=== PATIENT | female | born 1935 | race Caucasian/White ===

== ENCOUNTER 2017-03-29 11:42 | Inpatient (IN) ==
[2017-03-29 12:55] LABS: BASO% 0.2 % (0.0-0.8); EOS# 0.03 X1000 (0.0-0.7); EOS% 0.2 % (0.0-10.0); HEMATOCRIT 40.3 % (37.0-47.0); HEMOGLOBIN 13.8 g/dL (12.0-16.0); IMM GRAN# 0.04 X1000 (0.0-0.04); IMM GRAN% 0.3 % (0.0-0.5); LYMPH# 0.71 X1000 (1.2-3.4); LYMPH% 5.5 % (20.5-51.1); MANUAL DIFF NEEDED? NO; MCH 31.4 PG (27-31); MCHC 34.2 g/dL (33-37); MCV 91.8 FL (81-99); MONO# 0.99 X1000 (0.11-0.59); MONO% 7.7 % (1.7-9.3); MPV 12.6 FL (7.4-10.4); NEUT% 86.1 % (42.2-75.2); PLT 152 X1000 (130-400); RBC 4.39 XMIL (4.2-5.4)
[2017-03-29 13:00] LABS: ALBUMIN 3.9 g/dL (3.5-5.0); CALCIUM 8.9 mg/dL (8.8-10.2); POTASSIUM 3.3 mmol/L (3.5-5.1); TOTAL BILIRUBIN 1.97 mg/dL (0.20-1.00); TOTAL PROTEIN 7.1 g/dL (6.3-8.3)
--- NOTE | 2017-03-29 14:17 | PROVIDER DOCUMENTATION ---
This chart was entered by Donny Ortiz Scribe, acting as scribe for Sandip Macedo MD. HPI-General Adult - General Chief Complaint: Weakness Stated Complaint: WEAKNESS Time Seen by Provider: 03/29/17 11:46 Source: patient, family Allergies/Adverse Reactions: Patient Allergies Allergy/AdvReac Type Severity Reaction Status Date / Time No Known Allergies Allergy Verified 03/29/17 12:18 Home Medications: Home Medication List Medication Instructions Recorded Confirmed Last Taken Type Aripiprazole [Abilify] 2 mg PO DAILY 08/18/12 03/29/17 03/29/17 08:00 History Chlorthalidone 12.5 mg PO DAILY 08/18/12 03/29/17 03/29/17 08:00 History Gabapentin [Neurontin] 300 mg PO TID 08/18/12 03/29/17 03/29/17 08:00 History Hydrocodone/Acetaminophen [Lortab 7.5 mg PO TID 08/18/12 03/29/17 03/29/17 08: 00 History 7.5-500 Tablet] Metoprolol Succinate E.r. [Toprol 50 mg PO BID 08/18/12 03/29/17 03/29/17 08:00 History Xl] Ranitidine [Zantac] 150 mg PO DAILY 08/18/12 03/29/17 03/29/17 08:00 History Lorazepam [Ativan] 0.5 mg PO DAILY 10/27/16 03/29/17 03/29/17 08:00 History Mirtazapine [Remeron] 15 mg PO QHS 10/27/16 03/29/17 03/28/17 20:00 History Potassium Chloride E.r. [Micro-K] 10 meq PO DAILY 10/27/16 03/29/17 03/29/17 08: 00 History Quetiapine Fumarate [Quetiapine 0.5 - 1 tab PO HS 03/29/17 03/29/17 03/28/17 20: 00 History Fumarate] - History of Present Illness -Gen Adult Nature of Presenting Problems: PT DAUGHTER STATED "MY MOTHER IS USUALLY ABLE TO WALK WITHOUT ASSISTANCE TO THE BATHROOM AND KITCHEN TABLE BUT SHE DOES STAY IN THE BED FOR MOST OF THE TIME EVERYDAY,BUT TODAY SHE WAS UNABLE TO STAND OR WALK TODAY". Location of Pain/Injury: reports: generalized Pain Radiation: reports: no radiation Quality of Pain: reports: aching (HX OF CHRONIC PAIN) Severity: reports: mild Onset/Duration: reports: just prior to arrival Timing: reports: still present Context/Activities at Onset: reports: none Modifying Factors: improves with: nothing Associated Symptoms: reports: denies symptoms. denies: chest pain, cough, diaphoresis, shortness of breath Similar Symptoms Previously?: Yes Recently seen or treated by another doctor?: Yes (PT WAS SEEN BY DR.LNDSEY MURRY HER PCP 2 DAYS AGO.) Review of Systems - Adult - REVIEW OF SYSTEMS - ADULT Constitutional: denies: chills, fever, night sweats Eyes: denies: discharge, decreased vision, double vision Ears, Nose, Mouth & Throat: denies: ear pain, sinus problem, mouth/dental pain, throat pain, throat swelling Cardiovascular: denies: chest pain, irregular heart rate, palpitations Respiratory: denies: cough, shortness of breath, wheezing Gastrointestinal: denies: abdominal pain, diarrhea, nausea, vomiting Genitourinary: denies: dysuria, flank pain, hematuria, urinary retention, urgency Musculoskeletal: reports: other (PT HAS HX OF CHRONIC PAIN) Integumentary: denies: hives, itching, rash Neurological: denies: dizziness/vertigo, headache/migraines, seizure, syncope All Other Systems: Reviewed and Negative Past History - Adult - PAST MEDICAL HISTORY-ADULT Review of Records: reports: Nursing Assessment Review, Medications Reviewed Major Childhood Illnesses: reports: denies history Cardiovascular: reports: HTN, hyperlipidemia Psychiatric: reports: anxiety Other Conditions: reports: cataract/glaucoma, other (HERNIA) - PRIOR SURGERIES/PROCEDURES Surgical/Procedure History: reports: orthopedic (extremity), other (CATARACT) - IMMUNIZATION STATUS Childhood Immunizations: See Nurse Assessment Flu Vaccine: See Nurse Assessment - SOCIAL HISTORY Smoking: denies Substance Use: none/never Alcohol Use Frequency: never Living Situation: family Physical Exam-General - CONSTITUTIONAL General Appearance: alert, no apparent distress, slow to respond - EYES Eyes: PERRL/EOMI, pink conjunctivae - HEAD, EARS, NOSE, MOUTH & THROAT HENMT: normocephalic/atraumatic, moist mucous membranes, normal ENT inspection - NECK Neck: non-tender, full range of motion, supple, normal inspection - RESPIRATORY Respiratory: chest non-tender, lungs clear, normal breath sounds, no pleuratic chest pain, no respiratory distress, no accessory muscle use - CARDIOVASCULAR Cardiovascular: normal peripheral pulses, regular rate, rhythm, no edema, no gallop, no JVD, no murmur - GASTROINTESTINAL (ABDOMEN) Abdominal Exam: normal bowel sounds, non tender, soft, no organomegaly, no pulsatile mass - LYMPHATIC Lymphatic: no adenopathy - MUSCULOSKELETAL Back Exam: normal inspection, no CVA tenderness, no vertebral tenderness Extremity: normal range of motion, non-tender, normal gait, normal inspection, no pedal edema, no calf tenderness, normal capillary refill - SKIN Integumentary: normal color, normal turgor, warm/dry - PSYCHIATRIC Psych/Mental Status: normal mood/affect, normal thought content, normal thought process, oriented x 3 Progress - PLAN OF CARE/RESULTS Progress/Plan/Lab Results: Vital Signs - 8 hr 03/29/17 11:56 Temperature 98.5 F Pulse Rate 103 H Respiratory Rate 29 H Blood Pressure 137/89 O2 Sat by Pulse Oximetry 91 L Orders Category Date Time Status Shoulder Immobilizer DIRECTED Care 03/29/17 12:40 Active CHEST-PORTABLE [RAD] Stat Exams 03/29/17 12:07 Taken CBC WITH ELECTRONIC DIFF [HEME] Stat Lab 03/29/17 12:30 Results COMPREHENSIVE METABOLIC PANEL [CHEM] Stat Lab 03/29/17 12:30 Received TSH Stat Lab 03/29/17 12:30 Received UA NIMS W/REFLEX CULT [URINALYSIS] Stat Lab 03/29/17 12:06 Uncollected Result Diagrams: 03/29/17 12:30 03/29/17 12:30 - REASSESSMENT Reassessment #1 Status: unchanged Reassessment Comment: very abn LFT's - discussed with Dr Alexandre who recommends admission - EKG 1 Time of EKG reading by physician:: 11:43 EKG Read and Signed by:: Allie Poe Rate: 103 Rhythm: SINUS TACHYCARDIA WIT PAC'S [place]: normal QRS: normal [place] Interval: normal ST Wave: normal - CONSULTS/PCP/HOSPITALIST Notification #1 *Consult/PCP/Hospitalist*: Dr Payne Time Discussed: 14:15 Departure - Departure Time of Disposition Decision: 14:16 DIAGNOSIS: Hepatitis Disposition: ADMITTED INPATIENT 09 Certified Medical Emergency: Emergent Condition: Fair Referrals and Follow-Ups: Berenice Murry [Primary Care Provider] - - Critical Care Note This patient required my direct & personal management of CC.: No This chart was documented by the indicated scribe, (Donny Ortiz Scribe) and accurately reflects the services I performed and decisions made by me, Sandip Macedo MD, as attested by the provider's signature.
[2017-03-29 14:28] LABS: INR 1.08; PROTIME 11.4 Seconds (9.2-11.7)
[2017-03-29 14:37] LABS: HEMOGLOBIN A1C 5.4 % (4.8-6.0)
[2017-03-29 14:56] LABS: URINE MICRO REVIEW NEEDED? NO; URINE SOURCE CATH
[2017-03-29 15:01] LABS: BILIRUBIN URINE MODERATE (NEGATIVE); BLOOD URINE NEGATIVE (NEGATIVE); COLOR YELLOW; GLUCOSE URINE NEGATIVE (NEGATIVE); LEUKOCYTES URINE SMALL (NEGATIVE); NITRITE URINE NEGATIVE (NEGATIVE); PROTEIN URINE 50 mg/dL (NEGATIVE); SP GRAVITY URINE 1.035; TURBIDITY URINE CLEAR (CLEAR); UROBILINOGEN URINE >12 mg/dL (NORMAL)
[2017-03-29 15:03] LABS: UR EPITHELIAL CELLS <10 /HPF (<10); URINE BACTERIA NEGATIVE /HPF; URINE CULTURE NEEDED? YES; URINE RBC <10 /HPF (<10); URINE WBC <10 /HPF (<10)
[2017-03-29 16:10] LABS: AMYLASE 54 U/L (20-200); LIPASE 16 U/L (13-60)
[2017-03-29] MEDS ORDERED: BLISTEX MEDICATED BERRY LIP BALM TOP ONE (16:19)
[2017-03-29 17:24] LABS: ALBUMIN 3.7 g/dL (3.5-5.0); DIRECT BILIRUBIN 0.9 mg/dL (0.00-0.20); LDH 318 U/L (135-214); TOTAL BILIRUBIN 1.66 mg/dL (0.20-1.00); TOTAL PROTEIN 6.2 g/dL (6.3-8.3)
[2017-03-29] MEDS ORDERED: ZOFRAN IV PRN (17:46)
[2017-03-29 18:15] LABS: ALLEN TEST NO; BE 4.4 mmoll (-3.0-3.0); BLOOD TYPE ARTERIAL; DRAW SITE R BRACHIAL; METHB 1.5 % (0.0-1.5); MODALITY CANNULA; O2(CT) 17.8 mL/dL (15.0-23.0); PCO2(98.6) 32 mmHg (35-45); PO2(98.6) 55 mmHg (60-100); SAMPLE BLOOD; SAO2 94.8 % (95.0-100.0); THB 13.9 g/dL (11.5-17.4); pH(98.6) 7.53 (7.35-7.45)
[2017-03-29] MEDS ORDERED: NS NEB INH SCH (18:15)
[2017-03-29] MEDS ORDERED: LOVENOX SUBQ SCH (18:18)
--- NOTE | 2017-03-29 18:28 | Diag Imaging Result Document ---
PROCEDURE NAME: CHEST-PORTABLE - 03/29/2017 PORTABLE CHEST: COMPARISON: 09/24/2016. FINDINGS: Inspiration is shallow. There is atelectasis at the bilateral lung bases, most prominent on the left. The remainder of the lungs appear grossly clear of acute changes. There is no substantial pleural effusion or pneumothorax identified. There is apparent cardiomegaly. IMPRESSION: Shallow inspiration with bibasilar atelectasis. Apparent cardiomegaly.
[2017-03-29] MEDS: NEURONTIN PO SCH (18:31)
[2017-03-29] MEDS: NS 1,000 ML IV SCH ×2 (18:31→23:36)
[2017-03-29] MEDS: XOPENEX NEB INH SCH ×2 (18:32→22:45)
[2017-03-29] MEDS: PROTONIX IV SCH (18:34)
--- NOTE | 2017-03-29 19:02 | HISTORY AND PHYSICAL ---
PRIMARY CARE PROVIDER: Sanam Murry. CHIEF COMPLAINT: Weakness for 2 weeks. HISTORY OF PRESENT ILLNESS: Ms Naima Carson is a 81-year-old female with a history of fibromyalgia, anxiety, depression, syncopal episodes with implantable loop recorder states that for the last 2 weeks she has felt weak, just generalized weakness. She has associated chills, nausea, some vomiting. She states she has bowel movements about once every 2 days and she also states that last night she had bilateral upper quadrant pain that subsided after taking hydrocodone. She decided she needed medical assistance when she tried to get up this morning she felt like her knees were going to buckle underneath her. Lab work revealed that she does have elevated liver enzymes. Bilirubin is elevated at 1.97, AST is 508, ALT is 297. Urine showed that she had moderate amount of bilirubin in it. She also has elevated white blood cell count at 12,000 but she is afebrile. Chest x-ray has been obtained but not read yet. She is currently having a abdominal ultrasound performed. Will admit to the medical floor. Consult Dr. Alexandre for the patient's elevated liver enzymes. Will order physical therapy for weakness. PAST MEDICAL HISTORY: Hypertension, dyslipidemia, fibromyalgia, anxiety, depression and syncope of unknown origin status post loop recorder in place. SURGICAL HISTORY: Loop recorder, cataract surgery. SOCIAL HISTORY: Denies tobacco, alcohol or illicit drug use. Lives at home with her . States she is able to ambulate without difficulty prior to the last 2 weeks. FAMILY HISTORY: Mother and father both had congestive heart failure. REVIEW OF SYSTEMS: Fourteen point review of systems were complete and all were negative except for those mentioned above HPI. LABORATORY DATA: White blood cells 12,000, hemoglobin 13, hematocrit 40, platelet count 152,000. INR 1.08, sodium 137, potassium 3.3, BUN 21, creatinine is 1.2, glucose 124, hemoglobin A1c is 5.4, total bilirubin is 1.97, AST 508, ALT 297, alkaline phosphatase is 161, TSH is 0.52. Urinalysis 50 protein, moderate bilirubin, greater than 12 urobilinogen and small leukocytes, otherwise negative. IMAGING: Chest x-ray is not resulted and abdominal ultrasound is not resulted. PHYSICAL EXAMINATION: VITAL SIGNS: Temperature is 98.5 degrees, heart rate 97, respiratory rate 22, blood pressure 119/64, O2 saturation 91% on room air. GENERAL: Ms. Carson is an 81-year-old ill-appearing female. She is in no acute distress, is able to answer questions appropriately. HEENT: Atraumatic, normocephalic. Pupils equal, round, reactive to light. Extraocular movements intact. Mucous membranes are very dry. NECK: No JVD or carotid bruits noted. CARDIOVASCULAR: S1, S2. Regular rate and rhythm. No rubs, gallops, murmurs. PULMONARY: Clear to auscultate with bilateral breath sounds but decreased in both bases anterior posteriorly currently on room air but will be placed on nasal cannula secondary to saturations of 89-90%. No accessory muscle use or work of breathing noted. GI: Soft, nontender, nondistended. Positive bowel sounds x4. EXTREMITIES: Trace edema lower extremities, +1 dorsalis pedal pulses, +2 radial pulses. SKIN: Warm, dry, intact. NEUROLOGIC: A and O x3. Moved all extremities equally except for the lower extremities were about a 4/5 in strength. Sensation was intact. ASSESSMENT AND PLAN: 1. Generalized weakness. Will order physical therapy and monitor daily labs, is questionable whether this is secondary to her liver enzymes elevate. 2. Transaminitis, hyperbilirubinemia, is unclear as to what is this cause, she has had some abdominal pain right and left upper quadrant that was last night. She had some nausea and some vomiting but she states none today. She has had orange colored urine and she states that all started about within the last [address] Alexandre has been consulted and her abdominal ultrasound being performed at the bedside at this moment. Hepatitis profile been ordered, amylase, lipase will be ordered, IV fluid hydration. 3. Hypertension. Will continue home medications. 4. Dyslipidemia, hold any statins given this can possibly cause weakness and due to the fact that she has elevated liver enzymes. 5. Anxiety, depression. Continue home medications. 6. Fibromyalgia, continue home pain regimen. Dictated by LAYO Chilel for Nanci Muro MD cc: LAYO Chilel MD
--- NOTE | 2017-03-29 19:13 | Diag Imaging Result Document ---
PROCEDURE NAME: US ABDOMEN-COMPLETE - 03/29/2017 ULTRASOUND ABDOMEN: FINDINGS: The gallbladder is mildly distended. There are artifacts over the gallbladder which limit detail. There are no discrete gallstones identified. The gallbladder short do not appear substantially thickened, and there is no pericholecystic fluid identified. The technologist reports negative sonographic Enriquez's sign. The common bile duct is normal caliber at 4 mm. There are artifacts from bowel gas and/or body habitus which limit detail of the liver. There is no liver lesion identified. The spleen is unremarkable. There is no ascites seen. The bilateral kidneys are grossly unremarkable. There is no hydronephrosis. The pancreas, abdominal aorta, and IVC are obscured by bowel gas artifacts. IMPRESSION: 1. Mildly distended gallbladder. No gallstones identified. No substantial gallbladder wall thickening. Normal caliber common bile duct at 4 mm. 2. Artifacts over the liver which limit detail. No visible liver lesion. No other visible abnormality.
--- NOTE | 2017-03-29 21:01 | CONSULTATION ---
DATE OF CONSULTATION: 03/29/2017 REFERRING PHYSICIAN: Nanci Muro M.D. PRIMARY CARE PHYSICIAN: Sanam Murry M.D. INDICATION FOR CONSULTATION: 1. Elevated liver function tests. 2. Nausea with vomiting. 3. Abdominal pain. HISTORY OF PRESENT ILLNESS: The patient is an 81-year-old white female who states that she was in her usual state of health until approximately 2-3 weeks ago. She reports the onset of upper back pain that radiated into her lower back, pelvis and then into her legs bilaterally. She states that she was evaluated by a chiropractor who placed her on an oily droplet to be taken under the tongue once a day. Over the next 2 weeks, she reports that she has felt progressively worse. Approximately 24 hours prior to admission, she had the severe onset of epigastric and right upper quadrant pain associated with nausea and sour brash without complete regurgitation. She felt so ill that she was unable to get out of bed or to stand without assistance. She was brought by her family to the emergency room and found to have markedly elevated liver function tests. She reports shortness of breath, pain in her chest, upper stomach, low back and into her hips. She has a longstanding history of fibromyalgia but states that this pain is new and different. We are asked to participate in her care. From a GI perspective, her chart documents that she also has a history of gastroesophageal reflux disease, delayed gastric emptying on modified barium swallow, hiatal hernia, and is status post surgical repair of a paraesophageal hernia with a Shanique repair that was performed. PAST MEDICAL HISTORY: 1. Bilateral leg edema. 2. Hypertension. 3. Hyperlipidemia. 4. Chronic chest discomfort. 5. Syncope in August 2012 with a negative MRI for acute disease. She did have nonspecific white matter disease. 6. Dyspnea with abnormal PFTs in 2012. 7. 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 8. Chronic fatigue. 9. Fibromyalgia. 10. Chronic pain syndrome. 11. GERD. 12. Possible gastroparesis on a modified barium swallow study. 13. Depression. 14. Recurrent chronic headaches. 15. Hyperlipidemia. 16. Chronic kidney disease. PAST SURGICAL HISTORY: 1. Knee surgery in 1989. 2. Shanique gastroplasty in March 2013. SOCIAL HISTORY: Negative for alcohol, tobacco or recreational drug use. FAMILY HISTORY: Positive for severe coronary artery disease. MEDICATION ALLERGIES: None. HOME MEDICATIONS: 1. Zantac 150 mg daily. 2. Quetiapine. 3. Potassium chloride. 4. Remeron. 5. Toprol. 6. Ativan. 7. Lortab 7. 8. Neurontin. 9. Chlorthalidone. 10. Abilify. 11. Oil droplets administered by her chiropractor. PHYSICAL EXAM: General: She is tachypneic in mild expiratory distress. She is moaning in pain whenever she is moved. Vital signs: Her blood pressure is 134/60, pulse is 99, respiration 18, temperature of 99.6 degrees. Her initial oxygen saturation was 85% on room air. We had the patient take multiple deep breaths and her oxygen saturation improved to 98%. After being placed on 2 L of oxygen, her oxygen saturation dropped down to 94% where it remains stable. HEENT: Negative for jaundice. Her conjunctivae appeared normal. Her oropharyngeal mucosal membranes appear dry. Lungs: Are clear to auscultation with normal respiratory effort. Cardiovascular Examination: Reveals regular rate and rhythm with no murmurs, gallops, or rubs. Abdominal Exam: Reveals normoactive bowel sounds. The abdomen is soft with mild tenderness along the edge of her ribs bilaterally. There is minimal epigastric tenderness but no rebound or guarding. Extremities: Bilaterally are negative for cyanosis, clubbing, or edema. OBJECTIVE DATA: Reveals a hemoglobin of 13.8 with hematocrit of 40.3 and a white count of 12.84 with 152,000 platelets. Her PT is 11.4 with an INR of 1.08. Her blood gas reveals a pH of 7.53 with a pCO2 of 32 and a PO2 of 55 on 2 L oxygen. On admission her sodium was 137, potassium 3.3, chloride 98, CO2 27, BUN 21, creatinine 1.2 with a glucose of 124. Calcium is 8.9 with a total bilirubin 1.97, AST 508, ALT 297, alkaline phosphatase 161, total protein 7.1 and albumin 3.9. Her amylase is 54 with a lipase of 16. Repeat liver function tests at 1530 showed that the total bilirubin is decreased to 1.66. Her direct bilirubin 0.90. Her AST is decreased to 398, her ALT is decreased to 261 and her alkaline phosphatase is decreased to 150. Her total protein is 6.2 with an albumin of 3.7. Her CRP is elevated at 58.25. IMPRESSION: 1. Nausea with possible early vomiting. 2. Elevated liver function tests. 3. Acute upper abdominal pain prior to the onset of symptoms. 4. Chronic reflux disease. 5. Possible gastroparesis on swallow study. 6. History of a paraesophageal hernia. 7. Dyspnea. 8. Back pain. RECOMMENDATION: 1. From a GI perspective, her liver function tests are improving. I suspect that she may be passing stones or sludge that would account for her elevated liver function tests and nausea with regurgitation/early vomiting. It would also explain her epigastric pain and the bilateral rib pain. 2. Other diagnoses to consider include ulcer disease, medication side effect toxicity, autoimmune liver disease and viral hepatitis. I agree with the tests that have been ordered to explain this. 3. The patient denies a change in bowel habits but is also reasonable to consider celiac disease in the differential as well as Mitul disease. 4. Please check an abdominal pelvis CT with oral contrast only in light of her chronic kidney disease. She is a poor historian so this will allow us to identify objective features. 5. She has a history of GERD and currently complains of nausea. I would begin Protonix 40 mg IV q.12 hours and hold the H2 receptor antagonist until she is back to baseline. It is reasonable to consider resuming the H2 receptor antagonist for maintenance once the patient has been effectively treated for her nausea. 6. Patient has dyspnea and hypoxia. I would consider checking a V/Q scan as well as an ABG to rule out pulmonary embolus in this patient as she has been sedentary for the last 2 weeks. 7. The family was asked to contact the chiropractor to identify the solution that she has been using for the last 2 weeks. 8. I would repeat a vitamin B12 level as she is receiving supplementation for vitamin B12 deficiency. She has completed the daily injections for 7 days and is currently receiving weekly injections. 9. If her symptoms persist, I would consider endoscopic evaluation. However, at this time I would continue with conservative therapy. 10. Additional recommendations to follow based on her clinical course. cc: Sanam Murry MD MTDD
[2017-03-29] MEDS: TOPROL XL PO SCH (23:41)
[2017-03-29] MEDS: SEROQUEL PO SCH (23:41)
[2017-03-29] MEDS: POTASSIUM CHLORIDE 20 MEQ/SWI 20 MEQ/100 ML IVPB IV SCH (23:41)
[2017-03-29] MEDS: REMERON PO SCH (23:41)
[2017-03-30] MEDS: POTASSIUM CHLORIDE 20 MEQ/SWI 20 MEQ/100 ML IVPB IV SCH (02:15)
[2017-03-30] MEDS: XOPENEX NEB INH SCH ×4 (03:26→23:16)
[2017-03-30] MEDS: SODIUM CHLORIDE 0.9% INJ SCH ×2 (05:38→18:35)
[2017-03-30] MEDS: PROTONIX IV SCH ×2 (05:38→18:35)
--- NOTE | 2017-03-30 06:20 | EKG Report ---
Test Performed on : 03/30/2017 05:25:13 AM Test Reason : chest pain Blood Pressure : / mmHG Vent. Rate : 085 BPM Atrial Rate : 085 BPM P-R Int : 176 ms QRS Dur : 090 ms QT Int : 380 ms P-R-T Axes : 057 015 055 degrees QTc Int : 452 ms Normal sinus rhythm. Normal ECG When compared with ECG of 19-AUG-2012 18:48, Vent. rate has increased BY 32 BPM T wave amplitude has decreased in Anterior leads Confirmed by Erin JACKSON, Wm Pandey ([id number]) on 03/30/2017 7:32:37 AM
[2017-03-30 07:00] LABS: MANUAL DIFF NEEDED? NO
[2017-03-30 07:12] LABS: BASO% 0.4 % (0.0-0.8); EOS# 0.07 X1000 (0.0-0.7); EOS% 0.9 % (0.0-10.0); HEMATOCRIT 37.1 % (37.0-47.0); HEMOGLOBIN 12.3 g/dL (12.0-16.0); LYMPH# 0.78 X1000 (1.2-3.4); LYMPH% 10.5 % (20.5-51.1); MCH 30.9 PG (27-31); MCHC 33.2 g/dL (33-37); MCV 93.2 FL (81-99); MONO# 0.49 X1000 (0.11-0.59); MONO% 6.6 % (1.7-9.3); MPV 12.3 FL (7.4-10.4); NEUT% 81.6 % (42.2-75.2); PLT 110 X1000 (130-400); RBC 3.98 XMIL (4.2-5.4)
[2017-03-30 07:30] LABS: ALBUMIN 2.9 g/dL (3.5-5.0); CALCIUM 8.3 mg/dL (8.8-10.2); POTASSIUM 3.6 mmol/L (3.5-5.1); TOTAL BILIRUBIN 2.06 mg/dL (0.20-1.00); TOTAL PROTEIN 5.9 g/dL (6.3-8.3)
[2017-03-30] MEDS: ROCEPHIN 1 GM/NS 1 GM/50 ML IVPB IV SCH (07:47)
--- NOTE | 2017-03-30 07:52 | Diag Imaging Result Document ---
PROCEDURE NAME: LUNG SCAN / VQ - 03/29/2017 PULMONARY VENTILATION PERFUSION SCAN, 03/30/2017: COMPARISON: Chest CT 03/29/2017. FINDINGS: 38 millicurie of DTPA was used for inhalation. 5.6 mCi of MAA was used for injection. There is no pulmonary perfusion defect. IMPRESSION: Negative for pulmonary embolism.
[2017-03-30 08:01] LABS: INR 1.26; PROTIME 13.4 Seconds (9.2-11.7)
[2017-03-30] MEDS ORDERED: PRILOSEC PO SCH (09:00)
[2017-03-30] MEDS ORDERED: HYGROTON PO SCH (09:00)
[2017-03-30] MEDS ORDERED: ZANTAC PO SCH (09:00)
[2017-03-30] MEDS: ZITHROMAX 500 MG/NS 500 MG/250 ML IVPB IV SCH (09:07)
[2017-03-30] MEDS: ABILIFY PO SCH (09:08)
[2017-03-30] MEDS: KLOR-CON PO SCH (09:08)
[2017-03-30] MEDS: NEURONTIN PO SCH ×3 (09:09→18:33)
[2017-03-30] MEDS: TOPROL XL PO SCH ×2 (09:09→23:17)
[2017-03-30] MEDS: ATIVAN PO SCH (09:12)
--- NOTE | 2017-03-30 09:55 | Diag Imaging Result Document ---
PROCEDURE NAME: THORAX/ABDOMEN/PELVIS W/O CONT - 03/29/2017 CT OF THE CHEST WITHOUT CONTRAST: FINDINGS: There is a large hiatal hernia through which the splenic flexure of the colon, the stomach and the body of the pancreas Herniates. The splenic vein and artery are within the hernia. There is atelectasis and/or pneumonia in the left lower lobe which may largely be due to the compression due to the large hernia. Less severe compressive atelectasis is present in the right base. There is a small azygous lobe. The aorta is not distended. There is extensive coronary calcification. There is no significant pleural fluid. There is some osteopenia in the thoracic spine. There are no acute bony abnormalities. IMPRESSION: Large hiatal hernia as described. Compressive atelectasis +/- fibrosis. CT OF THE ABDOMEN WITH ORAL CONTRAST: FINDINGS: The hiatal hernia is again noted. There are granulomata in the spleen. No evidence of pericholecystic inflammation is present. There is stool throughout the colon. There is no evidence of stones or hydronephrosis in the kidneys. There is oral contrast throughout much of the small bowel. This has apparently almost reached the cecum. CT OF THE PELVIS WITH ORAL CONTRAST: FINDINGS: There is no evidence of appendicitis. There are subcentimeter ileocolic nodes. There is stool throughout the colon. There is diverticulosis in the sigmoid colon without evidence of diverticulitis. There is no evidence of masses or abnormal fluid collections. There is an apparent hemangioma in the right side of the L2 vertebral body. There are some spondylotic changes. IMPRESSION: No evidence of acute intra-abdominal disease. Constipation.
[2017-03-30] MEDS ORDERED: LOVENOX SUBQ SCH (11:30)
[2017-03-30 11:32] LABS: HEPATITIS PROFILE ACUTE SEE COMMENTS
--- NOTE | 2017-03-30 14:25 | PROGRESS NOTE ---
DATE: 03/30/2017 SUBJECTIVE: The patient states that she feels a lot better today. She is sitting at the edge of the bed. She is more awake and alert as per her family. No acute events noted overnight. OBJECTIVE: Vital Signs: Temperature 98.9 degrees, blood pressure 129/66, heart rate 90, respirations 18, O2 saturation is 98% on 2 L nasal cannula. General: This is an elderly female, sitting at the edge of the bed, in no acute distress. Head: Normocephalic, atraumatic. Heart: S1, S2. Normal. Regular rate and rhythm. Lungs: Equal air entry bilaterally. Decreased breath sounds at the left lung base. Abdomen: Positive bowel sounds. Soft, nontender , nondistended. Extremities: No edema. No cyanosis. Neurologic: The patient is alert and oriented x3. LABS: White blood cell count 7.4, hemoglobin 12, hematocrit 37, platelets 110, 000. Sodium 138, potassium 3.6, chloride 100, CO2 24, BUN 23, creatinine 1, glucose 92, total bilirubin 2, AST 175, ALT 165, alkaline phosphatase 117, albumin 2.9, total protein 5.9, vitamin D 6. ASSESSMENT AND PLAN: 1. Left lower lobe pneumonia. We will continue on Rocephin and azithromycin. We will add incentive spirometry. So far the blood cultures are negative. 2. Elevated liver function tests. Slowly improving. The patient's imaging was reviewed and there is nothing acute to explain the patient's elevated LFTs. Will await the results of the serologies. GI is following. 3. Large hiatal hernia. Aware. 4. Leukocytosis. Resolved. 5. Vitamin D deficiency. Will start the patient on vitamin D2. 6. Right lower extremity deep vein thrombosis. We will start the patient on Eliquis. 7. Hypertension. Controlled. 8. Thrombocytopenia. The patient has been exposed to heparin. Will check a HIT antibody. 9. Back pain. The patient is scheduled to undergo an MRI of the thoracic and lumbar spine today. 10. Gastrointestinal prophylaxis. Continue on IV Protonix. 11. The plan of care was discussed with the patient and her family at the bedside and all questions were answered. cc: Nanci Muro MD MTDD
[2017-03-30] MEDS: NS 1,000 ML IV SCH (15:49)
[2017-03-30] MEDS ORDERED: VITAMIN D PO SCH (18:30)
--- NOTE | 2017-03-30 18:37 | PROGRESS NOTE ---
DATE: 03/30/2017 SUBJECTIVE: The patient states that she is significantly better. She continues to improve with IV antibiotics for her pneumonia. Her daughter brought in the herbal supplement that she was taken for pain control. It is Bryonia, which is a alternative medicine supplement for pain. It is associated with significant GI adverse reactions. OBJECTIVE DATA: Remarkable for a blood pressure of 129/66, pulse 87, respiration 19, temperature of 98.9 degrees. OBJECTIVE LABS: Her hemoglobin is 12.3 with hematocrit of 37.1 and white count 7.42 with 110,000 platelets. Her PT 13.4 with an INR 1.26 and a PTT of 31.0. Sodium is 138, potassium 3.6, chloride 100, CO2 24, BUN 23, creatinine 1.0 with a glucose of 92. Calcium is 8.3, magnesium 1.5, total bilirubin 2.06, AST 175, ALT 165, alkaline phosphatase 117, total protein 5.9, albumin 2.9, vitamin B12 596. Her TRAVON was negative. Her vitamin D 25-hydroxy is 6.0. Her hepatitis A, B and C are negative. Her V/Q scan was negative for pulmonary edema. Her CT scan reveals a large ventral hernia that includes the splenic flexure the colon, the entire stomach and the body of the pancreas. RECOMMENDATION: 1. From a hepatitis perspective, the patient has had interval improvement with minimal intervention. I have asked her to avoid any and all herbal supplements in the future as Bryonia has the potential cause adverse GI side effects. I recommend continued monitoring as an outpatient as long as she is continuing to do well. It will be important for us to see her in 2-3 weeks to recheck her liver function test and to ensure she makes a complete recovery. 2. The patient has a large hiatal hernia. Her daughter reports that she had ventral hernia surgery performed by Dr. Chong over in [place]. I do not have previous films for comparison. I have recommended that they contact Dr. Chong upon discharge. I discussed her CT findings with Dr. Niko Jamison in the event that she has acute GI distress. From our perspective, we will continue monitoring. 3. The patient has vitamin D deficiency with a vitamin D level of 6. I recommend that she receive vitamin D 50,000 units twice a week until she returns to clinic. Will recheck the level and consider long-term supplementation in light of her profound deficiency. In the future, she may require an EGD to determine why she has such profound vitamin D deficiency. In addition, I will check a tissue transglutaminase and serum IgA prior to discharge to assess for celiac disease. 4. Will continue to monitor the patient and I recommend continuing supportive care. cc: Nanci Muro MD
[2017-03-30] MEDS: ELIQUIS PO SCH (23:17)
[2017-03-30] MEDS: SEROQUEL PO SCH (23:17)
[2017-03-30] MEDS: REMERON PO SCH (23:17)
[2017-03-31] MEDS: XOPENEX NEB INH SCH ×3 (03:30→15:38)
[2017-03-31] MEDS: NORCO-7.5 PO PRN ×2 (04:00→15:00)
[2017-03-31] MEDS: SODIUM CHLORIDE 0.9% INJ SCH (05:56)
[2017-03-31] MEDS: ROCEPHIN 1 GM/NS 1 GM/50 ML IVPB IV SCH (05:56)
[2017-03-31] MEDS: PROTONIX IV SCH (05:56)
[2017-03-31 06:33] LABS: MANUAL DIFF NEEDED? NO
[2017-03-31 06:57] LABS: BASO% 0.4 % (0.0-0.8); EOS% 1.8 % (0.0-10.0); HEMATOCRIT 36.6 % (37.0-47.0); HEMOGLOBIN 11.8 g/dL (12.0-16.0); LYMPH# 0.55 X1000 (1.2-3.4); LYMPH% 10.1 % (20.5-51.1); MCH 30.3 PG (27-31); MCHC 32.2 g/dL (33-37); MCV 94.1 FL (81-99); MONO# 0.53 X1000 (0.11-0.59); MONO% 9.7 % (1.7-9.3); MPV 12.7 FL (7.4-10.4); PLT 110 X1000 (130-400); RBC 3.89 XMIL (4.2-5.4)
[2017-03-31 07:05] LABS: ALBUMIN 3.2 g/dL (3.5-5.0); CALCIUM 9.3 mg/dL (8.8-10.2); POTASSIUM 3.6 mmol/L (3.5-5.1); TOTAL BILIRUBIN 2.63 mg/dL (0.20-1.00); TOTAL PROTEIN 6.1 g/dL (6.3-8.3)
[2017-03-31] MEDS: NEURONTIN PO SCH ×2 (08:05→15:01)
[2017-03-31] MEDS: KLOR-CON PO SCH (08:05)
[2017-03-31] MEDS: ZITHROMAX 500 MG/NS 500 MG/250 ML IVPB IV SCH (08:05)
[2017-03-31] MEDS: ELIQUIS PO SCH (08:06)
[2017-03-31] MEDS: TOPROL XL PO SCH (08:06)
[2017-03-31] MEDS: ABILIFY PO SCH (08:07)
[2017-03-31 14:08] VITALS: BP 138/70
[2017-03-31] MEDS: ATIVAN PO SCH (15:41)
--- NOTE | 2017-03-31 22:38 | DISCHARGE SUMMARY ---
ADMISSION DATE: 03/29/2017 DISCHARGE DATE: 03/31/2017 CONSULTATIONS: Radha Alexandre MD with Gastroenterology. PERTINENT PROCEDURES: 1. V/Q scan was negative for PE. 2. Chest, abdomen and pelvis CT showed a large hiatal hernia, compressive atelectasis plus or minus fibrosis, no evidence of acute intraabdominal disease, constipation. DISCHARGE DIAGNOSES: 1. Left lower lobe pneumonia. Continue with antibiotics and aggressive pulmonary toilet. Improved. 2. Elevated liver function slowly improving followed by GI, still awaiting serologies. 3. Large hiatal hernia. Aware. Continue PPI. 4. Leukocytosis resolved. 5. Vitamin D deficiency. The patient was initiated on vitamin D2. 6. Right lower extremity DVT. Patient is on Eliquis. 7. Hypertension controlled. 8. Thrombocytopenia. 9. Chronic pain. 10. The patient was to undergo MRI of the thoracic spine as well as lumbar spine. Still awaiting those results. Continue with pain management. Stable. HOSPITAL COURSE: Briefly, Ms Carson is an 81-year-old, female with a history of fibromyalgia, anxiety, depression, syncopal episode with implantable loop recorder, who stated that for the last 2 weeks she has generalized weakness. She has had associated chills, nausea, some vomiting. She states that she has bowel movements about once every 2 days and that the night prior to her admission she had bilateral upper quadrant pain that subsided after taking hydrocodone. She came to the ED. When she got up, it felt like her knees were going to buckle underneath her. Lab work revealed elevated liver enzymes, bilirubin of 1.97, AST of 508, ALT 297. Urine showed a moderate amount of bilirubin in it, elevated white count of 12, 000. Chest x-ray showed shallow inspiration with bibasilar atelectasis and apparent cardiomegaly. A V/Q scan was performed that did not show any pulmonary emboli. Chest, abdomen and pelvis CT showed a large hiatal hernia. No evidence of acute intra-abdominal disease and constipation. Dr. Alexandre was consulted. Her serologies were pending and will follow up in 2-[address] Alexandre to reassess her liver function to ensure that she has made a complete recovery. In reference to her large hiatal hernia, she had surgery with Dr. Chong in [place]. Dr. Alexandre suggested that the patient contact Dr. Chong upon discharge. She did discuss the CT findings with Dr. Jamison. From their perspective they will continue monitoring. The patient was also noted to be vitamin D deficient and started on supplementation for generalized weakness. The patient worked with physical therapy and her statins were held in reference to her elevated liver enzymes. For her fibromyalgia she was kept on her pain regimen as well as medications for her anxiety and depression. Dr. Ramos has assessed the patient. He feels that she is appropriate for discharge today. The patient has had improvement in her liver function slowly. VITAL SIGNS AT DISCHARGE: Temperature is 98.1 degrees, heart rate 75, respirations 16, blood pressure 138/70, O2 is 97%. DISCHARGE DIET: Clear liquids. Advance as tolerated. DISCHARGE MEDICATIONS: 1. Abilify 10 mg p.o. daily. 2. Zithromax 250 mg p.o. daily. 3. Chlorthalidone 12.5 mg p.o. daily. 4. Vitamin D2 50,000 units p.o. q.7 days. 5. Neurontin 300 mg p.o. t.i.d. 6. Lortab 7.5500, 1 tab p.o. t.i.d. 7. Ativan 0.5 mg p.o. daily. 8. Toprol-XL 50 mg p.o. b.i.d. 9. Remeron 15 mg p.o. at bedtime. 10. Micro-K 10 mEq p.o. daily. 11. Quetiapine 25 mg tablet, 0.5-1 tab p.o. at bedtime. 12. Zantac 150 mg p.o. daily. FOLLOWUP: The patient is being discharged home. She will need to follow up with Dr. Chong in [place] in reference to her large hiatal hernia as well as follow up with Dr. Alexandre in 2-3 weeks to continue to monitor her liver enzymes as well as her primary care physician, Dr. Sanam Murry. The patient can return to the ED for any worsening of symptoms. DISCHARGE TIME: 30 minutes.. Dictated by LAYO Escobar for Ayad Ramos MD cc: Ayad Ramos MD [facility]
--- NOTE | 2017-04-01 07:55 | Extremity Venous Study ---
PROCEDURE NAME: Venous U/S Bilateral Legs - 03/30/2017 REQUESTING PHYSICIAN: Dr. Muro. AIRLINE RESERVATIONIST: Jenna. TEST: Bilateral lower extremity venous study. INDICATIONS: Edema of bilateral legs, previous comparison from 08/28/2012. PROCEDURE: Bilateral lower extremity venous duplex and color flow imaging. EQUIPMENT: Dynisid E9 ultrasound system with a 9 LD transducer. FINDINGS: Images of bilateral lower extremity venous systems were obtained in both sagittal and transverse planes. Doppler was used to evaluate veins for spontaneity, phasicity, respiratory excursion, and digital augmentation. RESULTS: Acute nonocclusive deep vein thrombosis in the distal right common femoral vein. There is also reflux noted in the right common femoral vein and right greater saphenous vein. There is also reflux noted in the left greater saphenous vein and popliteal vein. INTERPRETATION: Acute nonocclusive deep vein thrombosis in the distal right common femoral vein with reflux noted in the right common femoral, greater saphenous, left greater saphenous, and left popliteal vein. Per trace evidence technician's note, Dr. Muro was noted at 11:17 on 03/30/2017 with the results. cc: MD Carmela Garcia CRNP
[2017-04-01] MEDS ORDERED: ZITHROMAX PO SCH (09:00)
== END 2017-03-31 17:27 | disposition home or self-care (01) ==
LOC: SUPCPDRO → ED 11:42 → SUATTDRO 16:33 → 3N 16:33
PROVIDERS: ATTEND Internal Medicine

== ENCOUNTER 2018-12-08 05:04 | Inpatient (IN) ==
--- NOTE | 2018-12-08 05:41 | PROVIDER DOCUMENTATION ---
HPI-Fever - General Chief Complaint: Weakness Stated Complaint: a-fib Time Seen by Provider: 12/08/18 05:26 Source: patient Allergies/Adverse Reactions: Patient Allergies Allergy/AdvReac Type Severity Reaction Status Date / Time No Known Allergies Allergy Verified 07/07/18 15:02 Home Medications: Home Medication List Medication Instructions Recorded Confirmed Last Taken Type Aripiprazole [Abilify] 2 mg PO DAILY 08/18/12 12/08/18 07/06/18 History Gabapentin [Neurontin] 300 mg PO TID 08/18/12 12/08/18 07/06/18 History Hydrocodone/Acetaminophen [Lortab 7.5 mg PO TID 08/18/12 12/08/18 07/06/18 History 7.5-500 Tablet] Metoprolol Succinate E.r. [Toprol 50 mg PO BID 08/18/12 12/08/18 07/07/18 History Xl] Mirtazapine [Remeron] 15 mg PO QHS 10/27/16 12/08/18 07/07/18 History Potassium Chloride E.r. [Micro-K] 10 meq PO DAILY 10/27/16 12/08/18 07/07/18 History Quetiapine Fumarate 0.5 - 1 tab PO HS 03/29/17 12/08/18 07/07/18 History Ergocalciferol (Vitamin D2) 50,000 unit PO Q7D #10 capsule 03/31/17 12/08/18 Rx [Vitamin D] Citalopram [Celexa] 20 mg PO DAILY 07/07/18 12/08/18 Unknown History Apixaban [Eliquis] 5 mg PO BID #60 tab 07/14/18 12/08/18 Unknown Rx Budesonide/Formoterol Inhaler 2 puff INH RTBID #1 inhaler 07/14/18 12/08/18 Unknown Rx [Symbicort 80/4.5 Microgm Inhaler] Pramipexole [Mirapex] 0.125 mg PO DAILY 12/08/18 12/08/18 12/07/18 History ROSUVAstatin [Crestor] 1 tab PO DAILY 12/08/18 12/08/18 12/07/18 History - History of Present Illness-Fever Nature of Presenting Problem: Pt reports generalized weakness and fatigue with fever since 6:30pm last night. She states that she has had these spells in the past and usually needs to be admitted. Fever Severity/Quality: reports: low grade Onset/Duration: reports: last night Timing: reports: still present Severity: reports: mild Context: reports: none Recent Illness?: reports: none Fever Therapy GEOSPATIAL ENGINEER: Initiated Tylenol Cognitive Baseline: alert, oriented x3 Modifying Factors: improves with: rest Associated Symptoms: reports: fatigue Similar Symptoms Previously?: Yes Recently seen or treated by another doctor?: No Review of Systems - Adult - REVIEW OF SYSTEMS - ADULT Constitutional: reports: chills Eyes: reports: no symptoms reported, see HPI Ears, Nose, Mouth & Throat: reports: no symptoms reported, see HPI Cardiovascular: reports: no symptoms reported, see HPI Respiratory: reports: no symptoms reported, see HPI Gastrointestinal: reports: no symptoms reported, see HPI Genitourinary: reports: no symptoms reported, see HPI Musculoskeletal: reports: no symptoms reported, see HPI Integumentary: reports: no symptoms reported, see HPI Neurological: reports: no symptoms reported, see HPI Psychiatric: reports: no symptoms reported, see HPI Endocrine: reports: no symptoms reported, see HPI Hematologic/Lymphatic: reports: no symptoms reported, see HPI Allergic/Immunologic: reports: no symptoms reported, see HPI All Other Systems: Reviewed and Negative Past History - Adult - PAST MEDICAL HISTORY-ADULT Review of Records: reports: Nursing Assessment Review, Medications Reviewed, Social history reviewed & non-contributory. Major Childhood Illnesses: reports: denies history Cardiovascular: reports: HTN, hyperlipidemia Psychiatric: reports: anxiety Other Conditions: reports: cataract/glaucoma, other (HERNIA) - PRIOR SURGERIES/PROCEDURES Surgical/Procedure History: reports: orthopedic (extremity), other (CATARACT) - IMMUNIZATION STATUS Childhood Immunizations: See Nurse Assessment Flu Vaccine: See Nurse Assessment Physical Exam-General - PHYSICAL EXAM-ADULT Initial Vital Signs Reviewed: Yes - CONSTITUTIONAL General Appearance: appears well, alert, no apparent distress - EYES Eyes: PERRL/EOMI - HEAD, EARS, NOSE, MOUTH & THROAT HENMT: normocephalic/atraumatic, moist mucous membranes, normal ENT inspection, TMs normal - NECK Neck: non-tender, full range of motion, supple, normal inspection - RESPIRATORY Respiratory: chest non-tender, lungs clear, normal breath sounds, no pleuratic chest pain, no respiratory distress, no accessory muscle use - CARDIOVASCULAR Cardiovascular: normal peripheral pulses, regular rate, rhythm, no edema, no gallop, no JVD, no murmur - GASTROINTESTINAL (ABDOMEN) Abdominal Exam: normal bowel sounds, non tender, soft, no organomegaly, no pulsatile mass - LYMPHATIC Lymphatic: no adenopathy - MUSCULOSKELETAL Back Exam: normal inspection, no CVA tenderness, no vertebral tenderness Extremity: normal range of motion, non-tender, normal gait, normal inspection, no pedal edema, no calf tenderness - SKIN Integumentary: normal color, normal turgor, warm/dry - NEUROLOGIC Neurologic: 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-XII nml as tested, grossly normal, no motor/sensory deficits - PSYCHIATRIC Psych/Mental Status: normal mood/affect, normal thought content, normal thought process, oriented x 3 Progress - PLAN OF CARE/RESULTS Progress/Plan/Lab Results: Vital Signs - 8 hr 12/08/18 05:11 12/08/18 05:14 12/08/18 05:16 Temperature 100.5 F H Pulse Rate 109 H 109 H Respiratory Rate 30 H 30 H Blood Pressure 140/76 140/78 O2 Sat by Pulse Oximetry 86 L 95 86 L 12/08/18 05:20 12/08/18 05:30 12/08/18 05:33 Temperature Pulse Rate 105 H 114 H 109 H Respiratory Rate 27 H 25 H 24 Blood Pressure 120/62 O2 Sat by Pulse Oximetry 94 L 95 95 12/08/18 05:40 12/08/18 05:50 12/08/18 06:00 Temperature Pulse Rate 112 H 115 H 110 H Respiratory Rate 23 26 H 32 H Blood Pressure O2 Sat by Pulse Oximetry 95 93 L 94 L 12/08/18 06:03 12/08/18 06:10 Temperature Pulse Rate 108 H 116 H Respiratory Rate 33 H 24 Blood Pressure 103/58 O2 Sat by Pulse Oximetry 92 L 95 12/08/18 06:00 Influenza Screen - Final Nasopharyngeal Laboratory Results - last 24 hr 12/08/18 12/08/18 12/08/18 05:26 05:26 05:55 WBC 13.75 H RBC 4.33 Hgb 12.7 Hct 41.1 MCV 94.9 MCH 29.3 MCHC 30.9 L RDW Std Deviation 14.1 Plt Count 128 L MPV 12.6 H Immature Gran % (Auto) 0.3 Neut % (Auto) 83.9 H Lymph % (Auto) 6.5 L [place] % (Auto) 8.9 Eos % (Auto) 0.2 Baso % (Auto) 0.2 Immature Gran # (Auto) 0.04 Neut # (Auto) 11.53 H Lymph # (Auto) 0.89 L [place] # (Auto) 1.23 H Eos # (Auto) 0.03 Baso # (Auto) 0.03 Sodium 143 Potassium 3.1 L Chloride 104 Carbon Dioxide 24 L Anion Gap 15 BUN 17 Creatinine 0.8 Estimated GFR/1.73 m2 > 60 BUN/Creatinine Ratio 21 Glucose 92 Calculated Osmolality 286 Calcium 8.8 Total Bilirubin 1.25 H AST 113 H ALT 81 H Alkaline Phosphatase 564 H Total Protein 7.0 Albumin 3.8 Globulin 3.2 Albumin/Globulin Ratio 1.2 Plasma Lactate 1.4 Urine Source Urine Color Urine Clarity Urine Turbidity Urine pH Ur Specific [place] Urine Protein Ur Glucose (Stick) Urine Ketones Ur Ketones (Stick) Urine Blood Urine Nitrite Urine Bilirubin Urine Urobilinogen Urobilinogen Dipstick Urine Leukocytes Urine WBC (Auto) Urine RBC (Auto) U Epithel Cells (Auto) Urine Bacteria (Auto) Urine WBC Urine Glucose 12/08/18 12/08/18 06:55 06:56 WBC RBC Hgb Hct MCV MCH MCHC RDW Std Deviation Plt Count MPV Immature Gran % (Auto) Neut % (Auto) Lymph % (Auto) [place] % (Auto) Eos % (Auto) Baso % (Auto) Immature Gran # (Auto) Neut # (Auto) Lymph # (Auto) [place] # (Auto) Eos # (Auto) Baso # (Auto) Sodium Potassium Chloride Carbon Dioxide Anion Gap BUN Creatinine Estimated GFR/1.73 m2 BUN/Creatinine Ratio Glucose Calculated Osmolality Calcium Total Bilirubin AST ALT Alkaline Phosphatase Total Protein Albumin Globulin Albumin/Globulin Ratio Plasma Lactate Urine Source Cancelled CATH Urine Color Cancelled YELLOW Urine Clarity CLEAR Urine Turbidity Cancelled Urine pH Cancelled 6.0 Ur Specific [place] Cancelled 1.020 Urine Protein Cancelled TRACE A Ur Glucose (Stick) Cancelled Urine Ketones TRACE A Ur Ketones (Stick) Cancelled Urine Blood Cancelled NEGATIVE Urine Nitrite Cancelled NEGATIVE Urine Bilirubin Cancelled NEGATIVE Urine Urobilinogen 1.0 Urobilinogen Dipstick Cancelled Urine Leukocytes Cancelled Urine WBC (Auto) Cancelled Urine RBC (Auto) Cancelled U Epithel Cells (Auto) Cancelled Urine Bacteria (Auto) Cancelled Urine WBC NEGATIVE Urine Glucose NEGATIVE Orders Category Date Time Status Regular Diet Diet 12/08/18 08:01 Active CHEST-1 VIEW [RAD] Stat Exams 12/08/18 05:33 Completed BLOOD CULTURE [BLDCUL] Stat Lab 12/08/18 05:53 Received CBC WITH ELECTRONIC DIFF [HEME] Stat Lab 12/08/18 05:26 Completed COMPREHENSIVE METABOLIC PANEL [CHEM] Stat Lab 12/08/18 05:26 Completed Flu Swab [INFLUENZA SCREEN A/B] Stat Lab 12/08/18 06:00 Completed LACTATE, PLASMA [CHEM] Stat Lab 12/08/18 05:55 Completed 0.9% Sodium Chloride Inj [Ns] 1,000 ml Med 12/08/18 07:45 Discontinued .ROUTE As Directed Azithromycin 500 mg/Ns [Zithromax 500 mg/Ns] Med 12/08/18 08:01 Ordered 500 mg in 250 ml IV NOW Ns 1000 ml IV Bolus X1 Med 12/08/18 08:01 Ordered 0.9% Sodium Chloride Inj [Ns] 1,000 ml IV 999 mls/hr Rocephin 1 gm/Ns IV Now Med 12/08/18 08:01 Ordered CefTRIAXONE [Rocephin] 1 gm 0.9% Sodium Chloride Inj [Ns] 50 ml IV NOW EKG [EKG] Stat Ther 12/08/18 05:00 Ordered Result Diagrams: 12/08/18 05:26 12/08/18 05:26 - EKG 1 Time of EKG reading by physician:: 06:31 EKG Read and Signed by:: Felton Santana EKG Interpretation (*Must complete 3 of following elements*): Abnormal Rate: 115 Rhythm: regular ST Wave: non-specific ST changes Prior EKG Comparison: no prior EKG - CONSULTS/PCP/HOSPITALIST Notification #1 *Consult/PCP/Hospitalist*: HIRA FOR DR AQUINO Consult Disposition: Admit - CHANGE OF SHIFT REPORT (ED Provider) Report Given and Care Transferred to:: Dr Murry Time of Transfer: 07:00 Items Pending: Labs Departure - Departure Date of Disposition Decision: 12/08/18 Time of Disposition Decision: 08:03 DIAGNOSIS: Pneumonia, Leukocytosis, Lactic acidosis Disposition: ADMITTED INPATIENT 09 Certified Medical Emergency: Emergent Condition: Stable Referrals and Follow-Ups: Sanam Murry MD [Primary Care Provider] - - Critical Care Note This patient required my direct & personal management of CC.: No Attestation - Physician/ THANIA Attestation Patient care was provided by Advanced Practice Provider:: No The physician spent face to face time with patient:: Yes Advanced Practice Provider documentation review:: Supervising physician onsite and consulted in the evaluation and care of this patient. The physician did have a face to face encounter with the patient.
[2018-12-08 05:48] LABS: BASO# 0.03 X1000 (0.0-0.2); BASO% 0.2 % (0.0-0.8); EOS# 0.03 X1000 (0.0-0.7); EOS% 0.2 % (0.0-10.0); HEMATOCRIT 41.1 % (37.0-47.0); HEMOGLOBIN 12.7 g/dL (12.0-16.0); IMM GRAN# 0.04 X1000 (0.0-0.04); IMM GRAN% 0.3 % (0.0-0.5); LYMPH# 0.89 X1000 (1.2-3.4); LYMPH% 6.5 % (20.5-51.1); MCH 29.3 PG (27-31); MCHC 30.9 g/dL (33-37); MCV 94.9 FL (81-99); MONO# 1.23 X1000 (0.11-0.59); MONO% 8.9 % (1.7-9.3); MPV 12.6 FL (7.4-10.4); NEUT# 11.53 X1000 (1.4-6.5); NEUT% 83.9 % (42.2-75.2); PLT 128 X1000 (130-400); RBC 4.33 XMIL (4.2-5.4); RDW 14.1 % (11.5-14.5); WBC 13.75 X1000 (4.8-10.8)
--- NOTE | 2018-12-08 06:02 | Diag Imaging Result Doc PS360 ---
EXAM: CHEST-1 VIEW HISTORY: weakness TECHNIQUE: Chest single view COMPARISON: 07/13/2018 FINDINGS: Poor inspiratory effort. The heart is mildly prominent and there is vascular distention. There is a large hiatal hernia. There is a small left pleural effusion with left basilar atelectasis versus infiltrates. IMPRESSION: 1.Pulmonary edema with a small left pleural effusion 2.Hiatal hernia Electronically signed by Darwin Hughes 12/08/2018 6:00 AM
[2018-12-08 06:39] LABS: AGAP 15; ALB/GLOB RATIO 1.2; ALBUMIN 3.8 g/dL (3.5-5.0); ALKALINE PHOSPHATASE 564 U/L (32-104); BUN 17 mg/dL (8-22); CALCIUM 8.8 mg/dL (8.8-10.2); CHLORIDE 104 mmol/L (98-107); COSMO 286; CREATININE 0.8 mg/dL (0.5-0.9); ESTIMATED GFR > 60; GLUCOSE 92 mg/dL (70-104); GOT 113 U/L (10-30); GPT 81 U/L (10-36); POTASSIUM 3.1 mmol/L (3.5-5.1); SODIUM 143 mmol/L (136-145); TCO2 24 mmol/L (25-35); TOTAL BILIRUBIN 1.25 mg/dL (0.20-1.00)
[2018-12-08 07:30] LABS: URINE SOURCE CATH
[2018-12-08 07:39] LABS: BILIRUBIN URINE NEGATIVE (NEGATIVE); BLOOD URINE NEGATIVE (NEGATIVE); CLARITY CLEAR (CLEAR); COLOR YELLOW; GLUCOSE URINE NEGATIVE (NEGATIVE); KETONE URINE TRACE mg/dL (NEGATIVE); LEUKOCYTES URINE NEGATIVE (NEGATIVE); NITRITE URINE NEGATIVE (NEGATIVE); PROTEIN URINE TRACE mg/dL (NEGATIVE)
[2018-12-08] MEDS ORDERED: NS 1,000 ML ONE (07:45)
[2018-12-08] MEDS ORDERED: ROCEPHIN 1 GM in NS 50 ML IV ONE (08:01)
[2018-12-08] MEDS ORDERED: ZITHROMAX 500 MG/NS 500 MG/250 ML IVPB IV ONE (08:01)
[2018-12-08] MEDS ORDERED: NS 1,000 ML IV ONE (08:01)
[2018-12-08 08:07] LABS: URINE BACTERIA NEGATIVE /HFP; URINE EPITHELIAL CELLS <10 /HPF (<10); URINE RBC <10 /HPF (<10); URINE WBC <10 /HPF (<10)
[2018-12-08] MEDS ORDERED: MAGNESIUM SULFATE 4 GM/S.W.I. 4 GM/100 ML IVPB IV ONE (09:09)
[2018-12-08] MEDS ORDERED: KLOR-CON PO ONE (09:09)
[2018-12-08] MEDS ORDERED: PROTONIX PO ONE (09:10)
--- NOTE | 2018-12-08 09:17 | EKG Report ---
Test Performed on : 12/08/2018 05:07:33 AM Test Reason : ED. NO EKG ORDER FOR MUSE Blood Pressure : / mmHG Vent. Rate : 115 BPM Atrial Rate : 115 BPM P-R Int : 156 ms QRS Dur : 090 ms QT Int : 338 ms P-R-T Axes : 075 003 032 degrees QTc Int : 467 ms Sinus tachycardia. with premature supraventricular complexes. Inferior infarct , age undetermined ST & T wave abnormality, consider lateral ischemia Abnormal ECG When compared with ECG of 11-JUL-2018 06:05, premature ventricular complexes. are no longer present Inferior infarct is now present T wave inversion now evident in Lateral leads Unconfirmed Result
[2018-12-08] MEDS ORDERED: XOPENEX NEB INH PRN (10:03)
[2018-12-08] MEDS ORDERED: NS NEB INH SCH (10:15)
--- NOTE | 2018-12-08 11:06 | HISTORY AND PHYSICAL ---
PRIMARY CARE PHYSICIAN: Dr. Sanam Murry. CHIEF COMPLAINT: Weakness. HISTORY OF PRESENT ILLNESS: Mrs. Carson is an 83-year-old, female, with a history of a massive hiatal hernia, COPD, hypertension and hyperlipidemia who presents to the ER with acute onset of weakness and fatigue that began around 8:00 p.m. last night. She had some nausea and vomiting after she ate at around 6:30 last night and then she subsequently started having what she calls weakness and fatigue, she could not get up out of bed and was somewhat more short of breath. This morning symptoms progressed and she felt she needed to come to the ER as these are the symptoms that she typically has when she presents with pneumonia. She denies any cough or mucopurulent sputum production. She does have a fever of 100.5 degrees Fahrenheit. She denies any overt abdominal pain, lower extremity edema, or chest pain. In the ER, she had a chest x-ray done which showed pulmonary edema with small left pleural effusion and hiatal hernia. Her laboratory data shows an increase in white count. Elevated liver function tests which are chronic. She has been a bit tachypneic, tachycardic, and slightly hypotensive as well. Given the constellation of symptoms and diagnostic findings, we are going to admit her for further treatment and evaluation. PAST MEDICAL HISTORY: 1. Massive hiatal hernia status post Latia fundoplication, which has apparently failed. 2. COPD. 3. Recent diagnosis of pulmonary embolism in June of 2018. 4. Anxiety and depression. 5. Fibromyalgia. PAST SURGICAL HISTORY: She has had a Latia fundoplication. Cataract surgery. SOCIAL HISTORY: No tobacco, alcohol or drug use. She is . and daughter are at the bedside. FAMILY HISTORY: Significant for congestive heart failure. REVIEW OF SYSTEMS: A 14 point review of systems was obtained and found to be negative with the exception of the HPI. She does report that she has frequent nausea and vomiting after she eats, which she directly relates to her hiatal hernia. ALLERGIES: No known drug allergies. HOME MEDICATIONS: 1. Abilify 2 mg daily. 2. Celexa 20 mg daily. 3. Neurontin 300 mg p.o. t.i.d. 4. [place] 7.5 mg p.o. t.i.d. 5. Toprol-XL 50 mg b.i.d. 6. Remeron 15 mg p.o. at bedtime. 7. Micro K 10 mEq p.o. daily. 8. Mirapex 0.125 mg p.o. daily. 9. Seroquel 12.5 to 25 mg p.o. at bedtime. 10.Crestor 20 mg daily. 11.Eliquis 5 mg p.o. b.i.d. 12.Spiriva hand-held inhaler 2 puffs b.i.d. 13.Vitamin D 50,000 units p.o. daily. PHYSICAL EXAM: VITAL SIGNS: Blood pressure 103/58, heart rate is 108, respiratory rate is 24, O2 saturation 95% on nasal cannula. Temperature 100.5 degrees Fahrenheit. GENERAL: This is an elderly, female, lying on hospital bed in no acute distress. NEUROLOGIC: Awake, alert, oriented. Follows commands without focal deficits. HEENT: Head is normocephalic and atraumatic. Pupils are equal, round and reactive to light. Oral mucosa is moist. NECK: Trachea is midline. There is no JVD. CHEST: Diminished at the bases with crackles over the left lung base. CARDIOVASCULAR: Regular rate and rhythm. S1, S2 noted. No appreciable murmurs. GASTROINTESTINAL: Soft, nontender, nondistended. Bowel sounds are active. EXTREMITIES: Trace edema. Diminished pulses bilaterally. DIAGNOSTIC DATA: 1. Chest x-ray shows pulmonary edema with small left pleural effusion and hiatal hernia. 2. EKG sinus tachycardia, nonspecific ST-T abnormalities, PVCs. 3. WBC 13.75, hemoglobin 12.7, hematocrit 41.1, platelet count 128,000. 4. Sodium 143, potassium 3.1, chloride 104, CO2 24. Anion gap 15. BUN 17, creatinine 0.8, glucose is 92, calcium 8.8. Magnesium 1.1. Total bilirubin 1.25, AST 113, ALT 81, alkaline phosphatase 564. Albumin 3.8. 5. UA is negative. IMPRESSION AND PLAN: 1. Aspiration pneumonia: It would appear that the patient has a chronic aspiration issue with a hiatal hernia. Blood cultures have been obtained. She has been given azithromycin and ceftriaxone in the ER. We will switch over to Zosyn for more appropriate anaerobic coverage. Continue breathing treatments, aggressive pulmonary toilet. 2. Early sepsis: The patient is slightly hypotensive with tachycardia and tachypnea. She also has a fever and a source. Continue treatment as outlined above. She did receive IV fluids, but would be cautious with report of pulmonary edema on chest x-ray. 3. Elevated liver function tests: This is chronic in nature. It appears that she has had a fairly thorough workup in the past with autoimmune diagnostics all being negative. Hepatitis panel is negative. She has some thrombocytopenia and we are checking INR now to evaluate for synthetic function. She denies any overt abdominal pain. We will recheck a CMP in the morning. Apparently, she has been seen by Dr. Alexandre in the past. We will likely have her follow up on an outpatient basis. 4. Recent diagnosis of pulmonary embolism: Will continue home AC, stable overall. 5. Hypertension. Continue her home medications. 6. Hypokalemia and hypomagnesemia. We will replace and recheck in the morning. 7. Report of pulmonary edema on chest x-ray. She has had an echocardiogram with the diagnosis of her PE. It did not show any ventricular dysfunction, however, it would probably be prudent to check at least a limited echocardiogram to make sure there hasn't been any changes. We will check a proBNP now. 8. Deep venous thrombosis prophylaxis with her home Eliquis. Further recommendations to follow. Dictated by LAYO Suarez for Ayad Ramos MD cc: LAYO Suarez MD Lindsay Smith Jeanette Keith, MD I have seen and examined Ms Carson today. I have al;so reviewed her labs and imaging studies. Ms Carson appears to have recurrent aspiration pneumonia and a large hiatal hernia. I agree with the above HPI and the plan reflects my opinion discussed with the VISUAL STYLIST. GLORIA
[2018-12-08 11:15] LABS: INR 1.31; PROTIME 17.3 Seconds (11.0-16.0)
[2018-12-08] MEDS: XOPENEX NEB INH SCH ×4 (11:20→23:50)
[2018-12-08] MEDS ORDERED: VITAMIN D PO SCH (13:00)
[2018-12-08] MEDS: NEURONTIN PO SCH ×2 (14:23→21:21)
[2018-12-08] MEDS: NORCO-7.5 PO SCH ×2 (14:24→21:21)
[2018-12-08] MEDS: ZOSYN 3.375 GM in NS 50 ML IV SCH ×2 (15:32→21:22)
[2018-12-08] MEDS: SYMBICORT 80/4.5 MICROGM INHALER INH SCH (20:10)
[2018-12-08] MEDS: SEROQUEL PO SCH (21:21)
[2018-12-08] MEDS: TOPROL XL PO SCH (21:21)
[2018-12-08] MEDS: REMERON PO SCH (21:21)
[2018-12-08] MEDS: ELIQUIS PO SCH (21:22)
[2018-12-09] MEDS: ZOSYN 3.375 GM in NS 50 ML IV SCH ×4 (04:00→20:18)
[2018-12-09] MEDS: XOPENEX NEB INH SCH ×6 (04:09→23:12)
[2018-12-09] MEDS: PROTONIX PO SCH (06:22)
[2018-12-09 07:27] LABS: HEMATOCRIT 38.1 % (37.0-47.0); MONO% 6.3 % (1.7-9.3); RDW 14.9 % (11.5-14.5)
[2018-12-09] MEDS: SYMBICORT 80/4.5 MICROGM INHALER INH SCH ×2 (07:30→19:23)
[2018-12-09 07:36] LABS: BASO# 0.02 X1000 (0.0-0.2); BASO% 0.2 % (0.0-0.8); EOS# 0.02 X1000 (0.0-0.7); EOS% 0.2 % (0.0-10.0); HEMOGLOBIN 11.7 g/dL (12.0-16.0); IMM GRAN# 0.05 X1000 (0.0-0.04); IMM GRAN% 0.4 % (0.0-0.5); LYMPH# 0.56 X1000 (1.2-3.4); LYMPH% 4.8 % (20.5-51.1); MCH 29.8 PG (27-31); MCHC 30.7 g/dL (33-37); MCV 96.9 FL (81-99); MONO# 0.74 X1000 (0.11-0.59); MPV 12.8 FL (7.4-10.4); NEUT# 10.31 X1000 (1.4-6.5); NEUT% 88.1 % (42.2-75.2); PLT 116 X1000 (130-400); RBC 3.93 XMIL (4.2-5.4)
[2018-12-09 07:45] LABS: ALB/GLOB RATIO 1.1; ALBUMIN 3.1 g/dL (3.5-5.0); CALCIUM 8.3 mg/dL (8.8-10.2); CREATININE 1.1 mg/dL (0.5-0.9); POTASSIUM 4.3 mmol/L (3.5-5.1); TOTAL BILIRUBIN 5.62 mg/dL (0.20-1.00); TOTAL PROTEIN 5.8 g/dL (6.3-8.3)
--- NOTE | 2018-12-09 08:33 | ECHO REPORT ---
ORDER DATE: 12/08/2018 INTERPRETING PHYSICIAN: Dr. Klein CLINICAL INDICATIONS: 83-year-old female with pulmonary edema, aspiration pneumonia, hiatal hernia, early sepsis. M-MODE MEASUREMENTS: Left ventricle end diastole: 5.3 cm. Left ventricle end systole: 3.3 cm. Posterior wall: 1.3 cm. Interventricular septum: 1.3 cm. Left atrium: 3.3 cm. Aortic root: 3.7 cm. SUMMARY OF 2-DIMENSIONAL IMAGING: The left ventricle is hyperdynamic. The ejection fraction is estimated at 70-75%. No wall motion abnormality is noted. The chamber is not dilated. The right ventricle does not appear to be dilated. The aortic valve is normal. Color flow mapping unremarkable. There is no pericardial effusion. The left atrium appears to be moderately to significantly dilated. The aortic valve has 3 cusps. The mitral valve shows no significant regurgitation. Pulse wave Doppler of mitral inflow shows "normal" E/A ratio. Tissue Doppler of septal and lateral mitral annulus averages 6.5 cm per second. There is no definite evidence of significant diastolic dysfunction. There is no evidence of mass and no thrombus. This study was requested as a limited study. Clinical correction recommended. cc: MD Darrel Rodriguez CRNP
[2018-12-09] MEDS: CELEXA PO SCH (10:35)
[2018-12-09] MEDS: TOPROL XL PO SCH ×2 (10:35→20:17)
[2018-12-09] MEDS: ELIQUIS PO SCH ×2 (10:35→20:17)
[2018-12-09] MEDS: MIRAPEX PO SCH (10:36)
[2018-12-09] MEDS: NORCO-7.5 PO SCH ×3 (10:36→17:40)
[2018-12-09] MEDS: NEURONTIN PO SCH ×3 (10:36→17:40)
[2018-12-09] MEDS: ABILIFY PO SCH (10:36)
[2018-12-09] MEDS: NS 1,000 ML IV SCH (11:25)
--- NOTE | 2018-12-09 15:18 | PROGRESS NOTE ---
DATE: 12/09/2018 SUBJECTIVE: This morning, Ms. Carson refers to be doing fairly okay. She said her generalized weakness seems to be getting better. OBJECTIVE: Vital signs: Blood pressure is 104/53, pulse 87, respirations 17, temperature 98.3 degrees. The patient did run a few low temperatures yesterday. General: Ms. Carson is an 83-year- old female. She is in bed. She was not in any cardiopulmonary distress. HEENT: Mucosa is pink and moist. Anicteric. Acyanotic. Neck: Supple. Chest: Air entry was bilaterally reduced. A few crackles posteriorly, but no rhonchi. Cardiovascular: Regular rate and rhythm. Abdomen: Soft, nontender. Bowel sounds present. Extremities: No pedal edema. Central nervous system: Patient was awake, alert, and oriented. DIAGNOSTIC DATA: WBC is 11.70, hemoglobin is 11.7, platelet count of 116,000. Chemistry is also reviewed. Creatinine was 1.1. Rest of chemistry is unremarkable. AST and ALT were slightly elevated. A chest x-ray which was done yesterday showed pulmonary edema with small left pleural effusion and hiatal hernia. The patient's blood culture currently is positive for gram-negative rods. Influenza was negative. CURRENT MEDICATIONS: Zosyn and other home medications. ASSESSMENT: 1. Septic shock on presentation. Patient was adequately fluid resuscitated and did not need any pressors. 2. Gram-negative madie bacteremia, presumably from the lungs. 3. Aspiration pneumonia. We will continue with the current antibiotic coverage. 4. Transaminitis, likely due to shock liver. In general, I think Ms. Carson is doing fairly okay. PLAN: We are going to continue with the current antibiotic coverage. It will be pending the ID and sensitivity of the gram-negative madie in the blood. cc: Ayad Ramos MD
[2018-12-09] MEDS: REMERON PO SCH (20:18)
[2018-12-09] MEDS: SEROQUEL PO SCH (20:18)
[2018-12-10] MEDS: ZOSYN 3.375 GM in NS 50 ML IV SCH (02:30)
[2018-12-10] MEDS: NS 1,000 ML IV SCH ×2 (03:00→16:25)
[2018-12-10] MEDS: XOPENEX NEB INH SCH ×6 (03:07→23:30)
[2018-12-10] MEDS: PROTONIX PO SCH (06:45)
[2018-12-10] MEDS: SYMBICORT 80/4.5 MICROGM INHALER INH SCH ×2 (08:07→19:18)
[2018-12-10 08:39] LABS: ALB/GLOB RATIO 0.9; ALBUMIN 2.6 g/dL (3.5-5.0); CALCIUM 8.3 mg/dL (8.8-10.2); CREATININE 1.2 mg/dL (0.5-0.9); MAGNESIUM 2.1 mg/dL (1.5-2.7); POTASSIUM 3.7 mmol/L (3.5-5.1); TOTAL BILIRUBIN 4.91 mg/dL (0.20-1.00); TOTAL PROTEIN 5.4 g/dL (6.3-8.3)
[2018-12-10 08:58] LABS: BASO# 0.01 X1000 (0.0-0.2); BASO% 0.1 % (0.0-0.8); EOS# 0.01 X1000 (0.0-0.7); EOS% 0.1 % (0.0-10.0); HEMATOCRIT 32.9 % (37.0-47.0); HEMOGLOBIN 10.1 g/dL (12.0-16.0); IMM GRAN# 0.02 X1000 (0.0-0.04); IMM GRAN% 0.2 % (0.0-0.5); LYMPH# 1.02 X1000 (1.2-3.4); LYMPH% 9.5 % (20.5-51.1); MCH 29.5 PG (27-31); MCHC 30.7 g/dL (33-37); MCV 96.2 FL (81-99); MONO# 0.98 X1000 (0.11-0.59); MONO% 9.2 % (1.7-9.3); MPV 13.4 FL (7.4-10.4); NEUT# 8.67 X1000 (1.4-6.5); NEUT% 80.9 % (42.2-75.2); PLT 88 X1000 (130-400); RBC 3.42 XMIL (4.2-5.4); WBC 10.71 X1000 (4.8-10.8)
[2018-12-10] MEDS: ELIQUIS PO SCH ×2 (09:43→20:44)
[2018-12-10] MEDS: TOPROL XL PO SCH ×2 (09:43→20:44)
[2018-12-10] MEDS: MIRAPEX PO SCH (09:43)
[2018-12-10] MEDS: NORCO-7.5 PO SCH ×3 (09:43→20:46)
[2018-12-10] MEDS: ABILIFY PO SCH (09:44)
[2018-12-10] MEDS: CELEXA PO SCH (09:44)
[2018-12-10] MEDS: NEURONTIN PO SCH ×3 (09:44→20:44)
[2018-12-10] MEDS: LEVAQUIN PO SCH (09:51)
[2018-12-10] MEDS ORDERED: ROBITUSSIN-AC PO PRN (11:37)
--- NOTE | 2018-12-10 17:03 | PROGRESS NOTE ---
DATE: 12/10/2018 SUBJECTIVE: This morning Ms. Carson refers to be doing a whole lot better. A son , daughter and the were at the bedside at the time of the encounter, according to her she is feeling stronger and she thinks she will be able even to go home. OBJECTIVE: Vitals: Blood pressure is 128/62, pulse 93, respiration is 18, temperature is 97.8 degrees, patient was saturating 96% on room air. General: Ms. Carson is a 83- year-old very sweet lady she was in bed not seemingly distress. Mucosa is pink and moist. Anicteric. Acyanotic. Neck: Supple. Chest: Air entry was bilaterally reduced. A few crackles posteriorly but no rhonchi. Cardiovascular: Regular rate and rhythm. No murmurs, no rubs , no gallops. Abdomen: Soft, nontender. Bowel sounds present. Extremities: No pedal edema. HAY BALER: Patient is awake, alert and oriented. There is no focal neurological deficit. Musculoskeletal: Positive for kyphosis. LABORATORY DATA: WBC is down to 10.71, hemoglobin is 10.1, platelet count of 88 ,000. Chemistry is also reviewed, creatinine is 1.2, rest of chemistry is actually unremarkable. AST is down to 59, ALT is also down to 59, total bilirubin is down to 4.91, alkaline phosphatase is also reduced. No imaging studies today. So far the blood culture 1 was positive for Klebsiella pneumoniae which is pansensitive. ASSESSMENT: 1. Septic shock on presentation improved, patient improved with resuscitation, did not need any pressors. So far blood cultures positive for Klebsiella. 2. Klebsiella pneumoniae bacteremia presumably from pneumonia. 3. Bilateral lower lobe pneumonia presumably from Klebsiella pneumoniae, patient was on intravenous Zosyn. This has been switched to p.o. Levaquin. 4. Transaminitis presumably to shock liver, this is improving. 5. Generalized weakness and deconditioning. Physical therapy has been consulted. So in general I think Ms. Carson is doing a lot better, her antibiotics have been switched from intravenous to p.o. We are going to get physical therapy to work with her today, hopefully we can get her discharged tomorrow. cc: Ayad Ramos MD MTDUzair
[2018-12-10] MEDS: SEROQUEL PO SCH (20:44)
[2018-12-10] MEDS: REMERON PO SCH (20:46)
[2018-12-11] MEDS: XOPENEX NEB INH SCH ×2 (03:30→08:00)
[2018-12-11] MEDS: NS 1,000 ML IV SCH (05:26)
[2018-12-11] MEDS: PROTONIX PO SCH (07:02)
[2018-12-11 07:36] LABS: BASO# 0.02 X1000 (0.0-0.2); BASO% 0.3 % (0.0-0.8); EOS# 0.23 X1000 (0.0-0.7); EOS% 2.9 % (0.0-10.0); HEMATOCRIT 32.2 % (37.0-47.0); HEMOGLOBIN 10.2 g/dL (12.0-16.0); LYMPH# 0.99 X1000 (1.2-3.4); LYMPH% 12.5 % (20.5-51.1); MCHC 31.7 g/dL (33-37); MCV 94.7 FL (81-99); MONO# 0.58 X1000 (0.11-0.59); MONO% 7.3 % (1.7-9.3); MPV 13.2 FL (7.4-10.4); NEUT# 6.13 X1000 (1.4-6.5); PLT 85 X1000 (130-400); RDW 14.9 % (11.5-14.5); WBC 7.95 X1000 (4.8-10.8)
[2018-12-11 07:56] LABS: AGAP 9; ALB/GLOB RATIO 0.8; ALBUMIN 2.4 g/dL (3.5-5.0); ALKALINE PHOSPHATASE 425 U/L (32-104); BUN 21 mg/dL (8-22); CALCIUM 8.8 mg/dL (8.8-10.2); CHLORIDE 107 mmol/L (98-107); COSMO 280; CREATININE 0.8 mg/dL (0.5-0.9); ESTIMATED GFR > 60; GLUCOSE 95 mg/dL (70-104); GOT 39 U/L (10-30); GPT 46 U/L (10-36); MAGNESIUM 1.9 mg/dL (1.5-2.7); POTASSIUM 3.7 mmol/L (3.5-5.1); SODIUM 139 mmol/L (136-145); TCO2 23 mmol/L (25-35); TOTAL PROTEIN 5.4 g/dL (6.3-8.3)
[2018-12-11] MEDS: SYMBICORT 80/4.5 MICROGM INHALER INH SCH (08:00)
[2018-12-11 08:09] VITALS: BP 138/74
--- NOTE | 2018-12-11 08:15 | Diag Imaging Result Doc PS360 ---
EXAM: CHEST-PORTABLE HISTORY: dyspnea TECHNIQUE: Portable chest single view COMPARISON: 12/08/2018 FINDINGS: Poor inspiratory effort. Heart is enlarged. There appears to be a hiatal hernia. Vascular distention remains. There are small pleural effusions. IMPRESSION: No interval improvement. Electronically signed by Darwin Hughes 12/11/2018 8:13 AM
[2018-12-11] MEDS: TOPROL XL PO SCH (09:45)
[2018-12-11] MEDS: NORCO-7.5 PO SCH (09:45)
[2018-12-11] MEDS: ABILIFY PO SCH (09:46)
[2018-12-11] MEDS: MIRAPEX PO SCH (09:46)
[2018-12-11] MEDS: NEURONTIN PO SCH (09:46)
[2018-12-11] MEDS: ELIQUIS PO SCH (09:46)
[2018-12-11] MEDS: CELEXA PO SCH (09:46)
[2018-12-11] MEDS: LEVAQUIN PO SCH (09:46)
--- NOTE | 2018-12-11 23:55 | DISCHARGE SUMMARY ---
ADMISSION DATE: 12/08/2018 DISCHARGE DATE: 12/11/2018 DISPOSITION: Home. FOLLOWUP: Dr. Sanam Murry. CONSULTATIONS DURING THIS ADMISSION: None. IMAGING STUDIES OF SIGNIFICANCE: A chest x-ray was done initially, which showed pulmonary edema, with small right and left pleural effusion, hiatal hernia. A repeat chest x- ray this morning showed what appears to be hiatal hernia. Vascular distention remains. ADMISSION DIAGNOSES: 1. Aspiration pneumonia. 2. Early sepsis. 3. Recent diagnosis of pulmonary embolism. 4. Hyperkalemia. DIAGNOSIS AT THE TIME OF DISCHARGE: 1. Septic shock on presentation. The patient improved with fluid resuscitation. Did not need any pressors. 2. Klebsiella pneumoniae bacteremia. 3. Bilateral lower lobe pneumonia, presumably secondary to Klebsiella pneumoniae. 4. Transaminitis, secondary to shock liver, improving. Almost normalized. 5. Generalized weakness and deconditioning. Physical Therapy was consulted. DISCHARGE MEDICATIONS: 1. [place]. 2. Gabapentin 300 three times per day. 3. Metoprolol 500 b.i.d. 4. Abilify 2 mg daily. 5. Remeron 50 mg p.o. at bedtime. 6. Seroquel 25 mg half to 1 tablet p.o. at bedtime. 7. Vitamin D 50,000 units p.o. q.7 days. 8. Eliquis 5 mg b.i.d. 9. Mirapex 0.125 p.o. daily. 10. Crestor 20 mg daily. 11. Pantoprazole 40 mg daily. 12. Levaquin 500 p.o. daily for 7 days. PRESENTING COMPLAINT: Weakness. HISTORY OF PRESENTING COMPLAINT: Ms. Carson is an 83-year-old elderly female with a history of a massive hiatal hernia, COPD, who came to the emergency department because of generalized weakness. Could not get out of bed. She did also complain of some chest and sputum production. Upon presenting, her temperature was 100.5. She was evaluated and admitted for further medical care. HOSPITAL COURSE: Ms. Carson was admitted to the medical floor under telemonitoring. Initially, her blood pressure went as low as 88/55. She was adequately fluid resuscitated. She did not need any pressor or ICU care. Ms. Carson was also started on broad-spectrum IV antibiotics. Blood culture came back positive for Klebsiella pneumoniae 1/2. Antibiotics were subsequently changed to oral Levaquin. Ms. Carson tolerated the oral antibiotics. She was also evaluated by Physical Therapy, which she did great. This morning, Ms. Carson refers to be feeling a lot better. No chest complaints and no fever. Her vitals: Blood pressure is 138/74, pulse is 84, respirations 16, temperature is 97.4 degrees. The patient was saturating about 94% on room air. Physical exam is unremarkable, except she does have kyphosis, as well as some mild crackles to the posterior lung beth. She is fairly stable for discharge today. She is going to continue with the current antibiotic coverage, as well as her previous medications, and she will follow up with her primary care doctor, Dr. Sanam Murry. All these discharge instructions have been discussed with her this morning. I did go over with her family yesterday and they are anticipating the discharge for today. TIME SPENT FOR DISCHARGE: 37 minutes. cc: MD Sanam Machado MD MTDD
== END 2018-12-11 10:17 | disposition home or self-care (01) | DRG 871 ==
LOC: ED 05:04 → EDIPHOLD 08:47 → 3N 13:47
PROVIDERS: ATTEND Internal Medicine
CPT/HCPCS: 51701; 71010; 71045; 80053; 81001; 82948; 83605; 83735; 83880; 85025; 85610; 87040; 87077; 87186; 87275; 87276; 87804; 93005; 93308; 94640; 94761; 97162; 97530; 99285; A9270; J0456; J0696; J2543; J3475; J7030; P9612; XXXXX

== ENCOUNTER 2018-12-14 17:15 | Inpatient (IN) ==
[2018-12-14 17:54] LABS: BASO# 0.06 X1000 (0.0-0.2); BASO% 0.6 % (0.0-0.8); EOS# 0.02 X1000 (0.0-0.7); EOS% 0.2 % (0.0-10.0); HEMATOCRIT 34.4 % (37.0-47.0); HEMOGLOBIN 10.9 g/dL (12.0-16.0); IMM GRAN# 0.04 X1000 (0.0-0.04); IMM GRAN% 0.4 % (0.0-0.5); LYMPH# 0.95 X1000 (1.2-3.4); LYMPH% 9.7 % (20.5-51.1); MCH 29.7 PG (27-31); MCHC 31.7 g/dL (33-37); MCV 93.7 FL (81-99); MONO# 0.63 X1000 (0.11-0.59); MONO% 6.4 % (1.7-9.3); MPV 12.3 FL (7.4-10.4); NEUT# 8.09 X1000 (1.4-6.5); NEUT% 82.7 % (42.2-75.2); PLT 193 X1000 (130-400); RBC 3.67 XMIL (4.2-5.4); RDW 14.8 % (11.5-14.5); WBC 9.79 X1000 (4.8-10.8)
[2018-12-14 18:13] LABS: AGAP 12; ALB/GLOB RATIO 1.4; ALBUMIN 3.4 g/dL (3.5-5.0); ALKALINE PHOSPHATASE 485 U/L (32-104); BUN 9 mg/dL (8-22); CALCIUM 8.6 mg/dL (8.8-10.2); CHLORIDE 102 mmol/L (98-107); COSMO 283; CREATININE 0.7 mg/dL (0.5-0.9); ESTIMATED GFR > 60; GLUCOSE 94 mg/dL (70-104); GOT 43 U/L (10-30); GPT 38 U/L (10-36); POTASSIUM 3.9 mmol/L (3.5-5.1); SODIUM 143 mmol/L (136-145); TCO2 29 mmol/L (25-35); TOTAL BILIRUBIN 1.22 mg/dL (0.20-1.00); TOTAL PROTEIN 5.9 g/dL (6.3-8.3)
--- NOTE | 2018-12-14 18:18 | Diag Imaging Result Doc PS360 ---
EXAM: CT HEAD W/O CONTRAST HISTORY: s/p fall TECHNIQUE: CT head without contrast COMPARISON: None. FINDINGS: No parenchymal hemorrhage. No epidural or subdural hematoma. No subarachnoid hemorrhage. There are mild chronic microvascular ischemic changes. No mass identified on this noncontrasted exam. No hydrocephalus. No skull fracture. IMPRESSION: No hemorrhage. No injury. This exam was performed using automated exposure control, adjustment of mA or kV according to patient size, and/or use of iterative reconstruction technique. Electronically signed by Darwin Hughes 12/14/2018 6:15 PM
--- NOTE | 2018-12-14 18:19 | Diag Imaging Result Doc PS360 ---
EXAM: CHEST-2 VIEWS HISTORY: s/p fall TECHNIQUE: Chest two views COMPARISON: 12/11/2017 FINDINGS: The lungs are hyperexpanded with an increased AP diameter to the chest. The heart is not enlarged and there is a large hiatal hernia. There are small pleural effusions. There is vascular distention with questionable underlying infiltrate in the left base. No pneumothorax. IMPRESSION: 1.No injury identified 2.Cardiomegaly with pulmonary edema 3.Large hiatal hernia Electronically signed by Darwin Hughes 12/14/2018 6:17 PM
[2018-12-14] MEDS ORDERED: LASIX IV ONE (18:24)
--- NOTE | 2018-12-14 18:50 | PROVIDER DOCUMENTATION ---
This chart was entered by Laura Blackwell Scribe, acting as scribe for Patti Guo MD. HPI-General Adult - General Chief Complaint: Fall Stated Complaint: fall Time Seen by Provider: 12/14/18 17:29 Source: patient, EMS ([facility]) Allergies/Adverse Reactions: Patient Allergies Allergy/AdvReac Type Severity Reaction Status Date / Time No Known Allergies Allergy Verified 12/14/18 17:41 Home Medications: Home Medication List Medication Instructions Recorded Confirmed Last Taken Type Aripiprazole [Abilify] 2 mg PO DAILY 08/18/12 12/14/18 07/06/18 History Gabapentin [Neurontin] 300 mg PO TID 08/18/12 12/14/18 07/06/18 History Hydrocodone/Acetaminophen [Lortab 7.5 mg PO TID 08/18/12 12/14/18 07/06/18 History 7.5-500 Tablet] Metoprolol Succinate E.r. [Toprol 50 mg PO BID 08/18/12 12/14/18 07/07/18 History Xl] Mirtazapine [Remeron] 15 mg PO QHS 10/27/16 12/14/18 07/07/18 History Potassium Chloride E.r. [Micro-K] 10 meq PO DAILY 10/27/16 12/14/18 07/07/18 History Quetiapine Fumarate 0.5 - 1 tab PO HS 03/29/17 12/14/18 07/07/18 History Ergocalciferol (Vitamin D2) 50,000 unit PO Q7D #10 capsule 03/31/17 12/14/18 Rx [Vitamin D] Citalopram [Celexa] 20 mg PO DAILY 07/07/18 12/14/18 Unknown History Apixaban [Eliquis] 5 mg PO BID #60 tab 07/14/18 12/14/18 Unknown Rx Budesonide/Formoterol Inhaler 2 puff INH RTBID #1 inhaler 07/14/18 12/14/18 Unknown Rx [Symbicort 80/4.5 Microgm Inhaler] Pramipexole [Mirapex] 0.125 mg PO DAILY 12/08/18 12/14/18 12/07/18 History ROSUVAstatin [Crestor] 1 tab PO DAILY 12/08/18 12/14/18 12/07/18 History Levofloxacin [Levaquin] 500 mg PO DAILY #7 tab 12/11/18 12/14/18 Unknown Rx Pantoprazole [Protonix] 40 mg PO DAILY@0700 #30 tab 12/11/18 12/14/18 Unknown Rx - History of Present Illness -Gen Adult Nature of Presenting Problems: 83 yowf presents t the ed with c/o fall while at home. pt sts was in bed and went to stand up and fell falling onto her back hitting her head. pt denies LOC or n/v. pt has left occipital headache (mild). pt is on Eliquis. pt on exam does have wide range heart rate from 56-133 and wheezing Location of Pain/Injury: reports: head (left occipital ALVARES), lower extremity ( bilateral leg pain) Quality of Pain: reports: aching Severity: reports: mild Onset/Duration: reports: just prior to arrival Timing: reports: still present Context/Activities at Onset: reports: light activity Modifying Factors: improves with: nothing Associated Symptoms: reports: dizziness, headaches (left occipital), other ( bilateral leg pain). denies: back/neck pain, chest pain, cough, fatigue, fever/ chills, nausea, vomiting Similar Symptoms Previously?: No Recently seen or treated by another doctor?: No Review of Systems - Adult - REVIEW OF SYSTEMS - ADULT Constitutional: reports: no symptoms reported Eyes: denies: blurred vision, double vision Ears, Nose, Mouth & Throat: reports: no symptoms reported Cardiovascular: reports: irregular heart rate. denies: chest pain, syncope Respiratory: reports: wheezing. denies: cough, shortness of breath Gastrointestinal: denies: nausea, vomiting Genitourinary: reports: no symptoms reported Musculoskeletal: denies: back pain, neck pain Integumentary: reports: no symptoms reported Neurological: reports: see HPI, dizziness/vertigo, headache/migraines, loss of balance. denies: ataxia, numbness, paresthesia, seizure, slurred speech, syncope, tremors Psychiatric: reports: no symptoms reported Endocrine: reports: no symptoms reported Hematologic/Lymphatic: reports: no symptoms reported Allergic/Immunologic: reports: no symptoms reported All Other Systems: Reviewed and Negative Past History - Adult - PAST MEDICAL HISTORY-ADULT Review of Records: reports: Old Records Reviewed, Nursing Assessment Review, Medications Reviewed, Social history reviewed & non-contributory. Major Childhood Illnesses: reports: denies history Cardiovascular: reports: HTN, hyperlipidemia Respiratory: reports: denies history Gastrointestinal: reports: GERD Obstetrical/Gynecological: reports: denies history Genitourinary: reports: denies history Musculoskeletal: reports: denies history Neurological: reports: denies history Psychiatric: reports: anxiety Endocrine/Immune: reports: denies history Other Conditions: reports: cataract/glaucoma, other (HERNIA) - PRIOR SURGERIES/PROCEDURES Surgical/Procedure History: reports: orthopedic (extremity), other (CATARACT) - IMMUNIZATION STATUS Childhood Immunizations: See Nurse Assessment Flu Vaccine: See Nurse Assessment - FAMILY HISTORY Family History: reviewed, not pertinent - SOCIAL HISTORY Smoking: denies Substance Use: denies Living Situation: family Physical Exam-General - PHYSICAL EXAM-ADULT Initial Vital Signs Reviewed: Yes - CONSTITUTIONAL General Appearance: appears well, alert, no apparent distress, obese - EYES Eyes: PERRL/EOMI, pink conjunctivae - HEAD, EARS, NOSE, MOUTH & THROAT HENMT: moist mucous membranes - NECK Neck: non-tender, full range of motion, supple, normal inspection - RESPIRATORY Respiratory: chest non-tender, lungs clear, normal breath sounds - CARDIOVASCULAR Cardiovascular: irregularly irregular, other (pt has pulse from 56-133) - GASTROINTESTINAL (ABDOMEN) Abdominal Exam: normal bowel sounds, non tender, soft - LYMPHATIC Lymphatic: no adenopathy - MUSCULOSKELETAL Back Exam: normal inspection Extremity: normal range of motion, normal capillary refill, pelvis stable, pedal edema, swelling (BLE edema), tenderness (c/o bilateral leg pain) - SKIN Integumentary: normal turgor, warm/dry, pallor - NEUROLOGIC Neurologic: grossly normal, no motor/sensory deficits - PSYCHIATRIC Psych/Mental Status: normal mood/affect, normal thought content, normal thought process, oriented x 3 Progress - PLAN OF CARE/RESULTS Result Diagrams: 12/14/18 17:30 12/14/18 17:30 - REASSESSMENT Reassessment #1 Time Reassessed: 17:46 Status: improving Reassessment Comment: HR has returned to normal - EKG 1 Time of EKG reading by physician:: 17:35 EKG Read and Signed by:: Patti Guo EKG Interpretation (*Must complete 3 of following elements*): Normal Rate: 80 Rhythm: nsr [place]: normal QRS: normal AR Interval: normal ST Wave: normal - CONSULTS/PCP/HOSPITALIST Notification #1 *Consult/PCP/Hospitalist*: dr. Ramos Time Discussed: 18:47 (chf acute, s/p fall) Consult Disposition: Admit Departure - Departure Date of Disposition Decision: 12/14/18 Time of Disposition Decision: 18:40 DIAGNOSIS: Nausea and vomiting, CHF exacerbation, Status post fall Disposition: ADMITTED INPATIENT 09 Certified Medical Emergency: Emergent Condition: Stable - Critical Care Note This patient required my direct & personal management of CC.: No Attestation - Physician/ THANIA Attestation Patient care was provided by Advanced Practice Provider:: No The physician spent face to face time with patient:: Yes Advanced Practice Provider documentation review:: Supervising physician onsite and consulted in the evaluation and care of this patient. The physician did have a face to face encounter with the patient. This chart was documented by the indicated scribe, (Laura Blackwell Scribe) and accurately reflects the services I performed and decisions made by me, Patti Guo MD, as attested by the provider's signature.
[2018-12-14] MEDS: PRILOSEC PO SCH (21:00)
[2018-12-14] MEDS: LASIX PO SCH (21:37)
--- NOTE | 2018-12-14 21:39 | HISTORY AND PHYSICAL ---
PRESENTING COMPLAINT: Dizziness and fall. HISTORY OF PRESENTING COMPLAINT: Ms. Carson is an 83-year-old female, who was just discharged from the hospital on 12/11/2018 (3 days ago). She was admitted on that occasion for about 4 days and she was treated for septic shock, Klebsiella pneumoniae bacteremia, and Klebsiella pneumonia, elevated liver enzymes, and generalized weakness. The patient felt very well and was sent home on 7-day course of Levaquin. According to her, she was doing a lot better. She was very stable; however, late today, she was coming out of bed to go and use the restroom and felt dizzy and fell down and hit her head, but she did not black out. She did not have any seizures. She did not have any altered mental status. She said she might have felt dizzy and lost her balance and just hit the ground. The patient came to the emergency department and was evaluated. Neuroimaging was negative; however, because she is on Eliquis, we have been consulted to admit just for observation overnight. MEDICATION: Patient home medications have been reviewed, includin. [place] 7.5 at 3 times per day. 2. Gabapentin 300 mg 3 times per day. 3. Metoprolol 50 b.i.d. 4. Abilify 2 mg daily. 5. Mirtazapine 50 mg p.o. at bedtime. 6. Quetiapine 0.5. 7. Citalopram. 8. Apixaban 5 mg b.i.d. 9. Mirapex. 10. Crestor. 11. Pantoprazole 40 mg daily. 12. Levaquin 500 p.o. daily. PAST MEDICAL HISTORY: 1. Massive hiatal hernia status post Latia fundoplication, which has reoccurred. 2. Multiple episodes of VTEs, including PE and DVTs. 3. Anxiety and depression. 4. Fibromyalgia. PAST SURGICAL HISTORY: 1. Cataract surgery. 2. Latia fundoplication. SOCIAL HISTORY: Patient denies any tobacco. No alcohol use. No illicit drugs. Patient is lives with her . She is very self-dependent. She is able to drive at her age and does everything for herself. FAMILY HISTORY: Noncontributory. ALLERGIES: None. REVIEW OF SYSTEMS: A 14 point review of system conducted with Ms. Carson and is under unremarkable except what we have in the HPI. Specifically, she denies any fever. She denies any cough. No wheezing. No apparent syncopal episode. OBJECTIVE: Vital signs: Blood pressure is 160/89, pulse is 77, respirations 18, temperature 98.5 degrees. The patient was saturating about 97% on room air. General: Ms. Carson is an 83-year-old female. She was in bed, did not seem to be in any cardiopulmonary distress. HEENT: Mucosa is pink and moist. Anicteric. Acyanotic. Neck: Supple. No JVD. Chest: Good air entry bilateral. There are a few distal rhonchi and expiratory wheezing as well. Cardiovascular: Regular rate and rhythm. There are no murmurs, no rubs, no gallops. Abdomen: Soft, nontender. Bowel sounds were present. There is no hepatosplenomegaly. There is an old surgical scar on the upper mid abdomen consistent with a previous history of Latia fundoplication. Extremities: No pedal edema. Distal pulses are present. Genitourinary: Unremarkable. Central nervous system: Patient is awake, alert, oriented. There is no focal neurological deficit. Motor is 5/5 in all extremities. Sensation is intact. Cranial nerves 2-12 have been grossly examined, and they are unremarkable. Musculoskeletal: Positive for severe kyphosis. LABORATORY DATA: WBC is 9.79, hemoglobin is 10.9, platelet count of 193,000. Chemistry: Sodium is 143, potassium is 3.9, chloride is 100, bicarbonate is 29, total bilirubin is 1.2 which is coming down from previous numbers, AST is 43, ALT is 38, alkaline phosphatase is 485. Chest x-ray done today shows no injury. There is cardiomegaly with pulmonary edema. There is a large hiatal hernia. EKG: No acute changes. Troponin is negative. ProBNP is about 4494. ASSESSMENT: Ms. Carson is an 83-year-old who was discharged from the hospital 3 days ago for presumed septic shock from Klebsiella pneumoniae and bacteremia, who came back because of dizziness, fell, and then sustained injury to the back of her head. A CT scan of the head was unremarkable. IMPRESSION: 1. Status post mechanical fall. No obvious musculoskeletal injury, and neuroimaging is also negative. We will observe the patient overnight. If she continues to be neurologically intact, I think she will be able to be discharged tomorrow morning. 2. History of multiple venous thromboemboli (VTEs). The patient is on lifelong anticoagulation with Eliquis. We will continue to use her current medications. 3. Congestive heart failure. The patient is positive physical exam with wheezing, and her chest x-ray shows cardiomegaly with pulmonary edema. ProBNP is slightly more elevated today than a couple days ago. She has been given a dose of Lasix. We will continue with a very low-dose oral Lasix. 4. Recently Klebsiella pneumoniae and bacteremia with bilateral lower lobe pneumonias. We will continue with her home Levaquin to complete the therapy. 5. Polypharmacy. Patient is on a lot of psychotropic medications, including [place], gabapentin, Abilify, Remeron, Seroquel, Mirapex, all of which could potentially cause dizziness. We will hold off on this medication overnight and advise the patient to address this with her primary care doctor since at her age, all of these medications could potentially cause a lot of instability and dizziness. 6. Severe kyphosis. Noted. 7. Large hiatal hernia. We will continue with aspiration and reflux precautions. cc: Ayad Ramos MD
[2018-12-15] MEDS: LEVAQUIN PO SCH ×2 (00:28→08:50)
[2018-12-15] MEDS: TOPROL XL PO SCH ×3 (00:28→20:08)
[2018-12-15] MEDS: ELIQUIS PO SCH ×3 (00:28→20:08)
[2018-12-15 06:48] LABS: BASO# 0.06 X1000 (0.0-0.2); BASO% 0.9 % (0.0-0.8); EOS# 0.05 X1000 (0.0-0.7); EOS% 0.7 % (0.0-10.0); HEMOGLOBIN 10.3 g/dL (12.0-16.0); IMM GRAN# 0.04 X1000 (0.0-0.04); IMM GRAN% 0.6 % (0.0-0.5); LYMPH% 20.1 % (20.5-51.1); MCH 29.5 PG (27-31); MCHC 31.2 g/dL (33-37); MCV 94.6 FL (81-99); MONO# 0.78 X1000 (0.11-0.59); MONO% 11.2 % (1.7-9.3); MPV 11.9 FL (7.4-10.4); NEUT# 4.65 X1000 (1.4-6.5); NEUT% 66.5 % (42.2-75.2); PLT 196 X1000 (130-400); RBC 3.49 XMIL (4.2-5.4); RDW 14.9 % (11.5-14.5); WBC 6.98 X1000 (4.8-10.8)
[2018-12-15 07:10] LABS: CALCIUM 8.8 mg/dL (8.8-10.2); CREATININE 0.9 mg/dL (0.5-0.9); POTASSIUM 2.7 mmol/L (3.5-5.1); TOTAL BILIRUBIN 1.22 mg/dL (0.20-1.00)
--- NOTE | 2018-12-15 07:20 | EKG Report ---
Test Performed on : 12/14/2018 5:35:39 PM Test Reason : arrhymia Blood Pressure : / mmHG Vent. Rate : 080 BPM Atrial Rate : 080 BPM P-R Int : 156 ms QRS Dur : 086 ms QT Int : 386 ms P-R-T Axes : 058 010 025 degrees QTc Int : 445 ms Normal sinus rhythm. Normal ECG When compared with ECG of 08-DEC-2018 05:07, (Unconfirmed) premature supraventricular complexes. are no longer present Criteria for Inferior infarct are no longer present ST no longer depressed in Lateral leads T wave inversion no longer evident in Lateral leads Unconfirmed Result
[2018-12-15 07:27] LABS: MAGNESIUM 1.1 mg/dL (1.5-2.7)
[2018-12-15] MEDS: SYMBICORT 80/4.5 MICROGM INHALER INH SCH ×2 (08:14→19:20)
[2018-12-15] MEDS: CRESTOR PO SCH (08:50)
[2018-12-15] MEDS: PRILOSEC PO SCH ×2 (08:50→20:07)
[2018-12-15] MEDS: NORCO-7.5 PO SCH ×3 (08:50→16:19)
[2018-12-15] MEDS: CELEXA PO SCH (08:50)
[2018-12-15] MEDS: LASIX PO SCH (08:51)
[2018-12-15] MEDS: KLOR-CON PO SCH (18:40)
[2018-12-15] MEDS: DUONEB (A & A) INH SCH ×3 (18:45→23:15)
[2018-12-15] MEDS: LASIX IV SCH (18:47)
--- NOTE | 2018-12-15 21:08 | PROGRESS NOTE ---
DATE: 12/15/2018 INTERVAL HISTORY: Ms. Carson was admitted overnight for a mechanical fall with musculoskeletal injury, soreness and possible need for physical therapy evaluation. Since admission she was continued on her home levofloxacin which she was started on for recent diagnosis of Klebsiella pneumonia for which she was admitted and was discharged after treatment for septic shock. SUBJECTIVE: Patient is feeling better. She denies chest pain. She is feeling short of breath and she is complaining of generalized soreness. Discussed about her imaging findings and plan, answered all of her questions. OBJECTIVE: Vital Signs: Temperature 98.6, pulse is 80, blood pressure 130/60, saturating 95% on 3 L nasal cannula. She does not use home oxygen. PHYSICAL EXAMINATION: General: The patient appears to be audibly wheezing. Does not appear in acute distress, though. HEENT: Oral cavity is moist. Lungs: Air entry decreased bilaterally with prolonged expiratory phase and wheezing. No rhonchi. Mlld inspiratory crackle bilateral infrascapular region. Significantly decreased air entry in left infrascapular region. Cardiovascular: S1, S2 normal. No murmur, rub or gallop. Abdomen: Soft, nontender. Extremities: Lower extremity edema extending up to midshin level. LAB EVALUATION: Suggestive of no leukocytosis. Normocytic anemia, hypokalemia and normal kidney function. IMAGING: CT scan head did not detect any acute pathology. Chest x-ray suggested left-sided pleural effusion and pulmonary edema with suspected underlying infiltrate, which was unchanged from previous chest x-ray. Echocardiogram on December 08 had suggested ejection fraction of 70-75%. ASSESSMENT AND PLAN: 1. Acute hypoxic respiratory failure on admission because of persistent left lower lobe pneumonia and associated pulmonary edema or pleural effusion. Continue oxygenation to maintain saturation more than 92%. The patient is a never smoker and does not have history of COPD and does not use home oxygen. 2. Acute pulmonary edema especially affecting left lung. Increase the patient' s Lasix dose to intravenous 40 mg b.i.d. Follow up with repeat kidney function tomorrow and chest x-ray tomorrow. 3. Wheezing possibly because of pulmonary edema, residual pneumonia or undiagnosed reactive airway disease. Continue albuterol and ipratropium nebulization. No need of intravenous steroids at the moment. We will re-evaluate her breathing status tomorrow to decide the need for it. 4. Status post mechanical fall. No obvious musculoskeletal injury. Neuroimaging was negative. Continue physical therapy. Depending on her course, she may only need home with home physical therapy at the time of discharge. 5. History of multiple venous thromboembolism and on lifelong anticoagulation with Eliquis, which we will continue. Suspected congestive heart failure with preserved ejection fraction based on cardiomegaly on chest x-ray and pulmonary edema and slight elevation of proBNP. Continue intravenous Lasix. 6. Recent Klebsiella pneumoniae, pneumonia and septic shock. Continue patient' s home Levaquin to complete therapy. 7. Polypharmacy. Patient was listed to be taking a lot of psychotropic medication, including [place], gabapentin, Abilify, Remeron, Seroquel, Mirapex, which all have been potentially held for potential contribution to her dizziness. She should add back only essential as necessary later on. 8. Severe kyphosis noted. Large hiatal hernia. She will continue aspiration and reflux precautions. 9. Disposition: The patient remains inside the hospital for her wheezing and pulmonary edema. Plan is to give her bronchodilators and intravenous Lasix, and follow up with chest x-ray tomorrow. If her chest x-ray shows improvement, her wheezing and breathing have improved, then she may become a candidate for discharge home with home physical therapy. Plan of care were discussed with her. All of her questions have been answered. cc: Chad Robb MD MTDD
[2018-12-15] MEDS: TYLENOL PO PRN (21:33)
[2018-12-16] MEDS: KLOR-CON PO SCH ×2 (00:10→03:52)
[2018-12-16] MEDS: DUONEB (A & A) INH SCH ×3 (03:10→11:00)
[2018-12-16] MEDS: LASIX IV SCH (06:22)
[2018-12-16] MEDS: SYMBICORT 80/4.5 MICROGM INHALER INH SCH ×2 (07:30→19:30)
[2018-12-16 07:45] LABS: CALCIUM 8.2 mg/dL (8.8-10.2); CREATININE 1.5 mg/dL (0.5-0.9); POTASSIUM 3.8 mmol/L (3.5-5.1)
--- NOTE | 2018-12-16 08:11 | Diag Imaging Result Doc PS360 ---
EXAM: CHEST-PORTABLE - 12/16/2018 HISTORY: Follow up pulmonary edema TECHNIQUE: Portable chest COMPARISON: 12/11/2018 FINDINGS: There is cardiomegaly similar to prior. Inspiration is mildly shallow. There are vascular congestion, right basilar atelectasis, left basilar edema, and small left pleural effusion similar to prior, except for some increase in left basilar edema. There is no pneumothorax identified. IMPRESSION: Mildly shallow inspiration. Evidence of pulmonary edema/congestive heart failure similar to prior, except for some increase in basilar edema. Left basilar pneumonia cannot be entirely excluded. Electronically signed by Jacobo Nelson 12/16/2018 8:09 AM
[2018-12-16] MEDS: ELIQUIS PO SCH ×2 (09:19→21:18)
[2018-12-16] MEDS: PRILOSEC PO SCH ×2 (09:19→21:16)
[2018-12-16] MEDS: NORCO-7.5 PO SCH ×3 (09:19→17:29)
[2018-12-16] MEDS: CELEXA PO SCH (09:19)
[2018-12-16] MEDS: VITAMIN D PO SCH (09:19)
[2018-12-16] MEDS: CRESTOR PO SCH (09:19)
[2018-12-16] MEDS: LEVAQUIN PO SCH (09:19)
[2018-12-16] MEDS: TOPROL XL PO SCH ×2 (09:19→21:38)
[2018-12-16] MEDS ORDERED: REGLAN IV ONE (11:11)
[2018-12-16] MEDS ORDERED: NS NEB INH SCH (12:15)
[2018-12-16] MEDS ORDERED: CARDIZEM IV ONE (12:19)
[2018-12-16] MEDS: MORPHINE IV PRN (12:22)
[2018-12-16] MEDS: TYLENOL PO PRN ×2 (12:22→21:17)
[2018-12-16] MEDS ORDERED: CARDIZEM 100 MG/NS 100 MG/100 ML IVPB IV SCH (12:30)
--- NOTE | 2018-12-16 12:49 | EKG Report ---
Test Performed on : 12/16/2018 12:01:13 PM Test Reason : Chest pain Blood Pressure : / mmHG Vent. Rate : 131 BPM Atrial Rate : 131 BPM P-R Int : 000 ms QRS Dur : 084 ms QT Int : 324 ms P-R-T Axes : 000 023 -27 degrees QTc Int : 478 ms Atrial fibrillation. with rapid ventricular response. Possible Inferior infarct old, doubtful Cannot rule out Anterior infarct , age undetermined Abnormal ECG When compared with ECG of 14-DEC-2018 17:35, (Unconfirmed) Atrial fibrillation. has replaced Sinus rhythm. Vent. rate has increased BY 51 BPM Borderline criteria for Inferior infarct are now present Nonspecific T wave abnormality now evident in Anterolateral leads Confirmed by Hiram JACKSON, Johnny Pandey ([id number]) on 12/16/2018 6:57:21 PM
[2018-12-16] MEDS ORDERED: MAGNESIUM SULFATE 2 GM/S.W.I. 2 GM/50 ML IVPB IV STA (12:56)
[2018-12-16] MEDS ORDERED: NEURONTIN PO SCH (13:00)
--- NOTE | 2018-12-16 13:38 | PROGRESS NOTE ---
DATE: 12/16/2018 SUBJECTIVE: I received a call from the nurse because this patient was having nausea and vomiting. She received some treatment and now she seems to be a little bit better, but she is still complaining of severe lower back pain. I gave her a dose of morphine and it looks like the pain decreased. I will get today a CT of her thoracic and lumbar spine because she is really tender to palpation at the level of the mid back and lower back around the spinal area. She does have a history of multiple venous thromboemboli she has been on lifelong anticoagulation with Eliquis. She is also complaining of some chest tightness. Her initial troponin on the was negative. I will ask for a new 1 today and every 8 hours. EKG showed atrial fibrillation RVR. I do not have any records demonstrating on 12/14/2018 she has a normal sinus rhythm. On 12/08/2018, it shows sinus tachycardia with PVCs. In fact I do not have any records of atrial fibrillation and, as per the patient, she does not have a history of atrial fibrillation. So, it looks like this is a new onset atrial fibrillation or it is a paroxysmal atrial fibrillation that we did not catch before. I will transfer this patient to the CIC unit. I will get troponins and Cardiology Department on board. Her chest x-ray showed still pulmonary edema similar to prior, except there is a left bibasilar pneumonia. Since she has been here before and she has been having some chest pressure/shortness of breath, I will get Pulmonary Department to cover this patient as well. As per the nurse, her temperature is a little bit elevated at 100.6 or 100.9 or so, so I will get new blood cultures and also a urine culture on this patient. OBJECTIVE: Vital Signs: Temperature 98.6 degrees, pulse on the monitor 121, respiratory rate 16, blood pressure 162/96, oxygen saturation 91% on nasal cannula. HEENT: Head normocephalic. No trauma. PERRLA. Neck: Supple. No JVD. No masses. Central trachea. Chest: Decreased breath sounds at the bases with bilateral wheezing, expiatory, some rhonchi an scattered crackles at the bases as well. Abdomen: Soft, mildly tender to palpation, which is generalized, nondistended. Extremities: No edema, no clubbing, no cyanosis. Back: She does have pain in the middle back and lower back, midline. She fell a few days ago backwards. So, I will try to get a CT with no contrast of that area. Neurological examination: Alert and oriented x3. No focal deficits. LABORATORY: Sodium 142, potassium 3.8, chloride 99, bicarbonate 31. BUN 16, creatinine 1.5, glucose 127, calcium 8.2. ASSESSMENT AND PLAN: 1. Acute hypoxic respiratory failure on admission due to persistent left lower lobe pneumonia associated with pulmonary edema. There is large pleural effusion. Continue with oxygen supplementation. I will get both Pulmonary Department and Cardiology Department to evaluate this patient. Apparently she does not have a history of chronic obstructive pulmonary disease and she is not on home oxygen. Recently she has been discharged from this hospital, but she came back because of a mechanical fall. 2. Acute pulmonary edema especially effecting the left lung. She has been getting Lasix twice a day, but the BUN and creatinine increased compared with yesterday. I have decreased the dose to once a day, and I will monitor. Cardiology will be on board. 3. New onset atrial fibrillation. I do not have any history of atrial fibrillation. I checked some of the electrocardiograms from the past, and they do not have any evidence of atrial fibrillation. She is already on anticoagulation. She is on metoprolol. I will put this patient in the CIC unit. I will start a diltiazem drip as well. 4. Status post mechanical fall. She is complaining of severe back pain, mid and lower back pain. I will try to get a noncontrast CT today to rule out any compression fracture. 5. History of multiple venous thromboembolism and lifelong anticoagulation with Eliquis. We will continue with that. Now, she is having atrial fibrillation which probably is causing this thromboembolism, elevated proBNP, pulmonary edema, pneumonia, continue with the treatment. 6. Recent Klebsiella pneumonia, pneumonia and septic shock. We will continue with Levaquin for now. 7. Polypharmacy. It looks like this patient has a lot of psychotropic medications, including [place], gabapentin, Remeron, Abilify, Seroquel, Mirapex. We have held some of them, but I will put this patient back on some of them to avoid any further problem. 8. Severe kyphosis, noted, the patient fell backwards and she is complaining of severe back pain. I need to rule out a compression fracture. 9. Large hiatal hernia, and I do believe the preferred treatment failed, probably she is having some reflux and aspiration because of that. 10. Low-grade fever. I will get blood cultures, urine culture, and I will give her some Tylenol. I will monitor. 11. This patient will be transferred to the CIC unit, telemetry, continue antibiotics. She will be on diltiazem drip. Cardiology has been consulted, as well as Pulmonary Department. It looks like she has a new onset atrial fibrillation and/or paroxysmal atrial fibrillation. cc: Nick Abreu MD
[2018-12-16] MEDS: XOPENEX NEB INH SCH ×3 (15:39→23:40)
[2018-12-16] MEDS: ATROVENT NEB INH SCH ×3 (15:39→23:40)
--- NOTE | 2018-12-16 16:10 | Diag Imaging Result Doc PS360 ---
EXAM: CT T-SPINE/L-SPINE W/O CON INDICATION: S/P fall, pain TECHNIQUE: This exam was performed using automated exposure control, adjustment of mA or kV according to patient size, and/or use of iterative reconstruction technique. COMPARISON: CT chest dated 07/09/2018. No prior dedicated CT of the T-spine or L-spine is available for comparison. FINDINGS: T-spine: There are tiny endplate marginal osteophytes ventrally at multiple levels throughout the mid and lower thoracic spine. There is mild disc space height loss and vacuum disc phenomenon at these levels as well. The vertebral body heights are maintained. There is no evidence of fracture, subluxation, or significant intrinsic osseous lesion, otherwise. There is mild dextrocurvature of the lumbar spine and the patient is kyphotic. The bones are osteopenic. L-spine: The bones are osteopenic. There is scoliosis. There is a broad-based disc bulge at L4-5 causing at least moderate central stenosis. There is a left lateralizing disc protrusion at L5-S1 causing mild to moderate left neuroforaminal stenosis. The vertebral body heights are maintained. There is minimal anterolisthesis of L4 on L5 related to mild facet hypertrophy. There is no evidence of fracture, acute subluxation, or intrinsic osseous lesion, otherwise. IMPRESSION: Degenerative changes and osteopenia as described. No evidence of fracture or other definite acute T-spine or L-spine injury. Electronically signed by Curt Levine 12/16/2018 4:08 PM
--- NOTE | 2018-12-16 19:10 | CARDIOLOGY CONSULTATION ---
DATE: 12/16/2018 REASON FOR CONSULTATION: For tachycardia, possible atrial fibrillation. HISTORY: Mrs. Carson is a pleasant 83-year-old female known to me. Since her last visit with me, she has been admitted to the hospital with recurrent pneumonia in November of this year. She was admitted on 12/08/2018 and discharged on 12/11/2018. At that time she had positive blood cultures for Klebsiella. She had abnormal chest x-ray noted. The patient was managed medically. She went home. Unfortunately, with being at home, she got out of bed one morning and fell backwards and injured her back and she conferred with her primary doctor, who recommended a visit with the emergency room. Over there, they did the standard assessment and they recommended admission to the hospital because she appeared to be fluid overloaded, possibly in pulmonary edema. They checked a proBNP level and it was 4494. Troponin negative. Her hemoglobin was somewhat low. She has been given Lasix because of the CHF and today the patient appeared to complain of more back pain. Her electrolytes were really out of range, especially magnesium being low. Yesterday, potassium was low. She developed tachycardia with irregular pulse and irregular RR interval due to frequent PACs. It appears atrial fibrillation on the telemetry, however on closer examination the patient seems to be in sinus tachycardia with frequent PACs. The patient is very uncomfortable. She has been given some magnesium IV. They have ordered a CT of the spine and the patient is in the process of being taken for that study. She has not experienced any real change in her cardiovascular status since the last time I saw her, which was 08/10/2018. She has stable pattern of symptoms. She is really very limited because of her somatic complaints. She is on multiple drugs for back pain and leg pain. PAST HISTORY: Her past history is complicated. She suffered an episode of deep venous thrombosis and pulmonary embolism in June of 2018. That has required anticoagulation with Eliquis. She has coronary atherosclerosis. She has suffered syncope in the past. She has had hypertension and hyperlipidemia. She has a massive diaphragmatic hernia. Additional surgery includes knee surgery and loop recorder implant. SOCIAL HISTORY: She is . She has three children. Not a smoker or a drinker. FAMILY HISTORY: Mother has had coronary heart disease. HOME MEDICATIONS: Eliquis 5 twice a day, Abilify 2 mg daily, formoterol budesonide two puffs twice a day, Celexa 20 daily, vitamin D 50,000 every seven days, Neurontin 300 three times a day, Levaquin 500 daily, metoprolol 50 twice a day, Remeron 50 mg at bedtime, Protonix 40 mg daily, potassium chloride 10 mEq daily, Mirapex 0.125 daily, quetiapine one tablet daily, and Crestor one tablet daily. These medications have been changed since admission. REVIEW OF SYSTEMS: She is basically very limited due to her recent admissions and significant functional decline. Chronic back pain. Difficulty sleeping. Anxiety, etc. PHYSICAL EXAMINATION: Vital signs: Blood pressure is 133/58, pulse is 116, temperature 100.8, respirations 20. General: Awake, alert, and follows commands. HEENT: Unremarkable. Frail looking. Chest: Markedly diminished breath sounds in the left lung. Cardiac: Heart sounds are tachycardic and somewhat irregular. I do not hear a gallop or murmur. Abdomen: Soft, nontender. No masses, no hepatomegaly. Extremities: Showed trace of edema. Pulses diminished. Neurologic: Follows commands, moves four extremities. BLOOD WORK: Sodium today is 142, potassium 3.8, BUN 16, creatinine 1.5. C reactive protein was checked and is 111.45 mg per L. Sed rate has been ordered. No other significant abnormalities on the blood work other than the fact that her alkaline phosphatase is elevated chronically. IMAGING: Chest x-ray from today shows mildly shallow inspiration; evidence of pulmonary edema, congestive heart failure, similar to prior except for some increasing basilar edema, left basilar pneumonia cannot be entirely excluded. IMPRESSION: 1. Patient with sinus tachycardia and frequent premature atrial contractions, question of paroxysmal atrial fibrillation. 2. Coronary atherosclerosis. 3. Recurrent pneumonia. 4. History of pulmonary embolism and deep venous thrombosis. 5. Severe back pain. Recent fall. 6. History of recent septicemia with Klebsiella pneumoniae in the blood. 7. Electrolyte disturbance, including hypomagnesemia and hypokalemia. 8. Abnormal liver function tests. RECOMMENDATIONS: From Cardiology viewpoint I would suggest to try to optimize her metabolic panel. We could use some Cardizem in addition to the beta-sekou to try to optimize her heart rate, however I suspect that her sinus tachycardia is reactive to some systemic inflammation. We will observe her. At this time, I do not suggest any major changes to therapy. cc: Yusef Klein MD [facility]
[2018-12-16] MEDS: SEROQUEL PO SCH (21:17)
--- NOTE | 2018-12-16 21:32 | CONSULTATION ---
DATE OF CONSULTATION: 12/16/2018 REQUESTING PROVIDER: Nick Abreu MD REASON FOR CONSULTATION: Pulmonary edema and pneumonia. HISTORY OF PRESENT ILLNESS: This is an 83-year-old female with a medical history of massive hiatal hernia, VTE, coronary atherosclerosis with prior syncope, hypertension, dyslipidemia, chronic exertional dyspnea, anxiety, depression, chronic pain syndrome and fibromyalgia. She was last admitted on 12/08/2018 to 12/11/2018 with septic shock, bilateral lower lobe pneumonia and Klebsiella pneumoniae bacteremia. She presented to the ER on 12/14/2018 after a mechanical fall as she tried to get out of the bed. She has been admitted to the regular floor for further evaluation and management. At the time of my examination, patient is lying in bed with mild respiratory distress. She is complaining of severe back pain. The nurse is noted and preparing to give her medicine. Patient's daughter and are at the bedside. Patient reports ongoing dizziness, SOB, and chest tightness, but no fever, cough, wheezing, headache, bowel habit change, urinary discomfort or palpitation. PAST MEDICAL AND SURGICAL HISTORY: 1. Massive hiatal hernia with reflux, status post Latia fundoplication, which has reocurred. 2. Multiple episodes of VTEs, including a pulmonary embolism and DVTs: last pulmonary edema noted on 07/11/2018; CT at that time also revealed a possibility of tumor invading central right lower lobe pulmonary artery, Dr. Paz followed. 3. Coronary atherosclerosis with prior syncope, s/p implantalbe loop recorder placement 4. Hypertension 5. Dyslipidemia 6. Chronic exertional dyspnea, on home Symbicort and some rescue inhaler 7. Anxiety. 8. Depression. 9. Chronic pain syndrome 10. Fibromyalgia. 11. S/p cataract surgery SOCIAL HISTORY: The patient is very self-dependent. She lives at home and takes care of her who has Alzheimer's Disease. She has no history of alcohol, tobacco, or illicit drug use. FAMILY HISTORY: positive for congestive heart failure. ALLERGIES: No known drug allergies. REVIEW OF SYSTEMS: A 10 point review of systems was conducted and the pertinent is listed within the HPI, otherwise noncontributory. PHYSICAL EXAMINATION: Vital Signs: Temperature 100.8 degrees, blood pressure 133/58, pulse 116, respiratory rate 20, oxygen saturation 95% with nasal cannula at 2 L. General: Patient is lying in bed with family at the bedside. She is in mild acute respiratory distress and get anxious easily. HEENT: Atraumatic. Trachea midline. Mucous pink and moist. Respiratory: Severe wheezing throughout the lung zones bilaterally with diminished breathing sounds bibasilarly. Cardiovascular: Regular rate and rhythm without murmur noted. Gastrointestinal: Soft, nontender, nondistended. Normoactive bowel sounds in all 4 quadrants. Extremities: No pedal edema. No cyanosis. No clubbing. Dorsalis pedis pulses 2+ bilaterally. Neurologic: Alert, oriented x3 with generalized weakness. Speech fluent. Follow commands. DIAGNOSTIC STUDIES: Chest x-ray reveals evidence of pulmonary edema or congestive heart failure similar to prior, except for some increase in basilar edema and questionable left basilar pneumonia. LAB DATA: Sodium 142, potassium 3.8, chloride 88, carbon dioxide 31, BUN 16, creatinine 1.5, glucose 127. ASSESSMENT AND PLAN: This is an 83-year-old female with a medical history of massive hiatal hernia, VTE, coronary atherosclerosis with prior syncope, hypertension, dyslipidemia, chronic exertional dyspnea, anxiety, depression, chronic pain syndrome and fibromyalgia. She has been admitted to the medical floor with recent mechanical fall, suspected congestive heart failure, recent septic shock with pneumonia which is unhealed, and Klebsiella pneumoniae bacteremia. 1. Acute hypoxemic respiratory failure. Patient has chronic exertional SOB and she is on home Symbicort and some rescue inhalers. She has severe wheezing on auscultation. Continue Symbicort and bronchodilators; Continue on supplemental oxygen; BiPAP at bedtime and as needed; follow up with ABG and CXR. 2. Status post mechanical fall. Both head CT and thoracic/lumbar spine CT are negative to fracture. 3. Acute pulmonary edema or congestive heart failure. Agree to continue diuretic ; creatinine elevated today; Agree to follow up with [facility]; Dr. Klein, the [employer], is on board. 4. Suspected persistent pneumonia. Agree to continue antibiotics; consider infectious disease specialist consult. 5. Continue gastrointestinal (GI) and deep vein thrombosis (DVT) prophylaxis. Thank you for the courtesy of this consult. Dictated by LAYO Nava for Fortunato Ruiz MD cc: LAYO Nava MD [facility]
[2018-12-17] MEDS: XOPENEX NEB INH SCH ×6 (03:31→23:43)
[2018-12-17 05:08] LABS: ALLEN TEST YES; BE 2.8 mmoll (-3.0-3.0); BLOOD TYPE ARTERIAL; METHB 1.1 % (0.0-1.5); O2(CT) 14.6 mL/dL (15.0-23.0); O2HB 93.8 % (95.0-99.0); PCO2(98.6) 40 mmHg (35-45); PO2(98.6) 75 mmHg (60-100); SAMPLE BLOOD; SAO2 96.4 % (95.0-100.0); pH(98.6) 7.44 (7.35-7.45)
[2018-12-17 05:09] LABS: MODALITY CANNULA
[2018-12-17] MEDS: MORPHINE IV PRN (07:25)
[2018-12-17 07:50] LABS: BASO# 0.03 X1000 (0.0-0.2); BASO% 0.1 % (0.0-0.8); HEMATOCRIT 32.6 % (37.0-47.0); HEMOGLOBIN 10.5 g/dL (12.0-16.0); IMM GRAN# 0.12 X1000 (0.0-0.04); IMM GRAN% 0.4 % (0.0-0.5); LYMPH# 1.65 X1000 (1.2-3.4); LYMPH% 4.8 % (20.5-51.1); MCH 29.7 PG (27-31); MCHC 32.2 g/dL (33-37); MCV 92.4 FL (81-99); MONO# 0.99 X1000 (0.11-0.59); MONO% 2.9 % (1.7-9.3); MPV 12.6 FL (7.4-10.4); NEUT# 31.32 X1000 (1.4-6.5); NEUT% 91.8 % (42.2-75.2); PLT 232 X1000 (130-400); RBC 3.53 XMIL (4.2-5.4); RDW 15.9 % (11.5-14.5); WBC 34.11 X1000 (4.8-10.8)
[2018-12-17] MEDS: SYMBICORT 80/4.5 MICROGM INHALER INH SCH ×2 (08:00→19:20)
[2018-12-17 08:12] LABS: BANDS 24 % (0-1); LYMPHS 4 % (21-51); MONO 4 % (1-9); SEGS 68 % (42-75)
[2018-12-17 08:13] LABS: HYPOCHROM 2+
[2018-12-17] MEDS: ATROVENT NEB INH SCH ×4 (08:30→23:42)
[2018-12-17 08:40] LABS: ALB/GLOB RATIO 0.8; ALBUMIN 2.6 g/dL (3.5-5.0); CALCIUM 7.5 mg/dL (8.8-10.2); CREATININE 3.2 mg/dL (0.5-0.9); MAGNESIUM 1.3 mg/dL (1.5-2.7); POTASSIUM 4.8 mmol/L (3.5-5.1); TOTAL BILIRUBIN 2.07 mg/dL (0.20-1.00); TOTAL PROTEIN 5.7 g/dL (6.3-8.3)
[2018-12-17] MEDS ORDERED: MAXIPIME 1 GM in NS 50 ML IV SCH (09:00)
[2018-12-17] MEDS: CELEXA PO SCH (09:04)
[2018-12-17] MEDS: PRILOSEC PO SCH ×2 (09:04→20:53)
[2018-12-17] MEDS: ABILIFY PO SCH (09:04)
[2018-12-17] MEDS: NORCO-7.5 PO SCH (09:05)
[2018-12-17] MEDS: TOPROL XL PO SCH ×2 (09:06→21:27)
[2018-12-17] MEDS: CRESTOR PO SCH (09:07)
[2018-12-17] MEDS: MIRAPEX PO SCH (09:07)
[2018-12-17] MEDS: ELIQUIS PO SCH ×2 (09:08→20:53)
[2018-12-17] MEDS ORDERED: NS 1,000 ML IV ONE (10:57)
[2018-12-17] MEDS: MAXIPIME 1 GM in NS 50 ML IV SCH ×3 (11:01→21:38)
[2018-12-17] MEDS: LASIX IV SCH ×2 (11:01→11:17)
--- NOTE | 2018-12-17 11:10 | INFECTIOUS DISEASE CONSULT REP ---
DATE: 12/17/2018 CONCLUSION: The patient was admitted to the hospital originally with dizziness and falling. She has a gram-negative madie bacteremia, which I think caused her to become dizzy and fall. The exact origin of the bacteremia is uncertain at this time. On her chest x-ray, there is pulmonary venous congestion and possibility of a left lower lobe pneumonia. Also, I think it is possible that patient had a urinary tract infection as the cause of her gram-negative madie bacteremia and her dizziness and her fall. I also think a urinary tract infection could be the cause of her bacteremia and fall. Also, the patient tells me that she has recurrent episodes of pneumonia and, more recently, she had Klebsiella pneumonia and bacteremia and I am concerned that the infections are occurring because the patient has an immunoglobulin deficiency. RECOMMENDATIONS: I agree with cefepime. I am going to increase the dose to 1 g IV every 12 hours. Also, I have ordered immunoglobulin levels and I have gone ahead and ordered a urinalysis culture to be obtained by catheterization since a urine from the patient voiding has not been obtained. DISCUSSION: The patient, approximately 3 days ago, fell and injured her back. She also hit her head. She has been somewhat dyspneic also and anorectic since the fall. Her study shows that the white count today is increased dramatically to 34,110, hemoglobin is 10.5 and platelet count is 232,000 arterial blood gases show a pH of 7.44. The a pO2 of 75, and a pCO2 of 40. The patient's creatinine is 3.2 GFR is 14. The alkaline phosphatase is 550. Blood cultures are growing a gram- negative madie. Chest x-ray shows pulmonary venous congestion and a question of a left lower lobe pneumonia. CT scan of the spine showed degenerative changes and osteopenia. CT scan of the head showed no abnormality. PAST MEDICAL HISTORY/REVIEW OF SYSTEMS: Eyes and Ears: She does not have any problem with hearing or seeing. Neck: No stiffness. Respiratory: See present illness about dyspnea. GI: No nausea, vomiting, or diarrhea. Genitourinary: No dysuria or flank pain. Bones/Joints/Muscles: She did not complain of swollen joints or muscle aches. Endocrine: The patient does not have diabetes or thyroid disease. Neurologic: No seizures. No change in motor or sensory function recently. IMPROVEMENT NURSE: The patient is a 3, para 3, AB 0. PREVIOUS HOSPITALIZATIONS AND OPERATIONS: The patient has had 3 labor and deliveries, hernia repair, and surgery on the knee but the knee was not replaced. MEDICAL DISEASES: Positive for hypertension, venous thromboemboli, which includes pulmonary emboli, hiatal hernia, congestive heart failure, kyphosis, and fibromyalgia. INFECTIOUS DISEASE HISTORY: Patient has history of recurrent pneumonia. Recently, she had Klebsiella pneumonia and bacteremia for which she was treated with Levaquin. FAMILY HISTORY: Positive for hypertension and myocardial infarction. SOCIAL HISTORY: [place] She is . She does not have any pets at home. She does not smoke cigarettes, drink alcoholic beverages, or abuse drugs. MEDICATIONS: The patient's home medications include: 1. [place]. 2. Gabapentin. 3. Metoprolol. 4. Abilify. 5. Mirtazapine. 6. Quetiapine. 7. Citalopram. 8. Apixaban. 9. Mirapex. 10. Crestor. 11. Pantoprazole. 12. Levaquin. I am going to discontinue the Levaquin because the patient comes in bacteremic while she is on Levaquin. PHYSICAL EXAMINATION: Vital Signs: Temperature is 98.2 degrees. Pulse 97. Respirations 27. Blood pressure 116/57. Height and Weight: Patient is 5 feet 10 inches tall and weighs 170 pounds. General: This is an ill-appearing, elderly female. She is in no acute distress. Head/eyes/ears/nose/throat: She can hear my spoken words and see near objects. She does not have any white patches on her tongue. Sinuses are not tender. Neck: No meningismus. Thorax: The patient has dorsal kyphosis. Lungs: Clear to auscultation. Cardiovascular: Regular heart rate. Abdomen: Soft and nontender. Neurologic: The patient is awake. She can move her extremities. There is no tremor. Her sensation is intact to touch. Her memory, as regarding her medical history, is diminished somewhat. Integument: No rash noted. Thank you for the consult. cc: Kvng Funk MD
--- NOTE | 2018-12-17 11:20 | Diag Imaging Result Doc PS360 ---
EXAM: CHEST-PORTABLE HISTORY: Pneumonia TECHNIQUE: Chest single view COMPARISON: 12/16/2018 FINDINGS: Poor inspiratory effort. There is a hiatal hernia. The heart is prominent and there is vascular distention. There is a small left pleural effusion with basilar atelectasis. IMPRESSION: No interval improvement. Electronically signed by Darwin Hughes 12/17/2018 11:18 AM
[2018-12-17] MEDS ORDERED: MAGNESIUM SULFATE 2 GM/S.W.I. 2 GM/50 ML IVPB IV ONE (11:28)
[2018-12-17 11:41] LABS: URINE SOURCE CATH
[2018-12-17 11:45] LABS: BILIRUBIN URINE SMALL (NEGATIVE); BLOOD URINE MODERATE (NEGATIVE); COLOR YELLOW; GLUCOSE URINE NEGATIVE (NEGATIVE); KETONE URINE NEGATIVE (NEGATIVE); LEUKOCYTES URINE NEGATIVE (NEGATIVE); NITRITE URINE NEGATIVE (NEGATIVE); PH URINE 5.5; PROTEIN URINE 100 mg/dL (NEGATIVE); SP GRAVITY URINE 1.018; TURBIDITY URINE TURBID (CLEAR); UROBILINOGEN URINE 4 mg/dL (NORMAL)
[2018-12-17 11:59] LABS: UR EPITHELIAL CELLS <10 /HPF (<10); URINE BACTERIA NEGATIVE /HPF; URINE RBC <10 /HPF (<10)
[2018-12-17 12:20] LABS: UR CREAT RANDOM 119.7 mg/dL (11-20)
[2018-12-17 12:29] LABS: UR PROT RANDOM 160.7 mg/dL
[2018-12-17 12:41] LABS: URINE CASTS GRANULAR PRESENT; URINE YEAST NONE SEEN
[2018-12-17 13:02] LABS: CK INDEX 1.3 (0.0-2.5)
[2018-12-17] MEDS: NORCO-5 PO SCH ×2 (14:04→16:29)
--- NOTE | 2018-12-17 14:12 | PROGRESS NOTE ---
DATE: 12/17/2018 SUBJECTIVE: This patient is septic, bacteremic with a positive blood culture that showed gram- negative rods x2. She was receiving levofloxacin and has been changed to cefepime, infectious disease department has been consulted as well. Her kidney function is getting worse compared with yesterday. BUN increased from 16 to 38 and creatinine from 1.5 to 3.2, since she is septic I will bolus this patient with 1 liter and I will keep an eye on her because she has some pulmonary edema on her x-ray today. Her blood pressures yesterday were more elevated compared with today, today it has been mostly in the 90s and 100s. I will go ahead and transfer this to the ICU since probably she will end up with septic shock. We did a bladder scan on this patient and it looks like her urine residual is elevated more than 700, probably the infection is coming from there, the urine is also concentrated. Like I said, I will bolus this patient with 1 liter, case has been discussed with nephrology department. I will get new lab work during the night and if she is not overloaded, I will go ahead and give her some normal saline, slow rate during the night. OBJECTIVE: Vital Signs: She is slightly tachycardic. Temperature 98.2. Pulse 106. Respiratory rate 22. Blood pressure 103/66. Oxygen saturation 75 on 2 liters nasal cannula. HEENT: Head normocephalic. No trauma. PERRLA. Neck: Supple. No JVD. No masses. Central trachea. Chest: Decreased breath sounds at the bases with crackles bilaterally, expiatory wheezing as well. Abdomen: Soft, mildly generalized tenderness per patient. No signs of peritoneal irritation. Positive bowel sounds. Extremities: Trace pedal edema, no clubbing, no cyanosis. Neurological examination: The patient is alert and oriented x3. No focal deficits. LABORATORY: WBC 34.1, hemoglobin 10.5, hematocrit 32.6, platelets 232. Sodium 143, potassium 4.8, chloride 98, bicarbonate 26, BUN 38, creatinine 3.2, glucose 128, calcium 7.5, magnesium 1.3. ASSESSMENT AND PLAN: 1. Sepsis. This patient meets criteria with tachycardia, tachypnea, and a source of infection. WBC is elevated at 34.1. She will receive IV fluids, since she has pulmonary edema, I will put just 1 liter and I will monitor and probably if she is doing okay I will put some fluid during the night slowly. My plan is to send this patient to the ICU because she will probably need some pressors on board, since the blood pressure during the night is 100. 2. Acute hypoxic respiratory failure on admission due to persistent pneumonia associated with pulmonary edema, she still has her effusion. We will continue with oxygen supplementation. Pulmonary department, cardiology department, and infectious disease department on board. This patient does not have a history of chronic obstructive pulmonary disease and she is not on home oxygen, recently she was discharged from this hospital but she came back due to a mechanical fall. X-ray showed some infiltrate and pulmonary edema. 3. Acute pulmonary edema especially effecting the left lung. She was getting Lasix twice a day, but since the BUN and creatinine increased we have stopped that. We will continue to monitor at this point. 4. New onset atrial fibrillation. This has been ruled out. She does not have atrial fibrillation. She was tachycardic with some premature beats. Cardiology already evaluated this patient. 5. Status post mechanical fall. She is complaining of severe back pain. I asked for a noncontrast CT of her back to rule out any fracture, but thoracic spine and lumbar spine with no lesions. 6. 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 We will continue with that. 7. Recent Klebsiella pneumonia, pneumonia and septic shock. We will continue with antibiotics, she used to be on Levaquin but has been switched to cefepime, infectious disease on board. 8. Polypharmacy. Aware. 9. Severe kyphosis. Aware. 10. Large hiatal hernia. This is likely the cause of some aspiration pneumonia probably, we will continue with proton pump inhibitor. 11. Low-grade fever. Yesterday I asked for urine culture and also blood culture, which is positive for gram-negative rods x2. 12. Bacteremia with a positive culture that showed gram-negative rods. Aware. This patient is septic, the source of infection could be the urine or the lungs, we will continue with same management and we will send this patient to the ICU. cc: Nick Abreu MD
[2018-12-17 14:41] LABS: INR 2.9; PROTIME 32.4 Seconds (11.0-16.0)
[2018-12-17 14:42] LABS: PTT 52.1 Seconds (22.3-41.8)
--- NOTE | 2018-12-17 18:48 | Diag Imaging Result Doc PS360 ---
EXAM: CHEST-PORTABLE 12/17/2018 HISTORY: SOB TECHNIQUE: AP portable upright at 1839 COMMENT: There is a large hiatal hernia. The cardiomediastinal silhouette is also enlarged and there is ill-defined opacity over the left base. The inspiration is less optimal than on 12/17/2018 at 1110. There is somewhat worsened atelectatic opacity in the mid lung on the right. Otherwise there has been no significant change. IMPRESSION: Slightly worsened right lower lobe atelectasis. Electronically signed by Zeke Negron 12/17/2018 6:45 PM
[2018-12-17 19:03] LABS: BASO# 0.02 X1000 (0.0-0.2); BASO% 0.1 % (0.0-0.8); EOS# 0.02 X1000 (0.0-0.7); EOS% 0.1 % (0.0-10.0); HEMATOCRIT 32.8 % (37.0-47.0); HEMOGLOBIN 10.6 g/dL (12.0-16.0); IMM GRAN# 0.09 X1000 (0.0-0.04); IMM GRAN% 0.3 % (0.0-0.5); LYMPH# 1.42 X1000 (1.2-3.4); LYMPH% 4.8 % (20.5-51.1); MCH 29.6 PG (27-31); MCHC 32.3 g/dL (33-37); MCV 91.6 FL (81-99); MONO# 0.77 X1000 (0.11-0.59); MONO% 2.6 % (1.7-9.3); MPV 12.5 FL (7.4-10.4); NEUT% 92.1 % (42.2-75.2); PLT 236 X1000 (130-400); RBC 3.58 XMIL (4.2-5.4); RDW 16.1 % (11.5-14.5); WBC 29.82 X1000 (4.8-10.8)
[2018-12-17 19:15] LABS: LYMPHS 4 % (21-51); MONO 2 % (1-9); SEGS 94 % (42-75)
[2018-12-17] MEDS ORDERED: LEVOPHED 8 MG in D5 1/2 NS 250 ML IV SCH (19:15)
[2018-12-17 19:31] LABS: ALB/GLOB RATIO 1.4; CREATININE 3.8 mg/dL (0.5-0.9); MAGNESIUM 2.1 mg/dL (1.5-2.7); POTASSIUM 4.6 mmol/L (3.5-5.1); TOTAL BILIRUBIN 1.83 mg/dL (0.20-1.00); TOTAL PROTEIN 5.2 g/dL (6.3-8.3)
[2018-12-17 19:36] LABS: CALCIUM 6.8 mg/dL (8.8-10.2)
[2018-12-17] MEDS ORDERED: CALCIUM GLUCONATE 4.65 MEQ in NS 50 ML IV ONE (20:14)
[2018-12-17] MEDS ORDERED: NS 1,000 ML IV SCH (20:30)
[2018-12-17] MEDS: TYLENOL PO PRN (20:38)
[2018-12-17] MEDS: SEROQUEL PO SCH (20:53)
--- NOTE | 2018-12-18 01:25 | NEPHROLOGY CONSULTATION ---
DATE: 12/17/2018 REASON FOR CONSULTATION: Acute kidney injury. HISTORY OF PRESENT ILLNESS: Ms. Carson is an 83-year-old white female who was recently hospitalized at this facility with sepsis. She had blood cultures positive for Klebsiella pneumoniae and a urine culture positive for Escherichia coli. She was home for just 2 days and did very poorly with weakness, anorexia, vomiting, and ultimately falling. This led to her readmission to the hospital. She was evaluated with imaging of the head which showed no contusion or stroke. CT of her spine demonstrated degenerative changes only. In this context, her creatinine was 0.7 on admission and has risen progressively to 3.2 today. She has been treated with diuretics for possible heart failure. She does have a history of congestive heart failure. Her urine output has been acceptable. She has a [place] catheter in place. No other new symptoms except as listed. PAST MEDICAL HISTORY: As above. She has a history of pulmonary emboli and DVTs. She has a history of congestive heart failure. Fibromyalgia. MEDICATIONS: Home medications include [place], gabapentin, metoprolol, Abilify, mirtazapine, quetiapine, citalopram, apixaban, Mirapex, Crestor, pantoprazole, Levaquin. ALLERGIES: None. SOCIAL HISTORY: She is and lives with her . No alcohol or tobacco. Still drives. FAMILY HISTORY: Otherwise noncontributory. REVIEW OF SYSTEMS: Otherwise noncontributory. PHYSICAL EXAMINATION: Vital Signs: Blood pressure 104/64, heart rate 108, respirations 20, afebrile. General: She is a healthy elderly woman, in no acute distress. Skin: Warm and dry. HEENT: Conjunctivae are pink. Oropharynx is moist. Normal tongue. Normal dentition. Neck: Supple. Trachea is midline. Neck veins are not distended. Heart: PMI is not palpable. Regular rate and rhythm without murmurs, rubs, or gallops. Lungs: Equal breath sounds. No crackles or wheezes. Abdomen: Soft, nontender. Bowel sounds present. Extremities: No edema, clubbing, or cyanosis. IMPRESSION: Acute kidney injury. Acute tubular necrosis versus intravascular volume depletion. Her urine was abnormal, but her FENa is not low. We will have her undergo renal ultrasound, and I will administer IV fluids overnight and recheck her labs in the morning. If she does not respond to fluids, then she will by default have a diagnosis of acute tubular necrosis. She does have significant urinary protein present, and this is new. Observe. cc: Jaspreet Sevilla MD
[2018-12-18] MEDS: ATROVENT NEB INH SCH ×6 (02:43→23:30)
[2018-12-18] MEDS: XOPENEX NEB INH SCH ×6 (03:40→23:30)
[2018-12-18 04:58] LABS: ALLEN TEST YES; BE 0.4 mmoll (-3.0-3.0); BLOOD TYPE ARTERIAL; HCO3-(ACT) 25.2 mmoll (20.0-26.0); METHB 1.4 % (0.0-1.5); O2(CT) 15.3 mL/dL (15.0-23.0); O2HB 95.2 % (95.0-99.0); PCO2(98.6) 48 mmHg (35-45); PO2(98.6) 95 mmHg (60-100); SAMPLE BLOOD; SAO2 97.7 % (95.0-100.0); THB 11.3 g/dL (11.5-17.4); pH(98.6) 7.35 (7.35-7.45)
[2018-12-18 04:59] LABS: MODALITY BI PAP
[2018-12-18 05:17] LABS: BASO# 0.02 X1000 (0.0-0.2); BASO% 0.1 % (0.0-0.8); EOS# 0.02 X1000 (0.0-0.7); EOS% 0.1 % (0.0-10.0); HEMATOCRIT 31.1 % (37.0-47.0); IMM GRAN# 0.08 X1000 (0.0-0.04); IMM GRAN% 0.3 % (0.0-0.5); LYMPH# 1.11 X1000 (1.2-3.4); LYMPH% 4.6 % (20.5-51.1); MCH 29.5 PG (27-31); MCHC 32.2 g/dL (33-37); MCV 91.7 FL (81-99); MONO# 0.68 X1000 (0.11-0.59); MONO% 2.8 % (1.7-9.3); MPV 12.5 FL (7.4-10.4); NEUT# 22.34 X1000 (1.4-6.5); NEUT% 92.1 % (42.2-75.2); PLT 206 X1000 (130-400); RBC 3.39 XMIL (4.2-5.4); WBC 24.25 X1000 (4.8-10.8)
[2018-12-18 05:21] LABS: ALB/GLOB RATIO 0.7; ALBUMIN 2.4 g/dL (3.5-5.0); CALCIUM 7.3 mg/dL (8.8-10.2); CREATININE 3.5 mg/dL (0.5-0.9); MAGNESIUM 2.2 mg/dL (1.5-2.7); POTASSIUM 4.4 mmol/L (3.5-5.1); TOTAL BILIRUBIN 1.35 mg/dL (0.20-1.00); TOTAL PROTEIN 5.8 g/dL (6.3-8.3)
[2018-12-18 06:08] LABS: LYMPHS 4 % (21-51); MONO 2 % (1-9); SEGS 94 % (42-75)
--- NOTE | 2018-12-18 07:12 | Diag Imaging Result Doc PS360 ---
EXAM: CHEST-PORTABLE 12/18/2018 HISTORY: dyspnea TECHNIQUE: AP portable at 0542 COMMENT: There is slightly improved atelectasis in both lung bases particularly the left lower lobe. Otherwise there has been no significant change since 12/17/2018. IMPRESSION: Improved left lower lobe atelectasis. Electronically signed by Zeke Negron 12/18/2018 7:10 AM
[2018-12-18] MEDS: PRILOSEC PO SCH ×2 (09:35→20:11)
[2018-12-18] MEDS: TOPROL XL PO SCH ×2 (09:35→20:13)
[2018-12-18] MEDS: MAXIPIME 1 GM in NS 50 ML IV SCH ×2 (09:35→21:46)
[2018-12-18] MEDS: CRESTOR PO SCH (09:36)
[2018-12-18] MEDS: CELEXA PO SCH (09:36)
[2018-12-18] MEDS: ELIQUIS PO SCH ×2 (09:36→20:12)
[2018-12-18] MEDS: ABILIFY PO SCH (09:36)
[2018-12-18] MEDS: NORCO-5 PO SCH ×3 (09:36→20:12)
[2018-12-18] MEDS: MIRAPEX PO SCH (10:15)
[2018-12-18] MEDS: SYMBICORT 80/4.5 MICROGM INHALER INH SCH ×2 (11:47→19:30)
--- NOTE | 2018-12-18 13:47 | PROGRESS NOTE ---
DATE: 12/18/2018 SUBJECTIVE: This patient is septic, bacteremia, and with acute kidney injury. She has started voiding a little bit better today; since 7:00 a.m. so far 100 mL, so it is around 50 mL per hour. I will continue with the same management for now. Nephrology Department is on board and will monitor. The WBC, the creatinine, and the LFTs are slightly better today. The patient feels better compared with yesterday as well. OBJECTIVE: Vital Signs: Temperature 98.6, pulse 107, respiratory rate 16, blood pressure 101/61, and oxygen saturation 96% on 4 L nasal cannula. HEENT: Head normocephalic. No trauma. PERRLA. Neck: Supple. No JVD. No masses. Central trachea. Chest: Decreased breath sounds globally with crackles bilaterally and expiratory wheezing. Abdomen: Soft, nontender, and nondistended. No hepatosplenomegaly. Extremities: Trace pedal edema. No clubbing. No cyanosis. Neurological: The patient is alert and oriented times 3. No focal deficits. LABORATORY DATA: WBC 24.5, hemoglobin 10, hematocrit 31.1, and platelets 206. Sodium is 138, potassium 4.4, chloride 97, bicarbonate 24, BUN 57, creatinine 3.5, glucose 104, calcium 7.3, magnesium 2.2, AST 131, ALT 59, alkaline phosphatase 458, and albumin 2.4. ASSESSMENT AND PLAN: 1. Sepsis. This patient meet criteria with tachycardia, tachypnea, elevated white blood cells, and source of infection. She is getting IV fluids and antibiotics. She seems to be doing better. White blood cell count is trending down. She is not complaining of pain at this moment and as per the patient she feels stronger. Continue with antibiotics. Infectious Disease is on board. 2. Acute hypoxemic respiratory failure due to pneumonia and pulmonary edema, continue cycling the BiPAP machine and oxygen through the nasal cannula. Continue breathing treatments and pulmonary toilet. 3. Acute pulmonary edema especially affecting the left lung. Continue with the same management. Cycle the BiPAP machine and breathing treatments. I think it looks a little bit better compared with yesterday. 4. Atrial fibrillation has been ruled out. She was having sinus tachycardia 5. Status post mechanical fall. She has been complaining of severe back pain. Noncontrast CT of her back ruled out a fracture. 6. History of multiple venous thromboembolism on life long anticoagulation with Eliquis. 7. Recent Klebsiella pneumoniae, pneumonia and septic shock. She was discharged recently from this hospital with this diagnosis. The Infectious Disease Department is following this patient. Her Levaquin has been stopped because we have a new culture that showed gram- negative rods. She has been placed on cefepime and she seems to be doing better. 8. Polypharmacy, aware. 9. Severe kyphosis, aware. 10. Large hiatal hernia. This is likely the cause of some aspiration pneumonia. We will continue with proton pump inhibitors. 11. Low-grade fever. Two days ago I asked for a urine culture and blood culture that now is positive times 2 with gram-negative rods. 12. Bacteremia, positive blood cultures that showed gram-negative rods. We will continue with cefepime. White blood cell count is trending down. 13. Acute kidney injury, likely secondary to sepsis, likely prerenal. I will continue with fluid management. Nephrology department is on board. CRITICAL CARE TIME: Forty-five minutes. cc: Nick Abreu MD
[2018-12-18] MEDS: NS 1,000 ML IV SCH (14:22)
[2018-12-18] MEDS: SOLU-CORTEF IV SCH ×2 (14:22→19:27)
[2018-12-18] MEDS: SEROQUEL PO SCH (20:11)
[2018-12-19] MEDS: TYLENOL PO PRN ×2 (00:59→20:02)
[2018-12-19] MEDS: NS 1,000 ML IV SCH ×3 (01:03→22:50)
--- NOTE | 2018-12-19 01:08 | NEPHROLOGY PROGRESS NOTE ---
DATE: 12/18/2018 SUBJECTIVE: She states she feels better today. She is on closed face mask in the ICU. No cough, sputum, nausea, vomiting. OBJECTIVE: Vital Signs: Blood pressure 101/64, heart rate 95, respiration 19, afebrile. T-max 100.3 degrees. Intake 700 mL. Output 900 mL. General: No acute distress. Skin is warm and dry. Conjunctivae are pink. Oropharynx is dry. Neck: Neck veins are not visible. Trachea is midline. Heart: Regular. No gallops. Lungs: Equal, coarse, no crackles. Abdomen: Soft, nontender. Bowel sounds are present. Extremities: Have no edema, clubbing, or cyanosis. IMPRESSION: Acute kidney injury. Her creatinine has changed only modestly over the last 24 hours. 3.2 up to 3.5. BUN continues to rise however. Her chest x-ray performed today really has no significant evidence of pulmonary edema by my assessment so I will go ahead with IV fluids today and observe her response. Electrolytes and acid-base are acceptable. No changes. cc: Jaspreet Sevilla MD
[2018-12-19] MEDS: SOLU-CORTEF IV SCH ×4 (02:24→20:07)
[2018-12-19] MEDS: XOPENEX NEB INH SCH ×6 (03:22→23:36)
[2018-12-19 04:51] LABS: ALLEN TEST YES; BE -1.7 mmoll (-3.0-3.0); BLOOD TYPE ARTERIAL; HCO3-(ACT) 23.6 mmoll (20.0-26.0); METHB 0.5 % (0.0-1.5); O2(CT) 7.4 mL/dL (15.0-23.0); O2HB 96.8 % (95.0-99.0); PCO2(98.6) 43 mmHg (35-45); PO2(98.6) 90 mmHg (60-100); SAMPLE BLOOD; SAO2 98.5 % (95.0-100.0); THB 5.3 g/dL (11.5-17.4); pH(98.6) 7.35 (7.35-7.45)
[2018-12-19 04:53] LABS: MODALITY CANNULA
[2018-12-19 05:48] LABS: ALB/GLOB RATIO 0.8; ALBUMIN 2.5 g/dL (3.5-5.0); BASO# 0.02 X1000 (0.0-0.2); BASO% 0.1 % (0.0-0.8); CALCIUM 7.7 mg/dL (8.8-10.2); EOS# 0.01 X1000 (0.0-0.7); EOS% 0.1 % (0.0-10.0); HEMATOCRIT 31.5 % (37.0-47.0); HEMOGLOBIN 10.1 g/dL (12.0-16.0); IMM GRAN# 0.06 X1000 (0.0-0.04); IMM GRAN% 0.3 % (0.0-0.5); LYMPH% 2.8 % (20.5-51.1); MAGNESIUM 2.1 mg/dL (1.5-2.7); MCH 29.4 PG (27-31); MCHC 32.1 g/dL (33-37); MCV 91.8 FL (81-99); MONO# 0.29 X1000 (0.11-0.59); MONO% 1.6 % (1.7-9.3); MPV 12.6 FL (7.4-10.4); NEUT# 17.25 X1000 (1.4-6.5); NEUT% 95.1 % (42.2-75.2); PHOSPHORUS 5.8 mg/dL (2.7-4.5); PLT 204 X1000 (130-400); POTASSIUM 4.5 mmol/L (3.5-5.1); RBC 3.43 XMIL (4.2-5.4); RDW 15.9 % (11.5-14.5); TOTAL BILIRUBIN 0.94 mg/dL (0.20-1.00); TOTAL PROTEIN 5.8 g/dL (6.3-8.3); WBC 18.13 X1000 (4.8-10.8)
[2018-12-19 06:19] LABS: CK INDEX 1.4 (0.0-2.5); CK-MB 8.51 ng/mL (0.0-5.0)
[2018-12-19] MEDS ORDERED: NORCO-5 PO PRN (07:19)
--- NOTE | 2018-12-19 07:43 | Diag Imaging Result Doc PS360 ---
EXAM: CHEST-PORTABLE 12/19/2018 HISTORY: dyspnea TECHNIQUE: AP portable at 0535 COMMENT: There is a large hiatal hernia. There is enlargement of the cardiomediastinal silhouette and increased pulmonary vascularity. There is increased interstitial markings and ill-defined opacity in the left base which may be due to atelectasis and/or pneumonia. These findings were all present on 12/18/2018. There has been no appreciable change. IMPRESSION: Bibasilar atelectasis versus pneumonia particularly in the left lower lobe. Plus minus pulmonary edema. Electronically signed by Zeke Negron 12/19/2018 7:40 AM
[2018-12-19 08:18] LABS: BANDS 8 % (0-1); HYPOCHROM 1+; LYMPHS 10 % (21-51); MONO 2 % (1-9); SEGS 80 % (42-75)
[2018-12-19] MEDS: SYMBICORT 80/4.5 MICROGM INHALER INH SCH ×2 (08:22→19:17)
[2018-12-19] MEDS: ATROVENT NEB INH SCH ×5 (08:22→23:36)
--- NOTE | 2018-12-19 09:18 | PROGRESS NOTE ---
DATE: 12/19/2018 SUBJECTIVE: This patient is feeling much better. She is still coughing. Her kidney function is better. She has been treated for sepsis. She is bacteremic. Blood culture showed gram-negative madie x2. Urine cultures has been negative. This patient was transferred a couple days ago because of severe pain, sepsis, increased WBC from 6 to 34,000, and low blood pressure. She never required pressors. We have been giving her gentle IV fluids because this patient has been having pulmonary edema but this is getting better also. She has acute kidney injury. BUN and creatinine are trending down slowly. OBJECTIVE: Vital Signs: Temperature 97.4 degrees, pulse 104, respiratory rate 14, blood pressure 145/96, oxygen saturation 96 on 4 L of nasal cannula. HEENT: Head normocephalic. No trauma. PERRLA. Neck: Supple. No JVD. No masses. Central trachea. Chest: Decreased breath sounds globally with crackles bilaterally and mild faint expiratory wheezing. Abdomen: Soft, nontender, nondistended. No hepatosplenomegaly. Extremities: Trace pedal edema. No clubbing. No cyanosis. Neurological Examination: The patient is alert and oriented x3. No focal deficits. Laboratory: WBC 18.1, hemoglobin 10.1, hematocrit 31.5, platelets 204,000. Sodium 138, potassium 4.5, chloride 101, bicarbonate 21, BUN 55, creatinine 3, glucose 122, calcium 7.7. Total bilirubin 0.9, AST 108, ALT 52, alkaline phosphatase 435. CK decreased from 1000 to 588. Albumin 2.5. ASSESSMENT AND PLAN: 1. Sepsis. This patient met criteria for sepsis with tachycardia, tachypnea, elevated white blood cells, and a source of infection. She has been getting intravenous fluids and antibiotics. She seems to be doing better. White blood cell count is trending down. She is not complaining of pain at this moment and the patient feels stronger. I will continue with antibiotics. Infectious disease department on board. 2. Acute hypoxemic respiratory failure due to pneumonia and pulmonary edema. Continue cycling the BiPAP machine and oxygen through the nasal cannula. Continue breathing treatments and pulmonary toilet. 3. Acute pulmonary edema, especially affecting the left lung. For me, the x-ray looks better today. Continue with the same management. 4. Atrial fibrillation has been ruled out. No atrial fibrillation on this patient. She was having sinus tachycardia with multiple premature beats. 5. Status post mechanical fall. She was complaining of severe back pain but the noncontrast CT scan of the spine ruled out any kind of fracture or acute process. 6. History of multiple venous thromboembolism, on lifelong anticoagulation with Eliquis. 7. Recent Klebsiella pneumonia, pneumonia and septic shock on previous hospitalization. She was recently discharged from this hospital with those diagnoses. Infectious disease department following this patient. She was discharged home on Levaquin which has been stopped because now we have a new blood culture that is positive for gram-negative rods. She was placed on cefepime and she seems to be doing a whole lot better. 8. Polypharmacy. Aware. 9. Severe kyphosis. Aware. 10. Large hiatal hernia. This is likely the cause of some aspiration pneumonia. We will continue with proton pump inhibitors. 11. Low grade fever. Three days ago, she had a low-grade fever and I asked for blood culture and urine culture. The blood culture is positive for gram-negative rods. 12. Bacteremia. Positive blood culture for gram-negative rods, two out of two. Continue with the same management. 13. Acute kidney injury, likely secondary to sepsis and a prerenal issue. We will continue with intravenous fluids. She is tolerating that. X-ray looks about the same compared with yesterday or maybe a little bit better. Nephrology department on board. cc: Nick Abreu MD
[2018-12-19] MEDS: ABILIFY PO SCH (09:30)
[2018-12-19] MEDS: CELEXA PO SCH (09:30)
[2018-12-19] MEDS: TOPROL XL PO SCH ×2 (09:31→20:11)
[2018-12-19] MEDS: CRESTOR PO SCH (09:31)
[2018-12-19] MEDS: MIRAPEX PO SCH (09:32)
[2018-12-19] MEDS: MAXIPIME 1 GM in NS 50 ML IV SCH ×2 (09:33→20:02)
[2018-12-19] MEDS: PRILOSEC PO SCH ×2 (09:33→20:13)
[2018-12-19] MEDS: ELIQUIS PO SCH ×2 (09:34→20:11)
[2018-12-19] MEDS: NORCO-5 PO SCH ×3 (09:36→17:12)
--- NOTE | 2018-12-19 12:01 | Diag Imaging Result Doc PS360 ---
EXAM: US RENAL 2 (RETROPER) COMPLETE 12/17/2018 HISTORY: UTI TECHNIQUE: Renal ultrasound COMMENT: The right kidney is 10.5 x 4.2 x 4.1 cm the left is 10.1 x 4.3 x 4.4 cm. There is no evidence of hydronephrosis or definite mass. Visualization of the upper poles of both kidneys is somewhat suboptimal due to the patient's body habitus and clinical condition. The urinary bladder is not distended and there is a Livingston catheter. IMPRESSION: No evidence of obstructive uropathy. Electronically signed by Zeke Negron 12/19/2018 11:59 AM
[2018-12-19] MEDS: SEROQUEL PO SCH (20:10)
[2018-12-20] MEDS: SOLU-CORTEF IV SCH ×3 (02:18→18:01)
[2018-12-20] MEDS: TYLENOL PO PRN (03:22)
[2018-12-20] MEDS: XOPENEX NEB INH SCH ×6 (03:28→23:10)
[2018-12-20 04:37] LABS: ALLEN TEST YES; BE -3.6 mmoll (-3.0-3.0); BLOOD TYPE ARTERIAL; HCO3-(ACT) 22.1 mmoll (20.0-26.0); METHB 0.9 % (0.0-1.5); O2(CT) 10.7 mL/dL (15.0-23.0); O2HB 96.3 % (95.0-99.0); PCO2(98.6) 42 mmHg (35-45); PO2(98.6) 88 mmHg (60-100); SAMPLE BLOOD; SAO2 98.1 % (95.0-100.0); THB 7.8 g/dL (11.5-17.4); pH(98.6) 7.33 (7.35-7.45)
[2018-12-20 04:41] LABS: MODALITY CANNULA
[2018-12-20 05:21] LABS: BASO# 0.01 X1000 (0.0-0.2); BASO% 0.1 % (0.0-0.8); HEMATOCRIT 32.4 % (37.0-47.0); IMM GRAN# 0.07 X1000 (0.0-0.04); IMM GRAN% 0.7 % (0.0-0.5); LYMPH# 0.65 X1000 (1.2-3.4); LYMPH% 6.3 % (20.5-51.1); MCH 28.9 PG (27-31); MCHC 30.9 g/dL (33-37); MCV 93.6 FL (81-99); MONO# 0.43 X1000 (0.11-0.59); MONO% 4.2 % (1.7-9.3); MPV 12.3 FL (7.4-10.4); NEUT# 9.16 X1000 (1.4-6.5); NEUT% 88.7 % (42.2-75.2); PLT 211 X1000 (130-400); RBC 3.46 XMIL (4.2-5.4); RDW 15.9 % (11.5-14.5); WBC 10.32 X1000 (4.8-10.8)
[2018-12-20 05:49] LABS: ALB/GLOB RATIO 0.9; ALBUMIN 2.7 g/dL (3.5-5.0); CALCIUM 8.5 mg/dL (8.8-10.2); CREATININE 2.2 mg/dL (0.5-0.9); MAGNESIUM 2.1 mg/dL (1.5-2.7); PHOSPHORUS 4.3 mg/dL (2.7-4.5); POTASSIUM 4.2 mmol/L (3.5-5.1); TOTAL BILIRUBIN 0.83 mg/dL (0.20-1.00); TOTAL PROTEIN 5.8 g/dL (6.3-8.3)
[2018-12-20 06:23] LABS: CK INDEX 2.4 (0.0-2.5); CK-MB 6.22 ng/mL (0.0-5.0)
[2018-12-20] MEDS ORDERED: ZOFRAN IV PRN (06:33)
[2018-12-20 06:42] LABS: BANDS 2 % (0-1); LYMPHS 12 % (21-51); MONO 12 % (1-9); SEGS 72 % (42-75)
[2018-12-20] MEDS: ROBITUSSIN-DM PO SCH ×4 (06:51→23:47)
--- NOTE | 2018-12-20 07:10 | INFECTIOUS DISEASE PROGRESS NO ---
DATE: 12/20/2018 PRESENT ILLNESS: The patient has an extended spectrum beta lactamase producing bacteremia which I think originated from an extended spectrum beta lactamase producing E coli pneumonia. Her urine culture is negative. MEDICATIONS: Currently, the patient is on cefepime. PHYSICAL EXAMINATION: Vital Signs: Temperature is 98.6 degrees, pulse 104, respirations 16, blood pressure 154/87. General: This is an ill-appearing, elderly female. She is continually coughing and gets nauseated also. Head/eyes/ears/nose/throat: She can hear my spoken words and see near objects. She does not have any white patches on her tongue. Neck: No stiffness. Thorax: The patient has a dorsal kyphosis. Lungs: There were expiratory wheezes bilaterally. Cardiovascular: Heart rate is regular. Abdomen: Soft and nontender. Neurologic: The patient is awake. She can move her extremities but she is weak. There is no tremor. LAB AND X-RAY: Chest x-ray shows bibasilar pneumonia. Blood culture is growing extended spectrum beta lactamase producing E coli. Urine cultures negative. Chest x-ray shows a bibasilar pneumonia, alkaline phosphatase 377. [place] [address], hemoglobin 10, platelet count 211,000 arterial blood gases show a pH of 7.33, a PO2 of 88, pCO2 of 42. Creatinine is 2.2, GFR is 21. The patient's IgA level is normal. The patient's IgG level is slightly diminished at 624. I do not think this is clinically important and I do not think it requires infusion of IVIG. ASSESSMENT AND PLAN: The patient has an extended spectrum beta lactamase producing bacteremia which I think originates from pneumonia. I have discontinued Ancef and placed the patient on ertapenem. The dose has been modified because of the patient's renal failure. Because the patient is coughing continuously I have ordered Robitussin DM 10 mL every 6 hours, and because the patient is nauseated, I have ordered Zofran 4 mg IV every 6 hours. COMORBIDITIES: She is elderly. She has congestive heart failure. She has a dorsal kyphosis. cc: Kvng Funk MD
--- NOTE | 2018-12-20 07:36 | Diag Imaging Result Doc PS360 ---
EXAM: CHEST-PORTABLE INDICATION: dyspnea TECHNIQUE: One view COMPARISON: 12/19/2018 FINDINGS: Bibasilar consolidations and increased central vasculature suggesting edema and/or pneumonia with pulmonary venous congestion is approximately stable. No new consolidation is identified. There is stable large hiatal hernia. Cardiac silhouette is unchanged. IMPRESSION: Stable chest. Electronically signed by Curt Levine 12/20/2018 7:34 AM
[2018-12-20] MEDS: SYMBICORT 80/4.5 MICROGM INHALER INH SCH ×2 (07:53→21:09)
[2018-12-20] MEDS: ATROVENT NEB INH SCH ×5 (07:53→23:10)
[2018-12-20] MEDS: MIRAPEX PO SCH (08:09)
[2018-12-20] MEDS: CRESTOR PO SCH (08:09)
[2018-12-20] MEDS: ELIQUIS PO SCH ×2 (08:09→20:00)
[2018-12-20] MEDS: CELEXA PO SCH (08:09)
[2018-12-20] MEDS: PRILOSEC PO SCH ×2 (08:09→20:01)
[2018-12-20] MEDS: INVANZ 0.5 GM in NS 50 ML IV SCH (08:09)
[2018-12-20] MEDS: NORCO-5 PO SCH ×3 (08:10→18:01)
[2018-12-20] MEDS: TOPROL XL PO SCH ×2 (08:10→20:00)
[2018-12-20] MEDS ORDERED: LASIX IV ONE (08:26)
[2018-12-20] MEDS: ABILIFY PO SCH (09:28)
--- NOTE | 2018-12-20 11:19 | EKG Report ---
Test Performed on : 12/18/2018 03:58:29 AM Test Reason : A FIB Blood Pressure : / mmHG Vent. Rate : 118 BPM Atrial Rate : 118 BPM P-R Int : 148 ms QRS Dur : 082 ms QT Int : 336 ms P-R-T Axes : 064 019 025 degrees QTc Int : 470 ms Sinus tachycardia. Otherwise normal ECG When compared with ECG of 16-DEC-2018 12:01, Sinus rhythm. has replaced Atrial fibrillation. Borderline criteria for Inferior infarct are no longer present Nonspecific T wave abnormality no longer evident in Anterolateral leads Confirmed by Wm Khan MD ([id number]) on 12/20/2018 3:54:50 PM
--- NOTE | 2018-12-20 11:30 | PROGRESS NOTE ---
DATE: 12/20/2018 SUBJECTIVE: She is sitting up in bed. I think she is a bit tachypneic from my standpoint. OBJECTIVE: Vital signs: Blood pressure is 154/82, heart rate of 105, respiratory rate 19, temperature 97.9, and 98% on 4 L. Cardiovascular: Regular rate and rhythm. Pulmonary: She has rhonchi to some degree, wheezing. GI: Soft, nontender, and nondistended. Bowel sounds are positive. LABORATORY DATA: White count 10, hemoglobin and hematocrit 10 and 32, platelets 211,000. pH 7.33, pCO2 42, PaO2 88. BUN and creatinine of 49 and 2.2. AST and ALT are down to 83 and 46. Alkaline phosphatase of 377. PROBLEM LIST: 1. Sepsis. We will continue treatment and follow closely. She seems to be doing better. Her white count is actually normal today. Blood pressures also stabilized. Continue antibiotics. 2. Acute hypoxic respiratory failure. She is on BiPAP. She is getting treatment for her primary issues. I do not think we are giving her any diuretic. Dr. Sevilla had ordered some fluids, that was a couple days ago because she was having I am assuming is renal insufficiency, and her BUN and creatinine are better. 3. Acute on chronic renal failure. We will continue to monitor. Nephrology is following. Continue gentle hydration and follow; although, she may need diuresis. 4. Status post fall, history is severe kyphosis. Seems to be doing okay from that standpoint. 5. Escherichia coli bacteremia, which is an extended spectrum beta-lactamase. On admission, she is on Invanz per Dr. Funk today, which is appropriate coverage. We will repeat her blood cultures in another 24 hours to prove resolution of bacteremia. I anticipate she will need home IV therapy. Dr. Funk, hopefully, he will give us guidelines here soon. I am going to knock down her fluids a little bit. She did get 100 of Lasix today per Dr. Sevilla, and I have also weaned her steroids a bit as well. DISPOSITION: Pending clinical status, I am going to continue monitoring the CI just because of her respiratory status. We will repeat her chest x-ray tomorrow and follow. cc: Quinn Crowley MD
[2018-12-20] MEDS: NS 1,000 ML IV SCH ×2 (11:52→21:50)
--- NOTE | 2018-12-20 18:43 | NEPHROLOGY PROGRESS NOTE ---
DATE: 12/20/2018 TIME SEEN: 819 SUBJECTIVE: Ms. Carson is resting quietly in bed, head of the bed is elevated, she appears in no acute distress. Her skin is warm and dry.HEENT: Normocephalic, atraumatic. Conjunctiva is pale. She has [place]. Mucous membranes are dry. Neck: Supple. Trachea midline. No evidence of JVD. Cardiovascular: She is regular rate and rhythm, she is without murmur or gallop. Lungs: Clear with faint rhonchi and occasional wheezing, she remains on O2 equal excursion. Abdomen: Soft, nontender, positive bowel sounds. Genitourinary: Not inspected. Livingston catheter is in place. Adequate urine out noted. Extremities: Have 1+ edema. Neurological: Alert to person and to place. VITAL SIGNS: Temperature 98.6 degrees, blood pressure 159/87, heart rate 104, respirations 16, she is on 4 L nasal cannula, last recorded saturation 97%, she has had 1530 in, 410 out to [place]. LAB: Sodium 142, potassium 4.2, chloride 106, CO2 22, BUN 49, creatinine 2.2, glucose 130, anion gap 14, calcium 8.5, magnesium 2.1, albumin 2.7, white count 10.32, hemoglobin 10.1, hematocrit 32.4, platelet count 211,000. ASSESSMENT AND PLAN: 1. Acute kidney injury on chronic kidney disease stage 3. Creatinine is down to 2.2 in the past 48 hours from 3.5, BUN has improved also now down to 49. She does appear to be in slight fluid volume overload today. She has no intravenous fluids infusing. She has decreased urinary output in the last 24 hours. Due to these findings, we will go ahead and give her Lasix 100 mg IV today. We will reevaluate her labs and her chest x-ray in the a.m. 2. Electrolytes and acid-base balance. These are fairly stable. 3. Anemia. This is acceptable. 4. Recent fall followed by the primary care team. Like to thank you for allowing us to follow with this patient. Dictated by LAYO Dillon for Jaspreet Sevilla MD Face to face encounter, data reviewed, discussed with Ankit Pantoja on 12/20/18. I agree with the above assessment and plan of care. cc: LAYO Dillon MD [facility]
[2018-12-20] MEDS: SEROQUEL PO SCH (20:00)
[2018-12-20] MEDS: REMERON PO SCH (20:00)
[2018-12-21] MEDS: SOLU-CORTEF IV SCH ×3 (01:02→17:58)
[2018-12-21] MEDS: XOPENEX NEB INH SCH ×6 (02:58→23:51)
[2018-12-21 03:46] LABS: ALLEN TEST YES; BE 0.4 mmoll (-3.0-3.0); BLOOD TYPE ARTERIAL; HCO3-(ACT) 25.2 mmoll (20.0-26.0); METHB 1.8 % (0.0-1.5); O2(CT) 7.2 mL/dL (15.0-23.0); O2HB 93.3 % (95.0-99.0); PCO2(98.6) 42 mmHg (35-45); PO2(98.6) 66 mmHg (60-100); SAMPLE BLOOD; SAO2 96.2 % (95.0-100.0); THB 5.4 g/dL (11.5-17.4); pH(98.6) 7.39 (7.35-7.45)
[2018-12-21 03:47] LABS: MODALITY CANNULA
[2018-12-21] MEDS: NS 1,000 ML IV SCH ×2 (03:52→12:38)
[2018-12-21] MEDS: TYLENOL PO PRN (04:03)
[2018-12-21] MEDS ORDERED: NORCO-5 PO SCH (05:00)
[2018-12-21] MEDS ORDERED: NORCO-5 PO ONE (05:21)
[2018-12-21] MEDS: ROBITUSSIN-DM PO SCH ×4 (05:49→23:45)
--- NOTE | 2018-12-21 07:09 | Diag Imaging Result Doc PS360 ---
EXAM: CHEST-PORTABLE 12/21/2018 HISTORY: dyspnea TECHNIQUE: AP portable at 0542 COMMENT: There is a large hiatal hernia. There is increased pulmonary vascularity and atelectasis versus pneumonia in both lung bases particularly the left lower lobe. Compared to the previous study of 12/20/2018 there has been slight improvement in the left lower lobe and diminishment in interstitial opacity. IMPRESSION: Improved atelectasis and pulmonary edema. Electronically signed by Zeke Negron 12/21/2018 7:07 AM
[2018-12-21] MEDS: ATROVENT NEB INH SCH ×5 (07:33→23:51)
[2018-12-21] MEDS: INVANZ 0.5 GM in NS 50 ML IV SCH (07:44)
[2018-12-21] MEDS: SYMBICORT 80/4.5 MICROGM INHALER INH SCH ×2 (07:53→19:47)
--- NOTE | 2018-12-21 08:08 | INFECTIOUS DISEASE PROGRESS NO ---
DATE: 12/21/2018 SUBJECTIVE: The patient has an extended spectrum beta lactamase producing E coli bacteremia, which I think originated from the same organism causing the patient's pneumonia. MEDICATIONS: This is day 1 of treatment with ertapenem. OBJECTIVE: Vital Signs: Temperature is 98 degrees, pulse 105, respirations 16, blood pressure 130/70. General: Patient looks much better than she did yesterday. She is not coughing at least while I was in the room, and she says she is breathing easier. Head, eyes, ears, nose, and throat: She can hear my spoken words and see near objects. She does not have any white patches on her tongue. Neck: No meningismus. Thorax: The patient has a dorsal kyphosis. Lungs: The patient's wheezing continues. It is on both sides. Cardiovascular: Heart rate is irregular. Abdomen: Soft and nontender. Neurologic: The patient is awake. She can move her extremities. There is no tremor. LAB AND X-RAY: Chest x-ray shows improvement in the left lower lobe pneumonia. Blood gases show a pH of 7.39, a pO2 of 66, and a pCO2 of 42. ASSESSMENT AND PLAN: Patient has an extended spectrum beta lactamase producing Escherichia coli pneumonia and bacteremia. I plan on continuing her ertapenem. Also, since the Robitussin seems to have suppressed the patient's cough, I am going to continue with that as well. Also, she was nauseated yesterday, and the Zofran seems to be helping her, so I am also going to continue with that medication. COMORBIDITIES: She is elderly, and she has congestive heart failure and dorsal kyphosis. cc: Kvng Funk MD
[2018-12-21 08:21] LABS: BASO# 0.01 X1000 (0.0-0.2); BASO% 0.1 % (0.0-0.8); HEMATOCRIT 31.9 % (37.0-47.0); HEMOGLOBIN 9.7 g/dL (12.0-16.0); IMM GRAN# 0.07 X1000 (0.0-0.04); IMM GRAN% 0.5 % (0.0-0.5); LYMPH# 0.73 X1000 (1.2-3.4); LYMPH% 5.3 % (20.5-51.1); MCH 28.8 PG (27-31); MCHC 30.4 g/dL (33-37); MCV 94.7 FL (81-99); MONO# 1.05 X1000 (0.11-0.59); MONO% 7.6 % (1.7-9.3); MPV 12.3 FL (7.4-10.4); NEUT# 12.01 X1000 (1.4-6.5); NEUT% 86.5 % (42.2-75.2); PLT 211 X1000 (130-400); RBC 3.37 XMIL (4.2-5.4); RDW 15.8 % (11.5-14.5); WBC 13.87 X1000 (4.8-10.8)
[2018-12-21 08:35] LABS: ALBUMIN 2.5 g/dL (3.5-5.0); CALCIUM 8.8 mg/dL (8.8-10.2); CREATININE 1.8 mg/dL (0.5-0.9); PHOSPHORUS 4.1 mg/dL (2.7-4.5); POTASSIUM 3.7 mmol/L (3.5-5.1)
[2018-12-21 08:48] LABS: BANDS 2 % (0-1); HYPOCHROM 1+; LYMPHS 8 % (21-51); MONO 6 % (1-9); SEGS 84 % (42-75)
--- NOTE | 2018-12-21 08:53 | PROGRESS NOTE ---
DATE: 12/21/2018 SUBJECTIVE: This patient states that she is feeling better. She was complaining of bilateral lower extremity pain, especially on her knees, during the night, but right now she is fine. We have a positive blood culture that showed Escherichia coli ESBL positive. She is on ertapenem now. Infectious Disease Department is on board. Her kidney function has been getting better. Her urine output is good, documented at 2.2 liters in the past 24 hours. I will wait for the new lab work today. OBJECTIVE: Vital Signs: Temperature 97.5 degrees, pulse 101, respiratory rate 18, blood pressure 164/98, oxygen saturation 94% on 3 liters of nasal cannula. HEENT: Head normocephalic. No trauma. PERRLA. Neck: Supple. No JVD. No masses. Central trachea. Chest: Decreased breath sounds globally with crackles bilaterally at the basis. Abdomen: Soft, nontender, nondistended. No hepatosplenomegaly. Extremities: Trace edema. No clubbing. No cyanosis. Neurological: Alert and oriented x3. No focal deficits. LABORATORY DATA: Pending lab work at this moment. ASSESSMENT AND PLAN: 1. Sepsis. This patient met criteria for sepsis with tachycardia, tachypneic, elevated white blood cells, and source of infection. She is also bacteremic, and we believe that it is probably coming from the pneumonia. She seems to be doing better. White blood cell count normalized. She is not complaining of pain, and she feels stronger. We will continue with antibiotics. Infectious Disease Department is on board. We have a positive culture that showed extended-spectrum beta-lactamase Escherichia coli. 2. Acute hypoxemic respiratory failure due to pneumonia and pulmonary edema. Continue cycling the BiPAP machine and oxygen through the nasal cannula. Continue breathing treatment and pulmonary toilet. I do believe at some point we need to start giving her some diuretics. 3. Acute pulmonary edema, especially effecting the left lung. I think this is getting a little bit better. Probably we need to use some diuretics, but she does have acute kidney injury. 4. Atrial fibrillation has been ruled out. She has been in sinus tachycardia. 5. Status post mechanical fall. She was complaining of severe back pain, but the noncontrast CT scan of the spine ruled out any kind of fracture or acute process. 6. History of multiple venous thromboembolism, on lifelong anticoagulation with Eliquis. 7. Recently Klebsiella pneumoniae and septic shock on previous hospitalization. She was discharged prior to this hospitalization with those diagnoses. Infectious Disease Department following this patient. Now, she has bacteremia but due to extended-spectrum beta-lactamase Escherichia coli. 8. Polypharmacy, aware. 9. Severe kyphosis, aware. 10. Large hiatal hernia. Probably this can be a cause of aspiration pneumonia. Continue with proton pump inhibitors. 11. Bacteremia. As I mentioned before, we have a positive culture that showed extended-spectrum beta-lactamase Escherichia coli. Continue with ertapenem. 12. Acute kidney injury, likely secondary to sepsis and a prerenal issue with dehydration. We will continue with intravenous fluids as tolerated. Nephrology Department on board, as well as Pulmonary Department. Probably, we will need to use some diuretics in the future. 13. Bilateral pneumonia, probably the source of the bacteremia. Continue with the same management. cc: Nick Abreu MD
[2018-12-21] MEDS: ABILIFY PO SCH (09:33)
[2018-12-21] MEDS: MIRAPEX PO SCH (09:33)
[2018-12-21] MEDS: TOPROL XL PO SCH ×2 (09:33→20:08)
[2018-12-21] MEDS: ELIQUIS PO SCH ×2 (09:33→20:09)
[2018-12-21] MEDS: CELEXA PO SCH (09:33)
[2018-12-21] MEDS: PRILOSEC PO SCH ×2 (09:33→20:07)
[2018-12-21] MEDS: NORCO-7.5 PO SCH ×2 (12:38→20:08)
--- NOTE | 2018-12-21 14:48 | NEPHROLOGY PROGRESS NOTE ---
DATE: 12/21/2018 DATE AND TIME: Date seen 12/21/2018, time seen 0810. SUBJECTIVE: Ms. Carson is resting quietly in bed. Her head of the bed is elevated. She denies any pain or discomfort. OBJECTIVE: Vital Signs: Temperature 97.7, blood pressure 132/79, heart rate 102, respirations 21. She is on 3 L nasal cannula. Last recorded saturation 95%. She has had 820 in, 2275 out to [place]. LABORATORY DATA: Sodium 144, potassium 3.7, chloride 109, CO2 22, BUN 49, creatinine 1.8, glucose 127. Anion gap of 13, calcium 8.8, phosphorus 4.1, albumin 2.5. White count 13.87, hemoglobin 9.02, hemoglobin 31.9 with a platelet count of 211,000. ABGs: PH 7.39, CO2 42 , PO2 66, bicarb 25.2 on 3 L. PHYSICAL EXAMINATION: General: This is an 83-year-old white female resting quietly in bed. She appears in no acute distress. Skin: Warm and dry. HEENT: Normocephalic, atraumatic. Conjunctiva is pale pink. She has [place]. Mucous membranes are dry. Neck: Supple, trachea midline. No evidence of JVD. Cardiovascular: Regular rate and rhythm without murmur or gallop. Lungs: Clear to auscultation bilateral anterior, though she has faint rhonchi with slight wheezing which has improved from yesterday, though still present. She remains on O2, equal excursion. Abdomen: Soft, nontender. Positive bowel sounds. Genitourinary: Not inspected. Living[place] catheter is in place with adequate urine out. Extremities: Have trace to 1+ lower extremity edema. Neurologic: She is alert to person and to place. ASSESSMENT AND PLAN: 1. Acute kidney injury on chronic kidney disease stage 3. Patient's baseline creatinine is 0.9. Creatinine today is down to 1.8, with a BUN of 49. Adequate urine output. No indications for intervention. We will continue to monitor her labs in the a.m. 2. Electrolytes and acid-base balance. These remain fairly stable. 3. Anemia, this is low but stable. 4. Recent fall, followed by the primary care team. I would like to thank you for allowing us to follow with this patient. Dictated by LAYO Dillon for Jaspreet Sevilla MD Face to face encounter, data reviewed, discussed with Ankit Pantoja on 12/22/18. I agree with the above assessment and plan of care. cc: LAYO Dillon MD [facility]
[2018-12-21] MEDS: REMERON PO SCH (20:07)
[2018-12-21] MEDS: CRESTOR PO SCH (20:07)
[2018-12-21] MEDS: SEROQUEL PO SCH (20:08)
[2018-12-22] MEDS: NS 1,000 ML IV SCH ×2 (00:06→01:21)
[2018-12-22] MEDS: SOLU-CORTEF IV SCH ×3 (01:21→18:00)
[2018-12-22] MEDS: XOPENEX NEB INH SCH ×6 (03:30→23:23)
[2018-12-22 03:59] LABS: ALLEN TEST YES; BE -0.7 mmoll (-3.0-3.0); BLOOD TYPE ARTERIAL; HCO3-(ACT) 24.4 mmoll (20.0-26.0); METHB 1.9 % (0.0-1.5); MODALITY CANNULA; O2(CT) 6.9 mL/dL (15.0-23.0); O2HB 92.5 % (95.0-99.0); PCO2(98.6) 40 mmHg (35-45); PO2(98.6) 68 mmHg (60-100); SAMPLE BLOOD; SAO2 95.8 % (95.0-100.0); THB 5.2 g/dL (11.5-17.4); pH(98.6) 7.39 (7.35-7.45)
[2018-12-22] MEDS: NORCO-7.5 PO SCH ×3 (04:02→20:59)
[2018-12-22] MEDS: ROBITUSSIN-DM PO SCH ×3 (05:51→18:00)
[2018-12-22 06:10] LABS: ALBUMIN 2.8 g/dL (3.5-5.0); CALCIUM 8.8 mg/dL (8.8-10.2); CREATININE 1.3 mg/dL (0.5-0.9); PHOSPHORUS 2.7 mg/dL (2.7-4.5); POTASSIUM 3.4 mmol/L (3.5-5.1)
[2018-12-22 06:19] LABS: BASO# 0.01 X1000 (0.0-0.2); BASO% 0.1 % (0.0-0.8); HEMATOCRIT 31.3 % (37.0-47.0); HEMOGLOBIN 9.7 g/dL (12.0-16.0); IMM GRAN# 0.11 X1000 (0.0-0.04); IMM GRAN% 0.9 % (0.0-0.5); LYMPH# 0.68 X1000 (1.2-3.4); LYMPH% 5.8 % (20.5-51.1); MCV 93.7 FL (81-99); MONO# 0.74 X1000 (0.11-0.59); MONO% 6.3 % (1.7-9.3); MPV 12.5 FL (7.4-10.4); NEUT# 10.19 X1000 (1.4-6.5); NEUT% 86.9 % (42.2-75.2); PLT 200 X1000 (130-400); RBC 3.34 XMIL (4.2-5.4); RDW 15.7 % (11.5-14.5); WBC 11.73 X1000 (4.8-10.8)
--- NOTE | 2018-12-22 07:37 | NEPHROLOGY PROGRESS NOTE ---
DATE: 12/22/2018 TIME SEEN: 06. SUBJECTIVE: Ms. Carson is resting quietly in bed. Head of the bed is elevated. No complaints. OBJECTIVE: Vital Signs: Temperature 98.2 degrees, blood pressure 170/97, heart rate 80, respirations 18. She is on 4 L nasal cannula. Last recorded saturation 95%. She has had 1075 mL in and 700 mL out to Livingston catheter. Laboratory Data: Sodium 145, potassium 3.4, chloride is 110, CO2 22, BUN 48, creatinine 1.3, glucose 127, her anion gap is 13, calcium 8.8, phosphorus 2.7, albumin 2.8. White count 11.73, hemoglobin 9.7, hematocrit 31.3, with a platelet count of 200,000. Physical Examination: General: This is an 83-year-old, white female resting quietly in bed. She appears chronically ill, though no acute distress. Skin: Warm and dry. HEENT : Normocephalic, atraumatic. Conjunctiva are pale pink. She has [place]. Mucous membranes are dry. Neck: Supple. Trachea midline. No evidence of JVD. Cardiovascular: Regular rate and rhythm. No murmur or gallop appreciated. Lungs: Clear to auscultation anteriorly. Equal excursion. She is on O2. Abdomen: Soft, round, nontender. Positive bowel sounds. Genitourinary: Not inspected. Living[place] catheter is in place with adequate urine out. Extremities: Have trace to 1+ lower extremity edema. Neurological: She is alert and oriented to person and place, and most recent events. ASSESSMENT AND PLAN: Acute kidney injury on chronic kidney disease stage 3. Patient has returned her historical baseline creatinine of 1.3. She has adequate urine out documented. BUN remains stable. Secondary to these findings, no indications for further intervention from our perspective. We will sign off at this time and remain available if indicated. I would like to thank you for allowing us to follow with this patient. Dictated by LAYO Dillon for Jaspreet Sevilla MD Face to face encounter, data reviewed, discussed with Ankit Pantoja on 12/22/18. I agree with the above assessment and plan of care. cc: LAYO Dillon MD [facility]
[2018-12-22] MEDS: SYMBICORT 80/4.5 MICROGM INHALER INH SCH ×2 (07:47→19:23)
[2018-12-22] MEDS: ATROVENT NEB INH SCH ×5 (07:47→23:23)
--- NOTE | 2018-12-22 08:19 | INFECTIOUS DISEASE PROGRESS NO ---
DATE: 12/22/2018 SUBJECTIVE: The patient has an extended spectrum beta lactamase producing E coli bacteremia and also, she has a bibasilar pneumonia, presumably caused by the same organism. MEDICATIONS: This is the second day of treatment with ertapenem, the dose of which was reduced because of the patient's renal failure. OBJECTIVE: Vital Signs: Temperature is 98.2 degrees, pulse 80, respirations 18 , blood pressure 170/97. General: This is a somewhat ill-appearing, elderly female, but overall she looks much better than she had been. She is not nearly coughing as much, and she is not complaining of nausea. She also has less dyspnea. Head/eyes/ears/nose/throat: She can hear my spoken words and see near objects. She does not have any white patches on her tongue. Neck: No stiffness. Thorax: Patient has a dorsal kyphosis. Lungs: Today, the patient's lungs are clearer. There is just very minimal wheezing and a couple of rhonchi were heard also. Cardiovascular: Heart rate is irregular. Abdomen: Soft and nontender. Neurologic: The patient is awake. She can move her extremities. She does not have a tremor. LABORATORY AND X-RAY: X-ray shows improvement in the patient's bibasilar infiltrates. Her CBC shows a white count of 11,730, hemoglobin 9.7, and platelet count 200,000. Blood gases show a pH of 7.39, a pO2 of 68, and a pCO2 of 40. Creatinine is 1.3. GFR is 39. The patient's urine culture is negative. ASSESSMENT AND PLAN: The patient has an extended spectrum beta lactamase producing Escherichia coli bacteremia and pneumonia. It should be noted that the patient's blood culture was negative and thus, the origin of the Escherichia coli is not likely to be from the kidney. Patient has an extended spectrum E coli bacteremia and presumed pneumonia. Both Dr. Hammer and I feel that the patient is not nearly ready to go home yet. She had been in septic shock, and she has not been out of bed. My plan is to continue ertapenem. I have also ordered repeat blood cultures. Since the patient's renal infection has improved I will increase the ertapenem dose. PATIENT'S COMORBIDITIES: She is elderly. She has congestive heart failure and dorsal kyphosis. cc: Kvng Funk MD [facility]
[2018-12-22] MEDS: INVANZ 0.5 GM in NS 50 ML IV SCH (08:27)
[2018-12-22] MEDS ORDERED: INVANZ IV SCH (08:30)
[2018-12-22] MEDS ORDERED: NS IV SCH (08:30)
[2018-12-22] MEDS ORDERED: LASIX IV ONE (08:35)
[2018-12-22] MEDS ORDERED: KLOR-CON PO ONE (08:56)
[2018-12-22] MEDS ORDERED: INVANZ 0.5 GM in NS 50 ML IV ONE (09:00)
--- NOTE | 2018-12-22 09:33 | PROGRESS NOTE ---
DATE: 12/22/2018 SUBJECTIVE: This patient is feeling better. She is complaining of some shortness of breath and she has bilateral crackles. Her kidney function is much better. BUN 48, creatinine 1.3. Actually, a few days ago, her creatinine was 3.8. Her urine output was around 2.2 L. Since she is having bilateral crackles, I will give her a low dose of Lasix to see how she does and I will monitor the kidney function. I will stop the IV fluids. OBJECTIVE: Vital Signs: Temperature 98.2 degrees, pulse 80, respiratory rate 20, blood pressure 170/97, oxygen saturation 95% on 4 L of nasal cannula. HEENT: Head normocephalic. No trauma. PERRLA. Neck: Supple. No JVD. No masses. Central trachea. Chest: Decreased breath sounds globally with crackles bilaterally. Abdomen: Soft, nontender, nondistended. No hepatosplenomegaly. Extremities: Trace edema. No clubbing. No cyanosis. Neurological Examination: The patient is alert and oriented x3. No focal deficits. Laboratory: WBC 11.7, hemoglobin 9.7, hematocrit 31.3, platelets 200,000. Sodium 145, potassium 3.4, chloride 110, bicarbonate 22, BUN 48, creatinine 1.3, glucose 127, calcium 8.8, albumin 2.8. ASSESSMENT AND PLAN: 1. Sepsis. This patient met criteria for sepsis with tachycardia, tachypnea, elevated white blood cells, and source of infection. She is also bacteremic and probably this is coming from the pneumonia. She seems to be doing better. White blood cells are trending down. Infectious disease department on board. Positive culture that showed extended-spectrum B- lactamase Escherichia coli. 2. Acute hypoxemic respiratory failure due to pneumonia and pulmonary edema. Continue cycling the BiPAP machine and oxygen through the nasal cannula. Continue breathing treatments and pulmonary toilet. Today, I have stopped the fluids and I will give her a low dose of Lasix to see how she does. 3. Acute pulmonary edema. As above. 4. Atrial fibrillation has been ruled out. She does not have atrial fibrillation. 5. Status post mechanical fall. The patient has been complaining of severe back pain but the noncontrast CT scan of the spine ruled out any kind of fracture or acute process. 6. History of multiple venous thromboembolism, on lifelong anticoagulation with Eliquis. 7. Recently Klebsiella pneumoniae and septic shock on previous hospitalization. She was discharged prior to this hospitalization with those diagnoses. Infectious disease department following this patient. Now, she has bacteremia but due to extended-spectrum B-lactamase Escherichia coli. 8. Polypharmacy. Aware. 9. Severe kyphosis. Aware. 10. Large hiatal hernia. Probably, this can be the cause of the aspiration pneumonia. Continue with proton pump inhibitors. 11. Bacteremia due to extended-spectrum B-lactamase Escherichia coli. Aware. Continue with ertapenem. 12. Acute kidney injury. This is getting much better. Nephrology department was following this patient. They basically signed off because of the kidney function is recovering already. I will give her a low dose of Lasix to see how she does, due to her increased bilateral crackles and some shortness of breath. 13. Bilateral pneumonia, probably the source of the bacteremia. Continue with the same management. 14. Hypokalemia. I will replace the potassium. 15. Physical deconditioning. I have requested an evaluation by physical therapy and occupational therapy. cc: Nick Abreu MD
[2018-12-22] MEDS: NORVASC PO SCH (09:39)
[2018-12-22] MEDS: ELIQUIS PO SCH ×2 (09:39→20:59)
[2018-12-22] MEDS: TOPROL XL PO SCH ×2 (09:39→20:59)
[2018-12-22] MEDS: CRESTOR PO SCH (09:39)
[2018-12-22] MEDS: PRILOSEC PO SCH ×2 (09:39→20:58)
[2018-12-22] MEDS: CELEXA PO SCH (09:40)
[2018-12-22] MEDS: MIRAPEX PO SCH (09:40)
[2018-12-22] MEDS: ABILIFY PO SCH (09:41)
[2018-12-22] MEDS: SEROQUEL PO SCH (20:59)
[2018-12-22] MEDS: REMERON PO SCH (20:59)
[2018-12-23] MEDS: SOLU-CORTEF IV SCH ×3 (01:09→18:13)
[2018-12-23] MEDS: ROBITUSSIN-DM PO SCH ×4 (01:09→18:14)
[2018-12-23] MEDS: XOPENEX NEB INH SCH ×6 (03:19→23:30)
[2018-12-23 05:32] LABS: BASO# 0.01 X1000 (0.0-0.2); BASO% 0.1 % (0.0-0.8); HEMATOCRIT 31.6 % (37.0-47.0); HEMOGLOBIN 9.9 g/dL (12.0-16.0); IMM GRAN# 0.19 X1000 (0.0-0.04); IMM GRAN% 1.6 % (0.0-0.5); LYMPH# 0.69 X1000 (1.2-3.4); LYMPH% 5.7 % (20.5-51.1); MCH 28.9 PG (27-31); MCHC 31.3 g/dL (33-37); MCV 92.4 FL (81-99); MONO# 0.79 X1000 (0.11-0.59); MONO% 6.5 % (1.7-9.3); MPV 12.4 FL (7.4-10.4); NEUT# 10.49 X1000 (1.4-6.5); NEUT% 86.1 % (42.2-75.2); PLT 228 X1000 (130-400); RBC 3.42 XMIL (4.2-5.4); RDW 15.6 % (11.5-14.5); WBC 12.17 X1000 (4.8-10.8)
[2018-12-23 05:42] LABS: ALBUMIN 2.8 g/dL (3.5-5.0); CALCIUM 8.7 mg/dL (8.8-10.2); CREATININE 0.9 mg/dL (0.5-0.9); POTASSIUM 3.6 mmol/L (3.5-5.1); TOTAL BILIRUBIN 0.79 mg/dL (0.20-1.00); TOTAL PROTEIN 5.7 g/dL (6.3-8.3)
[2018-12-23] MEDS: NORCO-7.5 PO SCH ×3 (06:21→23:28)
[2018-12-23 06:30] LABS: BANDS 2 % (0-1); LYMPHS 2 % (21-51); MONO 4 % (1-9); SEGS 90 % (42-75)
[2018-12-23] MEDS: ATROVENT NEB INH SCH ×5 (07:55→23:30)
[2018-12-23] MEDS: SYMBICORT 80/4.5 MICROGM INHALER INH SCH ×2 (07:55→19:45)
--- NOTE | 2018-12-23 08:11 | INFECTIOUS DISEASE PROGRESS NO ---
DATE: 12/23/2018 PRESENT ILLNESS: The patient has an extended spectrum beta lactamase producing E. coli bacteremia and pneumonia. MEDICATIONS: This is the third day of treatment with ertapenem. I have increased the patient's dose because her renal function has improved dramatically. PHYSICAL EXAMINATION: Vital Signs: Temperature is 97.8 degrees, pulse 98, respirations 22, blood pressure 167/101. General: This is a chronically ill-appearing, elderly female. She is in no acute distress. Head, Eyes, Ears, Nose, and Throat: She can hear my spoken words and see near objects. She does not have any white patches on her tongue. Neck: No meningismus. Thorax: The patient has a dorsal kyphosis. Lungs: Clear to auscultation. Cardiovascular: Heart rate is irregular. Abdomen: Soft and nontender. Neurologic: The patient is awake. She can move her extremities. There is no tremor. LAB AND X-RAY: There is no new radiographic study today. The CBC shows a white count of 12,170, hemoglobin 9.9, and platelet count 228,000. Creatinine is 0.9. GFR is 60. Repeat blood cultures are pending. ASSESSMENT AND PLAN: The patient has an extended spectrum beta lactamase producing Escherichia coli bacteremia and pneumonia. I plan to continue with ertapenem. I am going to repeat the patient's chest x-ray tomorrow. The patient has not been out of bed, and both Dr. Hammer and I feel that the patient needs more rehab and that she is not ready to go home yet. COMORBIDITIES: She is elderly. She also has congestive heart failure. The patient also has dorsal kyphosis. cc: Kvng Funk MD
[2018-12-23] MEDS ORDERED: LASIX IV ONE (08:34)
--- NOTE | 2018-12-23 09:18 | PROGRESS NOTE ---
DATE: 12/23/2018 SUBJECTIVE: The patient is feeling better. She is still complaining of some shortness of breath and cough. She does have bilateral crackles. Her kidney function is much better. BUN down to 42 from 48 and creatinine down to 0.9 from 1.3. I will try to remove some fluid today. I will give her some Lasix x1 to see how she does. OBJECTIVE: Vital Signs: Temperature 97.9, pulse 91, respiratory rate 18, blood pressure 169/89. Oxygen saturation 93% on 4 L of nasal cannula. HEENT: Head normocephalic. No trauma. PERRLA. Neck supple. No JVD. No masses. Central trachea. Chest: Decreased breath sounds globally with crackles bilaterally. Abdomen is soft, nontender, nondistended. No hepatosplenomegaly. Extremities: Trace edema. No clubbing. No cyanosis. Neurologic: Alert and oriented x3. No focal deficits. LABORATORY: WBC 12.1, hemoglobin 9.9, hematocrit 31.6, platelets 228,000. Sodium 145, potassium 3.6, chloride 107. Bicarbonate 24. BUN 42, creatinine 0.9, glucose 123. Calcium 8.7. AST 35, ALT 30. Alkaline phosphatase 281. Albumin 2.8. ASSESSMENT AND PLAN: 1. Sepsis, resolved, likely secondary to pneumonia. Also, this patient is bacteremic with extended spectrum beta-lactamase Escherichia coli. Infectious Disease Department on board. We will continue to monitor. 2. Acute hypoxemic respiratory failure due to pneumonia and pulmonary edema. Continue cycling the BiPAP machine and oxygen through the nasal cannula. Continue breathing treatment and pulmonary toilet. We have already stopped the fluids, and we tried some Lasix yesterday. The kidney function improved, and I will try more Lasix today. 3. Acute pulmonary edema, as above. 4. Bilateral pneumonia, probably the source of the bacteremia. Continue with the same management. She is responding to treatment. 5. Status post mechanical fall. At the beginning, the patient was complaining of severe back pain but a noncontrast CT scan of the spine has been done to rule out any fracture or acute process. 6. History of multiple venous thromboembolism on lifelong anticoagulation with Eliquis, aware. 7. Recent Klebsiella pneumonia and septic shock from previous hospitalization. She was discharged prior to this hospitalization with those diagnoses. Infectious Disease Department is following this patient. Now, she is bacteremic due to extended spectrum beta-lactamase Escherichia coli. 8. Polypharmacy, aware. 9. Severe kyphosis, aware. 10. Large hiatal hernia. Probably this can be the source of the aspiration pneumonia. Continue with proton pump inhibitors. 11. Bacteremia due to extended spectrum beta-lactamase Escherichia coli. Continue with the same management. 12. Acute kidney injury. This is much better. Creatinine normalized. BUN slightly elevated. 13. Hypokalemia, resolved. 14. Physical deconditioning. Continue physical therapy and occupational therapy. cc: Nick Abreu MD
[2018-12-23] MEDS: INVANZ IV SCH (09:32)
[2018-12-23] MEDS: NS IV SCH (09:32)
[2018-12-23] MEDS: ELIQUIS PO SCH ×2 (09:32→23:28)
[2018-12-23] MEDS: ABILIFY PO SCH (09:33)
[2018-12-23] MEDS: NORVASC PO SCH (09:33)
[2018-12-23] MEDS: CELEXA PO SCH (09:33)
[2018-12-23] MEDS: MIRAPEX PO SCH (09:33)
[2018-12-23] MEDS: PRILOSEC PO SCH ×2 (09:33→23:29)
[2018-12-23] MEDS: CRESTOR PO SCH (09:33)
[2018-12-23] MEDS: VITAMIN D PO SCH (11:02)
[2018-12-23] MEDS: TOPROL XL PO SCH ×2 (11:02→23:29)
--- NOTE | 2018-12-23 14:35 | Diag Imaging Result Doc PS360 ---
EXAM: CHEST-1 VIEW 12/23/2018 HISTORY: pneumonia TECHNIQUE: Upright AP portable at 1408 COMMENT: There is cardiomegaly. There is ill-defined opacity in the left lower lobe as well as what appears to be a large hiatal hernia. Compared to 12/21/2018 the inspiration is better and the basilar opacities are somewhat improved. IMPRESSION: Improved atelectasis or pneumonia. Cardiomegaly. Electronically signed by Zeke Negron 12/23/2018 2:33 PM
[2018-12-23] MEDS: REMERON PO SCH (23:28)
[2018-12-23] MEDS: SEROQUEL PO SCH (23:29)
[2018-12-24] MEDS: SOLU-CORTEF IV SCH ×3 (02:35→17:46)
[2018-12-24] MEDS: ROBITUSSIN-DM PO SCH ×4 (02:35→17:46)
[2018-12-24] MEDS: XOPENEX NEB INH SCH ×6 (03:05→23:35)
[2018-12-24] MEDS: NORCO-7.5 PO SCH ×3 (06:25→20:30)
--- NOTE | 2018-12-24 07:13 | Diag Imaging Result Doc PS360 ---
EXAM: CHEST-PORTABLE 12/24/2018 HISTORY: dyspnea TECHNIQUE: AP portable at 0541 COMMENT: There is a small right pleural effusion. There is interstitial pulmonary edema. There is atelectasis or pneumonia in the left lower lobe. Compared to 12/23/2018, the opacity in the right lower lobe has worsened slightly. Otherwise there has been no appreciable change. IMPRESSION: Slightly worsened pulmonary edema. Electronically signed by Zeke Negron 12/24/2018 7:10 AM
[2018-12-24 07:26] LABS: BASO# 0.01 X1000 (0.0-0.2); BASO% 0.1 % (0.0-0.8); EOS# 0.01 X1000 (0.0-0.7); EOS% 0.1 % (0.0-10.0); HEMATOCRIT 32.7 % (37.0-47.0); HEMOGLOBIN 10.2 g/dL (12.0-16.0); IMM GRAN# 0.24 X1000 (0.0-0.04); LYMPH# 0.85 X1000 (1.2-3.4); LYMPH% 7.2 % (20.5-51.1); MCHC 31.2 g/dL (33-37); MCV 92.9 FL (81-99); MONO# 0.82 X1000 (0.11-0.59); MONO% 6.9 % (1.7-9.3); MPV 11.9 FL (7.4-10.4); NEUT# 9.92 X1000 (1.4-6.5); NEUT% 83.7 % (42.2-75.2); PLT 238 X1000 (130-400); RBC 3.52 XMIL (4.2-5.4); RDW 15.1 % (11.5-14.5); WBC 11.85 X1000 (4.8-10.8)
[2018-12-24 07:52] LABS: ALB/GLOB RATIO 1.2; CALCIUM 8.6 mg/dL (8.8-10.2); MAGNESIUM 1.3 mg/dL (1.5-2.7); POTASSIUM 3.2 mmol/L (3.5-5.1); TOTAL BILIRUBIN 0.87 mg/dL (0.20-1.00); TOTAL PROTEIN 5.6 g/dL (6.3-8.3)
[2018-12-24] MEDS: ATROVENT NEB INH SCH ×5 (08:12→23:30)
[2018-12-24] MEDS: SYMBICORT 80/4.5 MICROGM INHALER INH SCH ×2 (08:12→19:36)
[2018-12-24] MEDS ORDERED: MAGNESIUM SULFATE 2 GM/S.W.I. 2 GM/50 ML IVPB IV ONE (08:48)
[2018-12-24] MEDS: ABILIFY PO SCH (10:26)
[2018-12-24] MEDS: CELEXA PO SCH (10:27)
[2018-12-24] MEDS: MIRAPEX PO SCH (10:27)
[2018-12-24] MEDS: NS IV SCH (10:27)
[2018-12-24] MEDS: CRESTOR PO SCH (10:27)
[2018-12-24] MEDS: ELIQUIS PO SCH ×2 (10:27→20:30)
[2018-12-24] MEDS: INVANZ IV SCH (10:27)
[2018-12-24] MEDS: NORVASC PO SCH ×2 (10:28→20:30)
[2018-12-24] MEDS: PRILOSEC PO SCH ×2 (10:28→20:30)
[2018-12-24] MEDS: TOPROL XL PO SCH ×2 (10:28→20:31)
[2018-12-24] MEDS ORDERED: LASIX IV ONE (12:16)
[2018-12-24] MEDS: POTASSIUM CHLORIDE 20 MEQ/SWI 20 MEQ/100 ML IVPB IV SCH ×2 (12:27→14:43)
--- NOTE | 2018-12-24 13:08 | PROGRESS NOTE ---
DATE: 12/24/2018 SUBJECTIVE: Patient is seen at the bedside. She is feeling better. She is still complaining of some shortness of breath only with physical activity. She has bilateral crackles. Kidney function is stable. I will give her a low dose of Lasix to try to remove more fluid from her lungs. OBJECTIVE: Vital Signs: Temperature 97 degrees, pulse 87, respiratory rate 15, blood pressure 147/83, oxygen saturation 95% on 4 L of nasal cannula. HEENT: Head normocephalic. No trauma. PERRLA. Neck: Supple. No JVD. No masses. Central trachea. Chest: Decreased breath sounds globally with crackles bilaterally. Abdomen: Soft, nontender, nondistended. No hepatosplenomegaly. Extremities: 2+ edema, no clubbing, no cyanosis. Neurological: The patient is alert and oriented x3. No focal deficits. LABORATORY: WBC 11.8, hemoglobin 10.2, hematocrit 32.7, platelets 238,000. Sodium 143, potassium 3.2, chloride 103, bicarbonate 29, BUN 36, creatinine 1. Glucose 142, calcium 8.6, magnesium 1.3, albumin 3. ASSESSMENT AND PLAN: 1. Sepsis, resolved, likely secondary to pneumonia. Also this patient is bacteremic with ESBL E. coli, Infectious Disease Department on board. We will continue to monitor. 2. Hypoxemic respiratory failure due to pneumonia and pulmonary edema. Continue cycling the BiPAP machine and oxygen through the nasal cannula. Continue breathing treatment, pulmonary toilet. We already stopped the fluids, we will try some Lasix today again, and we will monitor the kidney function, which has been stable. 3. Acute pulmonary edema, as above. 4. Bilateral pneumonia, probably the source of the bacteremia. Continue with the same management. She is responding to the treatment. 5. Status post mechanical fall. She was complaining of back pain, but CT spine is negative. 6. History of multiple venous thromboembolism, on lifelong anticoagulation with Eliquis. Aware. 7. Recent Klebsiella pneumonia and septic shock from previous hospitalization. She was discharged trying to prior to this hospitalization with those diagnoses. Infectious Disease Department following this patient. Now, she is bacteremic due to ESBL E. coli. 8. Polypharmacy, aware. 9. Severe kyphosis, aware. 10. Large hiatal hernia. This is probably the source of the aspiration pneumonia. Continue with proton pump inhibitors. 11. Bacteremia due to ESBL E. coli. Continue with the same management. 12. Acute kidney injury. This is getting better slowly. We will need to use a little bit of Lasix to improve the pulmonary edema. I will just give her 20 IV today and I will monitor. 13. Hypokalemia with hypomagnesemia. I will replace both electrolytes. 14. Physical deconditioning. Continue physical therapy. We have been talking about rehab center placement. She will think about it. 15. Elevated LFTs, improving. cc: Nick Abreu MD
--- NOTE | 2018-12-24 16:23 | INFECTIOUS DISEASE PROGRESS NO ---
DATE: 12/24/2018 PRESENT ILLNESS: Ms. Crason has an extended spectrum beta lactamase producing Escherichia coli bacteremia. There is also an atelectasis versus pneumonia noted on chest x-ray. MEDICATIONS: Based on her sterile blood cultures, today is day 2 of treatment for her bacteremia. She is receiving ertapenem 1 g IV every 24 hours. Of note, there is also administration of Solu Cortef IV. PHYSICAL EXAM: Vital signs: Temperature is 97.9, pulse rate 87, respiratory rate 15, blood pressure 147/83, O2 saturation is 95% on 4 L nasal cannula. General: This is a chronically ill appearing elderly female. She is sitting up on the side of the bed, currently in no acute distress. HEENT: Atraumatic and normocephalic. Oral mucous membranes are pink and moist. Conjunctivae are pale. Neck is supple. Trachea is midline. Cardiovascular: Heart rate and underlying rhythm are regular with frequent PACs and occasional PVCs noted on the monitor. There is 2 to 3+ pitting edema pretibially. Radial and pedal pulses are +2 bilaterally. Respiratory: Lung sounds are coarse rhonchi noted bilaterally. Abdomen is soft, round and nontender. Bowel sounds are active. Neurologic: She is awake, alert and oriented and able to move around with generalized weakness. No tremor is noted. DIAGNOSTIC DATA: Today, her white count is 11.85, hemoglobin 10.2, platelet count 238,000. Creatinine is 1, GFR is 53, total bilirubin is 0.87, AST is 29, ALT is 28, alkaline phosphatase 260. Her original blood culture grew an Escherichia coli which is ESBL producing. Urine culture showed no growth on the final report. Chest x-ray today shows a small right pleural effusion, interstitial pulmonary edema, atelectasis or pneumonia in the left lower lobe and a slightly worsened opacity in the right lower lobe. ASSESSMENT AND PLAN: Ms. Carson has an ESBL E. coli bacteremia as well as a pneumonia. The plan is for her to continue with the ertapenem through 01/05/2019 which will complete her treatment of the bacteremia. However, there is also a pneumonia which may require further treatment. At this point, we will order a PICC line for Thursday. I have also put in an order for her to have an infusion company to follow her in the event that she is discharged from rehab before it is time to take out the PICC line. We will see her in the office preferably on 01/06/2019 and then recheck a chest x-ray to see how the pneumonia is progressing. The patient has a mild leukocytosis; however, she is receiving IV Solu Cortef. Orders have also been filled out for her treatment with Ertapenem while she is at rehab. These plans have been discussed with and recommended by Dr. Funk. COMORBIDITIES: She is elderly, with congestive heart failure, dizziness with falls, history of DVT and pulmonary emboli. Dictated by LAYO Mcclure for Kvng Funk MD This chart was documented by, LAYO Mcclure and accurately reflects the services performed, treatment plan and medical decisions as attested by the providers signature Kvng Funk MD. cc: Kvng Funk MD [facility]
[2018-12-24] MEDS: REMERON PO SCH (20:30)
[2018-12-24] MEDS: SEROQUEL PO SCH (20:31)
[2018-12-25] MEDS: SOLU-CORTEF IV SCH ×3 (01:52→20:14)
[2018-12-25] MEDS: ROBITUSSIN-DM PO SCH ×4 (01:52→20:14)
[2018-12-25] MEDS: XOPENEX NEB INH SCH ×6 (03:25→23:30)
--- NOTE | 2018-12-25 04:28 | PULMONOLOGY PROGRESS NOTE ---
DATE: 12/24/2018 SUBJECTIVE: The patient reports her breathing is "not great," but it has improved over the last 2 days. The patient has had diuresis over the last 2 days. OBJECTIVE: Vital Signs: She has been afebrile. Blood pressure 133/81, heart rate 95, respiratory rate 16, oxygen saturation 94% on 3 L per nasal cannula. HEENT: Pupils are equal and reactive. Oropharynx is clear. Neck: Supple. Chest: Reveals crackles in both lung bases. Cardiac: S1-S2. Abdomen: Soft, and without hepatosplenomegaly. Extremities: Reveal trace edema. LABORATORIES: Chest x-ray is difficult to interpret, with the patient's kyphosis, and portable technique. There may be slightly more fluid at the right base. There is no new culture data. White blood count 11.85, hemoglobin 10.2, platelet count 238,000. Sodium 143, potassium 3.2, chloride 103, bicarbonate 29, BUN 36, creatinine 1.0. IMPRESSION: An 83-year-old with pneumonia, pulmonary edema, kyphosis, E. coli bacteremia, with a urine cultured that did not have significant growth. PLAN: 1. Continue oxygen for hypoxemic respiratory failure. 2. Attempt to balance intake and output. 3. Continue antibiotics per Infectious Disease. 4. Overall prognosis is guarded. cc: Jose Paz MD
[2018-12-25] MEDS: NORCO-7.5 PO SCH ×3 (05:56→20:13)
[2018-12-25] MEDS: SYMBICORT 80/4.5 MICROGM INHALER INH SCH ×2 (07:28→19:30)
[2018-12-25] MEDS: ATROVENT NEB INH SCH ×5 (07:28→23:30)
[2018-12-25 08:08] LABS: BASO# 0.02 X1000 (0.0-0.2); BASO% 0.1 % (0.0-0.8); EOS# 0.01 X1000 (0.0-0.7); EOS% 0.1 % (0.0-10.0); HEMATOCRIT 32.9 % (37.0-47.0); HEMOGLOBIN 10.4 g/dL (12.0-16.0); IMM GRAN# 0.31 X1000 (0.0-0.04); IMM GRAN% 2.1 % (0.0-0.5); LYMPH# 0.95 X1000 (1.2-3.4); LYMPH% 6.4 % (20.5-51.1); MCH 29.3 PG (27-31); MCHC 31.6 g/dL (33-37); MCV 92.7 FL (81-99); MONO# 0.88 X1000 (0.11-0.59); MONO% 5.9 % (1.7-9.3); MPV 12.5 FL (7.4-10.4); NEUT# 12.76 X1000 (1.4-6.5); NEUT% 85.4 % (42.2-75.2); PLT 253 X1000 (130-400); RBC 3.55 XMIL (4.2-5.4); RDW 15.2 % (11.5-14.5); WBC 14.93 X1000 (4.8-10.8)
[2018-12-25 08:15] LABS: AGAP 13; ALB/GLOB RATIO 1.1; ALKALINE PHOSPHATASE 255 U/L (32-104); BUN 39 mg/dL (8-22); CALCIUM 8.8 mg/dL (8.8-10.2); CHLORIDE 103 mmol/L (98-107); COSMO 298; CREATININE 0.8 mg/dL (0.5-0.9); ESTIMATED GFR > 60; GLUCOSE 125 mg/dL (70-104); GOT 29 U/L (10-30); GPT 30 U/L (10-36); MAGNESIUM 1.6 mg/dL (1.5-2.7); POTASSIUM 3.5 mmol/L (3.5-5.1); SODIUM 144 mmol/L (136-145); TCO2 28 mmol/L (25-35); TOTAL PROTEIN 5.8 g/dL (6.3-8.3)
[2018-12-25] MEDS: ELIQUIS PO SCH ×2 (08:53→20:13)
[2018-12-25] MEDS: PRILOSEC PO SCH ×2 (08:53→20:13)
[2018-12-25] MEDS: MIRAPEX PO SCH (08:53)
[2018-12-25] MEDS: CRESTOR PO SCH (08:53)
[2018-12-25] MEDS: CELEXA PO SCH (08:54)
[2018-12-25] MEDS: NORVASC PO SCH ×2 (08:54→20:13)
[2018-12-25] MEDS: ABILIFY PO SCH (08:54)
[2018-12-25] MEDS: TOPROL XL PO SCH ×2 (08:54→20:11)
[2018-12-25] MEDS: NS IV SCH (09:06)
[2018-12-25] MEDS: INVANZ IV SCH (09:06)
--- NOTE | 2018-12-25 11:02 | Diag Imaging Result Doc PS360 ---
CHEST-PORTABLE - 12/25/2018 INDICATION: SOB COMPARISON: 12/24/2018 FINDINGS: Stable cardiomegaly and pulmonary vascular congestion. There is no significant change in the ill-defined bilateral infiltrates/pulmonary edema. Stable small pleural effusions. IMPRESSION: No change from prior. Electronically signed by Kennedy Santiago 12/25/2018 11:00 AM
[2018-12-25] MEDS ORDERED: LASIX IV ONE (12:51)
--- NOTE | 2018-12-25 19:20 | PROGRESS NOTE ---
DATE: 12/25/2018 SUBJECTIVE: This patient states that she is feeling better but she is still short of breath, she still having bilateral crackles. Kidney function has been stable. I will give her an extra dose of Lasix today and I will monitor, I do not want to be aggressive with Lasix because she had acute kidney injury with septic shock recently. OBJECTIVE: Vital Signs: Temperature 98.1 degrees, pulse 83, respiratory rate 18, blood pressure 136/79, oxygen saturation 95 on 5 L of nasal cannula. HEENT: Head normocephalic. No trauma. PERRLA. Neck: Supple. No JVD. No masses. Central trachea. Chest: Decreased breath sounds globally with crackles bilaterally. Abdomen: Soft, nontender, nondistended. No hepatosplenomegaly. Extremity: 2+ lower extremity edema. No clubbing, no cyanosis. Neurologic: The patient is alert and oriented x3. No focal deficits. LABORATORY: WBC 14.9, hemoglobin 10.4, hematocrit 32.9, platelets 253,000, sodium 144, potassium 3.5, chloride 103, bicarbonate 28, BUN 39, creatinine 0.8, glucose 125, calcium 8.8, albumin 3. ASSESSMENT AND PLAN: 1. Sepsis resolved, likely secondary to pneumonia, also this patient has bacteremia with extended spectrum beta-lactamase Escherichia coli, Infectious Disease Department on board, will continue to monitor. 2. Hypoxemic respiratory failure secondary to pneumonia and pulmonary edema, continue cycling the BiPAP machine and oxygen through nasal cannula, continue breathing treatment, pulmonary toilet, we already stopped the fluid and I have been trying some Lasix on a daily basis, will monitor the kidney function, I do not want to be aggressive with diuretics because she recently had an acute kidney injury. 3. Acute pulmonary edema as above. 4. Bilateral pneumonia, probably the source of the bacteremia, continue with the same management. She is responding to treatment. 5. Status post mechanical fall. She was complaining of back pain, CT of the spine is negative. 6. History of multiple venous thromboembolism on lifelong anticoagulation with Ozzie aware. 7. Recent Klebsiella pneumonia and septic shock from previous hospitalization. 8. Polypharmacy aware. 9. Severe kyphosis aware. 10. Large hiatal hernia probably the source of some of her aspiration pneumonia. Continue with PPIs. 11. Bacteremia due to extended spectrum beta-lactamase Escherichia coli, continue with same management. 12. Acute kidney injury resolved, now we are trying some diuretics on this patient, will monitor. 13. Hypokalemia with hypomagnesemia resolved. 14. Physical deconditioning. Continue physical therapy. We have been talking about sending this patient to a rehab center if she gets better but she thinking about it. 15. Elevated liver function tests getting better slowly especially alkaline phosphatase. cc: Nick Abreu MD
[2018-12-25] MEDS: SEROQUEL PO SCH (20:13)
[2018-12-25] MEDS: REMERON PO SCH (20:13)
[2018-12-26] MEDS: XOPENEX NEB INH SCH ×6 (03:30→23:05)
[2018-12-26] MEDS: NORCO-7.5 PO SCH ×3 (06:03→21:47)
[2018-12-26] MEDS: SOLU-CORTEF IV SCH ×3 (06:04→21:48)
[2018-12-26] MEDS: ROBITUSSIN-DM PO SCH ×4 (06:05→21:48)
[2018-12-26 07:35] LABS: BASO# 0.01 X1000 (0.0-0.2); HEMATOCRIT 33.6 % (37.0-47.0); HEMOGLOBIN 10.4 g/dL (12.0-16.0); IMM GRAN# 0.25 X1000 (0.0-0.04); IMM GRAN% 1.2 % (0.0-0.5); LYMPH# 0.81 X1000 (1.2-3.4); LYMPH% 3.8 % (20.5-51.1); MCH 29.4 PG (27-31); MCV 94.9 FL (81-99); MONO% 3.3 % (1.7-9.3); MPV 12.1 FL (7.4-10.4); NEUT# 19.38 X1000 (1.4-6.5); NEUT% 91.7 % (42.2-75.2); PLT 227 X1000 (130-400); RBC 3.54 XMIL (4.2-5.4); RDW 15.4 % (11.5-14.5); WBC 21.15 X1000 (4.8-10.8)
--- NOTE | 2018-12-26 07:43 | PULMONOLOGY PROGRESS NOTE ---
DATE: 12/25/2018 SUBJECTIVE: The patient reports her breathing is about the same. She was dozing when I arrived. She was without new complaints. OBJECTIVE: Vital Signs: The patient has been afebrile for the last 24 hours. Blood pressure 137/85, heart rate 87, respiratory rate 18, oxygen saturation 94%. HEENT: Pupils are equal and reactive. Oropharynx is clear. Neck: Supple. Chest: Reveals crackles in both lung bases, kyphosis, decreased breath sounds. Abdomen: Soft and without hepatosplenomegaly. Extremities: Reveal trace pretibial edema. Laboratories: Chest x-ray reveals cardiomegaly, mild vascular congestion, shallow inspiration, small effusions without change from 12/24/2018. White blood count 14.9, hemoglobin 10.4, platelet count 253,000. Sodium 144, potassium 3.5, chloride 103, BUN 39, creatinine 0.8. IMPRESSION: An 83-year-old with pneumonia, pulmonary edema, kyphosis, Escherichia coli bacteremia with a normal urinalysis suggesting Escherichia coli pneumonia. RECOMMENDATIONS: 1. Continue oxygen for hypoxemic respiratory failure. 2. Continue to balance intake and output if possible. 3. Continue antibiotics per infectious disease. 4. Guarded prognosis. cc: Jose Paz MD
[2018-12-26 07:56] LABS: BANDS 14 % (0-1); LYMPHS 4 % (21-51); MONO 4 % (1-9); SEGS 78 % (42-75)
[2018-12-26] MEDS: SYMBICORT 80/4.5 MICROGM INHALER INH SCH ×2 (07:59→19:27)
[2018-12-26] MEDS: ATROVENT NEB INH SCH ×5 (07:59→23:05)
--- NOTE | 2018-12-26 08:06 | Diag Imaging Result Doc PS360 ---
CHEST-PORTABLE - 12/26/2018 INDICATION: dyspnea COMPARISON: 12/25/2018 FINDINGS: Stable low lung volumes. Stable significant cardiomegaly and pulmonary vascular congestion. There is slight worsening bibasilar infiltrates or atelectasis. There is probably mild interstitial pulmonary edema. IMPRESSION: Slight worsening bibasilar infiltrates or atelectasis. Other findings are stable. Electronically signed by Kennedy Santiago 12/26/2018 8:03 AM
[2018-12-26 08:08] LABS: ALBUMIN 2.8 g/dL (3.5-5.0); CREATININE 0.9 mg/dL (0.5-0.9); POTASSIUM 3.3 mmol/L (3.5-5.1); TOTAL BILIRUBIN 0.66 mg/dL (0.20-1.00); TOTAL PROTEIN 5.6 g/dL (6.3-8.3)
[2018-12-26] MEDS ORDERED: KLOR-CON PO ONE (09:22)
[2018-12-26] MEDS: NS IV SCH (10:00)
[2018-12-26] MEDS: INVANZ IV SCH (10:00)
[2018-12-26] MEDS: ABILIFY PO SCH (10:01)
[2018-12-26] MEDS: PRILOSEC PO SCH ×2 (10:01→21:46)
[2018-12-26] MEDS: TOPROL XL PO SCH ×2 (10:01→21:47)
[2018-12-26] MEDS: CRESTOR PO SCH (10:01)
[2018-12-26] MEDS: MIRAPEX PO SCH (10:01)
[2018-12-26] MEDS: ELIQUIS PO SCH ×2 (10:01→21:46)
[2018-12-26] MEDS: CELEXA PO SCH (10:02)
[2018-12-26] MEDS: NORVASC PO SCH ×2 (10:02→21:46)
--- NOTE | 2018-12-26 12:18 | PROGRESS NOTE ---
DATE: 12/26/2018 SUBJECTIVE: This patient states that she is feeling better. She is still complaining of shortness of breath. She is still having mild bilateral crackles mostly at the bases. Kidney function has been stable. BUN and creatinine increased a little bit compared with yesterday. WBC increased from 14 to 21 with some bands. I communicated with Infectious Disease Department to evaluate this patient again. OBJECTIVE: Vital Signs: Temperature 98 degrees, pulse 83, respiratory rate 20, blood pressure 148/77, oxygen saturation 92 on 4 L of nasal cannula. HEENT: Head normocephalic. No trauma. PERRLA. Neck: Supple. No JVD. No masses. Central trachea. Chest: Decreased breath sounds globally with crackles bilaterally. Abdomen: Soft, nontender, nondistended. No hepatosplenomegaly. Extremities: 2+ lower extremity edema. No clubbing. No cyanosis. Neurological examination: The patient is alert. She is oriented. No focal deficits, but generalized weakness. LABORATORY: WBC 21.1, hemoglobin 10.4, hematocrit 33.6, platelet 227. Sodium 145, potassium 3.3, chloride 104, bicarbonate 29. BUN 43, creatinine 0.9, glucose 129, calcium 8 and albumin 2.8. ASSESSMENT AND PLAN: 1. Sepsis, likely secondary to pneumonia. Also this patient has bacteremia with extended spectrum beta lactamase Escherichia coli. Infectious Disease Department following this patient. White blood count increased from 14 to 21, even though she has been getting antibiotics. 2. Hypoxemic respiratory failure secondary to pneumonia and pulmonary edema. Continue cycling the BiPAP machine and oxygen through the nasal cannula. Continue breathing treatment, pulmonary toilet. We already stopped the fluids and she has been getting Lasix. Today, I will not give her Lasix. She seems to be breathing a little bit better. I do not want to be aggressive with diuretics because of her recently acute kidney injury. 3. Acute pulmonary edema. Will monitor for now. 4. Bilateral pneumonia. Probably the source of the bacteremia. Continue with the same management. She seems to be responding to the treatment, but the white blood count is trending up. 5. Status post mechanical fall. She was complaining of back pain upon admission, CT of the spine has been negative. 6. 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 Aware. 7. Recent Klebsiella pneumonia and septic shock from previous hospitalization. Aware. 8. Polypharmacy. Aware. 9. Severe kyphosis. Aware. 10. Large hiatal hernia. Aware. 11. Bacteremia due to extended spectrum beta lactamase Escherichia coli. Continue with the same management. Infectious Disease Department has been notified about the increased white blood count. 12. Acute kidney injury has been stable. 13. Hypokalemia with hypomagnesemia. Potassium level is low again. I will replace it. 14. Physical deconditioning. Continue physical therapy. 15. Elevated liver function tests. This is getting better slowly. cc: Nick Abreu MD
--- NOTE | 2018-12-26 15:29 | Diag Imaging Result Doc PS360 ---
CT THORAX W/O CONTRAST - 12/26/2018 INDICATION: pneumonia COMPARISON: Recent chest x-rays FINDINGS: There is mild cardiomegaly. There is advanced calcified coronary artery disease. There is a stable hiatal hernia with transverse colon, pancreas, and the splenic artery herniated up into the posterior mediastinum. There are infiltrates in the right upper lobe and lingula. There is dense consolidation of the left lower lobe as well. No significant pleural effusion. IMPRESSION: Infiltrates in both upper lobes. Dense consolidation of both lower lobes consistent with some combination of atelectasis and possibly pneumonia. This exam was performed using automated exposure control, adjustment of mA or kV according to patient size, and/or use of iterative reconstruction technique Electronically signed by Kennedy Santiago 12/26/2018 3:26 PM
--- NOTE | 2018-12-26 17:38 | INFECTIOUS DISEASE PROGRESS NO ---
DATE: 12/26/2018 PRESENT ILLNESS: The patient has an extended spectrum beta lactamase producing E coli bacteremia. She also appeared to have pneumonia and possibly the bacteremia arose from the pneumonia. The patient's white count is progressively going up. I think that it is most likely going up because the patient is receiving IV Solu-Cortef. MEDICATIONS: The patient is on her third day of treatment with ertapenem. PHYSICAL EXAMINATION: Vital Signs: Temperature is 98.1, pulse 89, respirations 18, blood pressure 142/73. General: This is a chronically ill-appearing, obese elderly female. She is in no acute distress and, in fact, she told me today she is feeling better. Head, Eyes, Ears, Nose and Throat: She can hear my spoken words and see near objects. She does not have any white patches on her tongue. Neck: No meningismus. Thorax: Patient has a dorsal kyphosis. Lungs: Clear to auscultation. Cardiovascular: Heart rate is regular. Abdomen: Soft and not tender. Neurologic: The patient is alert. She can move her extremities, but she is very weak. There is no tremor. LAB AND X-RAY: Chest x-ray shows worsening bibasilar infiltrates versus atelectasis. The patient's CBC today shows a white count of 21,150, hemoglobin 10.4 and platelet count 227,000. Creatinine is 0.9. GFR is 60. The alkaline phosphatase has been decreasing and today is 241. Repeat blood cultures are sterile. ASSESSMENT AND PLAN: The patient has an E coli bacteremia. This may have arisen from an E coli pneumonia or from some other focus which I have not identified. In any event, I think the patient may well have pneumonia as well. I think there is a good chance that the increasing white count is due to steroids. I am going to continue ertapenem and I have ordered a noncontrasted CT scan of the chest to decipher whether the patient's pneumonia is getting worse or whether it is some other thing such as atelectasis. Also, I have ordered a procalcitonin level to help differentiate whether the patient's pneumonia is getting better or worse. COMORBIDITIES: She is elderly. She has congestive heart failure. She has a history of deep venous thrombosis with pulmonary emboli. cc: Kvng Funk MD
--- NOTE | 2018-12-26 21:01 | PULMONOLOGY PROGRESS NOTE ---
DATE: 12/26/2018 SUBJECTIVE: Patient is awake and alert. She has a slightly productive cough. She reports she feels stronger today. OBJECTIVE: BP 144/66, heart rate 85, respiratory rate 20, oxygen saturation 97% on 4 L nasal cannula.HEENT: Pupils are equal and reactive. Oropharynx is clear. Neck: Is supple . Chest: Reveals crackles and rhonchi bilaterally with decreased breath sounds in the lung bases . Cardiac: S1-S2. Abdomen: Soft without hepatosplenomegaly. Extremities: Without edema. LABORATORIES: White blood count 21.2 thousand, platelet count 227,000, sodium 144, potassium 3.3, chloride 104, bicarbonate 29, BUN 43, creatinine 0.9. CT scan of the thorax reveals a moderate size hiatal hernia, mild cardiomegaly, bibasilar consolidation left greater than right, mild upper lobe infiltrates . IMPRESSION: 83-year-old with Escherichia coli bacteremia, Escherichia coli pneumonia, hiatal hernia, significant kyphosis, acute hypoxemic respiratory failure . RECOMMENDATION: 1. Continue antibiotics under the direction Dr. Kvng Funk. 2. Continue practice reflux precautions and safe swallowing practices. 3. Continue oxygen for hypoxemic respiratory failure. 4. Overall prognosis is guarded. cc: Jose Paz MD [facility]
[2018-12-26] MEDS: REMERON PO SCH (21:47)
[2018-12-26] MEDS: SEROQUEL PO SCH (21:47)
[2018-12-27] MEDS: XOPENEX NEB INH SCH ×6 (03:16→23:20)
[2018-12-27] MEDS: ROBITUSSIN-DM PO SCH ×4 (04:38→22:10)
[2018-12-27] MEDS: SOLU-CORTEF IV SCH ×3 (04:38→22:13)
[2018-12-27 05:30] LABS: ALLEN TEST YES; BE 8.9 mmoll (-3.0-3.0); BLOOD TYPE ARTERIAL; HCO3-(ACT) 31.7 mmoll (20.0-26.0); O2(CT) 15.1 mL/dL (15.0-23.0); O2HB 90.7 % (95.0-99.0); PCO2(98.6) 41 mmHg (35-45); PO2(98.6) 59 mmHg (60-100); SAMPLE BLOOD; SAO2 93.3 % (95.0-100.0); THB 11.8 g/dL (11.5-17.4); pH(98.6) 7.51 (7.35-7.45)
[2018-12-27 05:35] LABS: MODALITY CANNULA
[2018-12-27] MEDS: NORCO-7.5 PO SCH ×4 (06:26→22:12)
--- NOTE | 2018-12-27 07:00 | Diag Imaging Result Doc PS360 ---
EXAM: CHEST-PORTABLE HISTORY: dyspnea TECHNIQUE: Portable chest single view COMPARISON: 12/26/2018 FINDINGS: Poor inspiratory effort. Cardiomegaly remains. Vascular distention persists although it is slightly less prominent than on the prior study. There is a small to moderate left pleural effusion. IMPRESSION: Slight interval improvement. Electronically signed by Darwin Hughes 12/27/2018 6:58 AM
[2018-12-27 07:33] LABS: BASO# 0.01 X1000 (0.0-0.2); BASO% 0.1 % (0.0-0.8); HEMATOCRIT 32.6 % (37.0-47.0); HEMOGLOBIN 10.2 g/dL (12.0-16.0); IMM GRAN# 0.17 X1000 (0.0-0.04); IMM GRAN% 1.1 % (0.0-0.5); LYMPH# 0.72 X1000 (1.2-3.4); LYMPH% 4.7 % (20.5-51.1); MCH 29.5 PG (27-31); MCHC 31.3 g/dL (33-37); MCV 94.2 FL (81-99); MONO# 0.52 X1000 (0.11-0.59); MONO% 3.4 % (1.7-9.3); MPV 12.2 FL (7.4-10.4); NEUT# 14.05 X1000 (1.4-6.5); NEUT% 90.7 % (42.2-75.2); PLT 216 X1000 (130-400); RBC 3.46 XMIL (4.2-5.4); RDW 15.3 % (11.5-14.5); WBC 15.47 X1000 (4.8-10.8)
[2018-12-27] MEDS: SYMBICORT 80/4.5 MICROGM INHALER INH SCH ×2 (07:43→19:25)
[2018-12-27] MEDS: ATROVENT NEB INH SCH ×5 (07:43→23:20)
[2018-12-27 08:06] LABS: BANDS 2 % (0-1); LYMPHS 4 % (21-51); MONO 4 % (1-9); SEGS 90 % (42-75)
[2018-12-27 08:08] LABS: AGAP 13; ALBUMIN 2.8 g/dL (3.5-5.0); ALKALINE PHOSPHATASE 221 U/L (32-104); BUN 46 mg/dL (8-22); CALCIUM 8.8 mg/dL (8.8-10.2); CHLORIDE 106 mmol/L (98-107); COSMO 308; CREATININE 0.8 mg/dL (0.5-0.9); ESTIMATED GFR > 60; GLUCOSE 128 mg/dL (70-104); GOT 25 U/L (10-30); GPT 26 U/L (10-36); MAGNESIUM 1.5 mg/dL (1.5-2.7); PHOSPHORUS 2.8 mg/dL (2.7-4.5); POTASSIUM 3.8 mmol/L (3.5-5.1); SODIUM 148 mmol/L (136-145); TCO2 29 mmol/L (25-35); TOTAL BILIRUBIN 0.66 mg/dL (0.20-1.00); TOTAL PROTEIN 5.6 g/dL (6.3-8.3)
[2018-12-27 08:28] LABS: INR 1.28
[2018-12-27] MEDS: INVANZ IV SCH (08:57)
[2018-12-27] MEDS: TOPROL XL PO SCH ×2 (08:57→22:11)
[2018-12-27] MEDS: NS IV SCH (08:57)
[2018-12-27] MEDS: CELEXA PO SCH (08:57)
[2018-12-27] MEDS: CRESTOR PO SCH (08:58)
[2018-12-27] MEDS: ABILIFY PO SCH (08:58)
[2018-12-27] MEDS: ELIQUIS PO SCH ×2 (08:58→22:11)
[2018-12-27] MEDS: PRILOSEC PO SCH ×2 (08:58→22:11)
[2018-12-27] MEDS: NORVASC PO SCH ×2 (08:58→22:10)
[2018-12-27] MEDS: MIRAPEX PO SCH (08:59)
[2018-12-27] MEDS ORDERED: D50W 500 ML IV SCH (10:15)
--- NOTE | 2018-12-27 10:37 | PROGRESS NOTE ---
DATE: 12/27/2018 SUBJECTIVE: The patient states that she is feeling better but she is still complaining of shortness of breath. She is still having mild bilateral crackles, mostly at the bases. Kidney function has been more stable, as well as the urine output. WBC increased from 14 to 21 but today decreased again to 15. Infectious Disease Department on board. We did a CT scan yesterday that showed infiltrates in both upper lobes and dense consolidation in both lower lobes consistent with some combination of atelectasis and possible pneumonia. Pulmonary Department following this patient closely. OBJECTIVE: Vital Signs: Temperature 98.2 degrees, pulse 76, respiratory rate 18, blood pressure 164/86, oxygen saturation 96 on 4 L of nasal cannula. HEENT: Head normocephalic. No trauma. PERRLA. Neck: Supple. No JVD. No masses. Central trachea. Chest: Decreased breath sounds globally with crackles bilaterally at the bases. Abdomen: Soft, nontender, nondistended. No hepatosplenomegaly. Extremity: There is 2+ lower extremity edema. No clubbing. No cyanosis. Neurological: The patient is alert. She is oriented. No focal deficits but generalized weakness. LABORATORY: WBC 15.4, hemoglobin 10.2, hematocrit 32.6, platelets 216,000. Sodium 148, potassium 3.8, chloride 106, bicarbonate 29, BUN 46, creatinine 0.8, glucose 128, calcium 8.8. AST 25, ALT 26, alkaline phosphatase 221, albumin 2.8. ASSESSMENT AND PLAN: 1. Sepsis, likely secondary to pneumonia. Also this patient has bacteremia with extended spectrum beta lactamase Escherichia coli. Infectious Disease Department following this patient closely, as well as Pulmonary Department. WBC decreased from 21 to 15. 2. Hypoxemic respiratory failure secondary to pneumonia and pulmonary edema. Continue cycling the BiPAP machine and oxygen through the nasal cannula. Continue breathing treatment, pulmonary toilet, and antibiotics. CT scan done yesterday showed infiltrate in both upper lobes and dense consolidation in both lower lobes consistent with some combination of atelectasis and possible pneumonia, no significant pleural effusion. 3. Acute pulmonary edema, better. No significant pleural effusion on the CT scan. 4. Bilateral pneumonia. It looks like she has infiltrates in the upper lobes and lower lobes. We will continue with antibiotics, breathing treatment, pulmonary toilet. Pulmonary Department on board. 5. Hypernatremia. I encouraged the patient to drink a little bit more of water and also I will give her some D5W bolus. I will monitor the blood sodium. 6. Status post mechanical fall. Aware. She was complaining at the beginning of back pain but CT of the thoracic spine and lumbar spine negative. 7. History of multiple venous thromboembolisms, on lifelong anticoagulation with Eliquis. Aware. 8. Recently discharged due to Klebsiella pneumonia and septic shock, prior to this hospitalization. Aware. 9. Polypharmacy. Aware. 10. Severe kyphosis. Aware. 11. Large hiatal hernia. This is probably 1 of the causes of aspiration pneumonia in this patient. 12. Bacteremia due to extended spectrum beta lactamase Escherichia coli. Continue with the same management. Infectious Disease Department on board. New blood culture from 12/22/2018 has been negative so far. 13. Physical deconditioning. Continue physical therapy. 14. Hypokalemia and hypomagnesemia. Resolved. 15. Elevated liver function test. Getting better slowly. cc: Nick Abreu MD
[2018-12-27] MEDS ORDERED: NS 250 ML ONE (13:56)
[2018-12-27] MEDS: D5W 1,000 ML IV SCH (16:51)
--- NOTE | 2018-12-27 19:00 | INFECTIOUS DISEASE PROGRESS NO ---
DATE: 12/27/2018 PRESENT ILLNESS: Ms. Carson has an extended spectrum beta lactamase producing Escherichia coli bacteremia. There is also a possible pneumonia. We are awaiting a procalcitonin level. She also has a leukocytosis which has improved today. MEDICATIONS: She is receiving ertapenem 1 g IV every 24 hours as well as 100 mg of IV Solu-Cortef every 8 hours. PHYSICAL EXAMINATION: Vital Signs: Temperature is 98.5 degrees, pulse rate 84 , respiratory rate 18, blood pressure 147/74, pulse rate is 84, respiratory rate 18, blood pressure 147/74, O2 saturation is 95% on 4 L nasal cannula. General: This is a chronically ill- appearing, elderly female. She is sitting up in a chair in no acute distress. HEENT: Atraumatic , normocephalic. Oral mucous membranes are pink and moist. Conjunctivae are pink. Neck: Supple. Trachea is midline. Cardiovascular: Heart rate is regular. Pedal and radial pulses are palpable bilaterally. There is pretibial edema bilaterally, 2+. Abdomen: Soft, round and nontender. Bowel sounds are active. Respiratory: Lung sounds have coarse wheezes noted bilaterally. She does have a mildly congested cough. Neurologic: The patient is alert and oriented and able to move all extremities with generalized weakness. There is a mild tremor noted. LABORATORY AND X-RAY: Today, her white count is 15.47, hemoglobin 10.2, platelet count 216,000. ABGs done this morning on 4 L nasal cannula her pH was 7.51, pCO2 41, pO2 59, HCO3 31.7. Creatinine is 0.8. Estimated GFR is greater than 60. Total bilirubin 0.66, AST 25, ALT 26, alkaline phosphatase 221. Her blood cultures have grown an Escherichia coli which is ESBL producing. Most recent blood cultures have shown no growth. Chest x-ray today shows a slight interval improvement in vascular distention. There was a CT of the chest done yesterday, which showed infiltrates in both upper lobes, and dense consolidation of both lower lobes with atelectasis and possibly pneumonia. ASSESSMENT AND PLAN: Ms. Carson has an Escherichia coli bacteremia which is ESBL producing. For now, we will continue her on the ertapenem as ordered. Based on her sterile blood cultures, today is day 5 of treatment. She also has a possible pneumonia, and we are awaiting results of her procalcitonin. Her leukocytosis has improved slightly. She is receiving steroids. These plans have been discussed with and recommended by Dr. Funk. COMORBIDITIES: For Ms. Carson include that she is elderly with congestive heart failure, and history of DVT and PE. Dictated by LAYO Mcclure for Kvng Funk MD This chart was documented by, LAYO Mcclure and accurately reflects the services performed, treatment plan and medical decisions as attested by the providers signature Kvng Funk MD. cc: Kvng Funk MD [facility]ITAL[facility]
[2018-12-27] MEDS: REMERON PO SCH (22:11)
[2018-12-27] MEDS: SEROQUEL PO SCH (22:12)
[2018-12-28] MEDS: XOPENEX NEB INH SCH ×6 (03:35→23:22)
[2018-12-28] MEDS: NORCO-7.5 PO SCH ×3 (04:58→22:30)
[2018-12-28] MEDS: SOLU-CORTEF IV SCH ×3 (04:58→22:27)
[2018-12-28] MEDS: D5W 1,000 ML IV SCH (04:58)
[2018-12-28] MEDS: ROBITUSSIN-DM PO SCH ×4 (04:59→22:42)
--- NOTE | 2018-12-28 08:00 | Diag Imaging Result Doc PS360 ---
CHEST-PORTABLE - 12/28/2018 INDICATION: dyspnea COMPARISON: 12/27/2018 FINDINGS: Stable right chest port in good position. There is slight worsening in the left basilar infiltrate. Stable significant collapse of the left lower lobe as well. Stable cardiomegaly and pulmonary vascular congestion. Stable hazy interstitial pulmonary edema. IMPRESSION: Worsening left basilar infiltrate. Electronically signed by Kennedy Santiago 12/28/2018 7:58 AM
[2018-12-28] MEDS: ATROVENT NEB INH SCH ×5 (08:01→23:22)
[2018-12-28] MEDS: SYMBICORT 80/4.5 MICROGM INHALER INH SCH ×2 (08:01→19:45)
[2018-12-28 08:35] LABS: AGAP 11; ALB/GLOB RATIO 1.1; ALBUMIN 2.9 g/dL (3.5-5.0); ALKALINE PHOSPHATASE 205 U/L (32-104); BUN 44 mg/dL (8-22); CALCIUM 8.3 mg/dL (8.8-10.2); CHLORIDE 103 mmol/L (98-107); COSMO 298; CREATININE 0.8 mg/dL (0.5-0.9); ESTIMATED GFR > 60; GLUCOSE 140 mg/dL (70-104); GOT 24 U/L (10-30); GPT 25 U/L (10-36); MAGNESIUM 1.4 mg/dL (1.5-2.7); PHOSPHORUS 3.1 mg/dL (2.7-4.5); POTASSIUM 4.1 mmol/L (3.5-5.1); SODIUM 143 mmol/L (136-145); TCO2 29 mmol/L (25-35); TOTAL BILIRUBIN 0.65 mg/dL (0.20-1.00); TOTAL PROTEIN 5.5 g/dL (6.3-8.3)
[2018-12-28 08:51] LABS: BASO# 0.01 X1000 (0.0-0.2); BASO% 0.1 % (0.0-0.8); HEMATOCRIT 33.2 % (37.0-47.0); HEMOGLOBIN 10.2 g/dL (12.0-16.0); IMM GRAN# 0.12 X1000 (0.0-0.04); IMM GRAN% 0.7 % (0.0-0.5); LYMPH# 0.65 X1000 (1.2-3.4); LYMPH% 3.8 % (20.5-51.1); MCH 29.1 PG (27-31); MCHC 30.7 g/dL (33-37); MCV 94.9 FL (81-99); MONO# 0.63 X1000 (0.11-0.59); MONO% 3.7 % (1.7-9.3); NEUT# 15.53 X1000 (1.4-6.5); NEUT% 91.7 % (42.2-75.2); PLT 190 X1000 (130-400); RDW 15.4 % (11.5-14.5); WBC 16.94 X1000 (4.8-10.8)
[2018-12-28] MEDS: PRILOSEC PO SCH ×2 (09:28→22:29)
[2018-12-28] MEDS: NS IV SCH (09:28)
[2018-12-28] MEDS: CRESTOR PO SCH (09:28)
[2018-12-28] MEDS: INVANZ IV SCH (09:28)
[2018-12-28] MEDS: NORVASC PO SCH ×2 (09:29→22:31)
[2018-12-28] MEDS: ELIQUIS PO SCH ×2 (09:29→22:30)
[2018-12-28] MEDS: CELEXA PO SCH (09:29)
[2018-12-28] MEDS: TOPROL XL PO SCH ×2 (09:29→22:28)
[2018-12-28] MEDS: ABILIFY PO SCH (09:29)
[2018-12-28] MEDS: MIRAPEX PO SCH (09:30)
[2018-12-28 10:04] LABS: BANDS 4 % (0-1); LYMPHS 4 % (21-51); MONO 6 % (1-9); SEGS 84 % (42-75)
--- NOTE | 2018-12-28 13:46 | PROGRESS NOTE ---
DATE: 12/28/2018 SUBJECTIVE: The patient reports breathing better. Denies any fever or chills. OBJECTIVE: Vital Signs: Temperature 97.9, heart rate 80, respiratory rate 16, blood pressure 171/80. O2 saturation 97% on 4 L. PHYSICAL EXAMINATION: General: This is a chronically ill-appearing, 83-year- old female lying in bed in no acute distress. HEENT: Head is normocephalic and atraumatic. Neck: No JVD noted. No carotid bruits. No lymphadenopathy. No thyromegaly. Cardiovascular : S1, S2 heard. No murmurs, gallops, or rubs. Regular rate and rhythm. Respiratory: There is decreased breath sounds globally with crackles and rhonchi in both pulmonary bases. The patient is not using any accessory muscles or having work of breathing. Abdomen is soft, nontender to palpation. Nondistended. Bowel sounds present. No organomegaly. No signs of peritoneal irritation. Extremities: 2+ lower extremity edema. No clubbing or cyanosis noted. Peripheral pulses present in both legs. Neurologic: The patient is alert and oriented x3. Moves 4 extremities. LABORATORY DATA: White cell count 16.94, hemoglobin 10.2, hematocrit 33.2 platelets 190,000. Normal BMP. ASSESSMENT AND PLAN: 1. Sepsis secondary to pneumonia. White cell count is still elevated; actually , the same in comparing with yesterday; it was 15,000 yesterday; today, it is 16,000. I think, at this point, we are going to continue with the same antibiotic, in this case it is ertapenem day #5 of treatment according to the last blood culture. Infectious Disease is following this patient. We will follow recommendations. 2. Acute hypoxemic respiratory failure secondary to pneumonia. The patient, as we mentioned before, is on antibiotics as above. The patient is now requiring oxygen 4 L by nasal cannula. We will continue with the same management. She has been scanned yesterday and CT of the thorax showed infiltrates in both upper lobes and there is consolidation in both lower lobes. At this point, we will continue with the same management. 3. Acute pulmonary edema is better. 4. Hypernatremia. After the patient has been started on D5W, sodium is back to normal. So, we are going to stop it. 5. Status post mechanical fall, aware. CT of the lumbar spine was negative. 6. Large hiatal hernia, most likely the reason why this patient has an aspiration pneumonia. We will continue with the antibiotics. 7. Extended spectrum beta-lactamase Escherichia coli bacteremia today. We repeated blood culture which are negative so far. 8. Physical deconditioning. Patient working with physical therapy. DISPOSITION: I think at this point, if she continues to improve, she can be discharged to a rehab facility. Patient reports she had already a bed. We will continue to monitor. Most likely between tomorrow and the day after, she can be discharged. cc: Obie Piña MD [facility]TD[facility]
[2018-12-28] MEDS: MYCELEX TROCHE PO SCH ×2 (17:30→22:30)
--- NOTE | 2018-12-28 18:34 | INFECTIOUS DISEASE PROGRESS NO ---
DATE: 12/28/2018 PRESENT ILLNESS: Ms. Carson is being treated for an extended-spectrum beta lactamase producing Escherichia coli bacteremia. There is also a possible pneumonia with a procalcitonin level of 0.25 which may signify likelihood of a respiratory tract infection. There is a leukocytosis; however, the patient is receiving steroids. Today there are white patches noted on her tongue and lips which appear to be oral candidiasis. MEDICATIONS: She is receiving ertapenem 1 g IV every 24 hours. Based on her sterile blood cultures, today is day 6 of treatment. PHYSICAL EXAMINATION: Vital Signs: Temperature is 97.9 degrees, pulse rate 73 , respiratory rate 19, blood pressure 129/61, O2 saturation is 95% on 4 L nasal cannula. General: This is a chronically ill-appearing elderly female. She is sitting up in bed, in no acute distress. HEENT: Atraumatic, normocephalic. Oral mucous membranes are pink and moist. She has white patches noted to her lips and tongue. Conjunctivae are pink. Neck: Supple. Trachea is midline. Respiratory: Lung sounds with rhonchi and wheezes noted in the upper lobes, diminished in the bases. Cardiovascular: Heart rate and rhythm are regular, normal sinus rhythm on the monitor. There is a 2+ pretibial edema noted bilaterally. There is also some edema to the left upper extremity which is currently elevated above her heart. Abdomen: Soft, round, and nontender. Bowel sounds are active. Neurologic: She is awake, alert, and appropriate. Able to move her extremities with generalized weakness. Integumentary: There is a PICC line in place to her right upper arm. The site is without edema, erythema, or drainage. DIAGNOSTIC STUDIES: Today her white count is 16.94, hemoglobin 10.2, platelet count 190,000. Creatinine is 0.8, estimated GFR is greater than 60. Total bilirubin is 0.65, AST 24, ALT 25, alkaline phosphatase 205. Procalcitonin is 0.25. Chest x-ray today shows worsening left basilar infiltrate with a stable significant collapse of the left lower lobe and hazy interstitial pulmonary edema. ASSESSMENT AND PLAN: Ms. Carson has an Escherichia coli bacteremia which is extended-spectrum beta- lactamase producing, as well as a pneumonia. We will go ahead and continue her on ertapenem, which will require a minimum of 14 days of treatment; today is day 6. There is also an oral candidiasis. Mycelex Suhas has been ordered for her 5 times a day. There is a leukocytosis; however, she is receiving steroids. Her procalcitonin is elevated so we will treat her for the pneumonia as well as bacteremia. These plans have been discussed with and recommended by Dr. Funk. COMORBIDITIES: For Ms. Carson include she is elderly, with congestive heart failure, anxiety, depression, and history of multiple deep vein thromboses and pulmonary emboli. Dictated by LAYO Mcclure for Kvng Funk MD This chart was documented by, LAYO Mcclure and accurately reflects the services performed, treatment plan and medical decisions as attested by the providers signature Kvng Funk MD. cc: Kvng Funk MD [facility]
[2018-12-28] MEDS: SEROQUEL PO SCH (22:29)
[2018-12-28] MEDS: REMERON PO SCH (22:30)
[2018-12-29] MEDS: XOPENEX NEB INH SCH ×3 (03:25→11:29)
[2018-12-29] MEDS: SOLU-CORTEF IV SCH ×2 (05:18→12:19)
[2018-12-29] MEDS: NORCO-7.5 PO SCH ×2 (05:19→12:22)
[2018-12-29] MEDS: ROBITUSSIN-DM PO SCH ×2 (05:19→10:09)
[2018-12-29] MEDS: ATROVENT NEB INH SCH ×2 (07:27→11:29)
[2018-12-29] MEDS: SYMBICORT 80/4.5 MICROGM INHALER INH SCH (07:28)
[2018-12-29 07:50] LABS: BASO# 0.01 X1000 (0.0-0.2); EOS# 0.01 X1000 (0.0-0.7); HEMATOCRIT 32.8 % (37.0-47.0); HEMOGLOBIN 10.2 g/dL (12.0-16.0); IMM GRAN# 0.13 X1000 (0.0-0.04); IMM GRAN% 0.5 % (0.0-0.5); LYMPH# 0.81 X1000 (1.2-3.4); LYMPH% 3.4 % (20.5-51.1); MCH 29.2 PG (27-31); MCHC 31.1 g/dL (33-37); MONO% 6.3 % (1.7-9.3); MPV 12.1 FL (7.4-10.4); NEUT% 89.8 % (42.2-75.2); PLT 183 X1000 (130-400); RBC 3.49 XMIL (4.2-5.4); RDW 15.1 % (11.5-14.5); WBC 23.96 X1000 (4.8-10.8)
[2018-12-29 08:52] LABS: AGAP 11; BUN 37 mg/dL (8-22); CALCIUM 8.8 mg/dL (8.8-10.2); CHLORIDE 101 mmol/L (98-107); COSMO 287; CREATININE 0.6 mg/dL (0.5-0.9); ESTIMATED GFR > 60; GLUCOSE 82 mg/dL (70-104); SODIUM 140 mmol/L (136-145); TCO2 28 mmol/L (25-35)
[2018-12-29] MEDS: MIRAPEX PO SCH (09:49)
[2018-12-29] MEDS: ELIQUIS PO SCH (09:49)
[2018-12-29] MEDS: CRESTOR PO SCH (09:49)
[2018-12-29] MEDS: TOPROL XL PO SCH (09:49)
[2018-12-29] MEDS: CELEXA PO SCH (09:49)
[2018-12-29] MEDS: NORVASC PO SCH (09:49)
[2018-12-29] MEDS: PRILOSEC PO SCH (09:49)
[2018-12-29] MEDS: INVANZ IV SCH (09:50)
[2018-12-29] MEDS: ABILIFY PO SCH (09:50)
[2018-12-29] MEDS: NS IV SCH (09:50)
[2018-12-29] MEDS: MYCELEX TROCHE PO SCH ×2 (09:51→12:18)
[2018-12-29 09:56] LABS: BANDS 2 % (0-1); LYMPHS 4 % (21-51); MONO 4 % (1-9); SEGS 90 % (42-75)
--- NOTE | 2018-12-29 10:41 | DISCHARGE SUMMARY ---
ADMISSION DATE: 12/17/2018 DISCHARGE DATE: 12/29/2018 CONSULTATIONS: 1. Dr. Fortunato Ruiz, Pulmonology. 2. Dr. Jaspreet Sevilla, Nephrology. 3. Dr. Kvng Funk with Infectious Disease. PERTINENT PROCEDURES: 1. Head CT: No hemorrhage. No injury. 2. Thoracic lumbar spine CT: Degenerative changes and osteopenia. No evidence of fracture or other definite acute T-spine or L-spine injury. 3. Renal ultrasound: No evidence of obstructive uropathy. 4. Chest CT: Infiltrates in both upper lobes. Dense consolidation of both lower lobes consistent with some combination of atelectasis, possibly pneumonia. 5. Final chest x-ray: Worsening left basilar infiltrate. DISCHARGE DIAGNOSES: 1. Sepsis secondary to pneumonia. She will continue on ertapenem for 14 days. She is on day 7 of her treatment. 2. Escherichia coli bacteremia which is extended spectrum beta-lactamase producing. Continue on ertapenem for a total of 14 days. She is on 7 days of treatment. 3. Oral Candidiasis. Continue on treatment per Infectious Disease. 4. Acute hypoxemic respiratory failure secondary to pneumonia. The patient will continue on supplemental O2. 5. Acute pulmonary edema, improved. 6. Hyponatremia. Sodium is back to normal. 7. Status post mechanical fall where CT of the lumbar and T-spine was negative. 8. Large hiatal hernia, most likely the reason for patient's aspiration pneumonia. Again, continue antibiotics. 9. Physical deconditioning. The patient has been working with physical therapy and will be discharged to rehab. 10. Acute kidney injury on chronic kidney disease, stage 3. The patient has returned to historical baseline. She was evaluated and followed by Nephrology. HOSPITAL COURSE: Ms. Carson is an 83-year-old female who had recently been discharged from the hospital on 12/11/2018. She was admitted on medication for about 4 days. She had been treated for septic shock for Klebsiella pneumoniae bacteremia and Klebsiella pneumonia, elevated liver enzymes, and generalized weakness. The patient felt well and was sent home on a 7-day course of Levaquin. According to her, she was feeling much better. She was fairly stable; however, the day upon her readmission, she got out of bed to go the restroom, felt dizzy, fell down and hit her head. She came to the ED to be evaluated. Head CT was negative. Unfortunately, while she was here, she developed acute hypoxemic respiratory failure secondary to acute pulmonary edema and persistent pneumonia. Infectious Disease, as well as Pulmonology was brought on board. She also suffered an acute kidney injury on chronic kidney disease. Her electrolytes and acid base were followed closely. Antibiotics were changed per Infectious Disease. ESBL producing Escherichia coli bacteremia. She will continue on IV ertapenem for a total of 14 days; today is day 7. She continues to have leukocytosis; however, she has been receiving IV steroids. Over the course of her hospital stay, she has continued to improve. She has been working with physical therapy and will be discharged to [facility] today. VITAL SIGNS: At time of discharge, temperature is 97.9 degrees, heart rate 79, respirations 20, blood pressure 145/78, and O2 is 94% on 4 L nasal cannula. DISCHARGE DIET: Healthy heart. DISCHARGE MEDICATIONS: 1. Remeron 15 mg p.o. at bedtime. 2. Abilify 2 mg p.o. daily. 3. Celexa 20 mg p.o. daily. 4. Neurontin 300 mg p.o. t.i.d. 5. Toprol-XL 50 mg p.o. b.i.d. 6. Mirapex 0.125 mg p.o. daily. 7. Crestor 20 mg p.o. daily. 8. Seroquel 12.5 mg p.o. at bedtime. 9. Norvasc 5 mg p.o. b.i.d. 10. Eliquis 5 mg p.o. b.i.d. 11. Symbicort 80-4.5 mcg inhaler, 2 puffs inhaled RT b.i.d. 12. Vitamin D 5000 units p.o. q. 7 days. 13. [place] 7.5 one tab p.o. t.i.d. 14. Medrol Dosepak 4 mg p.o. as directed. 15. Protonix 40 mg p.o. daily. FOLLOWUP: Ms. Carson is being discharged to [facility] where she will continue on IV antibiotics. She is to take all medications as prescribed. She can return to the ED or call 911 for any worsening of symptoms. DISCHARGE TIME: 33 minutes. Dictated by LAYO Escobar for Obie Piña MD Addendum: Patient seen and examined by myself. Agree with LAYO note. It reflects my assessment and plan. Patient is being discharged in stable condition to rehab facility. Will continue receiving antibiotics as outlined by ID who are planning to see her in 2 weeks. cc: MD Sanam Clarke
[2018-12-29] MEDS ORDERED: STERILE WATER INJ. ONE (12:27)
[2018-12-29 12:56] VITALS: BP 145/83
== END 2018-12-29 14:30 | DRG 871 ==
LOC: SUPCPDRO → EDIPHOLD 17:15 → ED 17:15 → SUATTDRO 21:30 → 3N 23:31 → SUATTDRO 12-17 10:09 → ICU 12-17 21:07 → 3S 12-19 15:38 → 3N 12-23 13:42
PROVIDERS: ATTEND Internal Medicine
CPT/HCPCS: 36569; 70450; 71010; 71020; 71045; 71046; 71250; 72128; 72131; 76770; 80048; 80053; 80069; 81001; 82533; 82550; 82553; 82570; 82784; 82805; 82948; 83605; 83735; 83880; 84100; 84145; 84156; 84300; 84443; 84484; 85025; 85379; 85610; 85651; 85730; 86140; 87040; 87077; 87088; 87186; 87205; 93005; 93010; 94640; 94660; 94761; 96374; 97110; 97116; 97162; 97530; 99285; A9270; J0610; J0692; J1335; J1720; J1940; J2270; J2405; J2765; J3475; J3480; J7030; J7050; J7070; XXXXX

== ENCOUNTER 2018-12-30 08:54 | Inpatient (IN) ==
[2018-12-30] MEDS ORDERED: SOLU-MEDROL IV ONE (10:09)
[2018-12-30] MEDS ORDERED: DUONEB (A & A) INH ONE (10:09)
[2018-12-30] MEDS ORDERED: PULMICORT INH ONE (10:09)
[2018-12-30 10:11] LABS: BASO# 0.01 X1000 (0.0-0.2); EOS# 0.07 X1000 (0.0-0.7); EOS% 0.3 % (0.0-10.0); HEMATOCRIT 34.2 % (37.0-47.0); HEMOGLOBIN 10.7 g/dL (12.0-16.0); IMM GRAN# 0.13 X1000 (0.0-0.04); IMM GRAN% 0.5 % (0.0-0.5); LYMPH# 0.61 X1000 (1.2-3.4); LYMPH% 2.5 % (20.5-51.1); MCH 29.6 PG (27-31); MCHC 31.3 g/dL (33-37); MCV 94.5 FL (81-99); MPV 12.7 FL (7.4-10.4); NEUT# 21.68 X1000 (1.4-6.5); NEUT% 89.7 % (42.2-75.2); PLT 141 X1000 (130-400); RBC 3.62 XMIL (4.2-5.4); RDW 15.2 % (11.5-14.5)
[2018-12-30] MEDS ORDERED: LASIX IV ONE (10:11)
[2018-12-30 10:37] LABS: LYMPHS 2 % (21-51); MONO 2 % (1-9); SEGS 96 % (42-75)
--- NOTE | 2018-12-30 10:44 | Diag Imaging Result Doc PS360 ---
EXAM: CHEST-1 VIEW 12/30/2018 HISTORY: POSS SEPSIS TECHNIQUE: AP portable upright at 1025 COMMENT: There is cardiomegaly. There is an apparent large hiatal hernia. There is increasing alveolar opacity of the right upper lobe. There may be some improvement in the left lower lobe compared to 12/28/2018. There is increasing hazy opacity over the right lower lobe however. IMPRESSION: Worsening right upper and lower lobe pneumonia. Electronically signed by Zeke Negron 12/30/2018 10:41 AM
[2018-12-30] MEDS ORDERED: VANCOMYCIN 1 GM/NS 1 GM/250 ML IVPB IV ONE (10:48)
[2018-12-30] MEDS ORDERED: ZOSYN 3.375 GM in NS 50 ML IV ONE (10:48)
[2018-12-30 10:57] LABS: AGAP 15; ALB/GLOB RATIO 1.1; ALBUMIN 2.7 g/dL (3.5-5.0); ALKALINE PHOSPHATASE 167 U/L (32-104); BUN 27 mg/dL (8-22); CALCIUM 8.1 mg/dL (8.8-10.2); CHLORIDE 103 mmol/L (98-107); COSMO 292; CREATININE 0.6 mg/dL (0.5-0.9); ESTIMATED GFR > 60; GLUCOSE 95 mg/dL (70-104); GOT 39 U/L (10-30); GPT 29 U/L (10-36); INR 1.27; POTASSIUM 3.6 mmol/L (3.5-5.1); PROTIME 16.9 Seconds (11.0-16.0); SODIUM 144 mmol/L (136-145); TCO2 26 mmol/L (25-35); TOTAL BILIRUBIN 0.95 mg/dL (0.20-1.00); TOTAL PROTEIN 5.2 g/dL (6.3-8.3)
[2018-12-30 10:58] LABS: PTT 25.4 Seconds (22.3-41.8)
[2018-12-30 11:09] LABS: CK PROFILE 354 U/L (24-173)
[2018-12-30 11:27] LABS: CK INDEX 0.9 (0.0-2.5); CK-MB 3.31 ng/mL (0.0-5.0)
--- NOTE | 2018-12-30 12:37 | Diag Imaging Result Doc PS360 ---
EXAM: CT THORAX W/WO CONTRAST 12/30/2018 HISTORY: recent admission for PNA, DC yesterday, SOB, hypox TECHNIQUE: This exam was performed using automated exposure control, adjustment of mA or kV according to patient size, and/or use of iterative reconstruction technique. COMMENT: There is a large hiatal hernia containing portions of the splenic flexure of the colon, the pancreas and a large portion of the stomach. There is a small left pleural effusion and a larger right pleural effusion. There is extensive coronary calcification. There is some subcutaneous edema over the posterior lower chest and flanks. There is consolidation with air bronchograms in the right apex which is worse than on the previous study. There is extensive dense alveolar opacity in the posterior right upper lobe which is again more extensive and denser than on the previous study. There is similar opacity in the right middle lobe which has worsened since the previous study. There is volume loss and consolidation in both lower lobes which has not changed appreciably since the previous study. IMPRESSION: Worsened pneumonia in the right upper and middle lobes. Electronically signed by Zeke Negron 12/30/2018 12:34 PM
[2018-12-30 13:05] LABS: URINE SOURCE CLEAN CATCH
[2018-12-30 13:16] LABS: BILIRUBIN URINE NEGATIVE (NEGATIVE); BLOOD URINE MODERATE (NEGATIVE); COLOR YELLOW; GLUCOSE URINE NEGATIVE (NEGATIVE); KETONE URINE NEGATIVE (NEGATIVE); LEUKOCYTES URINE NEGATIVE (NEGATIVE); NITRITE URINE NEGATIVE (NEGATIVE); PH URINE 6.5; PROTEIN URINE TRACE mg/dL (NEGATIVE); SP GRAVITY URINE 1.009; TURBIDITY URINE CLEAR (CLEAR); UROBILINOGEN URINE NORMAL (NORMAL)
[2018-12-30 13:33] LABS: UR EPITHELIAL CELLS <10 /HPF (<10); URINE BACTERIA NEGATIVE /HPF; URINE RBC 20-40 /HPF (<10); URINE WBC <10 /HPF (<10)
--- NOTE | 2018-12-30 13:51 | PROVIDER DOCUMENTATION ---
This chart was entered by Lucy Levine Scribe, acting as scribe for Kristin Arshad MD. HPI-Respiratory General - General Chief Complaint: Shortness of Breath Stated Complaint: sob, swelling Time Seen by Provider: 12/30/18 08:56 Source: patient, family Allergies/Adverse Reactions: Patient Allergies Allergy/AdvReac Type Severity Reaction Status Date / Time No Known Allergies Allergy Verified 12/30/18 17:25 Home Medications: Home Medication List Medication Instructions Recorded Confirmed Last Taken Type Aripiprazole [Abilify] 2 mg PO DAILY 08/18/12 12/15/18 12/14/18 History Gabapentin [Neurontin] 300 mg PO TID 08/18/12 12/15/18 12/14/18 History Metoprolol Succinate E.r. [Toprol 50 mg PO BID 08/18/12 12/15/18 12/14/18 History Xl] Mirtazapine [Remeron] 15 mg PO QHS 10/27/16 12/15/18 12/14/18 History Quetiapine Fumarate 0.5 - 1 tab PO HS 03/29/17 12/15/18 12/14/18 History Ergocalciferol (Vitamin D2) 50,000 unit PO Q7D #10 capsule 03/31/17 12/15/18 Rx [Vitamin D] Citalopram [Celexa] 20 mg PO DAILY 07/07/18 12/15/18 12/14/18 History Apixaban [Eliquis] 5 mg PO BID #60 tab 07/14/18 12/15/18 12/14/18 Rx Budesonide/Formoterol Inhaler 2 puff INH RTBID #1 inhaler 07/14/18 12/15/18 Rx [Symbicort 80/4.5 Microgm Inhaler] Pramipexole [Mirapex] 0.125 mg PO DAILY 12/08/18 12/15/18 12/14/18 History ROSUVAstatin [Crestor] 1 tab PO DAILY 12/08/18 12/15/18 12/14/18 History Pantoprazole [Protonix] 40 mg PO DAILY@0700 #30 tab 12/11/18 12/15/18 12/14/18 Rx Amlodipine [Norvasc] 5 mg PO BID #60 tab 12/29/18 Unknown Rx Hydrocodone/APAP 7.5 mg/325 mg 1 tab PO TID@0500,1300,2100 PRN 12/29/18 Unknown Rx [[place]-7.5] #30 tab Methylprednisolone [Medrol Dosepak] 4 mg PO DIRECTED #1 pkg 12/29/18 Unknown Rx - History of Present Illness-Resp Nature of Presenting Problem: 83 yof presents w/daughter to ed w/cc sob and swelling in arms, hands, legs and feet. Swelling is worse in left arm and hand than right. pt says she slept good last night but woke up this morning sob. pt says she never been swollen like this before. pt has been in and out of hospital with pnuemonia and blood infection and was in [facility] until yesterday. pt fell this morning and was brought back to ed. Review of Systems - Adult - REVIEW OF SYSTEMS - ADULT Constitutional: reports: no symptoms reported Eyes: reports: no symptoms reported Ears, Nose, Mouth & Throat: reports: no symptoms reported Cardiovascular: reports: no symptoms reported Respiratory: reports: see HPI, shortness of breath. denies: cough, excessive sputum production, hemoptysis Gastrointestinal: reports: no symptoms reported Genitourinary: reports: no symptoms reported Musculoskeletal: reports: no symptoms reported Integumentary: reports: see HPI, other (swelling in hands, feet, arms, legs). denies: hives, hair loss, itching Neurological: reports: no symptoms reported Psychiatric: reports: no symptoms reported Endocrine: reports: no symptoms reported Hematologic/Lymphatic: reports: no symptoms reported Allergic/Immunologic: reports: no symptoms reported All Other Systems: Reviewed and Negative Past History - Adult - PAST MEDICAL HISTORY-ADULT Review of Records: reports: Old Records Reviewed, Nursing Assessment Review, Medications Reviewed, Social history reviewed & non-contributory. Major Childhood Illnesses: reports: denies history Cardiovascular: reports: HTN, hyperlipidemia Respiratory: reports: denies history Gastrointestinal: reports: GERD Obstetrical/Gynecological: reports: denies history Genitourinary: reports: denies history Musculoskeletal: reports: denies history Neurological: reports: denies history Psychiatric: reports: anxiety, depression Endocrine/Immune: reports: denies history Other Conditions: reports: cataract/glaucoma, other (HERNIA) - PRIOR SURGERIES/PROCEDURES Surgical/Procedure History: reports: orthopedic (extremity), other (CATARACT, stomach surgery) - IMMUNIZATION STATUS Childhood Immunizations: See Nurse Assessment Flu Vaccine: See Nurse Assessment - FAMILY HISTORY Family History: reviewed, not pertinent - SOCIAL HISTORY Smoking: non-smoker Substance Use: none/never Physical Exam-General - PHYSICAL EXAM-ADULT Initial Vital Signs Reviewed: Yes - CONSTITUTIONAL General Appearance: appears well, alert, no apparent distress - EYES Eyes: PERRL/EOMI - HEAD, EARS, NOSE, MOUTH & THROAT HENMT: normocephalic/atraumatic, moist mucous membranes, normal ENT inspection - NECK Neck: non-tender, full range of motion - RESPIRATORY Respiratory: respiratory distress (mild), decreased breath sounds, crackles ( diffused). negative: wheezing, splinting - CARDIOVASCULAR Cardiovascular: normal peripheral pulses, regular rate, rhythm, no murmur - GASTROINTESTINAL (ABDOMEN) Abdominal Exam: normal bowel sounds, non tender, soft - LYMPHATIC Lymphatic: no adenopathy - MUSCULOSKELETAL Back Exam: normal inspection, no CVA tenderness, no vertebral tenderness Extremity: normal range of motion, non-tender - SKIN Integumentary: normal color, normal turgor, warm/dry - NEUROLOGIC Neurologic: etcher machine II-XII nml as tested, grossly normal, no motor/sensory deficits - PSYCHIATRIC Psych/Mental Status: normal mood/affect, normal thought content, normal thought process, oriented x 3 Progress - PLAN OF CARE/RESULTS Progress/Plan/Lab Results: Vital Signs - 8 hr 12/30/18 09:50 12/30/18 10:00 12/30/18 10:10 Pulse Rate 88 86 88 Respiratory Rate 24 19 20 Blood Pressure O2 Sat by Pulse Oximetry 96 94 L 96 12/30/18 10:12 12/30/18 10:13 12/30/18 10:20 Pulse Rate 93 H 85 87 Respiratory Rate 24 26 H 32 H Blood Pressure 134/75 134/75 O2 Sat by Pulse Oximetry 94 L 96 95 12/30/18 10:30 12/30/18 10:40 12/30/18 10:50 Pulse Rate 86 82 88 Respiratory Rate 23 26 H 23 Blood Pressure O2 Sat by Pulse Oximetry 94 L 95 89 L 12/30/18 11:00 12/30/18 11:10 12/30/18 11:20 Pulse Rate 86 83 100 H Respiratory Rate 20 18 Blood Pressure O2 Sat by Pulse Oximetry 94 L 94 L 95 12/30/18 11:30 12/30/18 11:40 12/30/18 11:50 Pulse Rate 81 78 83 Respiratory Rate 27 H 23 20 Blood Pressure 148/70 O2 Sat by Pulse Oximetry 97 92 L 95 12/30/18 12:00 12/30/18 12:23 12/30/18 12:24 Pulse Rate 98 H 96 H Respiratory Rate 22 20 Blood Pressure 127/71 O2 Sat by Pulse Oximetry 94 L 93 L 93 L 12/30/18 12:30 12/30/18 12:31 12/30/18 12:40 Pulse Rate 89 89 95 H Respiratory Rate 24 22 28 H Blood Pressure 134/66 O2 Sat by Pulse Oximetry 93 L 93 L 93 L 12/30/18 12:50 12/30/18 13:00 12/30/18 13:01 Pulse Rate 92 H 93 H Respiratory Rate 29 H 22 Blood Pressure 133/75 O2 Sat by Pulse Oximetry 88 L 94 L 87 L 12/30/18 13:10 12/30/18 13:20 12/30/18 13:30 Pulse Rate 106 H 88 102 H Respiratory Rate 21 37 H 24 Blood Pressure O2 Sat by Pulse Oximetry 94 L 90 L 88 L 12/30/18 13:31 12/30/18 13:40 12/30/18 13:50 Pulse Rate 113 H 103 H 85 Respiratory Rate 26 H 22 24 Blood Pressure 126/82 O2 Sat by Pulse Oximetry 93 L 94 L 92 L 12/30/18 14:00 12/30/18 14:01 12/30/18 14:10 Pulse Rate 99 H 93 H 88 Respiratory Rate 18 29 H 23 Blood Pressure 128/60 O2 Sat by Pulse Oximetry 96 96 94 L 12/30/18 14:20 12/30/18 14:30 12/30/18 14:31 Pulse Rate 105 H 87 90 Respiratory Rate 21 20 18 Blood Pressure 132/72 O2 Sat by Pulse Oximetry 95 96 97 12/30/18 14:40 12/30/18 14:50 12/30/18 15:00 Pulse Rate 88 88 112 H Respiratory Rate 22 24 26 H Blood Pressure O2 Sat by Pulse Oximetry 95 94 L 92 L 12/30/18 15:01 12/30/18 15:10 12/30/18 15:20 Pulse Rate 95 H 83 86 Respiratory Rate 29 H 25 H 27 H Blood Pressure 130/81 O2 Sat by Pulse Oximetry 95 90 L 95 12/30/18 15:30 12/30/18 15:31 12/30/18 15:40 Pulse Rate 86 88 81 Respiratory Rate 26 H 25 H 20 Blood Pressure 126/79 O2 Sat by Pulse Oximetry 91 L 92 L 96 12/30/18 15:50 12/30/18 16:00 12/30/18 16:02 Pulse Rate 83 86 85 Respiratory Rate 23 24 34 H Blood Pressure 129/72 O2 Sat by Pulse Oximetry 96 95 93 L 12/30/18 16:10 12/30/18 16:20 12/30/18 16:30 Pulse Rate 78 85 84 Respiratory Rate 22 27 H 18 Blood Pressure O2 Sat by Pulse Oximetry 95 95 96 12/30/18 16:31 12/30/18 16:40 Pulse Rate 79 78 Respiratory Rate 20 21 Blood Pressure 131/69 O2 Sat by Pulse Oximetry 95 94 L 12/30/18 13:35 Influenza Screen - Final Nasopharyngeal Laboratory Results - last 24 hr 12/30/18 12/30/18 12/30/18 09:00 09:00 09:00 WBC 24.20 H RBC 3.62 L Hgb 10.7 L Hct 34.2 L MCV 94.5 MCH 29.6 MCHC 31.3 L RDW Std Deviation 15.2 H Plt Count 141 MPV 12.7 H Immature Gran % (Auto) 0.5 Neut % (Auto) 89.7 H Lymph % (Auto) 2.5 L [place] % (Auto) 7.0 Eos % (Auto) 0.3 Baso % (Auto) 0.0 Immature Gran # (Auto) 0.13 H Neut # (Auto) 21.68 H Lymph # (Auto) 0.61 L [place] # (Auto) 1.70 H Eos # (Auto) 0.07 Baso # (Auto) 0.01 Segmented Neutrophils 96 H Lymphocytes 2 L Monocytes 2 PT 16.9 H INR 1.27 PTT (Actin FS) 25.4 Sodium 144 Potassium 3.6 Chloride 103 Carbon Dioxide 26 Anion Gap 15 BUN 27 H Creatinine 0.6 Estimated GFR/1.73 m2 > 60 BUN/Creatinine Ratio 45 Glucose 95 Calculated Osmolality 292 Calcium 8.1 L Total Bilirubin 0.95 AST 39 H ALT 29 Alkaline Phosphatase 167 H Creatine Kinase 354 H Creatine Kinase Index 0.9 CK-MB (CK-2) 3.31 Troponin T Total Protein 5.2 L Albumin 2.7 L Globulin 2.5 Albumin/Globulin Ratio 1.1 Plasma Lactate Urine Source Urine Color Urine Turbidity Urine pH Ur Specific [place] Urine Protein Ur Glucose (Stick) Ur Ketones (Stick) Urine Blood Urine Nitrite Urine Bilirubin Urobilinogen Dipstick Urine Leukocytes Urine WBC (Auto) Urine RBC (Auto) U Epithel Cells (Auto) Urine Bacteria (Auto) Urine Crystals Small Round Cells Urine Casts Urine Yeast-like Cells 12/30/18 12/30/18 12/30/18 09:00 09:00 12:56 WBC RBC Hgb Hct MCV MCH MCHC RDW Std Deviation Plt Count MPV Immature Gran % (Auto) Neut % (Auto) Lymph % (Auto) [place] % (Auto) Eos % (Auto) Baso % (Auto) Immature Gran # (Auto) Neut # (Auto) Lymph # (Auto) [place] # (Auto) Eos # (Auto) Baso # (Auto) Segmented Neutrophils Lymphocytes Monocytes PT INR PTT (Actin FS) Sodium Potassium Chloride Carbon Dioxide Anion Gap BUN Creatinine Estimated GFR/1.73 m2 BUN/Creatinine Ratio Glucose Calculated Osmolality Calcium Total Bilirubin AST ALT Alkaline Phosphatase Creatine Kinase Creatine Kinase Index CK-MB (CK-2) Troponin T 0.038 Total Protein Albumin Globulin Albumin/Globulin Ratio Plasma Lactate 1.7 Urine Source CLEAN CATCH Urine Color YELLOW Urine Turbidity CLEAR Urine pH 6.5 Ur Specific [place] 1.009 Urine Protein TRACE A Ur Glucose (Stick) NEGATIVE Ur Ketones (Stick) NEGATIVE Urine Blood MODERATE A Urine Nitrite NEGATIVE Urine Bilirubin NEGATIVE Urobilinogen Dipstick NORMAL Urine Leukocytes NEGATIVE Urine WBC (Auto) <10 Urine RBC (Auto) 20-40 A U Epithel Cells (Auto) <10 Urine Bacteria (Auto) NEGATIVE Urine Crystals Not Reportable Small Round Cells Not Reportable Urine Casts Not Reportable Urine Yeast-like Cells PRESENT 12/30/18 13:14 WBC RBC Hgb Hct MCV MCH MCHC RDW Std Deviation Plt Count MPV Immature Gran % (Auto) Neut % (Auto) Lymph % (Auto) [place] % (Auto) Eos % (Auto) Baso % (Auto) Immature Gran # (Auto) Neut # (Auto) Lymph # (Auto) [place] # (Auto) Eos # (Auto) Baso # (Auto) Segmented Neutrophils Lymphocytes Monocytes PT INR PTT (Actin FS) Sodium Potassium Chloride Carbon Dioxide Anion Gap BUN Creatinine Estimated GFR/1.73 m2 BUN/Creatinine Ratio Glucose Calculated Osmolality Calcium Total Bilirubin AST ALT Alkaline Phosphatase Creatine Kinase Creatine Kinase Index CK-MB (CK-2) Troponin T Total Protein Albumin Globulin Albumin/Globulin Ratio Plasma Lactate 1.1 Urine Source Urine Color Urine Turbidity Urine pH Ur Specific [place] Urine Protein Ur Glucose (Stick) Ur Ketones (Stick) Urine Blood Urine Nitrite Urine Bilirubin Urobilinogen Dipstick Urine Leukocytes Urine WBC (Auto) Urine RBC (Auto) U Epithel Cells (Auto) Urine Bacteria (Auto) Urine Crystals Small Round Cells Urine Casts Urine Yeast-like Cells Orders Category Date Time Status Cardiac Monitoring DIRECTED Care 12/30/18 09:46 Active IV Insertion ORDERED Care 12/30/18 09:46 Completed Notify MD of + Sepsis Screen NOW Care 12/30/18 09:44 Active Notify MD/PA/LAYO for exam NOW Care 12/30/18 09:44 Active CHEST-1 VIEW [RAD] Stat Exams 12/30/18 09:[address] THORAX W/WO CONTRAST [CT] Stat Exams 12/30/18 10:12 Completed BLOOD CULTURE [BLDCUL] Stat Lab 12/30/18 09:00 Results CBC WITH DIFF [HEME] Stat Lab 12/30/18 09:00 Completed CK PROFILE [SP CHEM] Stat Lab 12/30/18 09:00 Completed COMPREHENSIVE METABOLIC PANEL [CHEM] Stat Lab 12/30/18 09:00 Completed INFLUENZA SCREEN A/B Stat Lab 12/30/18 13:35 Completed LACTATE, PLASMA [CHEM] Lab 12/30/18 09:00 Completed LACTATE, PLASMA [CHEM] Lab 12/30/18 13:14 Completed LACTATE, PLASMA [CHEM] Lab 12/30/18 17:13 Received PROTIME WITH INR [COAG] Stat Lab 12/30/18 09:00 Completed PTT [COAG] Stat Lab 12/30/18 09:00 Completed TROPONIN T Stat Lab 12/30/18 09:00 Completed URINALYSIS W/POSS RFLX CULT [URINALYSIS] Stat Lab 12/30/18 12:56 Completed URINE MANUAL MICROSCOPIC [URINALYSIS] Stat Lab 12/30/18 12:56 Completed Albuterol 2.5MG/Ipratrop 0.5MG [Duoneb (A & A)] Med 12/30/18 10:09 Discontinued 9 ml INH NOW ONE Budesonide [Pulmicort] Med 12/30/18 10:09 Discontinued 0.5 mg INH NOW ONE Furosemide [Lasix] Med 12/30/18 10:11 Discontinued 40 mg IV NOW ONE Methylprednisolone Sod Succ [Solu-Medrol] Med 12/30/18 10:09 Discontinued 125 mg IV NOW ONE Piperacillin/Tazobactam [Zosyn] 3.375 gm Med 12/30/18 10:48 Discontinued 0.9% Sodium Chloride Inj [Ns] 50 ml IV NOW Vancomycin 1 gm/Ns Med 12/30/18 10:48 Discontinued 1 gm in 250 ml IV NOW Aerosol Treatments Routine Oth 12/30/18 10:10 Completed Aerosol Treatments Stat Oth 12/30/18 10:10 Completed Oxygen Device Stat Oth 12/30/18 09:46 Completed Transfer/Admit Order [TRANSFER] Routine Transfer 12/30/18 15:39 Ordered Result Diagrams: 12/30/18 09:00 12/30/18 09:00 - XRAY 1 XRAY Study: Chest Impression: See EMR Report (EXAM: CHEST-1 VIEW 12/30/2018 HISTORY: POSS SEPSIS TECHNIQUE: AP portable upright at 1025 COMMENT: There is cardiomegaly. There is an apparent large hiatal hernia. There is increasing alveolar opacity of the right upper lobe. There may be some improvement in the left lower lobe compared to 12/28/2018. There is increasing hazy opacity over the right lower lobe however. IMPRESSION: Worsening right upper and lower lobe pneumonia. Electronically signed by Zeke Negron 12/30/2018 10:41 AM 12/30/18 1041 Interpreting Physician: Zeke Negron MD Dictated Date/Time: 1040 cc: Kristin Arshad MD; Sanam Murry MD) - CT/MRI 1 CT Study: Thorax Impression: See EMR Report ( EXAM: CT THORAX W/WO CONTRAST 12/30/2018 HISTORY: recent admission for PNA, DC yesterday, SOB, hypox TECHNIQUE: This exam was performed using automated exposure control, adjustment of mA or kV according to patient size, and/or use of iterative reconstruction technique. COMMENT: There is a large hiatal hernia containing portions of the splenic flexure of the colon, the pancreas and a large portion of the stomach. There is a small left pleural effusion and a larger right pleural effusion. There is extensive coronary calcification. There is some subcutaneous edema over the posterior lower chest and flanks. There is consolidation with air bronchograms in the right apex which is worse than on the previous study. There is extensive dense alveolar opacity in the posterior right upper lobe which is again more extensive and denser than on the previous study. There is similar opacity in the right middle lobe which has worsened since the previous study. There is volume loss and consolidation in both lower lobes which has not changed appreciably since the previous study. IMPRESSION: Worsened pneumonia in the right upper and middle lobes. Electronically signed by Zeke Negron 2018 12:34 PM 12/30/18 1234 Interpreting Physician: Zeke Negron MD Dictated Date/Time: 12/30/18 1230 cc: Kristin Arshad MD; Sanam Murry MD) - CONSULTS/PCP/HOSPITALIST Notification #1 *Consult/PCP/Hospitalist*: LAYO Casey for Hospitalist Time Discussed: 11:04 Consult Disposition: Will see in ED, Admit #2 Consult: Dr. Ramirez Time Discussed: 14:06 Consult Disposition: other (consulted about patient) Departure - Departure Date of Disposition Decision: 12/30/18 Time of Disposition Decision: 11:06 DIAGNOSIS: Hospital-acquired pneumonia, CHF (congestive heart failure), Leukocytosis, Elevated troponin Disposition: ADMITTED INPATIENT 09 Certified Medical Emergency: Emergent Condition: Stable - Critical Care Note This patient required my direct & personal management of CC.: Yes Total Time (mins): 74 Critical Care Statement: This patient required my direct personal management to treat or rule out processes, the absence of which, could potentiallly result in sudden, clinically significant life or limb threatening deterioration. Attestation - Physician/ THANIA Attestation Patient care was provided by Advanced Practice Provider:: No The physician spent face to face time with patient:: Yes Advanced Practice Provider documentation review:: Supervising physician onsite and consulted in the evaluation and care of this patient. The physician did have a face to face encounter with the patient. This chart was documented by the indicated scribe, (Lucy Levine Scribe) and accurately reflects the services I performed and decisions made by me, Kristin Arshad MD, as attested by the provider's signature.
[2018-12-30 14:00] LABS: URINE YEAST PRESENT
[2018-12-30] MEDS ORDERED: ZOFRAN IV PRN (17:47)
[2018-12-30] MEDS ORDERED: VANCOMYCIN IV PER PHARMACY MISC SCH (17:47)
[2018-12-30] MEDS ORDERED: DUONEB (A & A) INH PRN (17:47)
[2018-12-30] MEDS: MERREM 1 GM in NS 50 ML IV SCH (18:47)
[2018-12-30] MEDS: DUONEB (A & A) INH SCH ×2 (19:30→23:20)
[2018-12-30] MEDS ORDERED: VANCOMYCIN 1,600 MG in NS 250 ML IV SCH (21:00)
[2018-12-30] MEDS: TYLENOL PO PRN (22:05)
[2018-12-31] MEDS: DUONEB (A & A) INH SCH ×6 (03:20→23:15)
[2018-12-31] MEDS: MERREM 1 GM in NS 50 ML IV SCH ×3 (03:40→18:36)
[2018-12-31] MEDS: TYLENOL PO PRN (07:30)
[2018-12-31 08:26] LABS: BASO# 0.01 X1000 (0.0-0.2); BASO% 0.1 % (0.0-0.8); HEMATOCRIT 31.9 % (37.0-47.0); IMM GRAN# 0.06 X1000 (0.0-0.04); IMM GRAN% 0.4 % (0.0-0.5); LYMPH# 0.63 X1000 (1.2-3.4); LYMPH% 3.8 % (20.5-51.1); MCH 29.7 PG (27-31); MCHC 31.3 g/dL (33-37); MCV 94.7 FL (81-99); MONO# 0.96 X1000 (0.11-0.59); MONO% 5.8 % (1.7-9.3); MPV 13.1 FL (7.4-10.4); NEUT# 14.99 X1000 (1.4-6.5); NEUT% 89.9 % (42.2-75.2); PLT 107 X1000 (130-400); RBC 3.37 XMIL (4.2-5.4); RDW 15.2 % (11.5-14.5); WBC 16.65 X1000 (4.8-10.8)
[2018-12-31 08:36] LABS: AGAP 14; ALB/GLOB RATIO 1.2; ALBUMIN 2.6 g/dL (3.5-5.0); ALKALINE PHOSPHATASE 136 U/L (32-104); BUN 26 mg/dL (8-22); CALCIUM 8.5 mg/dL (8.8-10.2); CHLORIDE 105 mmol/L (98-107); COSMO 298; CREATININE 0.6 mg/dL (0.5-0.9); ESTIMATED GFR > 60; GLUCOSE 115 mg/dL (70-104); GOT 37 U/L (10-30); GPT 34 U/L (10-36); POTASSIUM 3.5 mmol/L (3.5-5.1); SODIUM 147 mmol/L (136-145); TCO2 28 mmol/L (25-35); TOTAL BILIRUBIN 0.81 mg/dL (0.20-1.00); TOTAL PROTEIN 4.8 g/dL (6.3-8.3)
[2018-12-31 08:43] LABS: LYMPHS 2 % (21-51); MONO 8 % (1-9); SEGS 90 % (42-75)
[2018-12-31] MEDS ORDERED: MEDROL DOSEPAK PO SCH (09:45)
[2018-12-31] MEDS: NORCO-7.5 PO PRN (09:53)
[2018-12-31] MEDS: TOPROL XL PO SCH ×2 (09:54→20:41)
[2018-12-31] MEDS: NEURONTIN PO SCH ×3 (09:55→18:00)
[2018-12-31] MEDS: MIRAPEX PO SCH (09:56)
[2018-12-31] MEDS: CELEXA PO SCH (09:57)
[2018-12-31] MEDS: NORVASC PO SCH ×3 (10:17→20:44)
[2018-12-31] MEDS: ELIQUIS PO SCH ×2 (10:17→20:41)
[2018-12-31] MEDS: MUCOMYST 10% INH SCH ×2 (12:01→19:20)
[2018-12-31] MEDS: SYMBICORT 80/4.5 MICROGM INHALER INH SCH ×2 (12:03→19:20)
[2018-12-31] MEDS ORDERED: NORCO-7.5 PO PRN (13:00)
[2018-12-31] MEDS: MEDROL PO SCH ×3 (13:04→20:41)
[2018-12-31] MEDS: ABILIFY PO SCH (13:05)
[2018-12-31] MEDS: CRESTOR PO SCH (13:05)
[2018-12-31] MEDS: CARDIZEM PO SCH ×3 (13:05→20:41)
[2018-12-31] MEDS ORDERED: CARDIZEM PO SCH (14:00)
[2018-12-31] MEDS: TEFLARO 600 MG in NS 250 ML IV SCH (16:11)
--- NOTE | 2018-12-31 16:52 | PROGRESS NOTE ---
DATE: 12/31/2018 SUBJECTIVE: The patient reports breathing better, actually much better in comparing with yesterday. Denies any fever or chills. OBJECTIVE: Vital Signs: Temperature 97.7 degrees, heart rate 90, respiratory rate 20, blood pressure 128/62, and O2 saturation 98% on 3 L nasal cannula. General: This is a chronically ill- appearing 83-year-old female lying in bed, in no acute distress. HEENT: Mucous membranes dry. Head is normocephalic and atraumatic. Neck: No JVD noted. No carotid bruits. Cardiovascular: S1 and S2 heard. No murmurs, gallops, or rubs. Regular rate and rhythm. Respiratory: Decreased breath sounds globally. There is rhonchi and crackles noted in both pulmonary beth, mostly noted in both pulmonary bases. Patient not using any accessory muscles or having work of breathing. Abdomen: Soft, nontender to palpation. Bowel sounds present. No organomegaly. No signs of peritoneal irritation. Extremity: There is 2+ pitting edema still noted in both lower extremities. No clubbing or cyanosis noted. Peripheral pulses present in both legs. Neurological: Patient is alert and oriented x3. Moves 4 extremities. LABORATORY DATA: White cell count is 16.65, hemoglobin 10, hematocrit 31.9, platelets 107,000. Sodium 147, creatinine 0.6, calcium 8.5. ASSESSMENT AND PLAN: 1. Right upper and middle lobe pneumonia. White cell count is getting better. Actually, at admission white cell count was 24.2 and today is 16.6. The patient is on vancomycin and meropenem. We will continue with the same management. The patient actually had in her prior admission extended-spectrum beta-lactamase Escherichia coli bacteremia and she was on ertapenem. At this point, we will continue with same management, but I rather prefer to have Dr. Kvng Funk on board for continuity of care for this patient. 2. Acute hypoxemic respiratory failure secondary to pneumonia. Patient oxygen needs are definitely much better. She is requiring now 3 L of oxygen by nasal cannula. We will continue with the same management. 3. Hyponatremia, resolved. 4. Status post mechanical fall. Aware. 5. Large hiatal hernia. Aware. We will continue with Protonix. 6. Physical deconditioning. Physical therapy has been consulted and will work with this patient. 7. Disposition. We will continue with the same antibiotic management. Continue doing labs for this patient on a daily basis. cc: Obie Piña MD
--- NOTE | 2018-12-31 18:25 | INFECTIOUS DISEASE PROGRESS NO ---
DATE: 12/31/2018 PRESENT ILLNESS: Ms. Carson was recently discharged to rehab and being treated for an extended spectrum beta lactamase producing Escherichia coli bacteremia as well as a pneumonia. She also has a leukocytosis, however she is receiving steroids. The patient also has an oral candidiasis. MEDICATIONS: She has been started on meropenem 1 g IV every 8 hours and was previously receiving ertapenem. We agree with that change. She was also started on vancomycin however, due to her age, we will change that today. PHYSICAL EXAMINATION: Vital Signs: Temperature is 97.7 degrees, pulse rate 90 , respiratory rate 20, blood pressure 128/62. O2 saturation 98% on 3 L nasal cannula. General: This is a chronically ill-appearing, elderly female. She is sitting up in the bed. Currently in no acute distress. HEENT: Atraumatic, normocephalic. Oral mucous membranes are pink and moist. Conjunctivae are pale. Neck: Supple. Trachea is midline. Cardiovascular: Heart rate and rhythm are regular. Normal sinus rhythm with occasional PACs on the monitor. There is a 1+ pretibial edema bilaterally, as well as left upper extremity edema. Respiratory : Lung sounds have bilateral wheezing and rhonchi noted with mild rales noted on the right. Abdomen: Soft, round, and nontender. Bowel sounds are active. Neurologic: She is awake, alert, and appropriate. Generalized weakness is noted, but she is able to move all extremities. Integumentary: She has a PICC line in place to the right upper arm. Site is without edema, erythema, or drainage. LABORATORY AND X-RAY: Today, her white count is 16.65, hemoglobin 10, platelet count 107,000. Creatinine is 0.6. Estimated GFR is greater than 60. Total bilirubin 0.81. AST 37, ALT 34, alkaline phosphatase 136. Clean-catch urine from yesterday showed no bacteria and less than 10 white blood cells. Her most recent blood cultures are pending. Previously, she had sterile blood cultures as of December 22 making today day 9 of treatment for her bacteremia. Chest CT done yesterday shows worsening pneumonia in the right upper and middle lobes. ASSESSMENT AND PLAN: Ms. Carson is being treated for an Escherichia coli bacteremia which is extended spectrum beta lactamase producing, as well as pneumonia which has worsened, after going to rehab for a short period of time. She is currently on vancomycin which we will discontinue at this point. We considered using Zyvox, however it does interfere with several of her medications so we will begin ceftaroline 600 mg IV every 12 hours for pneumonia coverage and continue meropenem as ordered for the pneumonia and bacteremia. Based on her sterile blood cultures, she only has 5 more days of treatment required for the bacteremia. She also has an oral candidiasis and we will continue her Mycelex Suhas for that. These plans have been discussed with and recommended by Dr. Funk. COMORBIDITIES: For Ms. Carson include that she is elderly with congestive heart failure, anxiety, depression and history of DVT and pulmonary emboli. Dictated by LAYO Mcclure for Kvng Funk MD This chart was documented by, LAYO Mcclure and accurately reflects the services performed, treatment plan and medical decisions as attested by the providers signature Kvng Funk MD. cc: Kvng Funk MD [facility]
--- NOTE | 2018-12-31 18:48 | HISTORY AND PHYSICAL ---
CHIEF COMPLAINT: Shortness of breath. HISTORY OF PRESENT ILLNESS: This is an 83-year-old female with history of chronic obstructive pulmonary disease, dyslipidemia, and atrial fibrillation. She was recently here for pneumonia and heart failure exacerbation. She had had a couple week course for Klebsiella bacteremia, but now she had an ESBL bacteremia for which she had been discharged on Invanz intravenously for an ESBL organism. Reportedly, she had worsening shortness of breath, and that is what brought her to the ER. She had repeat x-ray which showed a worsening pneumonia, and some swelling. She was more swollen than previous. Her workup CT also showed worsening infiltrates in her right upper lobe and middle lobe. She had a white count in the ER of around 24,000, the day before she had been about 24,000 as well. Somewhat increased work of breathing, and she was admitted for pneumonia. PAST MEDICAL HISTORY: 1. GERD. 2. Hypertension. 3. Dyslipidemia. 4. Hiatal hernia. 5. Venous thromboembolism. 6. Anxiety and depression. 7. Fibromyalgia. PAST SURGICAL HISTORY: 1. She has had cataract surgery. 2. Latia fundoplication. SOCIAL HISTORY: No tobacco or ethanol. She is currently at rehab. FAMILY HISTORY: Reviewed and noncontributory. ALLERGIES: No known drug allergies. MEDICATIONS: 1. Remeron 15. 2. Abilify 2. 3. Celexa 20 daily. 4. Neurontin 300 t.i.d. 5. Toprol-XL 50 b.i.d. 6. Mirapex 0.125 daily. 7. Seroquel 25 at bedtime. 8. Crestor 20 daily. 9. Norvasc 5 b.i.d. 10. Apixaban 5 b.i.d. 11. Symbicort 2 puffs b.i.d. 12. Vitamin D2 29949 units daily. 13. Leslie p.r.n. 14. Medrol Dosepak. 15. Protonix. REVIEW OF SYSTEMS: Otherwise negative times a 10 point review of systems. PHYSICAL EXAMINATION: VITAL SIGNS: Blood pressure 126/62, heart rate of 93, respiratory rate 20, temperature 97.7 degrees, and 90 to 92% on 3 L. GENERAL: A well-developed female in no acute distress. HEAD: Normocephalic and atraumatic. EYES AND ENT: Pupils are equal, round, and reactive to light. Extraocular movements were intact. Ears, nose, and throat exam: He had moist mucous membranes. NECK: Supple. CARDIOVASCULAR: Regular rate and rhythm. PULMONARY: She did have rales and occasional rhonchi. ABDOMEN: Soft, nontender, and nondistended. Bowel sounds are positive. LABORATORY DATA: White count was 24, hemoglobin and hematocrit 10 and 34, and platelets 141,000. INR 1.27. Basic was normal. ASSESSMENT: 1. This is an 83-year-old female with history of hypertension who presents with shortness of breath, and looks like she has worsening right upper lobe and right middle lobe infiltrates consistent with institutional acquired pneumonia or gram-negative type pneumonia. We will empirically treat with Merrem, and probably cover with vancomycin as well because of institutional acquired risk factors. I have consulted Pulmonary to just to better evaluate to just assist from that standpoint. Likely, we will need ID consultation once stabilizes. 2. Volume overload. She will need some degree of diuresis I think once she is stabilized. 3. Hypertension. We will continue regular medications once we have continued them. 4. Hx Afib - rate controlled, continue anticoagulation 5. Hx VTE - continue anticoagulation and monitor H/H Closely DISPOSITION: Pending her clinical status, we will continue to follow closely. cc: MD Sanam Boswell MD [facility]
[2018-12-31] MEDS: LASIX IV SCH (20:40)
[2018-12-31] MEDS: MYCELEX TROCHE PO SCH (20:41)
[2018-12-31] MEDS: SEROQUEL PO SCH (20:41)
[2018-12-31] MEDS: REMERON PO SCH (20:41)
[2019-01-01] MEDS: MYCELEX TROCHE PO SCH ×4 (01:58→20:22)
[2019-01-01] MEDS: CARDIZEM PO SCH ×4 (02:33→20:22)
[2019-01-01] MEDS: NORCO-7.5 PO PRN (02:33)
[2019-01-01] MEDS: MERREM 1 GM in NS 50 ML IV SCH ×3 (02:36→17:48)
--- NOTE | 2019-01-01 02:45 | CONSULTATION ---
DATE OF CONSULTATION: 12/31/2018 REQUESTING PROVIDER: Dr. Aubrey Crowley. REASON FOR CONSULTATION: Recurrent pneumonia. HISTORY OF PRESENT ILLNESS: This is an 83-year-old female with a medical history of massive hiatal hernia with reflux, multiple episodes of DVT and PE, coronary arthrosis with sclerosis, hypertension, dyslipidemia, chronic exertional dyspnea, anxiety, depression, chronic pain syndrome, fibromyalgia. This is her 3rd admission since 12/08/2018 for recurrent/persistent pneumonia. She was discharged to rehab 2 days ago and came back yesterday with shortness of breath and extremity swelling, chest CT revealed worsened pneumonia in the right upper and middle lobes, a small left pleural effusion and a large right pleural effusion. At the time of my exam patient keeps stating that she is feeling better she still has severe left upper extremity edema and mild pedal edema, she reports pedal edema is getting much better, she has mild cough but no fever, chest pain or palpitation. She has been admitted to the medical floor for further evaluation and management. PAST MEDICAL HISTORY: 1. Massive hiatal hernia with reflux status post Latia fundoplication which has reoccurred . 2. Multiple episodes of pulmonary embolism and DVT last pulmonary embolization noted on 07/11/2018. CT at that time also revealed a possibility of tumor invading central right lower lobe pulmonary artery, per [place], Dr. Paz followed . 3. Coronary atherosclerosis with prior syncope, status post implantable loop recorder placement . 4. Hypertension . 5. Dyslipidemia. 6. Chronic exertional dyspnea on home Symbicort and some rescue inhaler. 7. Anxiety. 8. Depression . 9. Chronic pain syndrome. 10. Fibromyalgia. 11. Osteoarthritis. 12. Status post cataract surgery. SOCIAL HISTORY: The patient is very self dependent she lives in rehab for 2 days and also take care of her who has Alzheimer disease she has no history of alcohol, tobacco, or illicit drug use. FAMILY HISTORY: Positive for congestive heart failure. ALLERGIES: No known drug allergies. REVIEW OF SYSTEMS: A 10 point review of systems was conducted and the pertinent is listed in the HPI otherwise noncontributory. PHYSICAL EXAMINATION: Vital Signs: Temperature 98, blood pressure 152/85, pulse 94, respiratory rate 22, oxygen saturation 98% on nasal cannula at 5. General: The patient is lying in bed with family at the bedside. She is pleasant and cooperative. She is in no acute distress at this time. The urine in the drainage bag at the bedside is maikel and clear. HEENT: Atraumatic, trachea midline, mucous pink, slightly dry. Respiratory: Diminished breathing sounds bibasilarly. Expiratory wheezing on the right side of the lung with crackles at the right base. Cardiovascular: Regular rate and rhythm without murmur noted. Gastrointestinal: Normoactive bowel sounds in all 4 quadrants. Soft, nontender and obese. Extremities: Bilateral lower extremity 1+ edema, left upper extremity 2+ edema. Neurologic: Alert, oriented x3 with a generalized weakness. LAB DATA: White blood cells 16.65, hemoglobin 10.0, hematocrit 31.9, platelet 107,000, sodium 147, potassium 3.5, chloride 105, carbon dioxide 28, BUN 26, creatinine 0.6 and blood glucose 115. ASSESSMENT AND PLAN: This is an 83-year-old female with a medical history of massive hiatal hernia with reflux, multiple episodes of pulmonary embolism and deep and deep vein thrombosis, coronary atherosclerosis with prior syncope, hypertension, dyslipidemia, chronic exertional dyspnea, anxiety, depression, chronic pain syndrome and fibromyalgia. She has been admitted to the medical floor with recurrent pneumonia, acute on chronic hypoxemic respiratory failure, pleural effusion and fluid overload. 1. Right upper and middle lobe pneumonia. Agreed to continue current antibiotic therapy. Dr. Funk is on board. 2. Acute on chronic hypoxemic respiratory failure. Continue Symbicort and bronchodilators, continue on supplemental oxygen, BiPAP at bedtime and as needed. Follow up with ABG and chest x-ray. 3. Pleural effusion with fluid overload, agree to continue diuretic with a followup BMP to monitor kidney function . 4. Continue GI and DVT prophylaxis. Thank you for the courtesy of this consult. Dictated by LAYO Nava for Fortunato Ruiz MD cc: LAYO Nava MD [facility]
[2019-01-01] MEDS: DUONEB (A & A) INH SCH ×6 (03:00→23:20)
[2019-01-01] MEDS: TEFLARO 600 MG in NS 250 ML IV SCH ×2 (03:10→15:24)
[2019-01-01 04:59] LABS: ALLEN TEST YES; BE 9.1 mmoll (-3.0-3.0); BLOOD TYPE ARTERIAL; PCO2(98.6) 47 mmHg (35-45); PO2(98.6) 81 mmHg (60-100); SAMPLE BLOOD; pH(98.6) 7.47 (7.35-7.45)
[2019-01-01 05:01] LABS: MODALITY CANNULA
[2019-01-01] MEDS: PROTONIX PO SCH (06:16)
[2019-01-01] MEDS: MUCOMYST 10% INH SCH ×2 (07:51→19:15)
[2019-01-01] MEDS: SYMBICORT 80/4.5 MICROGM INHALER INH SCH ×2 (07:51→19:15)
[2019-01-01] MEDS: LASIX IV SCH (09:53)
[2019-01-01] MEDS: NEURONTIN PO SCH ×3 (09:53→20:22)
[2019-01-01] MEDS: CELEXA PO SCH (09:53)
[2019-01-01] MEDS: MEDROL PO SCH ×4 (09:53→20:23)
[2019-01-01] MEDS: ELIQUIS PO SCH ×2 (09:53→20:22)
[2019-01-01] MEDS: NORVASC PO SCH ×2 (09:53→20:22)
[2019-01-01] MEDS: ABILIFY PO SCH (09:53)
[2019-01-01] MEDS: CRESTOR PO SCH (09:54)
[2019-01-01] MEDS: TOPROL XL PO SCH ×2 (09:54→20:22)
[2019-01-01] MEDS: MIRAPEX PO SCH (09:54)
--- NOTE | 2019-01-01 15:45 | PROGRESS NOTE ---
DATE: 01/01/2019 SUBJECTIVE: Patient reports feeling fine. Breathing better. Denies any other complaints. OBJECTIVE: Vital Signs: Temperature 97.6 degrees, heart rate 72, respiratory rate 20, blood pressure 115/57, O2 saturation 97% on 4 L nasal cannula. Physical Examination : This is a chronically ill appearing, 83-year-old female lying in bed, in no acute distress. Cardiovascular: S1, S2 heard. No murmurs, gallops, or rubs. Regular rate and rhythm. Respiratory: Decreased breath sounds globally with minimal rhonchi, some crackles noted in both pulmonary bases. Patient not using any accessory muscles or having work of breathing. Abdomen: Soft, nontender to palpation. Bowel sounds present. No organomegaly. Extremities: 1+ pitting edema in both lower extremities. No clubbing or cyanosis noted. Peripheral pulses present in both legs. Neurological: Patient is alert and oriented x3. Moves 4 extremities. LABORATORY DATA: There is no labs from today. ASSESSMENT AND PLAN: 1. Right upper and middle lobe pneumonia. We have not checked labs today but from yesterday and the day before, white cell count has been getting better. We will continue with vancomycin and meropenem. While she was in the hospital last time we were treating an ESBL E. coli bacteremia. We will continue with the same management. At this point, Infectious Disease has been consulted. Vancomycin has been changed to Teflaro and continue with meropenem. We will continue with same management. 2. Acute hypoxemic respiratory failure secondary to pneumonia. The patient is requiring now 4 L of oxygen by nasal cannula but she does not report feeling short of breath. We will continue with the same management. 3. Hyponatremia, resolved. 4. Large hiatal hernia. We will continue with Protonix IV. 5. Physical deconditioning. Physical therapy is working with this patient. 6. Disposition. We will continue with antibiotic therapy recommended by ID. We will continue to monitor labs on a daily basis. cc: Obie Piña MD [facility]
[2019-01-01] MEDS: REMERON PO SCH (20:22)
[2019-01-01] MEDS: SEROQUEL PO SCH (20:23)
[2019-01-02] MEDS: CARDIZEM PO SCH ×4 (01:45→20:42)
[2019-01-02] MEDS: NORCO-7.5 PO PRN (01:45)
[2019-01-02] MEDS: MYCELEX TROCHE PO SCH ×4 (01:47→20:42)
[2019-01-02] MEDS: MERREM 1 GM in NS 50 ML IV SCH ×3 (01:48→17:24)
[2019-01-02] MEDS: TEFLARO 600 MG in NS 250 ML IV SCH ×2 (02:15→15:05)
[2019-01-02] MEDS: DUONEB (A & A) INH SCH ×6 (03:40→22:50)
[2019-01-02] MEDS: PROTONIX PO SCH (06:29)
[2019-01-02] MEDS: MUCOMYST 10% INH SCH ×2 (07:36→19:15)
[2019-01-02] MEDS: SYMBICORT 80/4.5 MICROGM INHALER INH SCH ×2 (07:36→19:45)
[2019-01-02 08:21] LABS: HEMATOCRIT 30.2 % (37.0-47.0); IMM GRAN# 0.04 X1000 (0.0-0.04); IMM GRAN% 0.3 % (0.0-0.5); LYMPH# 0.42 X1000 (1.2-3.4); LYMPH% 3.2 % (20.5-51.1); MCH 28.8 PG (27-31); MCHC 29.8 g/dL (33-37); MCV 96.8 FL (81-99); MONO# 0.57 X1000 (0.11-0.59); MONO% 4.4 % (1.7-9.3); NEUT# 12.06 X1000 (1.4-6.5); NEUT% 92.1 % (42.2-75.2); PLT 121 X1000 (130-400); RBC 3.12 XMIL (4.2-5.4); RDW 15.1 % (11.5-14.5); WBC 13.09 X1000 (4.8-10.8)
[2019-01-02] MEDS: LASIX IV SCH (08:24)
[2019-01-02] MEDS: CRESTOR PO SCH (08:24)
[2019-01-02] MEDS: NEURONTIN PO SCH ×3 (08:24→17:20)
[2019-01-02] MEDS: MEDROL PO SCH ×4 (08:24→20:46)
[2019-01-02] MEDS: MIRAPEX PO SCH (08:25)
[2019-01-02] MEDS: TOPROL XL PO SCH ×2 (08:26→20:42)
[2019-01-02] MEDS: CELEXA PO SCH (08:27)
[2019-01-02] MEDS: NORVASC PO SCH ×2 (08:27→20:42)
[2019-01-02 08:33] LABS: AGAP 9; BUN 30 mg/dL (8-22); CALCIUM 8.2 mg/dL (8.8-10.2); CHLORIDE 103 mmol/L (98-107); COSMO 290; CREATININE 0.6 mg/dL (0.5-0.9); ESTIMATED GFR > 60; GLUCOSE 113 mg/dL (70-104); SODIUM 142 mmol/L (136-145); TCO2 30 mmol/L (25-35)
[2019-01-02 08:34] LABS: POTASSIUM 3.7 mmol/L (3.5-5.1)
[2019-01-02 08:37] LABS: BANDS 2 % (0-1); LYMPHS 6 % (21-51); MONO 4 % (1-9); SEGS 88 % (42-75)
[2019-01-02] MEDS: ABILIFY PO SCH (09:18)
[2019-01-02] MEDS: ELIQUIS PO SCH ×2 (09:18→20:46)
[2019-01-02] MEDS ORDERED: NS 250 ML ONE (15:09)
--- NOTE | 2019-01-02 19:19 | PROGRESS NOTE ---
DATE: 01/02/2019 SUBJECTIVE: The patient reports feeling fine. Breathing okay. Good appetite. OBJECTIVE: Vital Signs: Temperature 98.2 degrees, heart rate 65, respiratory rate 14, blood pressure 125/60. O2 saturation 93% on 4 L nasal cannula. General: This is a chronically ill- appearing, 83-year-old female lying in bed, in no acute distress. Cardiovascular: S1, S2 heard. No murmurs, gallops, or rubs. Regular rate and rhythm. Respiratory : Decreased breath sounds globally with minimal crackles and rhonchi noted in both bases. Patient is not using any accessory muscles or having work of breathing. Abdomen: Soft. Nontender to palpation. Bowel sounds present. No organomegaly. Extremities: With 1+ pitting edema in both lower extremities. No clubbing or cyanosis noted. Peripheral pulses present in both legs. Neurological: Patient is alert and oriented x3. Moves all 4 extremities. LABORATORY DATA: White cell count 13.09, hemoglobin 9, hematocrit 30.2, platelets 121,000 with normal BMP. ASSESSMENT AND PLAN: 1. Right upper and middle lobe pneumonia. White cell count continues to improve. Patient requiring between 2 and 4 L of oxygen by nasal cannula. She reports not breathing faster. I think at this point the patient is more stable. It is important to remark that we have isolated Escherichia coli extended-spectrum beta-lactamase positive on a blood culture. So at this point, she is on Teflaro and meropenem. Infectious Disease is following this patient for recommendation. 2. Acute hypoxemic respiratory failure secondary to pneumonia. Patient requires between 2 and 4 L of O2 by nasal cannula. She is receiving breathing treatment as well, but she reports not feeling short of breath. At this point, we will continue with the same management. 3. Hyponatremia, resolved. 4. Large hiatal hernia. We will continue with intravenous Protonix. 5. Physical deconditioning. Patient working with physical therapy. 6. Disposition. At this point, we will continue with the same management considering that she had been admitted just 1 day after she was discharged. I prefer to see white cell count back to normal and imaging showing definite improvement in order to send this patient back to rehab facility. cc: Obie Piña MD [facility]
[2019-01-02] MEDS: REMERON PO SCH (20:42)
[2019-01-02] MEDS: SEROQUEL PO SCH (20:42)
[2019-01-03] MEDS: CARDIZEM PO SCH ×4 (02:13→23:25)
[2019-01-03] MEDS: MERREM 1 GM in NS 50 ML IV SCH ×3 (02:14→17:00)
[2019-01-03] MEDS: NORCO-7.5 PO PRN (02:14)
[2019-01-03] MEDS: TEFLARO 600 MG in NS 250 ML IV SCH ×2 (03:24→14:29)
[2019-01-03] MEDS: MYCELEX TROCHE PO SCH ×4 (03:26→23:23)
[2019-01-03] MEDS: PROTONIX PO SCH ×2 (05:55→08:49)
[2019-01-03] MEDS: DUONEB (A & A) INH SCH ×6 (07:43→23:00)
--- NOTE | 2019-01-03 07:49 | Diag Imaging Result Doc PS360 ---
EXAM: CHEST-PORTABLE HISTORY: pneumonia TECHNIQUE: Portable chest COMPARISON: 12/30/2018 FINDINGS: Poor inspiratory effort. Heart is mildly prominent. There is a hiatal hernia. No change in the right-sided PICC line. Infiltrates in the right upper lobe are less dense. Atelectasis and/or infiltrates in the lower lungs persist. IMPRESSION: Mild interval improvement. Electronically signed by Darwin Hughes 01/03/2019 7:47 AM
[2019-01-03 07:53] LABS: EOS# 0.01 X1000 (0.0-0.7); EOS% 0.1 % (0.0-10.0); HEMATOCRIT 30.6 % (37.0-47.0); HEMOGLOBIN 9.1 g/dL (12.0-16.0); IMM GRAN# 0.03 X1000 (0.0-0.04); IMM GRAN% 0.3 % (0.0-0.5); LYMPH# 0.61 X1000 (1.2-3.4); LYMPH% 5.8 % (20.5-51.1); MCH 28.8 PG (27-31); MCHC 29.7 g/dL (33-37); MCV 96.8 FL (81-99); MONO# 0.62 X1000 (0.11-0.59); MONO% 5.9 % (1.7-9.3); MPV 12.5 FL (7.4-10.4); NEUT# 9.27 X1000 (1.4-6.5); NEUT% 87.9 % (42.2-75.2); PLT 115 X1000 (130-400); RBC 3.16 XMIL (4.2-5.4); RDW 14.9 % (11.5-14.5); WBC 10.54 X1000 (4.8-10.8)
[2019-01-03] MEDS: SYMBICORT 80/4.5 MICROGM INHALER INH SCH ×2 (08:06→19:15)
[2019-01-03] MEDS: MUCOMYST 10% INH SCH (08:06)
[2019-01-03 08:07] LABS: BANDS 2 % (0-1); LYMPHS 6 % (21-51); SEGS 92 % (42-75)
[2019-01-03 08:15] LABS: POTASSIUM 3.5 mmol/L (3.5-5.1)
[2019-01-03 08:18] LABS: AGAP 9; BUN 27 mg/dL (8-22); CALCIUM 8.6 mg/dL (8.8-10.2); CHLORIDE 102 mmol/L (98-107); COSMO 292; CREATININE 0.6 mg/dL (0.5-0.9); ESTIMATED GFR > 60; GLUCOSE 95 mg/dL (70-104); SODIUM 144 mmol/L (136-145); TCO2 33 mmol/L (25-35)
[2019-01-03] MEDS: ELIQUIS PO SCH ×2 (08:46→23:27)
[2019-01-03] MEDS: NORVASC PO SCH ×2 (08:46→23:26)
[2019-01-03] MEDS: MEDROL PO SCH ×3 (08:46→23:26)
[2019-01-03] MEDS: NEURONTIN PO SCH ×3 (08:47→17:00)
[2019-01-03] MEDS: ABILIFY PO SCH (08:47)
[2019-01-03] MEDS: LASIX IV SCH (08:47)
[2019-01-03] MEDS: MIRAPEX PO SCH (08:47)
[2019-01-03] MEDS: CELEXA PO SCH (08:47)
[2019-01-03] MEDS: TOPROL XL PO SCH ×2 (08:48→23:26)
[2019-01-03] MEDS: VITAMIN D PO SCH (08:54)
[2019-01-03] MEDS: CRESTOR PO SCH (08:55)
--- NOTE | 2019-01-03 14:30 | PROGRESS NOTE ---
DATE: 01/03/2019 SUBJECTIVE: The patient reports feeling fine. According to nursing staff, the patient has been confused at times, and apparently the patient does report not able to sleep last night. OBJECTIVE: Vital Signs: Temperature 97.7 degrees, heart rate 57, respiratory rate 17, blood pressure 120/50, O2 saturation 96% on 4 L nasal cannula. General: This is an 83-year-old, chronically ill-looking, female, lying in bed in no acute distress. Cardiovascular: S1, S2 heard. No murmurs, gallops, or rubs. Regular rate and rhythm. Respiratory: Decreased breath sounds with minimal crackles and rhonchi in both pulmonary bases. The patient is not using any accessory muscles or having work of breathing. Abdomen: Soft, nontender to palpation. Bowel sounds present. No organomegaly. Extremities: There is 1+ pitting edema in both lower extremities. No clubbing or cyanosis noted. Peripheral pulse is present in both legs. Neurological: Patient alert and oriented x3. Moves 4 extremities. LABORATORY DATA: White cell count 10.54, hemoglobin 9.1, hematocrit 30.6, platelets 115,000 with normal BMP. ASSESSMENT AND PLAN: 1. Right upper and middle lobe pneumonia. Clinically, the patient is doing fine. The patient denies any shortness of breath or chest pain. Finally, white cell count is back to normal. So far, blood cultures have been negative. It is important to remark that on her last hospitalization, we had isolated Escherichia coli extended spectrum beta- lactamase positive on a blood culture, so she was sent home with ertapenem, but when she was readmitted, we started her on Teflaro and meropenem. At this point, she is continuing to improve. She continues to request when she is going to be discharged. I think, considering her last readmission, I will keep her on at least 48 more hours of intravenous antibiotics, and then we may let her go back to rehab. Family agreed with the plan. 2. Acute hypoxemic respiratory failure secondary to pneumonia, stable. Will continue to monitor this patient closely. Now requiring 4 liters of oxygen by nasal cannula. 3. Hyponatremia, resolved. 4. Large hiatal hernia. The patient is on Protonix. 5. Physical deconditioning. The patient has not been working with Physical Therapy. Will put an order for her today. 6. Disposition. The patient has a permanent bed in rehab facility. I think 48 hours of intravenous antibiotics will be very helpful to avoid possible readmission of this patient. cc: Obie Piña MD [facility]
--- NOTE | 2019-01-03 18:45 | INFECTIOUS DISEASE PROGRESS NO ---
DATE: 01/03/2019 PRESENT ILLNESS: The patient is receiving treatment for an extended spectrum beta lactamase producing E coli bacteremia and pneumonia. The patient also has leukocytosis. However, she is receiving steroids. The patient also during her last admission had oral candidiasis. MEDICATIONS: The patient is on meropenem and ceftaroline. Meropenem will require 2 more days for complete treatment of the extended spectrum beta lactamase producing E coli bacteremia and pneumonia. The ceftaroline is also present and is treating possible pneumonia that may have been a superinfection imposed on the E coli infection. PHYSICAL EXAMINATION: Vital Signs: Temperature is 98.1 degrees, pulse 56, respirations 17, blood pressure 118/56. General: This is a chronically ill-appearing, elderly female. She is much more alert today and sitting up in bed and is eating well. Head/eyes/ears/nose/throat: She can hear my spoken words and see near objects. She does not have any white patches on her tongue. Neck: No meningismus. Extremities: Patient has a PICC in her right arm. The site is not swollen, red or draining. Lungs: Clear to auscultation. Cardiovascular: Heart rate is regular. Abdomen: Soft and not tender. Neurologic: The patient is awake. She can move her extremities. There is no tremor. LAB AND X-RAY: Chest x-ray shows improvement in the right upper lobe infiltrate and the bibasilar infiltrate/atelectasis is stable. CBC shows a white count of 10,540, hemoglobin 9.1, and platelet count 115,000. Creatinine is 0.6. GFR is greater than 60. ASSESSMENT AND PLAN: The patient has an extended spectrum beta lactamase producing Escherichia coli bacteremia. She has 2 more days left of meropenem. The patient is on ceftaroline for the third day and its use may be due to the fact that the patient's pneumonia could have had a superinfection imposed on it. As mentioned above, meropenem will be needed for 2 more days and after that, depending on how the chest x-ray looks, I think we can send the patient home on either no antibiotics or oral antibiotics. COMORBIDITIES: She is elderly. She has congestive heart failure and she has a history of pulmonary emboli. cc: Kvng Funk MD
[2019-01-03] MEDS: MUCOMYST 20% INH SCH (19:15)
[2019-01-03] MEDS ORDERED: AMBIEN PO SCH (21:00)
[2019-01-03] MEDS: REMERON PO SCH (23:23)
[2019-01-03] MEDS: SEROQUEL PO SCH (23:26)
[2019-01-04] MEDS: DUONEB (A & A) INH SCH ×6 (03:25→23:03)
[2019-01-04] MEDS: MERREM 1 GM in NS 50 ML IV SCH ×4 (04:28→18:49)
[2019-01-04] MEDS: CARDIZEM PO SCH ×4 (04:33→20:04)
[2019-01-04] MEDS: MYCELEX TROCHE PO SCH ×4 (04:33→20:04)
[2019-01-04] MEDS: TEFLARO 600 MG in NS 250 ML IV SCH ×2 (05:03→14:55)
[2019-01-04] MEDS: PROTONIX PO SCH (07:43)
[2019-01-04 08:00] LABS: EOS# 0.04 X1000 (0.0-0.7); EOS% 0.3 % (0.0-10.0); HEMATOCRIT 30.3 % (37.0-47.0); HEMOGLOBIN 9.1 g/dL (12.0-16.0); IMM GRAN# 0.03 X1000 (0.0-0.04); IMM GRAN% 0.3 % (0.0-0.5); LYMPH# 0.71 X1000 (1.2-3.4); MCH 28.9 PG (27-31); MCV 96.2 FL (81-99); MPV 12.7 FL (7.4-10.4); NEUT# 10.27 X1000 (1.4-6.5); NEUT% 87.4 % (42.2-75.2); PLT 113 X1000 (130-400); RBC 3.15 XMIL (4.2-5.4); RDW 14.7 % (11.5-14.5); WBC 11.75 X1000 (4.8-10.8)
[2019-01-04] MEDS: MUCOMYST 20% INH SCH ×2 (08:08→19:30)
[2019-01-04] MEDS: SYMBICORT 80/4.5 MICROGM INHALER INH SCH ×2 (08:10→19:30)
[2019-01-04 08:22] LABS: AGAP 8; BUN 26 mg/dL (8-22); CALCIUM 8.5 mg/dL (8.8-10.2); CHLORIDE 103 mmol/L (98-107); COSMO 293; CREATININE 0.5 mg/dL (0.5-0.9); ESTIMATED GFR > 60; GLUCOSE 90 mg/dL (70-104); POTASSIUM 3.3 mmol/L (3.5-5.1); SODIUM 145 mmol/L (136-145); TCO2 34 mmol/L (25-35)
[2019-01-04 08:32] LABS: BANDS 2 % (0-1); LYMPHS 6 % (21-51); MONO 4 % (1-9); SEGS 86 % (42-75)
[2019-01-04] MEDS: TOPROL XL PO SCH ×2 (08:37→20:06)
[2019-01-04] MEDS: CELEXA PO SCH (08:37)
[2019-01-04] MEDS: MIRAPEX PO SCH (08:37)
[2019-01-04] MEDS: NEURONTIN PO SCH ×3 (08:37→18:49)
[2019-01-04] MEDS: NORVASC PO SCH ×2 (08:37→20:05)
[2019-01-04] MEDS: MEDROL PO SCH ×2 (08:38→20:04)
[2019-01-04] MEDS: CRESTOR PO SCH (08:38)
[2019-01-04] MEDS: ELIQUIS PO SCH ×2 (08:38→20:04)
[2019-01-04] MEDS: LASIX IV SCH (08:39)
[2019-01-04] MEDS: ABILIFY PO SCH (08:39)
[2019-01-04] MEDS ORDERED: KLOR-CON PO ONE (09:44)
--- NOTE | 2019-01-04 10:32 | Diag Imaging Result Doc PS360 ---
EXAM: CHEST-2 VIEWS HISTORY: pna TECHNIQUE: Chest two views 01/03/2019 COMPARISON: None. FINDINGS: Poor inspiratory effort. There is a large hiatal hernia. No change in the right-sided PICC line. There are bilateral infiltrates and pulmonary edema as well as small pleural effusions. The appearance is similar to the prior exam. IMPRESSION: No significant interval improvement. Electronically signed by Darwin Hughes 01/04/2019 10:29 AM
--- NOTE | 2019-01-04 10:34 | Diag Imaging Result Doc PS360 ---
EXAM: ABDOMEN FLAT/UPRIGHT HISTORY: constipation TECHNIQUE: Flat and upright, three views COMPARISON: 09/29/2013 FINDINGS: No free air beneath the diaphragm. There is stool throughout the colon. The bowel loops are not dilated. No organomegaly. Mild scoliosis. Prominent atherosclerosis. IMPRESSION: Moderate to prominent constipation. Electronically signed by Darwin Hughes 01/04/2019 10:32 AM
--- NOTE | 2019-01-04 11:01 | PROGRESS NOTE ---
DATE: 01/04/2019 SUBJECTIVE: The patient was noted to be confused overnight. However, this morning she is more awake and alert. OBJECTIVE: Vital Signs: Temperature 97.8 degrees, blood pressure 136/67, heart rate 58, respirations 20, O2 saturations 96% on 4 L nasal cannula. General: This is a chronically ill- appearing elderly female lying in bed in no acute distress. Heart: S1, S2. Normal. Bradycardic. Lungs: Equal air entry bilaterally. No crackles. No rales. Abdomen: Positive bowel sounds. Soft, nontender, nondistended. Extremities: No edema, no cyanosis. Neurologic: The patient is alert and oriented to person, place, and time. LABS: White blood cell count 11, hemoglobin 9.1, hematocrit 30, platelets 113, 000. Sodium 145, potassium 3.3, chloride 103, CO2 34, BUN 26, creatinine 0.5, glucose 90. ASSESSMENT AND PLAN: 1. Bacteremia secondary to ESBL Escherichia coli. Continue with meropenem. 2. Pneumonia secondary to Escherichia coli. Continue on IV antibiotic therapy as directed by Dr. Funk. 3. Hypertension. Continue on the current antihypertensive regimen. 4. Hypokalemia. Will replace the patient's potassium. 5. Neuropathy. Continue on Neurontin. 6. Situational depression. Continue on Celexa. 7. Constipation. Will start the patient on MiraLAX and Colace. 8. Thrombocytopenia. Will monitor the platelet count closely. Will avoid heparin at this time. 9. Disposition: The patient will return to [facility] once medically stable. cc: Nanci Muro MD MTDD
[2019-01-04] MEDS: MIRALAX PO SCH ×2 (11:45→20:05)
[2019-01-04] MEDS: COLACE PO SCH ×2 (11:46→20:05)
[2019-01-04] MEDS ORDERED: STERILE WATER INJ. INJ PRN (16:09)
[2019-01-04] MEDS ORDERED: GEODON IM PRN (16:09)
--- NOTE | 2019-01-04 18:27 | Diag Imaging Result Doc PS360 ---
HEAD W/O CONTRAST - 01/04/2019 INDICATION: Encephalopathy COMPARISON: 12/14/2018 FINDINGS: The ventricles and sulci are normal in size and contour. There is stable mild periventricular white matter chronic microvascular disease. No intracranial mass or hemorrhage. No skull fracture. IMPRESSION: No acute disease or change from prior. This exam was performed using automated exposure control, adjustment of mA or kV according to patient size, and/or use of iterative reconstruction technique Electronically signed by Kennedy Santiago 01/04/2019 6:25 PM
--- NOTE | 2019-01-04 19:06 | INFECTIOUS DISEASE PROGRESS NO ---
DATE: 01/04/2019 PRESENT ILLNESS: Ms Carson is being treated for an extended-spectrum beta lactamase producing Escherichia coli bacteremia, as well as a pneumonia. There is a mild leukocytosis; however, she is receiving steroids. She has also had an oral candidiasis. In the last 24 hours, there has been some on and off confusion, and patient is currently tremulous and hallucinating. MEDICATIONS: She is on day 13 of treatment for her bacteremia and is currently receiving meropenem 1 g IV every 8 hours. She is also receiving ceftaroline 600 mg IV every 12 hours. PHYSICAL EXAMINATION: Vital Signs: Temperature is 98.1 degrees, pulse rate 74 , respiratory rate 18, blood pressure 141/66, O2 saturation is 91% on 4 L nasal cannula. General: This is a chronically ill-appearing, confused, elderly female. She is lying in the bed, currently mumbling and tremulous. HEENT: Atraumatic, normocephalic. Oral mucous membranes are pink and moist. Conjunctivae are pale. Neck: Supple. Trachea is midline. Cardiovascular: Heart rate and rhythm are regular. Normal sinus rhythm with occasional ectopic beats on the monitor. Respiratory: Lung sounds are clear in the upper lobes, diminished in the bases. Abdomen: Soft, round, and nontender. Bowel sounds are active. Neurologic: She is awake and responsive but not answering all questions. She is tremulous to all 4 extremities and talking continuously while looking at the curtains. DIAGNOSTIC STUDIES: Her white count today is 11.75 hemoglobin 9.1, platelet count 113,000. Creatinine is 0.5, estimated GFR is greater than 60. Blood cultures have shown no growth since December 22. Previously, she had an Escherichia coli, ESBL producing bacteremia. Today her chest x-ray showed no significant interval improvement with bilateral infiltrates, pulmonary edema, and small pleural effusion. She also had abdominal x-ray which showed moderate to prominent constipation. She has also gone for a CT of her head this afternoon, and we are awaiting results. ASSESSMENT AND PLAN: Ms. Carson is receiving treatment for her bacteremia, and tomorrow will be the last day of meropenem, so we will discontinue the meropenem after the morning dose. It is possible that the meropenem is a cause of her altered mental state at this point. Fortunately, if it is the problem, she has already completed her 2 weeks of treatment for the bacteremia. For now, we will continue the ceftaroline as a single agent for the patient's pneumonia, and we will also draw some blood work in the morning to check a procalcitonin as well as hepatic enzymes. There is a mild leukocytosis, but that is most likely possibly related to steroid administration. These plans have been discussed with and recommended by Dr. Funk. Comorbidities for Ms. Carson include she is elderly and confused with congestive heart failure and previous pulmonary emboli. Dictated by LAYO Mcclure for Kvng Funk MD This chart was documented by, LAYO Mcclure and accurately reflects the services performed, treatment plan and medical decisions as attested by the providers signature Kvng Funk MD. cc: Kvng Funk MD MTDUzair
[2019-01-04] MEDS: NORCO-7.5 PO PRN (20:04)
[2019-01-04] MEDS: SEROQUEL PO SCH (20:05)
[2019-01-04] MEDS: REMERON PO SCH (20:05)
[2019-01-05] MEDS: MYCELEX TROCHE PO SCH ×5 (01:47→20:24)
[2019-01-05] MEDS: CARDIZEM PO SCH ×5 (01:47→20:24)
[2019-01-05] MEDS: MERREM 1 GM in NS 50 ML IV SCH (01:47)
[2019-01-05] MEDS: DUONEB (A & A) INH SCH ×6 (03:32→23:09)
[2019-01-05] MEDS: TEFLARO 600 MG in NS 250 ML IV SCH ×2 (03:53→15:33)
[2019-01-05] MEDS: PROTONIX PO SCH (06:02)
[2019-01-05 07:48] LABS: EOS# 0.16 X1000 (0.0-0.7); EOS% 1.5 % (0.0-10.0); HEMATOCRIT 31.1 % (37.0-47.0); HEMOGLOBIN 9.3 g/dL (12.0-16.0); IMM GRAN# 0.04 X1000 (0.0-0.04); IMM GRAN% 0.4 % (0.0-0.5); LYMPH# 0.75 X1000 (1.2-3.4); LYMPH% 6.8 % (20.5-51.1); MCHC 29.9 g/dL (33-37); MCV 96.9 FL (81-99); MONO# 0.59 X1000 (0.11-0.59); MONO% 5.4 % (1.7-9.3); MPV 12.3 FL (7.4-10.4); NEUT# 9.42 X1000 (1.4-6.5); NEUT% 85.9 % (42.2-75.2); PLT 104 X1000 (130-400); RBC 3.21 XMIL (4.2-5.4); RDW 14.7 % (11.5-14.5); WBC 10.96 X1000 (4.8-10.8)
[2019-01-05] MEDS: MUCOMYST 20% INH SCH ×2 (07:53→19:23)
[2019-01-05 07:58] LABS: MAGNESIUM 1.3 mg/dL (1.5-2.7); PHOSPHORUS 2.7 mg/dL (2.7-4.5)
[2019-01-05 08:12] LABS: BANDS 4 % (0-1); EOS 2 % (1-10); LYMPHS 6 % (21-51); MONO 4 % (1-9); SEGS 82 % (42-75)
[2019-01-05 08:16] LABS: AGAP 9; ALB/GLOB RATIO 1.8; ALKALINE PHOSPHATASE 102 U/L (32-104); BUN 20 mg/dL (8-22); CALCIUM 8.2 mg/dL (8.8-10.2); CHLORIDE 104 mmol/L (98-107); COSMO 288; CREATININE 0.5 mg/dL (0.5-0.9); ESTIMATED GFR > 60; GLUCOSE 81 mg/dL (70-104); GOT 52 U/L (10-30); GPT 89 U/L (10-36); POTASSIUM 4.1 mmol/L (3.5-5.1); SODIUM 144 mmol/L (136-145); TCO2 31 mmol/L (25-35); TOTAL PROTEIN 4.7 g/dL (6.3-8.3)
[2019-01-05] MEDS: SYMBICORT 80/4.5 MICROGM INHALER INH SCH ×2 (11:23→19:24)
[2019-01-05] MEDS: CELEXA PO SCH ×2 (11:43→11:53)
[2019-01-05] MEDS: MEDROL PO SCH ×2 (11:43→11:52)
[2019-01-05] MEDS: MIRAPEX PO SCH ×2 (11:43→11:54)
[2019-01-05] MEDS: NORVASC PO SCH ×3 (11:43→20:23)
[2019-01-05] MEDS: NEURONTIN PO SCH ×4 (11:44→20:23)
[2019-01-05] MEDS: ELIQUIS PO SCH ×3 (11:44→20:28)
[2019-01-05] MEDS: COLACE PO SCH ×3 (11:44→20:23)
[2019-01-05] MEDS: TOPROL XL PO SCH ×3 (11:44→20:24)
[2019-01-05] MEDS: CRESTOR PO SCH ×2 (11:44→11:55)
[2019-01-05] MEDS: MIRALAX PO SCH ×3 (12:11→20:23)
[2019-01-05] MEDS: ABILIFY PO SCH ×2 (12:11→12:13)
--- NOTE | 2019-01-05 12:12 | CONSULTATION ---
DATE OF CONSULTATION: 01/05/2019 HISTORY OF PRESENT ILLNESS: Ms. Carson is 83 years old and Neurology is consulted because of confusion. History from review of the hospital chart and discussion with patient, and attentive daughter at the bedside is that she had been limited physically with back pain and other pain, but otherwise independent until the last few months. She has been down in her back more than usual, more unsteady gait, several falls in the last few months. She fell and hit her head only once. There was not clear altered awareness. Falls are not associated with altered consciousness. In general, falls are not associated with confusion or focal neurologic deficit. She usually has to have help getting up after falling. Daughter has not witnessed a fall, but has seen her immediately after falling. Daughter reports patient's has dementia and his observations may not be valid, but he reports believing patient is not able to get up without some assistance. He reports never noticing focal features and never noticing altered consciousness after a fall. She is admitted this time with pneumonia and bacteremia. She has history of COPD, atrial fibrillation, dyslipidemia. Family reports no history of stroke or other neurologic event. Workup includes noncontrast CT showing nothing remarkable but usual chronic changes. Her home medicine list is lengthy, including 7 brain active medicines, including quetiapine, mirtazapine, gabapentin, pramipexole, citalopram, omeprazole and hydrocodone/ acetaminophen. The patient and family are not able to tell me which was her last added medicine. The patient supervises medicines herself, but daughter does frequently check on the medications. There is no history of ethanol use. Laboratory does not show anything that likely would be associated with encephalopathy. PHYSICAL EXAMINATION: Vitals: She has been afebrile. Neurologic: On exam, Ms. Carson is awake, alert, attentive. She seems appropriate now. Speech is not dysarthric. Language function is intact on bedside testing. Remote memory is good. Recent memory is fair. She named the president and discussed some recent news, but had trouble with details. She identified the hospital correctly. She incorrectly stated the month to be November. She was not certain about the day of the week. Head is unremarkable. Neck shows no meningismus. Limbs are warm. She did well on [id number] testing bilaterally. She has good power in the limbs. Sensation is intact in the hands. I did not test her gait. IMPRESSION: Recent confusion while hospitalized with serious medical illness. This is likely multifactorial. There is question of baseline cognitive impairment, but we cannot establish that with certainty based on her family's history. There seems likely some contribution to current encephalopathy from her multiple brain active medications. PLAN: I would try to reduce medications as you have done, continue to follow clinically, continue physical therapy, look for rehab when she is ready for discharge. I believe all these plans have been made. I do not think we need further imaging or other neurologic workup right now. Depending on her clinical course, we might see her later as an outpatient to get more valid cognitive assessment. If she has fluctuating level of consciousness, we might consider EEG. No other suggestions from Neurology right now. Thanks for asking us to see Ms. Carson. cc: MD GLORIA Posadas III
--- NOTE | 2019-01-05 17:41 | INFECTIOUS DISEASE PROGRESS NO ---
DATE: 01/05/2019 PRESENT ILLNESS: Ms. Carson finished treatment today for an extended-spectrum beta lactamase producing Escherichia coli bacteremia. She also is being treated for pneumonia and an oral candidiasis. She was having some encephalopathy which seems to have resolved at this point. It appears the completion of meropenem may be the reason that she is back to normal. Carbapenems can cause confusion, and since her CT of the head with negative and the meropenem is now out of her system, we can fairly confidently attribute her bouts of confusion to the meropenem. MEDICATIONS: Today is day 14 of treatment for her bacteremia, and meropenem was discontinued after her 2 a.m. dose this morning. She is receiving ceftaroline 600 mg IV every 12 hours. The patient is also receiving Mycelex Suhas for her oral candidiasis. PHYSICAL EXAMINATION: Vital Signs: Temperature is 98.1 degrees, pulse rate 97 , respiratory rate 14, blood pressure 122/55, O2 saturation is 96% on 3 L nasal cannula. General: This is a chronically ill-appearing elderly female. She is lying in the bed awake, alert , and oriented, in no acute distress. HEENT: Atraumatic, normocephalic. Oral mucous membranes are pink and moist. Conjunctivae are pale. Neck: Supple. Trachea is midline. Cardiovascular: Heart rate and rhythm are regular. Normal sinus rhythm on the monitor. Respiratory: Lung sounds are clear in the upper lobes, diminished with some rales noted in the bases. Abdomen: Soft , round, and nontender. Bowel sounds are active. Neurologic: She is awake, alert, and oriented. Answers all questions appropriately. There are no tremors, and she is able to move all extremities with generalized weakness in the bed. DIAGNOSTIC STUDIES: Today her white count is 10.96, hemoglobin 9.3, platelet count 104,000. Creatinine is 0.5, estimated GFR is greater than 60. Total bilirubin is 0.80, AST 52, ALT 89, alkaline phosphatase 102. Head CT done yesterday afternoon showed no acute disease or change from prior. ASSESSMENT AND PLAN: Ms. Carson has completed treatment for her extended-spectrum beta lactamase producing Escherichia coli bacteremia and has overcome her altered mental status which we think is related to the discontinuation of her meropenem. At this point, she is on a single agent of ceftaroline 600 mg IV every 12 hours for her pneumonia, which we will continue. Today is day 5 of her treatment with ceftaroline. She is also receiving Mycelex Suhas for her oral candidiasis which is improving, so we will continue Mycelex at this time. These plans have been discussed with and recommended by Dr. Funk. COMORBIDITIES: For Ms. Carson include she is elderly with a history of congestive heart failure and pulmonary emboli. Dictated by LAYO Mcclure for Kvng Funk MD This chart was documented by, LAYO Mcclure and accurately reflects the services performed, treatment plan and medical decisions as attested by the providers signature Kvng Funk MD. cc: MD GLORIA Elkins
--- NOTE | 2019-01-05 17:59 | PROGRESS NOTE ---
DATE: 01/05/2019 SUBJECTIVE: The patient is resting comfortably in bed. No acute events noted overnight. Her family is present at the bedside. OBJECTIVE: Vital signs: Temperature 98.1 degrees, blood pressure 122/55, heart rate 69, respirations 17, O2 saturation 96% on 3 L nasal cannula. General: This is a chronically ill- appearing elderly female, lying in bed in no acute distress. Heart: S1, S2 normal. Regular rate and rhythm. Lungs: Equal air entry bilaterally. No crackles. No rales. Abdomen: Positive bowel sounds. Soft, nontender, nondistended. Extremities: No edema, no cyanosis. Neurologic: The patient is alert. She does have periods of confusion, mainly at night. LABORATORY DATA: Hemoglobin 9.3, hematocrit 31, white blood cell count 10, platelets 104,000. Sodium 144, potassium 4.1, chloride 104, CO2 is 31, BUN 20, creatinine 0.5, glucose 81. AST 52, ALT 89. ASSESSMENT AND PLAN: 1. Bacteremia secondary to extended-spectrum beta-lactamase Escherichia coli. Continue on meropenem. 2. Pneumonia secondary to Escherichia coli. Continue with intravenous antibiotic therapy. 3. Neuropathy. Continue on Neurontin. 4. Situational depression. Continue on Celexa. 5. Thrombocytopenia. Continue to monitor closely. 6. Hypertension. Controlled. 7. Metabolic encephalopathy. Slowly improving. Continue to treat the underlying infection. 8. Disposition. The patient will be discharged to [facility] once medically stable. cc: Nanci uMro MD MTDD
[2019-01-05] MEDS: REMERON PO SCH (20:24)
[2019-01-05] MEDS: SEROQUEL PO SCH (20:24)
[2019-01-05] MEDS: NORCO-7.5 PO PRN (20:28)
[2019-01-06] MEDS: CARDIZEM PO SCH ×4 (01:57→19:55)
[2019-01-06] MEDS: MYCELEX TROCHE PO SCH ×4 (01:57→19:55)
[2019-01-06] MEDS: TEFLARO 600 MG in NS 250 ML IV SCH ×2 (02:36→14:52)
[2019-01-06] MEDS: DUONEB (A & A) INH SCH ×6 (04:17→23:21)
[2019-01-06] MEDS: PROTONIX PO SCH (06:34)
--- NOTE | 2019-01-06 06:56 | Diag Imaging Result Doc PS360 ---
CHEST-1 VIEW - 01/06/2019 INDICATION: SOB COMPARISON: 01/04/2019 FINDINGS: Stable right PICC line. Lung volumes are critically low. There is worsening nonspecific bilateral infiltrate or atelectasis. Stable cardiomegaly. IMPRESSION: Lower lung volumes with worsening bilateral infiltrate or atelectasis. Lung volumes are critically low. Electronically signed by Kennedy Santiago 01/06/2019 6:54 AM
[2019-01-06] MEDS: MUCOMYST 20% INH SCH ×2 (07:21→18:59)
[2019-01-06] MEDS: SYMBICORT 80/4.5 MICROGM INHALER INH SCH ×2 (07:25→19:02)
[2019-01-06] MEDS: CRESTOR PO SCH (08:25)
[2019-01-06] MEDS: TOPROL XL PO SCH ×2 (08:25→21:12)
[2019-01-06] MEDS: MIRAPEX PO SCH (08:26)
[2019-01-06] MEDS: COLACE PO SCH ×3 (08:26→21:12)
[2019-01-06] MEDS: ABILIFY PO SCH (08:27)
[2019-01-06] MEDS: NORVASC PO SCH ×3 (08:27→21:13)
[2019-01-06] MEDS: ELIQUIS PO SCH ×3 (08:27→21:12)
[2019-01-06] MEDS: MIRALAX PO SCH ×2 (08:27→21:12)
[2019-01-06] MEDS: NEURONTIN PO SCH ×4 (08:27→21:12)
[2019-01-06] MEDS: CELEXA PO SCH (08:28)
[2019-01-06 08:30] LABS: HEMATOCRIT 28.8 % (37.0-47.0); HEMOGLOBIN 8.7 g/dL (12.0-16.0); MCH 29.9 PG (27-31); MCHC 30.2 g/dL (33-37); MPV 12.7 FL (7.4-10.4); RBC 2.91 XMIL (4.2-5.4); WBC 9.88 X1000 (4.8-10.8)
[2019-01-06 08:32] LABS: BUN 28 mg/dL (8-22); CALCIUM 8.5 mg/dL (8.8-10.2); CHLORIDE 106 mmol/L (98-107); COSMO 289; CREATININE 0.5 mg/dL (0.5-0.9); ESTIMATED GFR > 60; GLUCOSE 78 mg/dL (70-104); POTASSIUM 4.3 mmol/L (3.5-5.1); SODIUM 143 mmol/L (136-145); TCO2 38 mmol/L (25-35)
[2019-01-06] MEDS ORDERED: LASIX IV ONE (10:20)
[2019-01-06 10:56] LABS: ALLEN TEST NO; BE 8.2 mmoll (-3.0-3.0); BLOOD TYPE ARTERIAL; HCO3-(ACT) 31.3 mmoll (20.0-26.0); METHB 0.7 % (0.0-1.5); O2(CT) 12.2 mL/dL (15.0-23.0); O2HB 92.8 % (95.0-99.0); PCO2(98.6) 45 mmHg (35-45); PO2(98.6) 60 mmHg (60-100); SAMPLE BLOOD; THB 9.3 g/dL (11.5-17.4); pH(98.6) 7.47 (7.35-7.45)
[2019-01-06 10:57] LABS: MODALITY CANNULA
--- NOTE | 2019-01-06 12:12 | PROGRESS NOTE ---
DATE: 01/06/2019 SUBJECTIVE: Ms. Carson is awake, alert, attentive. She seems much brighter today than yesterday. She is oriented. We had appropriate conversation. MEDICATIONS: Her medicine list includes these [employer] active drugs: 1. Aripiprazole 2 mg daily. 2. Citalopram 20 mg daily. 3. Pramipexole 0.125 mg daily. 4. Quetiapine 25 mg at bedtime. 5. Mirtazapine 15 mg at bedtime. 6. Resumed gabapentin 300 mg t.i.d. this morning. 7. She has ziprasidone ordered p.r.n. with no recent dose. ASSESSMENT AND PLAN: After reviewing her medicine list and discussing these individually, I think we can stop some of her [employer] active medication. Her pramipexole dose is very low , not likely contributing any benefit and I will stop that. We discussed mirtazapine versus quetiapine. The patient believes mirtazapine has been on board a long time and has not helped and quetiapine was added more recently. Therefore, I will stop mirtazapine. Further plans will depend on her clinical course. Thanks for asking Neurology to see Ms. Carson. cc: MD GLORIA Posadas III
--- NOTE | 2019-01-06 13:33 | PROGRESS NOTE ---
DATE: 01/06/2019 SUBJECTIVE: The patient is awake and alert. She states that she feels a lot better. OBJECTIVE: Vital Signs: Temperature 98.6 degrees, blood pressure 128/57, heart rate 62, respirations 22, O2 saturation 99% on 1 L nasal cannula. General: This is a chronically ill- appearing elderly female, lying in bed in no acute distress. Heart: S1, S2 normal. Regular rate and rhythm. Lungs: Equal air entry bilaterally. Abdomen: Positive bowel sounds. Soft, nontender, nondistended. Extremities: No edema, no cyanosis. Neurologic: The patient is alert and oriented. DIAGNOSTIC STUDIES: White blood cell count 9.8, hemoglobin 8.7, hematocrit 28, platelets 79,000. Chest x-ray shows worsening bilateral infiltrates. ASSESSMENT AND PLAN: 1. Bacteremia secondary to the extended-spectrum beta-lactamase (ESBL) Escherichia coli. Continue on the current antibiotic regimen. 2. Pneumonia. This appears worse on today's chest x-ray. We will continue with the current antibiotic regimen. 3. Neuropathy. Continue on Neurontin. 4. Thrombocytopenia. This is worse today. We will consult with the staff registered nurse. 5. Situational depression. Continue on Celexa. 6. Hypertension. Controlled. 7. Metabolic encephalopathy. Improved. 8. Anemia. We will continue to monitor the trend closely. 9. Continue with physical therapy. 10. Constipation. Continue with scheduled laxative therapy. We will add lactulose. 11. Chronic atrial fibrillation. The patient is rate controlled. Continue on Toprol-XL and Eliquis. cc: Nanci Muro MD
--- NOTE | 2019-01-06 18:18 | INFECTIOUS DISEASE PROGRESS NO ---
DATE: 01/06/2019 PRESENT ILLNESS: Ms. Carson has finished treatment for a bacteremia for which she was receiving meropenem which did cause some confusion. That has resolved, and she is doing much better at this point. We are now treating her for a pneumonia, however, her procalcitonin level is 0.10, making it very unlikely that she has a respiratory tract infection. She is also being treated for an oral candidiasis. There is also a progressive thrombocytopenia. MEDICATIONS: She is receiving ceftaroline 600 mg IV every 12 hours as a single agent for her pneumonia and Mycelex Suhas for her oral candidiasis. PHYSICAL EXAMINATION: Vital Signs: Temperature is 98.1 degrees, pulse rate 75 , respiratory rate 22, blood pressure 122/62, O2 saturation is 92% on 1 L nasal cannula. General: This is a chronically ill-appearing, elderly female. She is lying in the bed, currently in no acute distress. HEENT: Atraumatic, normocephalic. Oral mucous membranes are pink and moist. Conjunctivae are pale. Neck: Supple. Trachea is midline. Cardiovascular: Heart rate and rhythm are regular. Normal sinus rhythm on the monitor. Radial and pedal pulses are +1 bilaterally. Respiratory: Lung sounds are clear in the upper lobes, diminished in the mid and bases with some mild rales noted on the left. Abdomen: Soft, round, and nontender. Bowel sounds are active. Extremities: There is a PICC line in place to the right upper arm. The site is without edema, erythema, or drainage. Neurologic: She is awake, alert, and oriented. There are no tremors, but she does have generalized weakness noted. DIAGNOSTIC STUDIES: White count today is 9.8, hemoglobin 8.7, platelet count 79 ,000. On 1 L nasal cannula this morning her pH was 7.47, pCO2 of 45, PO2 of 60, HCO3 of 31.3. Creatinine is 0.5, estimated GFR greater than 60. Her procalcitonin level was 0.10. Chest x-ray today shows lower lung volumes with worsening bilateral infiltrates or atelectasis. ASSESSMENT AND PLAN: Ms Carson is being treated for pneumonia and oral candidiasis. It appears she is back to her baseline as far as her mentation is concerned, now that she has finished with her meropenem for bacteremia. At this point, her white blood cell count is back to normal, and her procalcitonin is 0.10 which makes it very unlikely that there is a respiratory tract infection. The chest x-ray today shows worsening bilateral infiltrates or atelectasis. We will go ahead and order a CT scan of her of the thorax without contrast this afternoon so we can compare it to the previous CT which did show some pneumonia. She has developed a thrombocytopenia which could be related to the ceftaroline. We will go ahead and stop the ceftaroline at this time, and get a CT scan this afternoon to re-evaluate the possible pneumonia, and then follow up based on those results. We will continue Mycelex Suhas for her oral candidiasis. These plans have been discussed with and recommended by Dr. Funk. COMORBIDITIES: For Ms. Carson include she is elderly with a history of congestive heart failure and pulmonary emboli. Dictated by LAYO Mcclure for Kvng Funk MD This chart was documented by, LAYO Mcclure and accurately reflects the services performed, treatment plan and medical decisions as attested by the providers signature Kvng Funk MD. cc: Kvng Funk MD MTDUzair
--- NOTE | 2019-01-06 18:50 | Diag Imaging Result Doc PS360 ---
EXAM: CT THORAX W/O CONTRAST 01/06/2019 HISTORY: pneumonia TECHNIQUE: This exam was performed using automated exposure control, adjustment of mA or kV according to patient size, and/or use of iterative reconstruction technique. COMMENT: The current examination is compared with the previous study of 12/30/2018. There is a large hiatal hernia which was also present previously. In addition to portions of the stomach this contains the splenic flexure of the colon and portions of the pancreas. There are bilateral small pleural effusions more so on the right than the left. There are coronary calcifications. There are atherosclerotic calcifications in the aorta. The thoracic aorta is not distended. There are alveolar opacities present in the right upper lobe and both lower lobes with more ill-defined atelectatic or fibrotic opacities in the middle lobe and lingula. Compared to the previous examination there is definite improvement with better pneumatization of the right lower lobe and less consolidation in the right upper lobe. The regional skeleton is stable in appearance. There are no acute abnormalities demonstrated in the abdomen. IMPRESSION: Improved pneumonia. Electronically signed by Zeke Negron 01/06/2019 6:48 PM
[2019-01-06] MEDS: SEROQUEL PO SCH ×2 (19:55→21:13)
[2019-01-06] MEDS: NORCO-7.5 PO PRN (19:55)
[2019-01-07] MEDS: CARDIZEM PO SCH ×4 (03:11→21:34)
[2019-01-07] MEDS: MYCELEX TROCHE PO SCH ×3 (03:12→15:01)
[2019-01-07] MEDS: DUONEB (A & A) INH SCH ×6 (03:46→23:28)
[2019-01-07 05:07] LABS: ALLEN TEST YES; BE 10.5 mmoll (-3.0-3.0); BLOOD TYPE ARTERIAL; HCO3-(ACT) 33.1 mmoll (20.0-26.0); METHB 1.1 % (0.0-1.5); MODALITY ROOM AIR; O2(CT) 12.2 mL/dL (15.0-23.0); O2HB 94.3 % (95.0-99.0); PCO2(98.6) 50 mmHg (35-45); PO2(98.6) 71 mmHg (60-100); SAMPLE BLOOD; THB 9.1 g/dL (11.5-17.4); pH(98.6) 7.46 (7.35-7.45)
[2019-01-07] MEDS: PROTONIX PO SCH (06:12)
[2019-01-07 07:34] LABS: BASO# 0.01 X1000 (0.0-0.2); BASO% 0.1 % (0.0-0.8); EOS# 0.35 X1000 (0.0-0.7); EOS% 4.5 % (0.0-10.0); HEMATOCRIT 29.9 % (37.0-47.0); HEMOGLOBIN 8.8 g/dL (12.0-16.0); IMM GRAN# 0.03 X1000 (0.0-0.04); IMM GRAN% 0.4 % (0.0-0.5); LYMPH# 1.01 X1000 (1.2-3.4); MCH 28.9 PG (27-31); MCHC 29.4 g/dL (33-37); MCV 98.4 FL (81-99); MONO# 0.36 X1000 (0.11-0.59); MONO% 4.6 % (1.7-9.3); MPV 12.7 FL (7.4-10.4); NEUT# 6.02 X1000 (1.4-6.5); NEUT% 77.4 % (42.2-75.2); PLT 82 X1000 (130-400); RBC 3.04 XMIL (4.2-5.4); WBC 7.78 X1000 (4.8-10.8)
[2019-01-07 07:48] LABS: AGAP 6; BUN 29 mg/dL (8-22); CALCIUM 8.5 mg/dL (8.8-10.2); CHLORIDE 105 mmol/L (98-107); COSMO 290; CREATININE 0.6 mg/dL (0.5-0.9); ESTIMATED GFR > 60; GLUCOSE 81 mg/dL (70-104); POTASSIUM 4.2 mmol/L (3.5-5.1); SODIUM 143 mmol/L (136-145); TCO2 32 mmol/L (25-35)
[2019-01-07] MEDS: MUCOMYST 20% INH SCH ×2 (08:08→19:35)
[2019-01-07] MEDS: SYMBICORT 80/4.5 MICROGM INHALER INH SCH ×2 (08:08→19:35)
[2019-01-07] MEDS: ABILIFY PO SCH (10:22)
[2019-01-07] MEDS: NORVASC PO SCH ×2 (10:23→21:34)
[2019-01-07] MEDS: CRESTOR PO SCH (10:24)
[2019-01-07] MEDS: TOPROL XL PO SCH ×2 (10:24→21:34)
[2019-01-07] MEDS: NEURONTIN PO SCH ×3 (10:24→21:34)
[2019-01-07] MEDS: ELIQUIS PO SCH ×2 (10:24→21:34)
[2019-01-07] MEDS: MIRALAX PO SCH ×3 (10:25→21:38)
[2019-01-07] MEDS: CELEXA PO SCH (10:25)
[2019-01-07] MEDS: COLACE PO SCH ×2 (10:25→21:34)
--- NOTE | 2019-01-07 13:21 | PROGRESS NOTE ---
DATE: 01/07/2019 Ms. Carson is sitting up feeding herself lunch, very bright and attentive, cheerful. She is completely oriented. Speech is not dysarthric. She used both hands well. I reviewed the recent medication changes. She told me she hopes to be discharged soon. I will be glad to see her as an outpatient if needed. I encouraged her to make sure she is taking her medicines at home as intended. Thanks for asking Neurology to see Ms. Carson. cc: Rajan Livingston III, MD
--- NOTE | 2019-01-07 17:51 | PROGRESS NOTE ---
DATE: 01/07/2019 SUBJECTIVE: The patient is resting comfortably in bed. No acute events noted overnight. OBJECTIVE: Vital Signs: Temperature 98, blood pressure 118/52, heart rate 74, respirations 20, O2 sats 99% on 4 L nasal cannula. General: This is an elderly female lying in bed in no acute distress. Heart: S1, S2 normal. Lungs: Equal air entry bilaterally. No wheezing. No rales. Abdomen: Positive bowel sounds. Soft, nontender, nondistended. Extremities: No edema, no cyanosis. Neurologic: The patient is alert and oriented x 3. LABS: White blood cell count 7.7, hemoglobin 8.8, hematocrit 29, platelets 82, 000. Sodium 143, potassium 4.2, chloride 105, CO2 32, BUN 29, creatinine 0.6, glucose 81, calcium 8.5. ASSESSMENT AND PLAN: 1. Bacteremia secondary to ESBL E coli. The patient has completed therapy for this infection. 2. Pneumonia. CT of the chest done yesterday shows improvement. The patient is off of antibiotics at this time. 3. Neuropathy. Continue on Neurontin. 4. Thrombocytopenia. Improved. Hematology is following. 5. Situational depression. Continue on Celexa. 6. Metabolic encephalopathy. Improved. 7. Hypertension. Controlled. 8. Anemia. Stable. 9. Constipation. Continue on MiraLAX. Will add lactulose and Dulcolax suppository. 10. Chronic atrial fibrillation. The patient is rate controlled. Continue on Cardizem and Eliquis. 11. Vitamin D deficiency. Continue with vitamin D replacement. cc: Nanci Muro MD MTDD
[2019-01-07] MEDS: LACTULOSE PO SCH (21:34)
[2019-01-07] MEDS: SEROQUEL PO SCH (21:34)
[2019-01-07] MEDS: DULCOLAX PR SCH ×2 (21:34→21:38)
[2019-01-07] MEDS: NORCO-7.5 PO PRN (23:00)
--- NOTE | 2019-01-07 23:53 | INFECTIOUS DISEASE PROGRESS NO ---
DATE: 01/07/2019 PRESENT ILLNESS: The patient has finished treatment for bacteremia. She was being treated for pneumonia. However, it appears that the infiltrates the patient has is not pneumonia, but it is getting better. The patient did have oral candidiasis but it has cleared. MEDICATIONS: The patient is off all antibiotics but she is still getting Mycelex troches for oral candidiasis. PHYSICAL EXAMINATION: Vital Signs: Temperature is 99.3 degrees, pulse 79, respirations 18, blood pressure 122/58. General: This is a chronically ill-appearing elderly female. She is in no acute distress. Head/eyes/ears/nose/throat: She can hear my spoken words and see near objects. She does not have any white patches on her tongue. Neck: No stiffness. Lungs: Clear to auscultation. Cardiovascular: Heart rate is regular. Abdomen: Soft and nontender. Extremities: Patient has a PICC in her right arm. It has a large gauze dressing around the whole arm. The dressing is intact. Neurologic: Patient is alert. She is coherent. She can move her extremities. There is no tremor. ASSESSMENT AND PLAN: I think the patient does not have pneumonia. I am not exactly sure what some of the findings on the CT scan are manifestations of, but I do not think it is infection. She is doing well off antibiotics and she does not have oral candidiasis, so I am going to stop her Mycelex troches also. I am signing off the patient's case but I am available to see her on a p.r.n. basis. COMORBIDITIES: She is elderly and she has a history of congestive heart failure and pulmonary emboli. cc: Kvng Funk MD
--- NOTE | 2019-01-08 00:20 | PULMONOLOGY PROGRESS NOTE ---
DATE: 01/07/2019 SUBJECTIVE: The patient is awake, alert, and conversant. She reports she is anxious to go back to rehab. OBJECTIVE: Vital Signs: The patient has been afebrile for the last several days. Blood pressure 122/58, heart rate 79, respiratory rate 18, oxygen saturation 96% on 2 L per nasal cannula. HEENT: Pupils are equal and reactive. Oropharynx is clear. Neck: Supple. Chest: Reveals kyphosis, with crackles, left greater than right base. Cardiac: S1-S2. Abdomen: Soft, and without hepatosplenomegaly. Extremities: Revealed trace edema. LABORATORIES: CT scan of the thorax yesterday was reviewed. A large hiatal hernia is present. Small effusions are present. Areas of consolidation have improved, when compared to 12/30/2018. IMPRESSION: An 83-year-old with recurrent pneumonia, who has completed a course of antibiotics. Pt has chronic hypoxemic respiratory failure and large hiatal hernia . She had thrombocytopenia, but this has stabilized and may be improving. Her antibiotics have been discontinued by Infectious Disease. The patient does have some areas of consolidation, but these may take additional time to improve. Would not recommend initiating steroids for this process at this juncture, given her age and her likelihood of developing delirium. The patient is at risk for recurrent aspiration, given her age and large hiatal hernia. RECOMMENDATIONS: 1. The patient is a candidate for transfer to rehab at this juncture. She has completed her antibiotics. 2. Continue oxygen for hypoxemic respiratory failure. 3. Followup chest x-ray is recommended in 2 weeks. 4. Gastric reflux precautions is recommended. The patient should always sleep with head of her bed elevated. She should be out of the bed when she eats. She should eat her smallest meal in the evening. She should not lie down for at least 3 hours after eating. cc: Jose Paz MD MTDD
[2019-01-08] MEDS: CARDIZEM PO SCH ×4 (02:23→20:08)
[2019-01-08] MEDS: DUONEB (A & A) INH SCH ×6 (03:56→23:13)
[2019-01-08] MEDS: PROTONIX PO SCH (06:05)
[2019-01-08 07:41] LABS: HEMATOCRIT 28.5 % (37.0-47.0); HEMOGLOBIN 8.5 g/dL (12.0-16.0); MCHC 29.8 g/dL (33-37); MCV 100.7 FL (81-99); MPV 12.9 FL (7.4-10.4); RBC 2.83 XMIL (4.2-5.4); RDW 15.1 % (11.5-14.5); WBC 7.33 X1000 (4.8-10.8)
[2019-01-08 08:02] LABS: AGAP 7; BUN 25 mg/dL (8-22); CALCIUM 8.8 mg/dL (8.8-10.2); CHLORIDE 105 mmol/L (98-107); COSMO 292; CREATININE 0.6 mg/dL (0.5-0.9); ESTIMATED GFR > 60; GLUCOSE 83 mg/dL (70-104); IRON SATURATION 15 %; SODIUM 145 mmol/L (136-145); TCO2 33 mmol/L (25-35); TIBC 143 ug/dL; TOTAL IRON 22 ug/dL (49-151); UNBOUND IRON 121 ug/dL (112-346)
[2019-01-08] MEDS: MUCOMYST 20% INH SCH ×2 (08:02→19:45)
[2019-01-08] MEDS: SYMBICORT 80/4.5 MICROGM INHALER INH SCH ×2 (08:02→19:45)
[2019-01-08 08:37] LABS: FERRITIN 632 ng/mL (13-150)
[2019-01-08] MEDS: COLACE PO SCH ×2 (08:49→20:07)
[2019-01-08] MEDS: CELEXA PO SCH (08:49)
[2019-01-08] MEDS: NORVASC PO SCH ×2 (08:49→20:07)
[2019-01-08] MEDS: NEURONTIN PO SCH ×3 (08:49→20:07)
[2019-01-08] MEDS: LACTULOSE PO SCH ×2 (08:49→20:08)
[2019-01-08] MEDS: ELIQUIS PO SCH ×2 (08:50→20:07)
[2019-01-08] MEDS: TOPROL XL PO SCH ×2 (08:50→20:07)
[2019-01-08] MEDS: CRESTOR PO SCH (08:50)
[2019-01-08] MEDS: ABILIFY PO SCH (08:50)
[2019-01-08] MEDS: MIRALAX PO SCH ×2 (08:51→20:08)
[2019-01-08] MEDS: NORCO-7.5 PO PRN (13:02)
--- NOTE | 2019-01-08 14:55 | PROGRESS NOTE ---
DATE: 01/08/2019 SUBJECTIVE: The patient is awake and alert. She has no complaints at this time. OBJECTIVE: Vital Signs: Temperature 97.9 degrees, blood pressure 132/65, heart rate 76, respirations 20, O2 saturation 98% on 3 L nasal cannula. General: This is a morbidly obese female lying in bed in no acute distress. Heart: S1, S2 normal. Regular rate and rhythm. Lungs: Equal air entry bilaterally. No crackles. No rales. Abdomen: Positive bowel sounds. Soft, nontender, nondistended. Extremities: No edema, no cyanosis. Neurologic: The patient is alert and oriented x3. LABS: Sodium 145, potassium 4, chloride 105, CO2 33, BUN 25, creatinine 0.6, glucose 83, hemoglobin 8.5, hematocrit 28, platelets 68,000. ASSESSMENT AND PLAN: 1. Bacteremia, secondary to ESBL Escherichia coli. Resolved. 2. Pneumonia. Resolved. 3. Thrombocytopenia. Continue to monitor for improvement. 4. Neuropathy. Continue on Neurontin. 5. Metabolic encephalopathy. Resolved. 6. Situational depression. Continue on Celexa. 7. Anemia. Stable. 8. Chronic atrial fibrillation. The patient is rate controlled. Continue on Cardizem and Eliquis. 9. Vitamin D deficiency. Continue vitamin D replacement. 10. Disposition. The patient will be discharged to [facility] on Thursday. cc: Nanci Muro MD
[2019-01-08] MEDS: SEROQUEL PO SCH (20:07)
[2019-01-08] MEDS: DULCOLAX PR SCH (20:07)
[2019-01-09] MEDS: CARDIZEM PO SCH ×4 (00:59→20:40)
[2019-01-09] MEDS: DUONEB (A & A) INH SCH ×6 (03:16→23:21)
[2019-01-09] MEDS: PROTONIX PO SCH (06:11)
[2019-01-09] MEDS: MUCOMYST 20% INH SCH ×2 (08:17→19:39)
[2019-01-09] MEDS: SYMBICORT 80/4.5 MICROGM INHALER INH SCH ×2 (08:18→19:39)
[2019-01-09] MEDS: CELEXA PO SCH (10:10)
[2019-01-09] MEDS: TOPROL XL PO SCH ×2 (10:10→20:40)
[2019-01-09] MEDS: NEURONTIN PO SCH ×3 (10:10→20:39)
[2019-01-09] MEDS: COLACE PO SCH ×2 (10:10→20:39)
[2019-01-09] MEDS: ELIQUIS PO SCH ×2 (10:10→20:39)
[2019-01-09] MEDS: CRESTOR PO SCH (10:10)
[2019-01-09] MEDS: NORVASC PO SCH ×2 (10:10→20:40)
[2019-01-09] MEDS: ABILIFY PO SCH (10:10)
[2019-01-09] MEDS: NORCO-7.5 PO PRN (10:11)
[2019-01-09] MEDS: LACTULOSE PO SCH ×2 (11:09→20:39)
[2019-01-09] MEDS: MIRALAX PO SCH ×3 (11:10→20:41)
[2019-01-09 18:29] LABS: URINE SOURCE CATH
--- NOTE | 2019-01-09 18:38 | PROGRESS NOTE ---
DATE: 01/09/2019 SUBJECTIVE: The patient is sitting up watching TV. Her family is present at the bedside. She states that she feels great. OBJECTIVE: Vital Signs: Temperature 98.6, blood pressure 110/57, heart rate 80, respirations 18, O2 sats 97% on room air. General: This is a chronically ill-appearing elderly female lying in bed in no acute distress. Heart: S1, S2 normal. Regular rate and rhythm. Lungs: Clear to auscultation bilaterally. No wheezing. No rales. No rhonchi. Abdomen: Positive bowel sounds. Soft, nontender, nondistended. Neurologic: The patient is alert and oriented x 3. LABS: White blood cell count 7.3, hemoglobin 8.5, hematocrit 28, platelets 68,000. ASSESSMENT AND PLAN: 1. Bacteremia secondary to ESBL E coli. Resolved. 2. Pneumonia. Resolved. 3. Thrombocytopenia. Stable. Hematology is following. 4. Metabolic encephalopathy. Resolved. 5. Neuropathy. Continue on Neurontin. 6. Anemia. Stable. 7. Chronic atrial fibrillation. The patient is rate controlled. Continue on Cardizem and Eliquis. 8. Situational depression. Continue on Celexa. 9. Vitamin D deficiency. Continue with vitamin D replacement. 10. Disposition. The patient will be discharged to [facility] tomorrow. cc: Nanci Muro MD
[2019-01-09 18:39] LABS: BILIRUBIN URINE NEGATIVE (NEGATIVE); BLOOD URINE LARGE (NEGATIVE); COLOR YELLOW; GLUCOSE URINE NEGATIVE (NEGATIVE); KETONE URINE NEGATIVE (NEGATIVE); LEUKOCYTES URINE LARGE (NEGATIVE); NITRITE URINE NEGATIVE (NEGATIVE); PROTEIN URINE 30 mg/dL (NEGATIVE); SP GRAVITY URINE 1.008; TURBIDITY URINE HAZY (CLEAR); UROBILINOGEN URINE 2 mg/dL (NORMAL)
[2019-01-09 18:41] LABS: UR EPITHELIAL CELLS >10 /HPF (<10); URINE BACTERIA NEGATIVE /HPF; URINE WBC TNTC /HPF (<10)
--- NOTE | 2019-01-09 18:47 | PULMONOLOGY PROGRESS NOTE ---
DATE: 01/09/2019 SUBJECTIVE: The patient is awake, alert, and conversant. She denies cough or sputum production. She has a good appetite. She is anxious to return to rehab. OBJECTIVE: Vital Signs: BP 123/63, heart rate 86, respiratory rate 15. Afebrile for the last 24 hours. HEENT: Pupils are equal and reactive. Oropharynx is clear. Neck: Supple. Chest: Reveals significant kyphosis, with bibasilar crackles. Cardiac: S1, S2. Abdomen: Soft, without hepatosplenomegaly. Trace to 1+ pretibial edema. LABORATORIES: No new chemistries or CBC. IMPRESSION: An 83-year-old with recurrent pneumonia, hiatal hernia, hypoxemic respiratory failure. She has completed a course of treatment. RECOMMENDATIONS: 1. Anticipate transfer to rehab tomorrow. 2. Continue oxygen for hypoxemic respiratory failure. 3. Continue safe swallowing/reflux precautions. cc: Jose Paz MD
[2019-01-09 18:49] LABS: URINE CASTS NONE SEEN; URINE CRYSTALS NONE SEEN; URINE SMALL ROUND CELLS TRANS PRESENT; URINE YEAST PRESENT
[2019-01-09] MEDS: DULCOLAX PR SCH (20:40)
[2019-01-09] MEDS: SEROQUEL PO SCH (20:40)
[2019-01-10] MEDS: CARDIZEM PO SCH ×3 (01:07→13:34)
[2019-01-10] MEDS: DUONEB (A & A) INH SCH ×5 (04:35→20:11)
[2019-01-10] MEDS: PROTONIX PO SCH (06:04)
[2019-01-10 07:24] LABS: BASO# 0.02 X1000 (0.0-0.2); BASO% 0.3 % (0.0-0.8); EOS# 0.32 X1000 (0.0-0.7); EOS% 4.5 % (0.0-10.0); HEMATOCRIT 27.5 % (37.0-47.0); HEMOGLOBIN 8.1 g/dL (12.0-16.0); IMM GRAN# 0.03 X1000 (0.0-0.04); IMM GRAN% 0.4 % (0.0-0.5); LYMPH# 1.11 X1000 (1.2-3.4); LYMPH% 15.7 % (20.5-51.1); MCH 29.1 PG (27-31); MCHC 29.5 g/dL (33-37); MCV 98.9 FL (81-99); MONO# 0.36 X1000 (0.11-0.59); MONO% 5.1 % (1.7-9.3); MPV 12.4 FL (7.4-10.4); NEUT# 5.24 X1000 (1.4-6.5); PLT 73 X1000 (130-400); RBC 2.78 XMIL (4.2-5.4); RDW 14.6 % (11.5-14.5); WBC 7.08 X1000 (4.8-10.8)
[2019-01-10 07:52] LABS: AGAP 5; BUN 19 mg/dL (8-22); CALCIUM 8.2 mg/dL (8.8-10.2); CHLORIDE 102 mmol/L (98-107); COSMO 277; CREATININE 0.6 mg/dL (0.5-0.9); ESTIMATED GFR > 60; GLUCOSE 89 mg/dL (70-104); POTASSIUM 4.7 mmol/L (3.5-5.1); SODIUM 138 mmol/L (136-145); TCO2 31 mmol/L (25-35)
[2019-01-10] MEDS: SYMBICORT 80/4.5 MICROGM INHALER INH SCH ×2 (07:56→20:15)
[2019-01-10] MEDS: MUCOMYST 20% INH SCH ×2 (07:56→20:14)
[2019-01-10] MEDS: NEURONTIN PO SCH ×2 (08:17→14:27)
[2019-01-10] MEDS: MIRALAX PO SCH (08:17)
[2019-01-10] MEDS: LACTULOSE PO SCH (08:17)
[2019-01-10] MEDS: ABILIFY PO SCH (08:18)
[2019-01-10] MEDS: VITAMIN D PO SCH (08:18)
[2019-01-10] MEDS: NORVASC PO SCH (08:18)
[2019-01-10] MEDS: ELIQUIS PO SCH (08:18)
[2019-01-10] MEDS: NORCO-7.5 PO PRN ×2 (08:18→13:36)
[2019-01-10] MEDS: CRESTOR PO SCH (08:18)
[2019-01-10] MEDS: TOPROL XL PO SCH (08:18)
[2019-01-10] MEDS: COLACE PO SCH (08:18)
[2019-01-10] MEDS: CELEXA PO SCH (08:18)
[2019-01-10] MEDS ORDERED: KEFLEX PO SCH (09:00)
--- NOTE | 2019-01-10 09:56 | PROGRESS NOTE ---
DATE: 01/10/2019 OBJECTIVE: Ms. Carson is awake, alert, attentive, oriented. Speech is not dysarthric. Language function is intact on brief bedside testing. She has symmetric power in the right and left limbs. Head and neck are unremarkable. MEDICATIONS: Current [facility] active medicines include aripiprazole 2 mg daily, citalopram 20 mg daily, gabapentin 300 mg t.i.d. and she has recently discontinued quetiapine and p.r.n. ziprasidone. ASSESSMENT AND PLAN: I encouraged her to be careful with her medicines and to make sure she is taking everything as intended. I will be glad to see her as an outpatient. Thanks for asking Neurology to see Ms. Carson. cc: Rajan Livingston III, MD [facility] SYSTEM[facility]
--- NOTE | 2019-01-10 10:06 | HEMO/ONC CONSULTATION ---
DATE: 01/10/2019 ADMITTING PHYSICIAN: Dr. Crowley. REQUESTING PHYSICIAN: Dr. Crowley. We appreciate this consult. CHIEF COMPLAINT: Thrombocytopenia. HISTORY OF PRESENT ILLNESS: Ms. Carson is a very pleasant, 83-year-old female with a history of COPD, dyslipidemia, and atrial fibrillation. The patient was recently admitted for pneumonia and exacerbation of congestive heart failure. Additionally, she was diagnosed with Klebsiella bacteremia and now has ESBL bacteremia. The patient was discharged on Invanz. She has recently experienced worsening shortness of breath that brought her to the emergency department. Chest x- ray revealed worsening pneumonia and swelling. CT revealed worsening infiltrates in her right upper lobe and middle lobe. Throughout the patient's hospital course, she has had worsening thrombocytopenia as well, for which we are consulted. PAST MEDICAL HISTORY: 1. Gastroesophageal reflux disease. 2. Hypertension. 3. Dyslipidemia. 4. Hiatal hernia. 5. Venous thromboembolism. 6. Anxiety and depression. 7. Fibromyalgia. PAST SURGICAL HISTORY: 1. Cataract extraction. 2. Latia fundoplication. SOCIAL HISTORY: The patient does not use tobacco, alcohol, or illicit drugs. She resides in a rehabilitation center currently. FAMILY HISTORY: Negative for any hematologic or oncologic problems. MEDICATIONS ON ADMISSION: 1. Remeron. 2. Abilify. 3. Celexa. 4. Neurontin. 5. Toprol-XL. 6. Mirapex. 7. Seroquel. 8. Crestor. 9. Norvasc. 10. Apixaban. 11. Symbicort. 12. Vitamin D2. 13. Doland. 14. Medrol Dosepak. 15. Protonix. ALLERGIES: The patient has no known drug allergies. REVIEW OF SYSTEMS: A 14 point review of systems was obtained and is negative except as mentioned in the HPI. PHYSICAL EXAMINATION: General: Ms. Carson is an 83-year-old female lying supine in bed, in no immediate distress. Vital Signs: Temperature 97.7 degrees, blood pressure 126/61, heart rate 64, respirations are 18, O2 saturation 97% on room air. HEENT: Normocephalic, atraumatic. Mucous membranes pale and moist. Sclerae anicteric. Extraocular movements intact. Neck: Supple. Lungs: Clear to auscultation bilaterally with decreased breath sounds in the bases. CV: S1 and S2 are heard. No murmurs, rubs, or gallops. Abdomen: Nondistended. Extremities: No clubbing, cyanosis, or edema. Dermatologic: No rashes, bruises, or lesions. Neurologic: The patient is awake, alert, and oriented x3. She has no focal deficits. LABORATORY DATA: Hemoglobin 8.8, hematocrit 29.9, white blood cell count 7.78, platelets 82,000. Sodium 143, potassium 4.2, chloride 105, CO2 of 32, BUN 29, creatinine 0.6, and glucose is 81, calcium is 8.5. Antiplatelet antibody is negative. IMAGING STUDIES: CT of the chest reveals pneumonia, which is improving. ASSESSMENT AND PLAN: 1. Thrombocytopenia. We will initiate a workup. The patient is okay for discharge and we will schedule a followup in clinic in 2 weeks. 2. Bacteremia, extended-spectrum B-lactamase Escherichia coli, on antibiotics. 3. Pneumonia. The patient is currently on antibiotics and has had improvement. 4. Anemia. Would monitor CBC. Hemoglobin is stable at 8.8. 5. Chronic atrial fibrillation. The patient remains on Eliquis 5 mg twice a day. She has had no bleeding of note. 6. Neuropathy. The patient remains on Neurontin with good control of symptoms. 7. We will follow along with you and make further recommendations pending outcomes. The above reflects the history, examination, assessment, and plan of Dr. Harrison. Dictated by LAYO Mahoney for Anson Harrison MD cc: LAYO Mahoney MD
[2019-01-10 13:52] VITALS: BP 113/48
--- NOTE | 2019-01-10 14:08 | DISCHARGE SUMMARY ---
ADMISSION DATE: 12/30/2018 DISCHARGE DATE: FINAL DISCHARGE DIAGNOSES: 1. Sepsis. 2. Bacteremia secondary to the extended-spectrum B-lactamase Escherichia coli. 3. Pneumonia. 4. Metabolic encephalopathy. 5. Hypokalemia. 6. Neuropathy. 7. Hypertension. 8. Situational depression. 9. Constipation. 10. Thrombocytopenia. 11. Chronic atrial fibrillation. 12. Vitamin D deficiency. CONSULTATIONS: 1. ID consultation with Dr. Funk. 2. Pulmonary consultation with Dr. Ruiz. 3. Neurology consultation with Dr. Livingston. IMAGIN. CT of the chest performed on 12/30/2018 that revealed worsened pneumonia in the right upper and middle lobes. 2. Head CT performed on 01/04/2019 that revealed no acute disease. 3. CT of the chest performed on 01/06/2019 that showed improved pneumonia. HOSPITAL COURSE: Ms. Carson is an 83-year-old female with a history of multiple medical problems who initially presented to the ER with a chief complaint of shortness of breath. On admission, the patient was noted to have a leukocytosis of 24,000. The patient was admitted to the hospitalist service. A CT of the chest was done that revealed worsened pneumonia in the right upper and middle lobes. Blood cultures and a sputum culture were ordered and the patient was started on broad-spectrum antibiotics. Infectious disease was consulted for further assistance with management. The patient had blood cultures drawn from December 16 that were positive for ESBL Escherichia coli. As a result of this, the patient was treated with meropenem. The patient was noted to have some confusion and this was thought to be secondary to the patient's underlying bacteremia and pneumonia. While on Merrem, the patient developed thrombocytopenia, so this was discontinued. The patient was placed on ceftaroline 600 mg IV every 12 hours. Slowly, over the course of the hospitalization, the patient's mental status improved as the infection resolved. Physical therapy was consulted and the patient started to ambulate with assistance. The patient completed the course of antibiotic therapy and a repeat CT of the chest showed improvement in the pneumonia. The patient was noted to have a white blood cell count of 7 on the day of discharge. The patient was also noted to be folate deficient and folic acid was also started during this hospitalization. At this time, the patient is medically stable for discharge to [facility]. DISCHARGE MEDICATIONS: 1. Folic acid 1 mg p.o. daily. 2. Cephalexin 500 mg p.o. every 12 hours. 3. Cardizem CD 120 mg p.o. daily. 4. Vitamin D 50,000 units oral every 7 days. 5. Toprol-XL 50 mg p.o. twice a day. 6. MiraLAX 17 g p.o. twice a day. 7. Fontana 7.5/325 one tablet oral every 6 hours p.r.n. for pain. 8. Neurontin 300 mg 3 times a day. 9. Abilify 2 mg oral daily. 10. Seroquel 25 mg half a tablet oral at bedtime. 11. Celexa 20 mg p.o. daily. 12. Eliquis 5 mg p.o. twice a day. 13. Symbicort 2 puffs inhaled twice a day. 14. Crestor 20 mg p.o. daily. 15. Protonix 40 mg p.o. daily. 16. Norvasc 5 mg p.o. twice a day. DISCHARGE DIET: Low-sodium, low-cholesterol diet. ACTIVITY: As tolerated. FOLLOWUP INSTRUCTIONS: The patient will need to follow up with her primary care physician in 2 weeks. cc: MD Sanam Sanchez
[2019-01-10] MEDS ORDERED: NORCO-7.5 PO ONE (18:02)
== END 2019-01-10 20:00 | DRG 871 ==
LOC: SUPCPDRO → ED 08:54 → SUATTDRO 17:15 → 3N 17:15
PROVIDERS: ATTEND Internal Medicine
CPT/HCPCS: 51702; 70450; 71010; 71020; 71045; 71046; 71250; 71270; 74019; 74020; 80048; 80053; 81001; 82140; 82550; 82553; 82607; 82728; 82746; 82805; 83540; 83550; 83605; 83735; 83880; 84100; 84145; 84484; 85025; 85027; 85610; 85730; 86022; 87040; 87088; 87275; 87276; 87804; 94640; 94761; 94799; 96365; 96367; 96375; 97110; 97162; 97530; 99285; A9270; J0712; J1940; J2185; J2543; J2930; J3370; J7050; J7509; J7608; Q9967

== ENCOUNTER 2019-02-10 15:19 | Inpatient (IN) ==
[2019-02-10] MEDS ORDERED: ZOFRAN IV PRN (16:30)
[2019-02-10] MEDS ORDERED: TYLENOL PO PRN (16:30)
[2019-02-10] MEDS ORDERED: NS 1,000 ML IV SCH (16:30)
[2019-02-10] MEDS ORDERED: MAGNESIUM SULFATE 4 GM/S.W.I. 4 GM/100 ML IVPB IV ONE (17:06)
[2019-02-10] MEDS ORDERED: VITAMIN D PO ONE (17:10)
[2019-02-10 17:21] LABS: BASO% 1.6 % (0.0-0.8); EOS# 0.16 X1000 (0.0-0.7); EOS% 2.5 % (0.0-10.0); HEMOGLOBIN 9.7 g/dL (12.0-16.0); LYMPH# 2.52 X1000 (1.2-3.4); LYMPH% 39.4 % (20.5-51.1); MCH 28.7 PG (27-31); MCHC 30.3 g/dL (33-37); MCV 94.7 FL (81-99); MONO# 0.57 X1000 (0.11-0.59); MONO% 8.9 % (1.7-9.3); MPV 10.9 FL (7.4-10.4); NEUT# 3.04 X1000 (1.4-6.5); NEUT% 47.6 % (42.2-75.2); PLT 216 X1000 (130-400); RBC 3.38 XMIL (4.2-5.4); RDW 15.1 % (11.5-14.5); WBC 6.39 X1000 (4.8-10.8)
[2019-02-10] MEDS ORDERED: CALCIUM GLUCONATE 1 GM in NS 50 ML IV ONE (17:29)
[2019-02-10 17:36] LABS: HEMOGLOBIN A1C 4.8 % (4.8-6.0)
[2019-02-10 17:37] LABS: INR 2.03; PROTIME 24.4 Seconds (11.0-16.0)
[2019-02-10 17:38] LABS: PTT 48.7 Seconds (22.3-41.8)
[2019-02-10 17:44] LABS: ALBUMIN 2.4 g/dL (3.5-5.0); CALCIUM 7.3 mg/dL (8.8-10.2); POTASSIUM 3.1 mmol/L (3.5-5.1); TOTAL BILIRUBIN 0.31 mg/dL (0.20-1.00); TOTAL PROTEIN 4.9 g/dL (6.3-8.3)
[2019-02-10 18:03] LABS: MAGNESIUM 0.9 mg/dL (1.5-2.7)
[2019-02-10] MEDS: INVANZ 1 GM/NS 1 GM/50 ML IVPB IV SCH (18:27)
--- NOTE | 2019-02-10 18:53 | HISTORY AND PHYSICAL ---
PRIMARY CARE PROVIDER: Dr. Sanam Murry. REASON FOR DIRECT ADMISSION: Abnormal electrolytes with low magnesium and low calcium. Also, positive ESBL E coli in the right heel wound. HISTORY OF PRESENT ILLNESS: Ms. Naima Carson is an 83-year-old female with a medical history of COPD, dyslipidemia, and atrial fibrillation who is a frequently admitted patient for heart failure and pneumonia. She most recently, last month in December, had E coli ESBL positive bacteremia and at that time was followed by Dr. Funk. She was initially on meropenem then and the platelets had dropped and they switched her to ceftaroline. She has had recent culture of the right heel, which is a pressure ulcer that developed over the past month due to pressure on that heel with frequent admissions that has purulent type oozing coming from it and the culture also grew out an ESBL positive E coli as well and is resistant to Levaquin. So will start on ertapenem and will monitor the platelet count and make changes as needed for that. She apparently also had a low magnesium level of 1.0 with a significantly low calcium level as well. So, will check all electrolytes and replace as needed through an IV. She has been taking oral dosing of magnesium and calcium but apparently this has not improved the levels. The last reported magnesium level again was 1.0. She is here, resting comfortably in bed. She states that she has no complaints at all. There is no pain. No shortness of breath. No nausea, vomiting, or diarrhea although she does have some tenderness in that left heel. The daughter at the bedside stated she had an appointment with Dr. Morris on the day, which they cancelled, because she was being admitted here. Will also consult Wound Care for the right heel. She states that she has had home health coming out to change the dressing daily and the family has changed it p.r.n. as well. PAST MEDICAL HISTORY: 1. GERD. 2. Hypertension. 3. Dyslipidemia. 4. Hiatal hernia. 5. DVT. 6. Anxiety and depression. 7. Fibromyalgia. 8. Congestive heart failure. 9. Atrial fibrillation, on Eliquis. 10.Most recently, bacteremia with ESBL positive E coli. 11.Vitamin D deficiency. PAST SURGICAL HISTORY: 1. Bilateral cataracts. 2. Latia fundoplication. SOCIAL HISTORY: Denies tobacco, alcohol, or illicit drug use. She has been at [facility] for the last four weeks but came home on 02/05/2019, this past Thursday. She states she uses a walker to get up and get around. FAMILY HISTORY: She denies. ALLERGIES: No known drug allergies. HOME MEDICATIONS: These have not been verified but were last noted in December, just this past month, so what is listed is 1. Abilify 2 mg p.o. daily. 2. Celexa 20 mg p.o. daily. 3. Crestor 20 mg p.o. daily. 4. Neurontin 300 mg p.o. t.i.d. 5. Quetiapine fumarate 12.5 to 25 mg p.o. nightly. 6. Diltiazem 120 mg p.o. daily. 7. Eliquis 5 mg p.o. twice daily. 8. Folic acid 1 mg p.o. daily. 9. MiraLAX 17 grams p.o. twice daily. 10.Amboy 7.5 one tablet p.o. every four hours p.r.n. 11.Norvasc 5 mg p.o. twice daily. 12.Protonix 40 mg p.o. daily. 13.Symbicort 80/4.5, two puffs inhaled twice daily. 14.Toprol XL 50 mg p.o. twice daily. 15.Vitamin D2 50,000 units p.o. every seven days. REVIEW OF SYSTEMS: A 14-point review of systems are complete and all are negative except for those mentioned above in the HPI. She does complain of swelling in bilateral lower extremities, which are equal. PHYSICAL EXAMINATION: VITAL SIGNS: Temperature 97.9, heart rate 70, respiratory rate not recorded but she was probably about 20, blood pressure 108/97, O2 saturation 93% on room air. GENERAL: Ms. Naima Carson is an 83-year-old female. She is in no acute distress. She is able to answer questions appropriately. HEENT: Atraumatic, normocephalic. Pupils equal, round, and reactive to light. Extraocular movements intact. Mucous membranes are moist. NECK: Trachea midline. CARDIOVASCULAR: S1 and S2, regular rate and rhythm. No rubs, gallops or murmurs. She has 3+ lower extremity pitting edema. +2 dorsalis and radial pulse. Negative JVD or carotid bruits. PULMONARY: Clear to auscultate. Bilateral breath sounds. No accessory muscle use or work of breathing noted. Tolerating room air. GI: Soft, nontender, nondistended. Positive bowel sounds x4. EXTREMITIES: Decreased range of motion. Decreased strength in lower extremities versus the upper extremities. NEUROLOGIC: Alert and oriented x3. Follows commands. Decreased sensory in the feet, but increased sensory in the right heel. SKIN: Warm, dry and intact except for right heel has some area of deep tissue injury with blackened area. Also, area of oozing of purulent type drainage, renee in color. LABORATORY DATA: Not all labs are back, but what is back is a CBC with white blood cell count of 6000, hemoglobin 9, hematocrit 32, platelet count 216. INR is 2.03. Ionized calcium is 1.06. Hemoglobin A1c is 4.8. Reported magnesium level by Dr. Sanam Murry was 1.0. IMAGING: Not available yet. Chest x-ray ordered and EKG ordered. ASSESSMENT/PLAN: 1. Extended spectrum beta lactamase positive Escherichia coli right heel pressure wound. She is to see Dr. Morris as an outpatient. Will consult him as an inpatient. There is an area of deep tissue injury with purulent drainage coming from it that tested positive on 02/08/2019. So, she will be started on ertapenem and will monitor her platelet count. Her last admission she had extended spectrum beta lactamase positive bacteremia, that in December, and at that time she was on meropenem. She had issues where her platelet count dropped and was changed to ceftaroline 600 twice a day so will monitor platelet count daily. She was also followed by Dr. Funk during that time, but will try and manage for now. Will consult Dr. Morris to evaluate the right heel. 2. Electrolyte imbalances which include hypocalcemia and hypomagnesemia and not all electrolytes are back, but she will get 4 grams of intravenous magnesium. She is going to get 1 gram of calcium gluconate. Apparently at home she was taking her magnesium and calcium supplements by mouth, which apparently did not help with the electrolytes. 3. Hypertension. Will continue home medications once verified. 4. History of chronic atrial fibrillation but she sounded like she had S1, S2. She was not on telemetry and there has not been an electrocardiogram yet, but will evaluate once it is performed. She is on Eliquis at home for that and will resume it once it is verified. 5. Chronic constipation. Will resume home medications for that. 6. Vitamin D deficiency. Will, again, continue her vitamin D supplementation. 7. Congestive heart failure. Looks like it is not systolic. Her ejection fraction is normal at 70% to 75%, it is actually a little hyperdynamic and there is really no definite evidence of diastolic dysfunction, but it is reported as congestive heart failure in her chart, so will monitor the lower extremity edema that is chronic for her. There is no obvious pulmonary edema or crackles with auscultation and she is not short of breath although she is maintaining around a 93% saturation on room air. It could be that she could eventually qualify for some home oxygen. 8. Anxiety and depression. Continue home medications. 9. History of deep venous thrombosis. 10.Dyslipidemia. Continue statin once verified. 11.Gastroesophageal reflux disease. Continue proton pump inhibitor. 12.Deep venous thrombosis prophylaxis. She is on Eliquis. Dictated by LAYO Chilel for Wilbert Ron MD cc: LAYO Chilel MD Lindsay E. Smith, MD [facility]ITAL[facility]zair
--- NOTE | 2019-02-10 19:07 | Diag Imaging Result Doc PS360 ---
EXAM: CHEST-2 VIEWS INDICATION: r/o pna TECHNIQUE: 3 views COMPARISON: 01/06/2019 FINDINGS: Central vasculature is prominent indicating pulmonary venous congestion. There is also suggestion of mild interstitial edema centrally. There is likely a small effusion on the left with adjacent atelectasis and/or infiltrate. The cardiac silhouette is somewhat prominent. IMPRESSION: 1.Pulmonary venous congestion and suggestion of mild pulmonary edema. 2.Likely a trace left effusion with adjacent left basilar atelectasis and/or infiltrate. Electronically signed by Curt Levine 02/10/2019 7:05 PM
--- NOTE | 2019-02-10 20:20 | GENERAL SURGERY PROGRESS NOTE ---
DATE: 02/10/2019 HISTORY OF PRESENT ILLNESS: This is an 83-year-old female, who has had a recent prolonged hospitalization in a shelter facility. She developed an ulcer on the right heel. She was admitted for what was found to be hypomagnesemia. Supposed to see [facility] for evaluation of a right heel decubitus ulcer. MEDICAL HISTORY: Gastroesophageal reflux, hypertension, dyslipidemia, hiatal hernia, history of DVT on anticoagulation, anxiety, depression, fibromyalgia, heart failure, atrial fibrillation, bacteremia, vitamin D deficiency. SURGICAL HISTORY: Cataracts and Latia. SOCIAL HISTORY: No current tobacco, alcohol or drugs. She is in [facility]. Has family. FAMILY HISTORY: Reviewed, noncontributory. MEDICATIONS: Significant for Eliquis. PHYSICAL EXAMINATION: Vital Signs: Temperature 97.9, pulse 70, blood pressure 108/47, oxygen saturation 93% on room air. General: She is an elderly appearing female in no acute distress. HEENT: No scleral icterus. Neck: No cervical mass. Cardiovascular: Normal rate. Pulmonary: No increased work of breathing. Abdomen: Soft. Integument: Warm and dry. Musculoskeletal: There is a dry eschar of her right heel. There is no purulence. No cellulitis. Otherwise, peripheral vascular she does have some lower extremity edema. Chronic venous insufficiency changes. Her feet are well perfused. Psychiatric: Appropriate affect. Neurologic: Generalized weakness. LABS: White count 6, hematocrit 32, platelets 216. Creatinine is 1.0. Her potassium is low at 3.1, magnesium 0.9. ProBNP is 1230. Reviewed chest x-ray, no imaging of her foot. ASSESSMENT AND PLAN: An 83-year-old female with decubitus ulcer to the right heel. It is dry. There is no purulence. I would recommend Santyl debridement to this and strict offloading nutritional supplementation with correction of electrolytes. She will ultimately require excisional debridement. We will hold off now given her other medical issues. I do not suspect that this is the source of infection based on her exam currently. She does seem to have adequate perfusion distally. cc: Ashley Morris MD
[2019-02-10] MEDS: MAG-OX PO SCH (21:02)
[2019-02-11 07:20] LABS: BASO# 0.06 X1000 (0.0-0.2); EOS# 0.16 X1000 (0.0-0.7); EOS% 2.7 % (0.0-10.0); HEMATOCRIT 33.2 % (37.0-47.0); HEMOGLOBIN 10.2 g/dL (12.0-16.0); INR 1.73; LYMPH# 2.09 X1000 (1.2-3.4); LYMPH% 34.9 % (20.5-51.1); MCH 28.9 PG (27-31); MCHC 30.7 g/dL (33-37); MCV 94.1 FL (81-99); MONO# 0.54 X1000 (0.11-0.59); MPV 11.6 FL (7.4-10.4); NEUT# 3.13 X1000 (1.4-6.5); NEUT% 52.4 % (42.2-75.2); PLT 193 X1000 (130-400); PROTIME 21.6 Seconds (11.0-16.0); RBC 3.53 XMIL (4.2-5.4); RDW 15.2 % (11.5-14.5); WBC 5.98 X1000 (4.8-10.8)
[2019-02-11 07:21] LABS: PTT 46.9 Seconds (22.3-41.8)
[2019-02-11 07:41] LABS: AGAP 11; ALB/GLOB RATIO 0.7; ALKALINE PHOSPHATASE 121 U/L (32-104); BUN 13 mg/dL (8-22); CHLORIDE 105 mmol/L (98-107); COSMO 286; CREATININE 0.8 mg/dL (0.5-0.9); ESTIMATED GFR > 60; GLUCOSE 75 mg/dL (70-104); GOT 17 U/L (10-30); GPT 10 U/L (10-36); MAGNESIUM 1.8 mg/dL (1.5-2.7); POTASSIUM 2.7 mmol/L (3.5-5.1); SODIUM 144 mmol/L (136-145); TCO2 28 mmol/L (25-35); TOTAL BILIRUBIN 0.38 mg/dL (0.20-1.00); TOTAL PROTEIN 4.9 g/dL (6.3-8.3)
--- NOTE | 2019-02-11 07:59 | EKG Report ---
Test Performed on : 02/11/2019 07:49:31 AM Test Reason : electrolyte imbalances Blood Pressure : / mmHG Vent. Rate : 087 BPM Atrial Rate : 087 BPM P-R Int : 194 ms QRS Dur : 094 ms QT Int : 408 ms P-R-T Axes : 076 075 067 degrees QTc Int : 490 ms Normal sinus rhythm. Nonspecific ST and T wave abnormality Abnormal ECG When compared with ECG of 18-DEC-2018 03:58, Questionable change in QRS axis Nonspecific T wave abnormality now evident in Anterolateral leads Unconfirmed Result
[2019-02-11] MEDS: MAG-OX PO SCH ×2 (09:03→20:44)
[2019-02-11] MEDS ORDERED: MIRALAX PO PRN (14:08)
--- NOTE | 2019-02-11 14:55 | PROGRESS NOTE ---
DATE: 02/11/2019 SUBJECTIVE: Patient resting comfortably in bed. Not in any obvious distress. OBJECTIVE: Vital Signs: Vital signs are as follows: Temperature 98.2 degrees, pulse 85, respiratory rate 20, blood pressure is 124/58, oxygenation is 97%. HEENT: Atraumatic, normocephalic. Cardiovascular system: S1, S2. Respiratory system: Has evidence of good air entry bilaterally. Abdomen: Soft, nontender. No masses. Extremities: The patient does have a right heel ulcer which is draining serosanguineous material. The patient has an area of eschar that is noted in the middle of the ulcer. Central nervous system: No obvious focal deficit noted. LABORATORY DATA: Labs are as follows: WBC is 5.8, hematocrit is 33.2, with a platelet count of 193. INR is 1.73. Potassium is 2.7, chloride is 105, bicarbonate is 28. BUN is 13, creatinine 0.8, magnesium level is 1.8. ASSESSMENT AND PLAN: 1. Infected right heel ulcer. The patient will require local wound care, as well as antibiotic treatment. We will get an MRI of the foot to rule out any evidence of osteomyelitis. We will also get arterial study of lower extremity. Down the road, the patient will also need Infectious Disease for antibiotic management. 2. Hypomagnesemia. This seems to have been corrected at this time. We will continue to follow up on her magnesium level. 3. Hypocalcemia. The patient is noted to have a low vitamin D level, and I believe this is the reason why calcium is low. The patient has been started on loading dose of vitamin D 50,000 units once a week. 4. Hypertension. Continue current antihypertensive regimen. 5. Atrial fibrillation. Continue rate controlling agent, as well as anticoagulation. 6. Congestive heart failure. This is stable at this time. We will continue to monitor her intakes and outputs, as well as daily weights. Use diuretics if needed. 7. Dyslipidemia. Continue rosuvastatin. 8. Gastroesophageal reflux disease. Continue proton pump inhibitor. 9. Anemia. Will check iron studies and also check B 12 and folate level, as well as stool for occult blood. cc: Wilbert Ron MD
--- NOTE | 2019-02-11 15:31 | Diag Imaging Result Doc PS360 ---
EXAM: MRI LOWER EXT W/WO CON-RIGHT 02/11/2019 HISTORY: right foot wound TECHNIQUE: Short axis proton density, T1 post gadolinium T1, long axis TI, T2, sagittal STIR, T1, T1 postcontrast fat sat. COMMENT: There is soft tissue swelling over the dorsum of the forefoot. There is no evidence of bone marrow edema or tendinopathy. There is no evidence of abnormal bony gadolinium enhancement. No plain films are available for correlation. IMPRESSION: No evidence of acute bony abnormality. Electronically signed by Zeke Negron 02/11/2019 3:29 PM
[2019-02-11 17:00] LABS: IRON SATURATION 43 %; TIBC 86 ug/dL; TOTAL IRON 37 ug/dL (49-151); UNBOUND IRON 49 ug/dL (112-346)
[2019-02-11] MEDS ORDERED: NEURONTIN PO SCH (17:00)
[2019-02-11 17:18] LABS: FERRITIN 346 ng/mL (13-150)
[2019-02-11] MEDS: INVANZ 1 GM/NS 1 GM/50 ML IVPB IV SCH (17:48)
[2019-02-11] MEDS: SANTYL OINT TOP SCH (17:49)
[2019-02-11] MEDS: NORCO-7.5 PO PRN (18:54)
[2019-02-11] MEDS: KLOR-CON PO SCH ×2 (18:54→20:44)
[2019-02-11] MEDS: POTASSIUM CHLORIDE 20 MEQ/SWI 20 MEQ/100 ML IVPB IV SCH ×2 (20:43→22:51)
[2019-02-11] MEDS: ELIQUIS PO SCH (20:44)
[2019-02-11] MEDS: NEURONTIN PO SCH (20:44)
[2019-02-11] MEDS: NORVASC PO SCH (20:44)
[2019-02-11] MEDS: TOPROL XL PO SCH (20:44)
[2019-02-11 21:04] LABS: URINE SOURCE CLEAN CATCH
[2019-02-11 21:10] LABS: BILIRUBIN URINE NEGATIVE (NEGATIVE); BLOOD URINE NEGATIVE (NEGATIVE); COLOR YELLOW; GLUCOSE URINE NEGATIVE (NEGATIVE); KETONE URINE NEGATIVE (NEGATIVE); LEUKOCYTES URINE TRACE (NEGATIVE); NITRITE URINE NEGATIVE (NEGATIVE); PROTEIN URINE 30 mg/dL (NEGATIVE); SP GRAVITY URINE 1.031; TURBIDITY URINE HAZY (CLEAR); UR EPITHELIAL CELLS >10 /HPF (<10); URINE BACTERIA NEGATIVE /HPF; URINE RBC <10 /HPF (<10); UROBILINOGEN URINE NORMAL (NORMAL)
[2019-02-12] MEDS: PROTONIX PO SCH (06:18)
[2019-02-12 07:31] LABS: BASO# 0.04 X1000 (0.0-0.2); BASO% 0.8 % (0.0-0.8); EOS# 0.18 X1000 (0.0-0.7); EOS% 3.6 % (0.0-10.0); HEMOGLOBIN 8.8 g/dL (12.0-16.0); LYMPH# 2.22 X1000 (1.2-3.4); LYMPH% 44.6 % (20.5-51.1); MCH 28.8 PG (27-31); MCHC 30.3 g/dL (33-37); MCV 94.8 FL (81-99); MONO# 0.49 X1000 (0.11-0.59); MONO% 9.8 % (1.7-9.3); MPV 11.5 FL (7.4-10.4); NEUT# 2.05 X1000 (1.4-6.5); NEUT% 41.2 % (42.2-75.2); PLT 192 X1000 (130-400); RBC 3.06 XMIL (4.2-5.4); RDW 15.4 % (11.5-14.5); WBC 4.98 X1000 (4.8-10.8)
[2019-02-12 07:52] LABS: AGAP 6; BUN 10 mg/dL (8-22); CALCIUM 7.9 mg/dL (8.8-10.2); CHLORIDE 109 mmol/L (98-107); COSMO 289; CREATININE 0.7 mg/dL (0.5-0.9); ESTIMATED GFR > 60; GLUCOSE 80 mg/dL (70-104); MAGNESIUM 1.7 mg/dL (1.5-2.7); POTASSIUM 3.8 mmol/L (3.5-5.1); SODIUM 146 mmol/L (136-145); TCO2 31 mmol/L (25-35)
[2019-02-12] MEDS ORDERED: LOVENOX 1 MG/KG SUBQ SCH (10:45)
[2019-02-12] MEDS: CRESTOR PO SCH (11:25)
[2019-02-12] MEDS: NORVASC PO SCH ×2 (11:25→20:05)
[2019-02-12] MEDS: NEURONTIN PO SCH ×3 (11:25→20:05)
[2019-02-12] MEDS: KLOR-CON PO SCH (11:25)
[2019-02-12] MEDS: ABILIFY PO SCH (11:25)
[2019-02-12] MEDS: CELEXA PO SCH (11:26)
[2019-02-12] MEDS: ELIQUIS PO SCH (11:26)
[2019-02-12] MEDS: CARDIZEM CD PO SCH (11:26)
[2019-02-12] MEDS: TOPROL XL PO SCH ×2 (11:26→20:05)
[2019-02-12] MEDS: MAG-OX PO SCH ×2 (11:26→20:05)
[2019-02-12] MEDS: SANTYL OINT TOP SCH (11:27)
[2019-02-12] MEDS: LOVENOX SUBQ SCH ×2 (11:37→22:57)
--- NOTE | 2019-02-12 12:35 | PROGRESS NOTE ---
DATE: 02/12/2019 INTERVAL HISTORY: The patient denies fever or chills. Pain in her right heel. No acute events overnight. No new complaints. REVIEW OF SYSTEMS: 12 point review of systems negative except as per interval history. LABS: Sodium 146, potassium 3.8, creatinine 0.7, magnesium 1.7. PHYSICAL EXAMINATION: Vital Signs: T-max 98.4 degrees, pulse 73, respirations 16, blood pressure 123/61, O2 saturation 94% on room air. General: No acute distress. Vitals as above. HEENT: Normocephalic, atraumatic. Moist mucous membranes. No cervical adenopathy. Cardiovascular: Regular rate and rhythm. No murmurs, rubs, or gallops. Pulmonary: Clear to auscultation bilaterally. No wheezing, rales, or rhonchi. Abdomen: Soft, nontender, and nondistended. Bowel sounds positive. Extremities: Peripheral pulses decreased, but present. Right foot bandaged. Bandage removed. Patient with a quarter to half-dollar size ulcer on her right heel. Some central eschar found. Slight erythema at the edge of the wound. No purulent drainage currently. The area surrounding the wound looks good without any erythema, induration, or fluctuance. Neurologic: Cranial nerves grossly intact. Decreased sensation in the toes, but no focal deficits identified. Psychiatric: Normal mood and affect. Awake, alert and oriented x3. Skin: No new rashes or lesions except for ulcer as above. ASSESSMENT AND PLAN: 1. Right heel ulcer with possible infection. Skin swab and previous blood cultures revealed extended-spectrum beta lactamase Escherichia coli. Patient placed on carbapenem on admission. Wound does not actually look terrible right now. We will ask for Infectious Disease to evaluate. If this is not much worse than what it was previously, the patient may be able to go home, but will ask for their opinion. Surgery was also consulted and considering debridement of eschar. MRI was negative for any bone involvement. 2. Hypomagnesemia, improved with repletion. Will monitor. 3. Hypocalcemia, also with vitamin D deficiency, improving with repletion. 4. Hypertension. Reasonable control on current regimen. 5. Atrial fibrillation, currently normal sinus. Continue home medications. 6. Hyperlipidemia. Continue statin. 7. Gastroesophageal reflux disease. Continue proton pump inhibitor. 8. Anemia. B12 and folate within normal limits. Iron studies unremarkable. Blood counts with slight decrease, but no signs or symptoms of active bleeding. Suspect anemia of chronic disease versus medication side effect from recent antibiotics. Continue to monitor.
[2019-02-12] MEDS: INVANZ 1 GM/NS 1 GM/50 ML IVPB IV SCH (17:09)
[2019-02-13] MEDS: NORCO-7.5 PO PRN (03:17)
[2019-02-13] MEDS: PROTONIX PO SCH ×2 (05:56→06:01)
[2019-02-13] MEDS: SANTYL OINT TOP SCH (08:35)
[2019-02-13] MEDS: CARDIZEM CD PO SCH (08:35)
[2019-02-13] MEDS: CRESTOR PO SCH (08:35)
[2019-02-13] MEDS: NEURONTIN PO SCH ×3 (08:35→20:09)
[2019-02-13] MEDS: ABILIFY PO SCH (08:35)
[2019-02-13] MEDS: TOPROL XL PO SCH ×2 (08:35→20:09)
[2019-02-13] MEDS: CELEXA PO SCH (08:35)
[2019-02-13] MEDS: NORVASC PO SCH ×2 (08:35→20:09)
[2019-02-13] MEDS: MAG-OX PO SCH ×2 (08:35→20:09)
[2019-02-13] MEDS: LOVENOX SUBQ SCH ×2 (12:00→20:10)
--- NOTE | 2019-02-13 14:33 | PROGRESS NOTE ---
DATE: 02/13/2019 SUBJECTIVE: The patient is resting in bed. Not in any obvious distress. OBJECTIVE: Vital Signs: Temperature 98.8 degrees, pulse of 78, respiratory rate 20, blood pressure 121/59, oxygen saturation is 93%. HEENT: Atraumatic, normocephalic. Cardiovascular System: S1, S2. Respiratory System: Has evidence of good air entry bilaterally. Abdomen: Soft, nontender. No masses felt. Extremities: Has wound site of the right foot dressed. Central Nervous System: No obvious focal deficits noted. Labs: None today. ASSESSMENT AND PLAN: 1. Infected right heel ulcer. Continue local wound care as well as antibiotic management. 2. Hypomagnesemia, resolved. 3. Hypoglycemia, probably secondary to low vitamin D level. The patient has been started on vitamin D replacement. 4. Hypertension. Continue current antihypertensive regimen. 5. Atrial fibrillation. Continue rate controlling agent as well as anticoagulation. 6. Congestive heart failure, stable. Monitor intakes and outputs, as well as daily weights. Use diuretics as needed. 7. Dyslipidemia. Continue rosuvastatin. 8. Gastroesophageal reflux disease. Continue proton pump inhibitor. 9. Anemia. Iron studies indicate low serum iron level. We will begin iron replacement and the patient will need to follow up with gastroenterology in the outpatient for gastrointestinal endoscopic studies as an outpatient. cc: Wilbert Ron MD
--- NOTE | 2019-02-13 15:19 | INFECTIOUS DISEASE CONSULT REP ---
DATE: 02/13/2019 CONCLUSION: The patient has an extended spectrum beta lactamase producing E coli infection of her right heel. There is evidence of cellulitis present, but on MRI there is no evidence of osteomyelitis. It is interesting to note that in November of this year the patient had bacteremia with the same E coli organism. I think this brings up the possibility that the patient has an immunoglobulin deficiency. RECOMMENDATIONS: I agree with the decision to place the patient on ertapenem. I am also going to draw immunoglobulin levels to see if the patient has an immunoglobulin deficiency. I discussed the patient with Dr. Ron. Our plan is to send the patient home on IV ertapenem for 2 weeks. The patient will be seen in my office in 2 weeks. DISCUSSION: The patient states that she was feeling fine, except she had a sore that developed on her right heel. She does not remember exactly how it occurred. She is not having any pain in the heel and she has not been running any fever. The laboratory studies thus far show a CBC with a white count of 4980, hemoglobin 8.8, and platelet count 192,000. The patient's creatinine is 0.7. GFR is greater than 60. The patient's liver function studies are normal except for slight elevation of the alkaline phosphatase at 121. Patient's urinalysis there was a trace of white cells and negative bacteria. Cultures from the urine and blood showed no growth. A culture from the patient's heel grew an extended spectrum beta lactamase producing E coli, which is the same organism she had in November of this year in her bloodstream and apparently she had a pneumonia with it, as well. The patient had an MRI of her right foot and it showed no evidence of osteomyelitis. PAST MEDICAL HISTORY/REVIEW OF SYSTEMS: Eyes and Ears: She denies any trouble seeing or hearing. Neck: No pain with movement. Respiratory: No cough or shortness of breath. Cardiovascular: No chest pain or palpitations. Gastrointestinal: No nausea, vomiting or diarrhea. Genitourinary: See present illness. Bones/Joints/Muscles: No swollen joints or muscle aches. Neurologic: No seizures. No loss of motor or sensory function. Integument: No rash. OBSTETRICAL/GYNECOLOGIC HISTORY: She is a 3, para 3, AB 0. PREVIOUS HOSPITALIZATIONS AND OPERATIONS: She has had 3 labor and deliveries. She has had surgery on her left knee. It was not replaced, but merely just a regular surgery. She has had a hiatal hernia repair. She was admitted in November of this year which appears to be a with an E coli bacteremia and most likely a pneumonia as its origin. MEDICAL DISEASES: Positive for hypertension and congestive heart failure. INFECTIOUS DISEASE HISTORY: Positive for pneumonia, urinary tract infection and bacteremia with E coli. FAMILY HISTORY: Positive for hypertension and myocardial infarction. SOCIAL HISTORY: The patient lives in [place]. She is . The patient does not have any pets at home. She does not smoke cigarettes, drink alcoholic beverages or abuse drugs. ALLERGIES: She has no known drug allergies. HOME MEDICINES: Include the following: Norvasc, Eliquis, Abilify, Celexa, Cardizem, Neurontin, hydrocodone, metoprolol, Protonix, MiraLAX and Crestor. PHYSICAL EXAMINATION: Vital Signs: Temperature is 100.3, pulse 78, respirations 20, blood pressure 119/57. General: This is a somewhat ill-appearing elderly female. She is in no acute distress. Head, Eyes, Ears, Nose and Throat: She can hear my spoken words and see near objects. She does not have any white patches on her tongue. Neck: There is no pain when she moves it. Lungs: Clear to auscultation. Cardiovascular: Regular heart rate. Abdomen: Soft and nontender. Extremities: The patient's right heel has erythema and in the central there is an eschar with zero purulent drainage. Neurologic: The patient is alert. She can move her extremities. She is able to ambulate. There is no tremor. Integument: No rash. Thank you for the consult. cc: Kvng Funk MD [facility]
[2019-02-13] MEDS: INVANZ 1 GM/NS 1 GM/50 ML IVPB IV SCH (16:52)
[2019-02-13] MEDS: ICAR-C PO SCH (20:09)
[2019-02-14] MEDS: PROTONIX PO SCH (06:21)
[2019-02-14 07:22] LABS: INR 1.46; PROTIME 18.9 Seconds (11.0-16.0)
[2019-02-14] MEDS: CARDIZEM CD PO SCH (08:11)
[2019-02-14] MEDS: CRESTOR PO SCH (08:11)
[2019-02-14] MEDS: NEURONTIN PO SCH ×3 (08:11→20:00)
[2019-02-14] MEDS: LOVENOX SUBQ SCH (08:11)
[2019-02-14] MEDS: MAG-OX PO SCH ×2 (08:12→20:00)
[2019-02-14] MEDS: TOPROL XL PO SCH ×2 (08:12→21:37)
[2019-02-14] MEDS: ICAR-C PO SCH ×2 (08:12→20:00)
[2019-02-14] MEDS: SANTYL OINT TOP SCH (08:12)
[2019-02-14] MEDS: ABILIFY PO SCH (08:12)
[2019-02-14] MEDS: NORVASC PO SCH ×2 (08:12→20:00)
[2019-02-14] MEDS: CELEXA PO SCH (08:12)
--- NOTE | 2019-02-14 13:37 | PROGRESS NOTE ---
DATE: 02/14/2019 SUBJECTIVE: The patient is resting in bed and she is wanting to be discharged to home. OBJECTIVE: Vital Signs: Temperature is 100.4, pulse 54, respiratory rate is 18, blood pressure is 109/51, oxygen saturation is 98%. HEENT: Atraumatic, normocephalic. Cardiovascular System: S1 and S2. Respiratory System: Has evidence of good air entry bilaterally. Abdomen: Soft, nontender. No masses felt. Extremities: Wound site of the right foot is dressed. Central Nervous System: No obvious focal deficit noted. Laboratory Data: INR is 1.46. ASSESSMENT AND PLAN: 1. Infected right heel ulcer. Continue local wound care as well as antibiotic management. 2. Hypomagnesemia, resolved. 3. Hypocalcemia with low vitamin D level. Continue vitamin D replacement. 4. Hypertension. Continue current antihypertensive regimen. 5. Atrial fibrillation. Continue rate controlling agent as well as anticoagulation. 6. Congestive heart failure, compensated. Monitor intakes and outputs, as well as daily weights. Use diuretics if needed. 7. Dyslipidemia. Continue rosuvastatin. 8. Gastroesophageal reflux disease. Continue pantoprazole. 9. Iron deficiency anemia. Continue oral iron supplementation. The patient will need a gastrointestinal workup in the outpatient for endoscopic studies (gastrointestinal to rule out any occult bleed from the gastrointestinal system). cc: Wilbert Ron MD
[2019-02-14] MEDS: INVANZ 1 GM/NS 1 GM/50 ML IVPB IV SCH (16:36)
--- NOTE | 2019-02-14 17:32 | INFECTIOUS DISEASE PROGRESS NO ---
DATE: 02/14/2019 PRESENT ILLNESS: The patient has an extended spectrum beta lactamase producing E. coli cellulitis of her heel. On MRI there is no evidence of osteomyelitis. The patient may have an immunoglobulin deficiency. MEDICATIONS: The patient is receiving ertapenem in a dose of 1 g IV daily. PHYSICAL EXAMINATION: Vital Signs: Temperature is 100.4 degrees, pulse 77, respirations 16, blood pressure 111/47. General: This is an obese, elderly female. She is in no acute distress. Head, eyes, ears, nose, throat: She can hear my spoken words and see near objects. She does not have any white coating on her tongue. Neck: No pain with movement. Lungs: Clear to auscultation. Cardiovascular: Regular heart rate. Abdomen: Soft and nontender. Extremities: I removed the dressing from the patient's right foot. The heel wound is erythematous and has a small eschar in the middle. Altogether it looks better than it did yesterday. LAB AND X-RAY: CBC today shows a white count of 4,980, hemoglobin 8.8, and platelet count 192,000. Creatinine is 0.7. GFR is greater than 60. Blood and urine cultures are sterile. Immunoglobulin levels were ordered, but they are not yet back. ASSESSMENT AND PLAN: Patient has Escherichia coli cellulitis of the right heel. My plan is to continue ertapenem for a total of 2 weeks through a PICC with home IV antibiotics. I have requested the patient to come to my office in 2 weeks, at which time she will be examined and the PICC will be removed if the wound looks good. COMORBIDITIES: The patient is elderly and she has congestive heart failure. cc: Kvng Funk MD [facility]
[2019-02-14] MEDS: ELIQUIS PO SCH (20:00)
[2019-02-15] MEDS: PROTONIX PO SCH (06:20)
[2019-02-15] MEDS ORDERED: NS 250 ML ONE (08:53)
[2019-02-15] MEDS: ABILIFY PO SCH (10:08)
[2019-02-15] MEDS: ICAR-C PO SCH (10:09)
[2019-02-15] MEDS: ELIQUIS PO SCH (10:09)
[2019-02-15] MEDS: NORVASC PO SCH (10:09)
[2019-02-15] MEDS: CARDIZEM CD PO SCH (10:09)
[2019-02-15] MEDS: MAG-OX PO SCH (10:09)
[2019-02-15] MEDS: NEURONTIN PO SCH (10:09)
[2019-02-15] MEDS: TOPROL XL PO SCH (10:09)
[2019-02-15] MEDS: CELEXA PO SCH (10:09)
[2019-02-15] MEDS: CRESTOR PO SCH (10:09)
[2019-02-15] MEDS: SANTYL OINT TOP SCH (10:10)
[2019-02-15] MEDS ORDERED: LASIX PO SCH (11:45)
[2019-02-15 11:50] VITALS: BP 115/56
--- NOTE | 2019-02-15 17:21 | GENERAL SURGERY PROGRESS NOTE ---
DATE: 02/15/2019 SUBJECTIVE/OBJECTIVE: Doing well. Santyl being placed over the right heel. The slough and necrotic tissue have debrided well. There is no infection. There is no purulence. It is granulating. No fevers. No tachycardia. I reviewed her labs. Electrolytes are improved. ASSESSMENT/PLAN: An 83-year-old female with decubitus wound to her right heel. Would continue enzymatic debridement. I can follow her at the [facility] in 2 weeks. She may require some excisional debridement, but in the meantime we will continue strict offloading and Santyl debridement. cc: Ashley Morris MD
--- NOTE | 2019-02-15 21:55 | DISCHARGE SUMMARY ---
ADMISSION DATE: 02/10/2019 DISCHARGE DATE: 02/15/2019 DISPOSITION: Home. FOLLOWUP: 1. Dr. Kvng Funk. 2. Dr. Sanam Murry. 3. Dr. Morris. 4. Home health agency. CONSULTATIONS DURING THIS ADMISSION: 1. Infectious disease was consulted. The patient was seen by Dr. Funk. 2. Surgery was consulted. The patient was seen by Dr. Morris. PROCEDURES DONE DURING THIS ADMISSION: None. IMAGING STUDIES OF SIGNIFICANCE: 1. A chest x-ray was done on presentation which showed pulmonary venous congestion and pulmonary edema. 2. An MRI of the lower extremity showed no evidence of acute bony abnormality. ADMISSION DIAGNOSES: 1. Extended-spectrum beta-lactamase infection of the right heel wound. 2. Electrolyte abnormality. 3. History of atrial fibrillation. 4. Congestive heart failure. 5. Anxiety and depression. DIAGNOSES AT THE TIME OF DISCHARGE: 1. Severe hypomagnesemia associated with other electrolyte abnormalities. This was corrected with IV supplementations. 2. Extended-spectrum beta-lactamase infection of right heel wound. 3. Fluid overload secondary to congestive heart failure, with preserved ejection fraction. We will continue with diuretic therapy. 4. Chronic atrial fibrillation, currently rate controlled. 5. Hypertension. 6. Vitamin D deficiency. 7. Anemia of chronic disease. 8. Dyslipidemia. 9. Chronic anticoagulation therapy with Eliquis. DISCHARGE MEDICATIONS: 1. Gabapentin 300 three times per day. 2. Abilify 2 mg p.o. daily. 3. Citalopram 20 mg daily. 4. Eliquis 5 mg b.i.d. 5. Crestor 20 mg daily. 6. Pantoprazole 40 mg daily. 7. Diltiazem 120 mg daily. 8. Metoprolol 50 mg b.i.d. 9. Eliquis 5 mg b.i.d. 10. Furosemide 20 mg daily. 11. Ergocalciferol 5000 units p.o. daily every 7 days. 12. Magnesium oxide 400 b.i.d. 13. Losartan 25 mg p.o. daily. MEDICATION THAT HAS BEEN DISCONTINUED: Amlodipine. PRESENTING COMPLAINT: Abnormal electrolytes at home. HISTORY OF PRESENTING COMPLAINT: Ms. Carson is an 83-year-old female who has been in and out of the hospital for the past couple of months. The patient was actually discharged from the hospital on January 10, 2019, after spending almost 3 weeks. She went to a rehab center where she was there for over 21 days and then went home. At home, she followed up with her primary care doctor who ordered some labs and found out that her magnesium was extremely low, so the patient was advised to come to the emergency room where she was evaluated and found to have a magnesium of 0.9. Ms. Carson was subsequently admitted for further medical management. HOSPITAL COURSE: The patient did pretty well during the hospital stay. All the electrolyte abnormalities were corrected, and she was started on p.o. magnesium which she seems to be tolerating well. During the hospital course, she was also found to have an ESBL infection of the right heel, and ID and Surgery were consulted. The patient was seen by them respectively. A decision was made to continue with wound care and also treat with IV antibiotics for about 14 days for the infection in the heel. This morning, Ms. Carson is clinically stable. However, she is found to have some edema, especially around the abdominal wall, and she also has congestion in the lungs. She has been started on Lasix which ultimately can also deplete her electrolytes. She has been advised to continue with the replacement of the magnesium and potassium to avoid any further decline. Ms. Carson is also advised to continue with the IV antibiotics for 14 days as recommended by ID. She will be followed up with the [facility]. All the discharge instructions have been discussed with Ms Carson and the family members (daughter and ) who were at the bedside at the time of the encounter. All of them voiced understanding. DISCHARGE TIME: 36 minutes. cc: MD Kvng Machado MD Lindsay E. Smith, MD
--- NOTE | 2019-02-17 01:24 | VASCULAR LAB ---
PROCEDURE NAME: Arterial Bilateral Legs - 02/11/2019 PROCEDURE: Lower extremity arterial study. REFERRING PHYSICIAN: Wilbert Ron MD. READING PHYSICIAN: Edis Reyna MD. VOCAL ARTIST: Maria T West RVT. INDICATION: Right heel ulcer. FINDINGS: The pulse volume waveforms showed pulsatile flow that is noted to be blunted at the calf and ankle level, more so on the right than the left. Segmental pressures right brachial 121, high thigh 192, low thigh 236, popliteal 165, dorsalis pedis 75, posterior tibial 135, toe pressure 54, SHAMEKA 1.1. Left brachial pressure 115, high thigh 190, low thigh 197, popliteal 165, dorsalis pedis 131, posterior tibial 146, toe pressure 56, SH[place] 1.2. INTERPRETATION: There is probable some bilateral disease below the knee, perhaps somewhat worse on the right side, although there appears to be adequate flow for healing in the foot. cc: MD Wilbert Jara MD
[2019-02-17] MEDS ORDERED: VITAMIN D PO SCH (14:15)
== END 2019-02-15 14:02 | disposition home health service (06) | DRG 593 ==
LOC: SUATTDRO 15:19 → DIRADM 15:19 → 3N 16:11
PROVIDERS: ATTEND Internal Medicine
CPT/HCPCS: 36569; 71020; 71046; 73720; 80048; 80053; 81001; 82270; 82306; 82330; 82550; 82607; 82728; 82746; 82784; 83036; 83540; 83550; 83605; 83735; 83880; 83970; 84443; 84484; 85025; 85610; 85730; 87040; 87070; 87077; 87088; 87186; 93005; 93010; 93923; 94761; 94799; A9270; A9579; J0610; J1335; J1650; J3475; J3480; J7050

== ENCOUNTER 2019-03-01 22:11 | Inpatient (IN) ==
[2019-03-01] MEDS ORDERED: DUONEB (A & A) INH ONE (23:06)
[2019-03-01] MEDS ORDERED: DECADRON IV ONE (23:06)
[2019-03-01] MEDS ORDERED: PULMICORT INH ONE (23:06)
[2019-03-01 23:26] LABS: BASO# 0.03 X1000 (0.0-0.2); BASO% 0.4 % (0.0-0.8); EOS% 3.9 % (0.0-10.0); HEMATOCRIT 31.8 % (37.0-47.0); HEMOGLOBIN 9.7 g/dL (12.0-16.0); LYMPH# 1.69 X1000 (1.2-3.4); MCH 29.4 PG (27-31); MCHC 30.5 g/dL (33-37); MCV 96.4 FL (81-99); MONO# 0.63 X1000 (0.11-0.59); MONO% 8.2 % (1.7-9.3); MPV 11.3 FL (7.4-10.4); NEUT# 5.04 X1000 (1.4-6.5); NEUT% 65.5 % (42.2-75.2); PLT 277 X1000 (130-400); RDW 15.4 % (11.5-14.5); WBC 7.69 X1000 (4.8-10.8)
[2019-03-01 23:43] LABS: AGAP 11; ALBUMIN 2.6 g/dL (3.5-5.0); ALKALINE PHOSPHATASE 92 U/L (32-104); BUN 8 mg/dL (8-22); CALCIUM 7.9 mg/dL (8.8-10.2); CHLORIDE 104 mmol/L (98-107); COSMO 285; CREATININE 0.7 mg/dL (0.5-0.9); ESTIMATED GFR > 60; GLUCOSE 124 mg/dL (70-104); GOT 22 U/L (10-30); GPT 10 U/L (10-36); POTASSIUM 3.7 mmol/L (3.5-5.1); SODIUM 143 mmol/L (136-145); TCO2 28 mmol/L (25-35); TOTAL BILIRUBIN 0.22 mg/dL (0.20-1.00); TOTAL PROTEIN 5.2 g/dL (6.3-8.3)
[2019-03-01 23:48] LABS: ALLEN TEST YES; BE 5.1 mmoll (-3.0-3.0); BLOOD TYPE ARTERIAL; HCO3-(ACT) 28.9 mmoll (20.0-26.0); METHB 1.2 % (0.0-1.5); O2(CT) 13.1 mL/dL (15.0-23.0); O2HB 94.2 % (95.0-99.0); PCO2(98.6) 51 mmHg (35-45); PO2(98.6) 79 mmHg (60-100); SAMPLE BLOOD; SAO2 96.9 % (95.0-100.0); THB 9.8 g/dL (11.5-17.4); pH(98.6) 7.39 (7.35-7.45)
[2019-03-01 23:49] LABS: MODALITY CANNULA
[2019-03-02] MEDS ORDERED: QUELICIN ONE (00:41)
[2019-03-02] MEDS ORDERED: AMIDATE ONE (00:41)
[2019-03-02] MEDS ORDERED: DIPRIVAN 1% 1,000 MG/100 ML BOTTLE ONE (00:42)
[2019-03-02] MEDS ORDERED: ROCEPHIN IV ONE (00:47)
[2019-03-02] MEDS ORDERED: VANCOMYCIN 1 GM/NS 1 GM/250 ML IVPB IV ONE (00:47)
[2019-03-02] MEDS ORDERED: NS 1,000 ML IV ONE (00:48)
[2019-03-02] MEDS ORDERED: DIPRIVAN 1% IV ONE (00:50)
[2019-03-02] MEDS: DIPRIVAN 1% 1,000 MG/100 ML BOTTLE IV SCH ×6 (00:55→22:15)
[2019-03-02] MEDS ORDERED: QUELICIN IV ONE (01:18)
[2019-03-02] MEDS ORDERED: AMIDATE IV ONE (01:18)
--- NOTE | 2019-03-02 03:01 | PROVIDER DOCUMENTATION ---
This chart was entered by Kvng Lyons Scribe, acting as scribe for Carlee Rosenberg MD. HPI-Respiratory General - General Chief Complaint: Foreign Body/Throat Stated Complaint: POSSIBLE ASPIRATION Time Seen by Provider: 03/01/19 22:59 Source: patient Allergies/Adverse Reactions: Patient Allergies Allergy/AdvReac Type Severity Reaction Status Date / Time No Known Allergies Allergy Verified 02/16/19 01:06 Home Medications: Home Medication List Medication Instructions Recorded Confirmed Last Taken Type Gabapentin [Neurontin] 300 mg PO TID 08/18/12 02/15/19 02/15/19 History ROSUVAstatin [Crestor] 1 tab PO DAILY 12/08/18 02/15/19 02/15/19 History Pantoprazole [Protonix] 40 mg PO DAILY@0700 #30 tab 12/11/18 02/15/19 02/15/19 Rx Metoprolol Succinate E.r. [Toprol 50 mg PO BID tablet 01/10/19 02/15/19 02/15/19 Rx Xl] Polyethylene Glycol 3350 [Miralax] 17 gm PO PRN PRN 02/10/19 02/15/19 02/15/19 History Apixaban [Eliquis] 5 mg PO BID #0 tab 02/15/19 02/15/19 02/15/19 Rx Ergocalciferol (Vitamin D2) 50,000 unit PO Q7D #12 cap 02/15/19 02/15/19 02/15/19 Rx [Vitamin D] Iron Carbonyl/Ascorbic Acid 1 ea PO BID #120 tab 02/15/19 02/15/19 02/15/19 Rx [Icar-C] Magnesium Oxide [Mag-Ox] 400 mg PO BID #120 tab 02/15/19 02/15/19 02/15/19 Rx Acetaminophen [Tylenol] 650 mg PO Q6H PRN PRN tab 02/18/19 Unknown Rx Aspirin 81 mg PO DAILY chewtab 02/18/19 Unknown Rx Citalopram [Celexa] 20 mg PO DAILY #30 tab 02/18/19 Unknown Rx Collagenase Clostridium Oint 1 applic TOP DAILY #1 oint 02/18/19 Unknown Rx [Santyl Oint] Digoxin [Lanoxin] 125 microgm PO DAILY #90 tab 04/05/19 Unknown Rx Furosemide [Lasix] 20 mg PO DAILY tab 02/18/19 Unknown Rx Hydrocodone/APAP 7.5 mg/325 mg 1 ea PO Q6H PRN PRN #10 tab 02/18/19 Unknown Rx [[place]-7.5] - History of Present Illness-Resp Nature of Presenting Problem: Pt is a 83 yo F at a shelter [facility]hab and tonight taking her medication she get chocked on them becoming SOB. Severity in ED: reports: severe Onset/Duration: reports: this evening Timing: reports: still present Cough Quality/Degree: reports: dry cough Current Respiratory Medication Therapy: Initiated see nurses note Modifying Factors: improves with: oxygen Associated Symptoms: reports: cough, shortness of breath. denies: fever/chills, short of breath Similar Symptoms Previously?: No Recently seen or treated by another doctor?: No Review of Systems - Adult - REVIEW OF SYSTEMS - ADULT Constitutional: denies: fever Respiratory: reports: cough, shortness of breath. denies: dyspnea on exertion, wheezing Gastrointestinal: denies: abdominal pain, nausea, vomiting Genitourinary: denies: dysuria, discharge Musculoskeletal: denies: back pain, neck pain Neurological: denies: dizziness/vertigo, headache/migraines Past History - Adult - PAST MEDICAL HISTORY-ADULT Review of Records: reports: Old Records Reviewed, Nursing Assessment Review, Medications Reviewed Major Childhood Illnesses: reports: denies history Cardiovascular: reports: HTN, hyperlipidemia Respiratory: reports: denies history Gastrointestinal: reports: GERD Obstetrical/Gynecological: reports: denies history Genitourinary: reports: denies history Musculoskeletal: reports: denies history Neurological: reports: denies history Psychiatric: reports: anxiety, depression Endocrine/Immune: reports: denies history Other Conditions: reports: cataract/glaucoma, other (HERNIA) - PRIOR SURGERIES/PROCEDURES Surgical/Procedure History: reports: orthopedic (extremity), other (CATARACT, stomach surgery) - IMMUNIZATION STATUS Childhood Immunizations: See Nurse Assessment Flu Vaccine: See Nurse Assessment - FAMILY HISTORY Family History: reviewed, not pertinent - SOCIAL HISTORY Smoking: non-smoker Substance Use: none/never Living Situation: care facility Physical Exam-General - PHYSICAL EXAM-ADULT Initial Vital Signs Reviewed: Yes - CONSTITUTIONAL General Appearance: appears well, alert, no apparent distress, other (Voice is coarse sounding) - EYES Eyes: PERRL/EOMI, pink conjunctivae - HEAD, EARS, NOSE, MOUTH & THROAT HENMT: moist mucous membranes, normal ENT inspection, TMs normal, pharynx normal - NECK Neck: non-tender, full range of motion, supple, normal inspection - RESPIRATORY Respiratory: lungs clear, normal breath sounds, other (On nonrebreather mask SAT 99-100, offf mask O2 FALLS TO 89) - CARDIOVASCULAR Cardiovascular: normal peripheral pulses, tachycardia - GASTROINTESTINAL (ABDOMEN) Abdominal Exam: normal bowel sounds, non tender, soft - MUSCULOSKELETAL Back Exam: normal inspection, no CVA tenderness, no vertebral tenderness Extremity: non-tender, pedal edema, swelling - SKIN Integumentary: normal color, normal turgor, warm/dry - NEUROLOGIC Neurologic: grossly normal, no motor/sensory deficits - PSYCHIATRIC Psych/Mental Status: normal mood/affect, normal thought content, normal thought process, oriented x 3 Progress - PLAN OF CARE/RESULTS Progress/Plan/Lab Results: Vital Signs - 8 hr 03/01/19 22:11 03/01/19 23:56 03/02/19 00:57 Temperature 99.0 F Pulse Rate 87 90 88 Respiratory Rate 19 17 16 Blood Pressure 121/70 O2 Sat by Pulse Oximetry 81 L 98 97 Laboratory Results - last 24 hr 03/01/19 03/01/19 03/01/19 22:38 22:38 22:38 WBC 7.69 RBC 3.30 L Hgb 9.7 L Hct 31.8 L MCV 96.4 MCH 29.4 MCHC 30.5 L RDW Std Deviation 15.4 H Plt Count 277 MPV 11.3 H Neut % (Auto) 65.5 Lymph % (Auto) 22.0 Luce % (Auto) 8.2 Eos % (Auto) 3.9 Baso % (Auto) 0.4 Neut # (Auto) 5.04 Lymph # (Auto) 1.69 Luce # (Auto) 0.63 H Eos # (Auto) 0.30 Baso # (Auto) 0.03 Specimen Type Sample Site pH pCO2 pO2 HCO3 Base Excess Oxyhemoglobin ABG O2 Sat (Calculated) ABG O2 Saturation ABG Carboxyhemoglobin ABG Methemoglobin Agustin Test A-a O2 Difference Total Hemoglobin Lactate Liter Flow Blood Gas Modality FiO2 % Sodium 143 Potassium 3.7 Chloride 104 Carbon Dioxide 28 Anion Gap 11 BUN 8 Creatinine 0.7 Estimated GFR/1.73 m2 > 60 BUN/Creatinine Ratio 11 Glucose 124 H Calculated Osmolality 285 Calcium 7.9 L Total Bilirubin 0.22 AST 22 ALT 10 Alkaline Phosphatase 92 Troponin T Total Protein 5.2 L Albumin 2.6 L Globulin 2.6 Albumin/Globulin Ratio 1.0 Plasma Lactate 1.4 03/01/19 03/01/19 22:38 23:38 WBC RBC Hgb Hct MCV MCH MCHC RDW Std Deviation Plt Count MPV Neut % (Auto) Lymph % (Auto) Luce % (Auto) Eos % (Auto) Baso % (Auto) Neut # (Auto) Lymph # (Auto) Luce # (Auto) Eos # (Auto) Baso # (Auto) Specimen Type ARTERIAL Sample Site R RADIAL pH 7.39 pCO2 51 H* pO2 79 HCO3 28.9 H Base Excess 5.1 H Oxyhemoglobin 94.2 L ABG O2 Sat (Calculated) 13.1 L ABG O2 Saturation 96.9 ABG Carboxyhemoglobin 1.60 ABG Methemoglobin 1.2 Agustin Test YES A-a O2 Difference 114.0 Total Hemoglobin 9.8 L Lactate 1.10 Liter Flow 4.0 Blood Gas Modality CANNULA FiO2 % 36.0 Sodium Potassium Chloride Carbon Dioxide Anion Gap BUN Creatinine Estimated GFR/1.73 m2 BUN/Creatinine Ratio Glucose Calculated Osmolality Calcium Total Bilirubin AST ALT Alkaline Phosphatase Troponin T 0.079 Total Protein Albumin Globulin Albumin/Globulin Ratio Plasma Lactate Orders Category Date Time Status [place] Cath Insertion ORDERED Care 03/02/19 02:01 Active Oxygen Therapy- ED Nursing DIRECTED Care 03/01/19 23:03 Active CHEST-PORTABLE [RAD] Stat Exams 03/01/19 23:04 Taken ABG [RESP] Routine Lab 03/01/19 23:38 Completed BLOOD CULTURE [BLDCUL] Stat Lab 03/01/19 22:47 Results CBC WITH ELECTRONIC DIFF [HEME] Stat Lab 03/01/19 22:38 Completed CMP [COMPREHENSIVE METABOLIC PANEL] [CHEM] Stat Lab 03/01/19 22:38 Completed LACTATE, PLASMA [CHEM] Stat Lab 03/01/19 22:38 Completed TROPONIN T Stat Lab 03/01/19 22:38 Completed 0.9% Sodium Chloride Inj [Ns] 1,000 ml Med 03/02/19 00:48 Discontinued IV 999 mls/hr Albuterol 2.5MG/Ipratrop 0.5MG [Duoneb (A & A)] Med 03/01/19 23:06 Discontinued 3 ml INH NOW ONE Budesonide [Pulmicort] Med 03/01/19 23:06 Discontinued 0.5 mg INH NOW ONE CefTRIAXONE [Rocephin] Med 03/02/19 00:47 Discontinued 1 gm IV NOW ONE Dexamethasone [Decadron] Med 03/01/19 23:06 Discontinued 10 mg IV NOW ONE Etomidate [Amidate] Med 03/02/19 01:18 Discontinued 10 mg IV NOW ONE Etomidate [Amidate] Med 03/02/19 00:41 Discontinued 40 mg .ROUTE .STK-MED ONE Propofol [Diprivan 1%] Med 03/02/19 00:50 Discontinued 10 mg IV STAT ONE Propofol [Diprivan 1%] Med 03/02/19 00:42 Discontinued 1,000 mg in 100 ml .ROUTE As directed Propofol [Diprivan 1%] Med 03/02/19 00:38 Active 1,000 mg in 100 ml IV As Directed mls/hr Succinylcholine [Quelicin] Med 03/02/19 00:41 Discontinued 200 mg .ROUTE .STK-MED ONE Succinylcholine [Quelicin] Med 03/02/19 01:18 Discontinued 75 mg IV NOW ONE Vancomycin 1 gm/Ns Med 03/02/19 00:47 Discontinued 1 gm in 250 ml IV NOW Aerosol Treatments Routine Oth 03/01/19 23:06 Completed Aerosol Treatments Stat Oth 03/01/19 23:03 Completed Aerosol Treatments Stat Oth 03/01/19 23:06 Completed Asthma/COPD (Adult) Stat Oth 03/01/19 23:02 Ordered EKG [EKG] Stat Ther 03/01/19 23:05 Ordered Result Diagrams: 03/01/19 22:38 03/01/19 22:38 - REASSESSMENT Reassessment #1 Time Reassessed: 00:36 (Pt respiratory status chaged SAT dropped in the 60's) Status: worsening - EKG 1 Time of EKG reading by physician:: 23:27 EKG Read and Signed by:: Carlee Rosenberg EKG Interpretation (*Must complete 3 of following elements*): Abnormal Rate: 99 Rhythm: NSR Comments: cannot rule out inferior infarct - XRAY 1 XRAY Study: Chest Impression: Abnormal (left lobe is white) - CONSULTS/PCP/HOSPITALIST Notification #1 *Consult/PCP/Hospitalist*: Okinedo Time Discussed: 03:00 Consult Disposition: Will see in ED, Admit Procedures - INTUBATION Time of Intubation: 00:45 Airway Evaluation: Copious Secretions Intubation Method: orotracheal Equipment: Glidescope Tube Size (cm): 7.0 Pretreated with 100% Oxygen?: Yes Breath Sounds after Intubation: equal ETT Primary Tube Confirmation: Capnometry CO2 Change, Chest Rise and Fall, Tube placement verified on XRAY Intubation Complications: no complications - PROCEDURAL SEDATION Procedure, Risk, Benefits and Alternatives discussed with:: Patient Consent Form Signed?: Yes Sedation type:: moderate Prior complications to general anesthesia?: No Prior complications to procedural sedation?: No Airway Physical Exam: normal anatomy Sedation: etomidate (10 mg), other (succs 75mg) Reversal: none Complications during/after procedure?: none Departure - Departure Date of Disposition Decision: 03/02/19 Time of Disposition Decision: 02:59 DIAGNOSIS: Respiratory failure Disposition: ADMITTED INPATIENT 09 Certified Medical Emergency: Emergent Condition: Good Referrals and Follow-Ups: Sanam Murry MD [Primary Care Provider] - - Critical Care Note This patient required my direct & personal management of CC.: Yes Total Time (mins): 45 (Pt required intubation) Critical Care Statement: This patient required my direct personal management to treat or rule out processes, the absence of which, could potentiallly result in sudden, clinically significant life or limb threatening deterioration. Attestation - Physician/ THANIA Attestation Patient care was provided by Advanced Practice Provider:: No The physician spent face to face time with patient:: Yes Advanced Practice Provider documentation review:: Supervising physician onsite and consulted in the evaluation and care of this patient. The physician did have a face to face encounter with the patient. This chart was documented by the indicated scribe, (Kvng Lyons Scribe) and accurately reflects the services I performed and decisions made by me, Carlee Rosenberg MD, as attested by the provider's signature.
[2019-03-02] MEDS ORDERED: ZOFRAN IV PRN (03:08)
[2019-03-02] MEDS: LOVENOX SUBQ SCH (04:55)
[2019-03-02] MEDS: NS 1,000 ML IV SCH ×2 (04:55→21:08)
[2019-03-02 05:24] LABS: ALLEN TEST YES; BE 2.5 mmoll (-3.0-3.0); BLOOD TYPE ARTERIAL; HCO3-(ACT) 26.9 mmoll (20.0-26.0); METHB 1.4 % (0.0-1.5); O2(CT) 13.1 mL/dL (15.0-23.0); O2HB 96.7 % (95.0-99.0); PCO2(98.6) 36 mmHg (35-45); PO2(98.6) 156 mmHg (60-100); SAMPLE BLOOD; SAO2 99.2 % (95.0-100.0); SRATE 16 BPM; THB 9.4 g/dL (11.5-17.4); TVOL 500 mL; pH(98.6) 7.47 (7.35-7.45)
[2019-03-02 05:26] LABS: MODALITY VENTILATOR
[2019-03-02] MEDS: ZOSYN 3.375 GM in NS 50 ML IV SCH ×4 (05:30→21:08)
[2019-03-02 05:56] LABS: URINE SOURCE CATH
[2019-03-02 06:00] LABS: BILIRUBIN URINE NEGATIVE (NEGATIVE); BLOOD URINE NEGATIVE (NEGATIVE); COLOR YELLOW; GLUCOSE URINE NEGATIVE (NEGATIVE); KETONE URINE NEGATIVE (NEGATIVE); LEUKOCYTES URINE NEGATIVE (NEGATIVE); NITRITE URINE NEGATIVE (NEGATIVE); PH URINE 6.5; PROTEIN URINE TRACE mg/dL (NEGATIVE); SP GRAVITY URINE 1.009; TURBIDITY URINE CLEAR (CLEAR); UROBILINOGEN URINE NORMAL (NORMAL)
[2019-03-02 06:01] LABS: UR EPITHELIAL CELLS <10 /HPF (<10); URINE BACTERIA NEGATIVE /HPF; URINE RBC <10 /HPF (<10); URINE WBC <10 /HPF (<10)
--- NOTE | 2019-03-02 06:26 | Diag Imaging Result Doc PS360 ---
CHEST-PORTABLE - 03/01/2019 INDICATION: Possible Aspiration of pills COMPARISON: 02/17/2019 FINDINGS: Stable right PICC line in good position. There is worsening opacification of the left lung base with some volume loss and mild deviation of the mediastinum to the left. There is worsening pulmonary vascular congestion bilaterally. Stable cardiomegaly. Stable hiatal hernia. IMPRESSION: Atelectasis of the left lung base. This may be the result of airway obstruction. Worsening pulmonary vascular congestion. Electronically signed by Kennedy Santiago 03/02/2019 6:24 AM
[2019-03-02] MEDS: DUONEB (A & A) INH SCH ×4 (06:28→21:27)
--- NOTE | 2019-03-02 06:55 | HISTORY AND PHYSICAL ---
CHIEF COMPLAINT: Respiratory distress. HISTORY OF PRESENT ILLNESS: This is an 83-year-old female who was brought in from [facility] of [facility]. Apparently she took some medications, several at one time, began choking, having shortness of breath while swallowing them. She had decreased oxygen levels and was brought into the emergency room for evaluation. Her oxygen saturations dropped down into the 60s while in the emergency room and she was intubated and mechanically ventilated at that point. Chest x-ray showed a left-sided infiltrate that compromising the entire lower lobe and some of the upper lobe of the lung. It appears to be aspiration pneumonia. She will be admitted to the ICU for further evaluation and treatment. PAST MEDICAL HISTORY: 1. Hypertension. 2. Hyperlipidemia. 3. Prior DVT. 4. Diastolic heart failure. 5. Atrial fibrillation. 6. Right heel cellulitis. 7. Left foot decubitus. 8. Bacteremia with ESBL positive E. coli. PREVIOUS SURGICAL HISTORY: 1. Bilateral cataract surgery. 2. Lap Latia fundoplication. SOCIAL HISTORY: No alcohol, tobacco or illicit drugs. She has been in [facility], I believe, since close to the beginning of 2019. FAMILY HISTORY: Cannot be reviewed as patient is sedated and intubated. Old charting shows that she had no history of heart disease in the family. ALLERGIES: No known drug allergies. HOME MEDICATIONS: A list of home medications has not been reconciled. An order was placed for nursing to reconcile home medications from the snf. The daughter did not know what medications the patient took. PHYSICAL EXAMINATION: VITAL SIGNS: Temp 98.2 degrees, pulse 81, respirations 16, blood pressure 113/66, oxygen saturation 99% on 70% mechanical ventilation. GENERAL: 83-year-old female lying in the ER stretcher intubated and sedated, in no acute distress. HEENT: Head is atraumatic and normocephalic. Pupils equal, round and reactive to light. Extraocular eye movements intact. Sclerae anicteric. Conjunctivae is mildly pale. Oral mucosa is moist. NECK: Supple. No JVD. No thyromegaly. Trachea is midline. No cervical lymphadenopathy. ET tube noted. CARDIAC: S1, S2 appreciated. No murmurs, gallops, rubs. Rhythm is regular. ABDOMEN: Protuberant, soft, nondistended, nontender. Bowel sounds present in all 4 quadrants. Normoactive. No pulsatile masses or organomegaly. EXTREMITIES: 1+ pitting edema up to knees. 2+ pedal pulses. Decubitus and ulceration noted on bilateral heels. NEUROLOGICAL: Intubated and sedated. Cannot be further assessed. DIAGNOSTIC DATA: Chest x-ray shows a dense left-sided infiltrate in the lower lobe extending into the upper lobe. LABORATORY DATA: WBC 7.69, hemoglobin 9.7, hematocrit 31.8, platelet count 277,000. ABG, pH on 70% mechanical ventilation 7.47, PCO2 36, bicarb 26.9, PO2 156. Sodium 143, potassium 3.7, chloride 104, carbon dioxide 28, BUN 8, creatinine 0.7, glucose 124. Urine unremarkable. ASSESSMENT AND PLAN: 1. Aspiration pneumonia. Patient is mechanically ventilated. We will start Zosyn. She was given vancomycin and Rocephin in the emergency room. We will consult Dr. Kvng Funk not for the aspiration pneumonia but for antibiotic therapy as he was treating the patient with IV antibiotics for her heel wound. I am unsure of which antibiotics at this time. We will also consult Dr. Paz for ventilation management. 2. Heel ulceration. See consultation and antibiotic note above. 3. Acute respiratory failure secondary to #1. 4. Chronic diastolic heart failure. We will continue home medications. 5. Vitamin D deficiency. Continue home medications when available. 6. Hypertensive heart disease. Continue home medications when reconciled; however, she is not hypertensive at this time. Further recommendations per patient's clinical course. Dictated by LAYO Ch for Wilbert Ron MD cc: LAYO Ch MD Patient seen and examined by me. Presenting with respiratory distress , CXR shows left lung infiltrate. Diagnosed with aspiration pneumonia. I agree with the assessment and plan of the APPLIED COMPUTER SCIENCE PROFESSOR. Dr. Ariadne CASTRO
--- NOTE | 2019-03-02 07:16 | EKG Report ---
Test Performed on : 03/01/2019 11:27:33 PM Test Reason : SOB Blood Pressure : / mmHG Vent. Rate : 099 BPM Atrial Rate : 099 BPM P-R Int : 188 ms QRS Dur : 080 ms QT Int : 344 ms P-R-T Axes : 092 016 -09 degrees QTc Int : 441 ms Normal sinus rhythm. Cannot rule out Inferior infarct , age undetermined Abnormal ECG When compared with ECG of 15-FEB-2019 20:51, (Unconfirmed) premature atrial complexes. are no longer present Nonspecific T wave abnormality now evident in Anterior leads Unconfirmed Result
[2019-03-02 08:32] LABS: BASO# 0.02 X1000 (0.0-0.2); BASO% 0.4 % (0.0-0.8); HEMATOCRIT 32.5 % (37.0-47.0); HEMOGLOBIN 9.9 g/dL (12.0-16.0); LYMPH# 1.24 X1000 (1.2-3.4); LYMPH% 25.5 % (20.5-51.1); MCH 28.4 PG (27-31); MCHC 30.5 g/dL (33-37); MCV 93.4 FL (81-99); MONO# 0.02 X1000 (0.11-0.59); MONO% 0.4 % (1.7-9.3); MPV 11.3 FL (7.4-10.4); NEUT# 3.58 X1000 (1.4-6.5); NEUT% 73.7 % (42.2-75.2); PLT 260 X1000 (130-400); RBC 3.48 XMIL (4.2-5.4); RDW 15.2 % (11.5-14.5); WBC 4.86 X1000 (4.8-10.8)
[2019-03-02 08:48] LABS: AGAP 10; BUN 7 mg/dL (8-22); CALCIUM 8.3 mg/dL (8.8-10.2); CHLORIDE 107 mmol/L (98-107); COSMO 282; CREATININE 0.6 mg/dL (0.5-0.9); ESTIMATED GFR > 60; GLUCOSE 143 mg/dL (70-104); POTASSIUM 3.7 mmol/L (3.5-5.1); SODIUM 141 mmol/L (136-145); TCO2 24 mmol/L (25-35)
--- NOTE | 2019-03-02 08:56 | Diag Imaging Result Doc PS360 ---
EXAM: CT THORAX W/O CONTRAST 03/02/2019 HISTORY: pna, airway obstruction TECHNIQUE: This exam was performed using automated exposure control, adjustment of mA or kV according to patient size, and/or use of iterative reconstruction technique. COMMENT: There is an endotracheal tube with its tip well above the robert at about the level of the aortic arch. There are some atherosclerotic calcifications in the aorta and coronary arteries. There is no evidence of aortic aneurysm. There is no evidence of significant adenopathy. There is a large hiatal hernia containing the stomach is well as a loop of the splenic flexure of the colon. This was also the case at the time the previous study of 01/06/2019. There are bilateral pleural effusions which may be partially loculated. The volume of fluid on the left is greater than that on the previous examination and there may be a slight increase in volume of fluid on the right side. The regional skeleton is stable in appearance. Compared to the previous examination of 01/06/2019, the opacity in the anterior right apex has diminished in density. There is also improvement in the consolidation of the posterior portion of the right upper lobe. There is improvement in the atelectasis seen medially in the inferior portion of the right upper lobe and the right middle lobe. There is somewhat worsened atelectasis and/or pneumonia in the posterior right lower lobe compared to the previous study there is consolidation in the left lower lobe with air bronchograms which is worse than on the previous study. IMPRESSION: Worsened atelectasis versus pneumonia in the lower lobes. Improved atelectasis plus minus pneumonia in the right upper lobe and middle lobe. Worsened left pleural effusion. Electronically signed by Zeke Negron 03/02/2019 8:53 AM
--- NOTE | 2019-03-02 09:18 | INFECTIOUS DISEASE PROGRESS NO ---
DATE: 03/02/2019 PRESENT ILLNESS: The patient was taking medicine at [facility] and apparently aspirated some of the medications. She developed respiratory distress. She is in the intensive care unit now and she is intubated. There is an area on the chest x-ray where there is atelectasis which may be secondary to obstruction from medication. MEDICATIONS: The patient has been started on Zosyn with which I agree pending culture results. PHYSICAL EXAMINATION: Vital Signs: Temperature is 99 degrees, pulse is 82, respirations 16, blood pressure 124/72. The patient is 5 feet 6 inches tall. She weighs 185 pounds. General: This is an ill-appearing, elderly female. She is intubated and sedated. Head, Eyes, Ears, Nose, and Throat: The patient has an orotracheal tube in place. There is no drainage from the nose or the ears. I could not visualize her mouth. Neck: No stiffness. Lungs: There were diminished breath sounds on the left side. The right side was clear. Cardiovascular: Heart rate is regular. Abdomen: Soft and nontender. Extremities: The patient has a PICC in her right arm. The site is not erythematous or swollen. She has an erythematous area on her left heel and on her right heel, there is a small eschar without erythema. Neurologic: The patient is obtunded. There is no tremor. Integument: No rash noted. LAB AND X-RAY: Chest x-ray shows left lower lobe atelectasis and worsening pulmonary vascular congestion. The patient's CBC shows a white count of 7690, hemoglobin 9.7, and platelet count 277,000. Blood gases show a pH of 7.47, a PO2 of 156, and a pCO2 of 36. Creatinine is 0.7. GFR is greater than 60. Liver function studies are normal. Blood cultures are pending. The patient's chest x-ray shows left lower lobe atelectasis, possibly secondary to airway obstruction, and worsening pulmonary venous congestion. ASSESSMENT AND PLAN: The patient may well have aspiration pneumonia secondary to aspirating medication. She was being treated for an extended spectrum beta lactamase producing Escherichia coli infection of her heel and this was to be her last day of treatment with that antibiotic so we do not need to restart the antibiotic. As mentioned above, I agree with starting the patient on Zosyn. I have ordered a sputum for Gram stain and culture. Also, I have ordered a procalcitonin level to see if the patient has an associated pneumonia besides obstruction of the bronchus. COMORBIDITIES: She is elderly. She has recently had infections of her feet. The patient also has diastolic heart failure. cc: Kvng Funk MD
[2019-03-02 10:12] LABS: ALLEN TEST YES; BE 2.9 mmoll (-3.0-3.0); BLOOD TYPE ARTERIAL; HCO3-(ACT) 27.2 mmoll (20.0-26.0); PCO2(98.6) 33 mmHg (35-45); PO2(98.6) 98 mmHg (60-100); SAMPLE BLOOD; SRATE 10 BPM; TVOL 650 mL
[2019-03-02 10:15] LABS: MODALITY VENTILATOR
--- NOTE | 2019-03-02 20:07 | PULMONOLOGY CONSULTATION ---
DATE: 03/02/2019 REASON FOR CONSULTATION: Respiratory failure. HISTORY OF PRESENT ILLNESS: Ms. Carson is an 83-year-old [facility]. The patient has a hiatal hernia, and while taking medications, either choked or had a reflux event. The patient's oxygen saturation dropped, and she was brought to the emergency room. In the emergency room, she had further decompensation requiring intubation and initiation of mechanical ventilation. She has been evaluated by Infectious Disease and has been initiated on antibiotics for aspiration. PAST MEDICAL HISTORY/PROBLEM LIST: 1. Hiatal hernia. 2. History of a Latia fundoplication. 3. Hypertension. 4. Dyslipidemia. 5. Diastolic heart failure. 6. History of deep vein thrombosis. 7. Atrial fibrillation. 8. Cellulitis involving the left foot. 9. History of ESBL positive E coli. REVIEW OF SYSTEMS: Could not be obtained. SOCIAL HISTORY: The patient [facility] in a prison. She is a never smoker. No alcohol use listed. FAMILY HISTORY: Not immediately available. PHYSICAL EXAMINATION: General: Reveals an overweight white female on mechanical ventilation. She appears to be comfortably sedated. Vital Signs: Blood pressure 128/66, heart rate 80, respiratory rate 13, oxygen saturation 100%. HEENT: Pupils are equal and reactive. Oropharynx is clear. Neck: Supple. Chest: Reveals coarse rhonchi bilaterally. Cardiac: S1, S2. Abdomen: Obese and soft. Extremities: Without edema. LABORATORIES: CT scan of the thorax is reviewed. The patient had a previous CT scan on 01/06/2019. She had some worsened pneumonia in the lower lobes with decreased pneumonia in the right upper and right middle lobes. She has a small left-sided pleural effusion. She has a significant hiatal hernia. Arterial blood gas: pH of 7.50, pCO2 of 33, pO2 of 98 following ventilator adjustments by this practitioner. Sodium 141, potassium 3.7, chloride 104, bicarbonate 24, BUN 7, creatinine 0.6. IMPRESSION: An 83-year-old with hiatal hernia and prior Latia fundoplication, with acute hypoxemic respiratory failure and aspiration pneumonia. RECOMMENDATION: 1. Continue antibiotic management per Dr. Kvng Funk. 2. Continue ventilatory support through the evening through the day and re-evaluate extubation tomorrow morning. 3. Recommend speech therapy evaluation with modified barium swallow before patient resumes full p.o. intake. cc: Jose Paz MD
[2019-03-03] MEDS: DIPRIVAN 1% 1,000 MG/100 ML BOTTLE IV SCH ×4 (01:02→12:18)
[2019-03-03] MEDS: LOVENOX SUBQ SCH (02:28)
[2019-03-03] MEDS: ZOSYN 3.375 GM in NS 50 ML IV SCH ×4 (02:28→20:26)
[2019-03-03] MEDS: DUONEB (A & A) INH SCH ×4 (03:48→21:47)
[2019-03-03 05:04] LABS: ALLEN TEST YES; BE 0.8 mmoll (-3.0-3.0); BLOOD TYPE ARTERIAL; HCO3-(ACT) 25.5 mmoll (20.0-26.0); METHB 1.2 % (0.0-1.5); O2(CT) 15.4 mL/dL (15.0-23.0); O2HB 96.6 % (95.0-99.0); PCO2(98.6) 39 mmHg (35-45); PO2(98.6) 130 mmHg (60-100); SAMPLE BLOOD; SAO2 98.8 % (95.0-100.0); SRATE 10 BPM; THB 11.2 g/dL (11.5-17.4); TVOL 650 mL; pH(98.6) 7.42 (7.35-7.45)
[2019-03-03 05:05] LABS: MODALITY VENTILATOR
[2019-03-03 05:53] LABS: BASO# 0.04 X1000 (0.0-0.2); BASO% 0.3 % (0.0-0.8); EOS# 0.01 X1000 (0.0-0.7); EOS% 0.1 % (0.0-10.0); HEMATOCRIT 28.6 % (37.0-47.0); HEMOGLOBIN 8.9 g/dL (12.0-16.0); LYMPH% 14.6 % (20.5-51.1); MCH 29.1 PG (27-31); MCHC 31.1 g/dL (33-37); MCV 93.5 FL (81-99); MONO# 0.84 X1000 (0.11-0.59); MONO% 7.2 % (1.7-9.3); NEUT# 9.06 X1000 (1.4-6.5); NEUT% 77.8 % (42.2-75.2); PLT 235 X1000 (130-400); RBC 3.06 XMIL (4.2-5.4); RDW 15.8 % (11.5-14.5); WBC 11.65 X1000 (4.8-10.8)
[2019-03-03 06:26] LABS: AGAP 11; BUN 10 mg/dL (8-22); CALCIUM 7.9 mg/dL (8.8-10.2); CHLORIDE 107 mmol/L (98-107); COSMO 282; CREATININE 0.6 mg/dL (0.5-0.9); ESTIMATED GFR > 60; GLUCOSE 94 mg/dL (70-104); MAGNESIUM 1.8 mg/dL (1.5-2.7); POTASSIUM 3.2 mmol/L (3.5-5.1); SODIUM 142 mmol/L (136-145); TCO2 24 mmol/L (25-35)
[2019-03-03 06:30] LABS: LYMPHS 15 % (21-51); MONO 8 % (1-9); SEGS 77 % (42-75)
--- NOTE | 2019-03-03 07:37 | Diag Imaging Result Doc PS360 ---
EXAM: CHEST-1 VIEW HISTORY: ventilator TECHNIQUE: Portable chest single view COMPARISON: 03/01/2019 FINDINGS: An endotracheal tube has been placed since the prior exam. This is located 1 to 2 cm above the robert. There are small bilateral pleural effusions with basilar atelectasis. There may be underlying infiltrates as well. Heart remains mildly prominent. No change in the right-sided PICC line. Pulmonary edema may be slightly improved. IMPRESSION: Endotracheal tube in good position. Electronically signed by Darwin Hughes 03/03/2019 7:35 AM
[2019-03-03] MEDS ORDERED: MIRALAX PO PRN (08:28)
[2019-03-03] MEDS ORDERED: SODIUM CHLORIDE 0.9% INJ SCH (08:30)
[2019-03-03] MEDS ORDERED: LASIX PO SCH (09:00)
[2019-03-03] MEDS: PROTONIX IV SCH (09:40)
[2019-03-03] MEDS: PERIDEX MT SCH ×2 (09:40→20:26)
[2019-03-03] MEDS: POTASSIUM CHLORIDE 20 MEQ/SWI 20 MEQ/100 ML IVPB IV SCH ×2 (09:44→11:54)
--- NOTE | 2019-03-03 10:20 | PROGRESS NOTE ---
DATE: 03/03/2019 INTERVAL HISTORY: Ms. Carson was admitted yesterday for acute hypoxic respiratory failure because of suspected aspiration pneumonia and she was intubated. Overnight, she did not have any acute events. SUBJECTIVE: She is intubated but is arousable, does not appear in any acute distress, follows simple commands. Currently, vitals detect temperature of 96.5, pulse of 70, respiratory rate 10, blood pressure 120/60, saturating 100% on 45% mechanical ventilator. PHYSICAL EXAMINATION: General: Does not appear in any acute distress. She has endotracheal tube, Livingston catheter, right-sided PICC line. Oral cavity is moist. Lungs: Air entry bilaterally equal in supramammary region with decreased air entry in bilateral inframammary region with inspiratory crackles. Effort is normal. Heart: No tachycardia, no murmur, rub, or gallop. Abdomen: Soft, nontender. Extremities: Bilateral lower extremity edema. She does have bilateral heel wounds especially on the right side, which is about 2 x 2 cm round without any pus. LABORATORY ANALYSIS: Suggests leukocytosis, normocytic anemia, normal platelet count. ABG suggestive of adequate oxygenation and pH of 7.45. She does have hypokalemia, which is being repleted. MICROBIOLOGY: Urine Legionella and streptococcal antigen have not been collected. Blood culture and sputum culture are in the lab. ASSESSMENT AND PLAN: 1. Acute hypoxic respiratory failure because of bilateral lower lobe pneumonia. Continue mechanical ventilation as per Pulmonology recommendation. I anticipate spontaneous breathing trial later today. Continue albuterol ipratropium nebulization, intravenous Zosyn for suspected aspiration pneumonia. Follow up with final blood culture, sputum culture, urine streptococcal and Legionella antigen. 2. History of heart failure with preserved ejection fraction and bilateral ankle edema with ankle wound. Wound nurse to evaluate the patient. The wound is on the right heel, which appears to be healing well. Stop intravenous fluids. Start patient on her home Lasix in future. 3. History of paroxysmal atrial fibrillation. Continue home digoxin. 4. History of normocytic anemia. Continue iron carbonyl, ascorbic acid, and multivitamin. Continue pantoprazole for stress ulcer prophylaxis, chlorhexidine for ventilator-associated pneumonia prophylaxis, and enoxaparin for deep venous thrombosis prophylaxis, rosuvastatin for history of hyperlipidemia, and home aspirin. 5. Disposition. The patient's condition remains critical. More than 30 minutes of critical care time was spent in taking care of this patient. I will continue to monitor the patient in ICU. cc: Chad Robb MD MTDUzair
--- NOTE | 2019-03-03 12:19 | INFECTIOUS DISEASE PROGRESS NO ---
DATE: 03/03/2019 PRESENT ILLNESS: The patient has aspiration pneumonia. MEDICATIONS: The patient is receiving Zosyn as a single agent. PHYSICAL EXAMINATION: Vital Signs: Temperature is 97 degrees, pulse 73, respirations 10, blood pressure 119/58. General: This is an ill-appearing, elderly female. She is intubated and sedated. Head, Eyes, Ears, Nose, and Throat: The patient, as mentioned above, is intubated. She has an orotracheal tube in place. There is no drainage from the nose or ears. The patient's eyes are closed. Neck: No stiffness. Lungs: There was bilateral rhonchi. Cardiovascular: Heart rate is regular. Abdomen: Soft and nontender. Extremities: The patient has a PICC in her right arm. The site is not erythematous or purulent. The patient's left heel has some erythema present on it. The right heel has a small eschar present. Neurologic: The patient is sedated. She did not respond to verbal stimuli. There was no tremor. LAB AND X-RAY: Chest x-ray shows bibasilar infiltrates. CBC shows a white count of 11,650, hemoglobin 8.9, platelet count is 235,000. Blood gases show a pH of 7.42, a PO2 of 130, and a pCO2 of 39. Creatinine is 0.6. GFR is greater than 60. Sputum is growing a normal pat. Blood cultures are sterile. Chest x-ray shows bibasilar infiltrates. ASSESSMENT AND PLAN: The patient has aspiration pneumonia. I plan to continue with Zosyn as a single agent. COMORBIDITIES: She is elderly and she has congestive heart failure. cc: Kvng Funk MD
[2019-03-03] MEDS: SANTYL OINT TOP SCH (12:21)
[2019-03-03 13:43] LABS: ALLEN TEST YES; BE 1.7 mmoll (-3.0-3.0); BLOOD TYPE ARTERIAL; HCO3-(ACT) 26.2 mmoll (20.0-26.0); METHB 1.1 % (0.0-1.5); O2(CT) 13.5 mL/dL (15.0-23.0); O2HB 95.9 % (95.0-99.0); PCO2(98.6) 42 mmHg (35-45); PO2(98.6) 93 mmHg (60-100); SAMPLE BLOOD; SAO2 98.3 % (95.0-100.0); THB 9.9 g/dL (11.5-17.4); pH(98.6) 7.41 (7.35-7.45)
[2019-03-03 13:44] LABS: MODALITY VENTILATOR
[2019-03-03] MEDS: LANOXIN PO SCH (16:05)
[2019-03-03] MEDS: ASPIRIN PO SCH (16:15)
[2019-03-03] MEDS: THERA M PLUS PO SCH (16:15)
[2019-03-03] MEDS: ICAR-C PO SCH ×2 (16:15→20:36)
--- NOTE | 2019-03-03 19:01 | PULMONOLOGY PROGRESS NOTE ---
DATE: 03/03/2019 SUBJECTIVE: The patient is remains on mechanical ventilation. She has been placed on a spontaneous breathing trial and is breathing without increased work of breathing. OBJECTIVE: The patient has been afebrile for the last 24 hours. Blood pressure 135/64, heart rate 90, respiratory rate 20, oxygen saturation 100%. HEENT: Pupils are equal and reactive. Oropharynx appears clear. Neck is supple. Chest reveals crackles in both lung bases. Cardiac exam: S1, S2. Abdomen is soft with positive bowel sounds. Extremities reveal trace to 1+ peripheral edema. DIAGNOSTIC DATA: Chest x-ray reveals bibasilar effusions with basilar infiltrates. LABORATORY DATA: Sputum culture is pending. Arterial blood gas reveals a pH of 7.42, pCO2 of 39, pO2 of 130. White blood count 11.65, hemoglobin 8.9, platelet count 235,000. IMPRESSION: An 83-year-old with: 1. Aspiration pneumonia. 2. Acute hypoxemic respiratory failure. 3. Hiatal hernia. 4. History of diastolic heart failure. RECOMMENDATIONS: 1. Continue breathing trial. Obtain a blood gas later this afternoon, with anticipation of extubation if she does well. 2. Continue bronchial hygiene. 3. Antibiotics under the direction of Dr. Kvng Funk. cc: Jose Paz MD
[2019-03-03] MEDS: CRESTOR PO SCH (20:36)
[2019-03-04] MEDS: ZOSYN 3.375 GM in NS 50 ML IV SCH ×5 (03:22→21:14)
[2019-03-04] MEDS: LOVENOX SUBQ SCH (03:22)
[2019-03-04] MEDS: DUONEB (A & A) INH SCH ×4 (03:39→21:10)
[2019-03-04 05:16] LABS: ALLEN TEST YES; BE 1.5 mmoll (-3.0-3.0); BLOOD TYPE ARTERIAL; METHB 1.2 % (0.0-1.5); O2HB 94.2 % (95.0-99.0); PCO2(98.6) 47 mmHg (35-45); PO2(98.6) 79 mmHg (60-100); SAMPLE BLOOD; SAO2 96.8 % (95.0-100.0); THB 10.5 g/dL (11.5-17.4); pH(98.6) 7.37 (7.35-7.45)
[2019-03-04 05:17] LABS: MODALITY COOL AEROSOL
[2019-03-04 05:37] LABS: BASO# 0.04 X1000 (0.0-0.2); BASO% 0.5 % (0.0-0.8); EOS% 3.7 % (0.0-10.0); HEMATOCRIT 30.3 % (37.0-47.0); IMM GRAN# 0.02 X1000 (0.0-0.04); IMM GRAN% 0.2 % (0.0-0.5); LYMPH# 2.38 X1000 (1.2-3.4); LYMPH% 29.2 % (20.5-51.1); MCH 28.4 PG (27-31); MCHC 29.7 g/dL (33-37); MCV 95.6 FL (81-99); MONO# 0.74 X1000 (0.11-0.59); MONO% 9.1 % (1.7-9.3); MPV 11.5 FL (7.4-10.4); NEUT# 4.67 X1000 (1.4-6.5); NEUT% 57.3 % (42.2-75.2); PLT 242 X1000 (130-400); RBC 3.17 XMIL (4.2-5.4); RDW 16.2 % (11.5-14.5); WBC 8.15 X1000 (4.8-10.8)
[2019-03-04 06:09] LABS: AGAP 9; BUN 10 mg/dL (8-22); CALCIUM 8.6 mg/dL (8.8-10.2); CHLORIDE 110 mmol/L (98-107); COSMO 283; CREATININE 0.7 mg/dL (0.5-0.9); ESTIMATED GFR > 60; GLUCOSE 86 mg/dL (70-104); MAGNESIUM 1.9 mg/dL (1.5-2.7); PHOSPHORUS 3.4 mg/dL (2.7-4.5); POTASSIUM 3.3 mmol/L (3.5-5.1); SODIUM 143 mmol/L (136-145); TCO2 24 mmol/L (25-35)
[2019-03-04] MEDS: PERIDEX MT SCH (08:02)
[2019-03-04] MEDS: THERA M PLUS PO SCH (08:02)
[2019-03-04] MEDS: KLOR-CON PO SCH ×2 (08:02→11:42)
[2019-03-04] MEDS: PROTONIX IV SCH (08:02)
[2019-03-04] MEDS: ICAR-C PO SCH ×2 (08:03→21:15)
[2019-03-04] MEDS: ASPIRIN PO SCH (08:03)
[2019-03-04] MEDS: LANOXIN PO SCH (08:03)
[2019-03-04] MEDS: SANTYL OINT TOP SCH (08:41)
--- NOTE | 2019-03-04 09:31 | INFECTIOUS DISEASE PROGRESS NO ---
DATE: 03/04/2019 PRESENT ILLNESS: The patient is being treated for an aspiration pneumonia. MEDICATIONS: She is receiving Zosyn as a single agent. This is the second day of treatment with that agent. PHYSICAL EXAMINATION: Vital Signs: Temperature is 98 degrees, pulse 95, respirations 17, blood pressure 138/68. General: Patient is alert and talking. She has been extubated. Head, eyes, ears, nose, and throat: She can hear my spoken words and see near objects. She does not have any white patches on her tongue. Neck: There is no pain in her neck when I turn her head. Lungs: There were bilateral rhonchi. Cardiovascular: Heart rate is regular. Abdomen: Soft and nontender. Neurologic: The patient is alert. She can move her extremities. There is no tremor. Integument: No rash noted. Extremities: The patient has the padded dressings on both heels. This is the second day of Zosyn as mentioned above. LAB AND X-RAY: The patient's CBC shows a white count of 8150, hemoglobin 9 and platelet count 242,000. Blood gases show a pH of 7.37, a PO2 of 79, and a pCO2 of 47. Creatinine is 0.7. GFR is greater than 60. Procalcitonin is less than 0.1. Sputum grew a normal pat. Blood cultures are negative. The patient's chest x-ray shows bilateral infiltrates/atelectasis. ASSESSMENT AND PLAN: The patient has bibasilar infiltrates suggestive of aspiration pneumonia or it could be mostly all due to aspiration. She is doing well on intravenous Zosyn, so I plan on continuing it for a few more days. COMORBIDITIES: The patient is elderly and she has congestive heart failure. cc: Kvng Funk MD
--- NOTE | 2019-03-04 10:59 | PROGRESS NOTE ---
DATE: 03/04/2019 INTERVAL HISTORY: Mr. Naima Carson was extubated yesterday and she has been tolerating nasal cannula very well. She did not have any other acute overnight events. Today she is alert and oriented, she is talking to me. We discussed about starting her on diet, physical therapy, removing the Livingston catheter. I answered all of her questions. VITALS SIGNS: Detect temperature of 97 degrees, pulse of 118, blood pressure 144/92, saturating 96% on 4 L nasal cannula. PHYSICAL EXAMINATION: General: She does not appear in any acute distress. HEENT: Oral cavity is dry. Lungs: Decreased air entry bilaterally with what appears to be bilateral rhonchi without any wheeze. She does have occasional bilateral lower lobe crackles. Cardiovascular: S1, S2. Irregularly irregular, tachycardic. No murmur, rub, or gallop. She has Livingston catheter, right-sided PICC line. Abdomen: Soft and nontender. Extremities: Bilateral lower extremity edema. She does have bilateral heel wounds especially on the right side, which is about 2 x 2 cm round without any pus on my previous examination. LABORATORY DATA: Suggestive of normocytic anemia, normal platelet count, normal WBC. Acceptable ABG with PO2 of 79. She does have hypokalemia and hyperchloremia. Hypokalemia is being repleted. MICROBIOLOGY: Blood culture and sputum culture no growth to date. ASSESSMENT AND PLAN: 1. Acute hypoxic respiratory failure because of bilateral lower lobe pneumonia, and an episode of aspiration at [facility], status post mechanical ventilation. She is extubated on 03/03/2019. Continue albuterol-ipratropium nebulization, intravenous Zosyn, and follow up final culture data. 2. History of heart failure with preserved ejection fraction and bilateral ankle edema with ankle wound. Wound nurse on board. I will start the patient on home Lasix today. 3. History of paroxysmal atrial fibrillation with current tachycardia. Continue home digoxin. Add home metoprolol as well as apixaban. 4. Normocytic anemia. Continue iron carbonyl, ascorbic acid and multivitamin. Pantoprazole for chronic gastroesophageal reflux disease. Rosuvastatin for hyperlipidemia and home aspirin. 5. Disposition. More than 30 minutes of critical care time was spent in taking care of this patient. I will transfer the patient to a step-down unit. I called the patient's next of kin, which are listed to be the patient's daughter and granddaughter, they did not receive the phone call and I have left a voice message. I will also resume the patient's home citalopram and gabapentin. Plan of care discussed with her. All of her questions have been answered. cc: Chad Robb MD
[2019-03-04] MEDS: TOPROL XL PO SCH (11:42)
[2019-03-04] MEDS: LASIX PO SCH (11:42)
[2019-03-04] MEDS ORDERED: NEURONTIN PO SCH (13:00)
--- NOTE | 2019-03-04 14:59 | PULMONOLOGY PROGRESS NOTE ---
DATE: 03/04/2019 SUBJECTIVE: The patient is awake, alert, and conversant. She is taking p.o. intake. She has some cough. She has no increased work of breathing. OBJECTIVE: Vital Signs: The patient has been afebrile for the last 24 hours. Blood pressure 138/67, heart rate 19, respiratory rate 95, oxygen saturation 99% on nasal cannula. HEENT: Pupils are equal and reactive. Oropharynx appears clear. Neck: Supple. Chest: Reveals coarse rhonchi with decreased breath sounds in the lung bases Cardiovascular: S1, S2. Abdomen: Soft with good bowel sounds. Extremities: Reveal trace to 1+ peripheral edema. LABORATORIES: Arterial blood gas reveals a pH 7.37, pCO2 of 47, PO2 of 79. Sodium 143, potassium 3.3, chloride 110, bicarbonate 24, BUN 10, creatinine 0.7. Microbiology reveals normal pat. IMPRESSION: An 83-year-old with: 1. Aspiration pneumonia. 2. Acute hypoxemic respiratory failure. 3. Hiatal hernia. 4. History of diastolic heart failure. DISCUSSION: An 83-year-old with acute respiratory failure as outlined above, associated with a choking episode/reflux episode and acute decompensation requiring intubation. She is doing well off mechanical ventilation. PLAN: 1. Continue to wean oxygen as tolerated. 2. Diet as tolerated. 3. Continue bronchial hygiene. 4. Antibiotics as directed by Dr. Kvng Funk. 5. Agree with plans for transfer to the floor. cc: Jose Paz MD
[2019-03-04] MEDS ORDERED: LASIX IV ONE (18:00)
[2019-03-04] MEDS: NEURONTIN PO SCH (21:14)
[2019-03-04] MEDS: ELIQUIS PO SCH (21:15)
[2019-03-04] MEDS: CRESTOR PO SCH (21:15)
[2019-03-05] MEDS: DUONEB (A & A) INH SCH ×4 (03:01→21:23)
[2019-03-05] MEDS: ZOSYN 3.375 GM in NS 50 ML IV SCH ×4 (03:27→21:53)
[2019-03-05] MEDS: PROTONIX PO SCH ×2 (05:43→06:25)
[2019-03-05 06:12] LABS: ALLEN TEST YES; BE 6.8 mmoll (-3.0-3.0); BLOOD TYPE ARTERIAL; HCO3-(ACT) 30.2 mmoll (20.0-26.0); METHB 1.3 % (0.0-1.5); O2(CT) 12.5 mL/dL (15.0-23.0); O2HB 92.4 % (95.0-99.0); PO2(98.6) 70 mmHg (60-100); SAMPLE BLOOD; SAO2 95.7 % (95.0-100.0); THB 9.6 g/dL (11.5-17.4); pH(98.6) 7.38 (7.35-7.45)
[2019-03-05 06:16] LABS: MODALITY CANNULA
[2019-03-05 06:24] LABS: PCO2(98.6) 56 mmHg (35-45)
[2019-03-05 06:54] LABS: AGAP 11; ALB/GLOB RATIO 0.9; ALBUMIN 2.6 g/dL (3.5-5.0); ALKALINE PHOSPHATASE 82 U/L (32-104); BUN 9 mg/dL (8-22); CHLORIDE 105 mmol/L (98-107); COSMO 291; CREATININE 0.6 mg/dL (0.5-0.9); ESTIMATED GFR > 60; GLUCOSE 92 mg/dL (70-104); GOT 13 U/L (10-30); GPT 7 U/L (10-36); MAGNESIUM 1.6 mg/dL (1.5-2.7); POTASSIUM 3.4 mmol/L (3.5-5.1); SODIUM 147 mmol/L (136-145); TCO2 31 mmol/L (25-35); TOTAL BILIRUBIN 0.57 mg/dL (0.20-1.00); TOTAL PROTEIN 5.6 g/dL (6.3-8.3)
--- NOTE | 2019-03-05 07:28 | Diag Imaging Result Doc PS360 ---
CHEST-PORTABLE - 03/05/2019 INDICATION: abnormal exam COMPARISON: 03/03/2019 FINDINGS: The endotracheal tube is no longer present. Stable right PICC line. The tip is all the way down in the right ventricle. The patient is very kyphotic. Lung volumes are low. Stable bibasilar infiltrates and pleural effusions. Stable cardiomegaly and diffuse pulmonary vascular congestion. IMPRESSION: 1. Patient extubated. 2. On this exam, the tip of the right PICC line appears to be down in the right ventricle. Electronically signed by Kennedy Santiago 03/05/2019 7:26 AM
[2019-03-05] MEDS: LANOXIN PO SCH (08:38)
[2019-03-05] MEDS: ASPIRIN PO SCH (08:38)
[2019-03-05] MEDS: ICAR-C PO SCH ×2 (08:38→21:52)
[2019-03-05] MEDS: THERA M PLUS PO SCH (08:38)
[2019-03-05] MEDS: LASIX PO SCH (08:38)
[2019-03-05] MEDS: CELEXA PO SCH (08:38)
[2019-03-05] MEDS: ELIQUIS PO SCH ×2 (08:38→21:52)
[2019-03-05] MEDS: SANTYL OINT TOP SCH (08:39)
[2019-03-05] MEDS: TOPROL XL PO SCH (08:39)
[2019-03-05] MEDS: NEURONTIN PO SCH ×3 (08:39→21:52)
[2019-03-05] MEDS ORDERED: LANOXIN IV ONE (11:23)
[2019-03-05 11:32] LABS: ALLEN TEST NO; BE 7.6 mmoll (-3.0-3.0); BLOOD TYPE ARTERIAL; HCO3-(ACT) 30.8 mmoll (20.0-26.0); O2HB 94.2 % (95.0-99.0); PCO2(98.6) 46 mmHg (35-45); PO2(98.6) 79 mmHg (60-100); SAMPLE BLOOD; SAO2 97.2 % (95.0-100.0); THB 15.1 g/dL (11.5-17.4); pH(98.6) 7.46 (7.35-7.45)
[2019-03-05 11:33] LABS: MODALITY CANNULA
[2019-03-05] MEDS: TYLENOL PO PRN ×2 (11:45→18:16)
--- NOTE | 2019-03-05 12:27 | PROGRESS NOTE ---
DATE: 03/05/2019 INTERVAL HISTORY: Ms. Carson was transferred out of ICU to [facility] yesterday. Her course otherwise was unremarkable. She also received a dose of intravenous Lasix and she had put out a good amount of urine. SUBJECTIVE: She is denying any chest pain. She is feeling a little short of breath when she does physical exertion. She has not been able to come out of bed yet. She continues to cough and able to make some sputum. However, the cough amount and frequency is decreasing. In the morning time, ABG had suggested elevated pCO2 with normal pH. The repeat ABG suggests resolution of hypercarbia. OBJECTIVE: Vital Signs: Suggest temperature of 98.2, pulse of 95, respiratory rate 18, blood pressure 140/72, saturating 99% on room air. General: Does not appear in any acute distress. HEENT: She has nasal cannula on. No conjunctival pallor, cyanosis, clubbing, or icterus. Oral cavity is moist. Lungs: Decreased air entry in left infrascapular region with inspiratory crackles. No wheeze or rhonchi. Adequate air entry on right hemithorax. Cardiovascular: S1, S2 normal. Irregularly irregular. No murmur, rub, or gallop. Abdomen: Soft, nontender. Genitourinary: She has a urine catheter in place. Extremities: She has bilateral lower extremity edema, which is improved since yesterday. She also has bilateral heel wounds, especially on the right side, which is about 2 x 2 cm without any pus on my examination. Input and output suggests negative 4.6 L today. LABORATORY DATA: No CBC today. BMP is suggestive of hypokalemia with potassium of 3.4 and magnesium of 1.6, which I will replete. IMAGING: Chest x-ray today is suggestive of tip of the right PICC in the right ventricle. The patient is very kyphotic. Lower lung volumes and stable bibasilar infiltrate. ASSESSMENT AND PLAN: 1. Acute hypoxic respiratory failure because of bilateral lower lobe pneumonia, likely aspiration pneumonia at [facility], status post mechanical ventilation and extubation on March 04. Continue albuterol ipratropium nebulization, intravenous Zosyn, and oxygenation through nasal cannula. Blood and sputum cultures have been unremarkable. Eventually, my plan is to change her antibiotics to p.o. antibiotics in the next 24 to 48 hours. 2. History of heart failure with preserved ejection fraction and bilateral ankle edema with likely mild acute exacerbation. She is status post intravenous Lasix yesterday. Continue p.o. Lasix today. Also, continue home beta sekou and rosuvastatin. 3. Paroxysmal atrial fibrillation with rapid ventricular rate. Give intravenous digoxin and continue home digoxin, p.o. metoprolol and apixaban. 4. Normocytic anemia with a history of iron deficiency. Continue iron carbonyl, ascorbic acid, multivitamin; pantoprazole for chronic GERD with home aspirin. 5. Others. Continue home citalopram, gabapentin for anxiety and chronic peripheral neuropathy. 6. Disposition: The patient remains in [facility] for close monitoring of her respiratory status. My plan is to continue intravenous antibiotics for 24 hours and potentially change it to p.o. antibiotics tomorrow. Plan of care discussed with the patient and her family at bedside, all of their questions have been answered. cc: Chad Robb MD
[2019-03-05] MEDS: KLOR-CON PO SCH ×2 (12:44→16:53)
[2019-03-05] MEDS: MAGNESIUM SULFATE 2 GM/S.W.I. 2 GM/50 ML IVPB IV SCH ×2 (12:46→16:54)
--- NOTE | 2019-03-05 16:06 | Diag Imaging Result Doc PS360 ---
CHEST-2 VIEWS - 03/05/2019 3:17 PM INDICATION: Verify PICC placement COMPARISON: 5:59 AM FINDINGS: The right PICC line tip is in the lower right atrium or possibly upper right ventricle. Otherwise there is no change from prior. IMPRESSION: PICC line has been backed out somewhat but is still in the low right atrium or possibly right ventricle. Electronically signed by Kennedy Santiago 03/05/2019 4:04 PM
--- NOTE | 2019-03-05 19:58 | PULMONOLOGY PROGRESS NOTE ---
DATE: 03/05/2019 SUBJECTIVE: The patient is awake, alert, and conversant. She reports her breathing is doing well. She is without complaints. OBJECTIVE: Blood pressure 104/53, heart rate 90, respiratory rate 18, oxygen saturation 97% on 2 L per nasal cannula. HEENT: Pupils are equal and reactive. Oropharynx appears clear. Neck is supple. Chest reveals crackles in both lung bases. Cardiac exam: S1, S2. Abdomen is obese. Extremities reveal trace edema. DIAGNOSTIC DATA: Chest x-ray reveals significant kyphosis, with bibasilar infiltrates and effusions. PICC line might be in the right ventricle. LABORATORY DATA: Sodium 147, potassium 3.4, chloride 105, bicarbonate 31, BUN 11, creatinine 0.9. Arterial blood gas reveals a pH 7.46, pCO2 of 46, pO2 of 79. White blood count/CBC not obtained. Microbiology reveals no new data. IMPRESSION: An 83-year-old with: 1. Aspiration pneumonia. 2. Diastolic heart failure. 3. Acute hypoxemic respiratory failure. 4. Hiatal hernia. 5. Abnormal chest x-ray, with peripherally inserted central catheter line possibly in the right ventricle. PLAN: 1. Continue daily Lasix. 2. Wean oxygen as tolerated. 3. Continue diet as tolerated. 4. Continue bronchial hygiene. 5. Antibiotics per Dr. Kvng Funk. 6. Two-view chest x-ray today to better gauge the depth of the PICC line. It may need to be slightly retracted. 7. The patient appears to be approaching her baseline, and hopefully she can be discharged early next week. cc: Jose Paz MD
[2019-03-05] MEDS: CRESTOR PO SCH (21:52)
[2019-03-06] MEDS: DUONEB (A & A) INH SCH ×4 (02:50→21:42)
[2019-03-06] MEDS: ZOSYN 3.375 GM in NS 50 ML IV SCH ×4 (03:11→20:43)
[2019-03-06 05:00] LABS: ALLEN TEST YES; BE 7.8 mmoll (-3.0-3.0); BLOOD TYPE ARTERIAL; METHB 1.7 % (0.0-1.5); O2(CT) 10.6 mL/dL (15.0-23.0); O2HB 93.9 % (95.0-99.0); PO2(98.6) 86 mmHg (60-100); SAMPLE BLOOD; SAO2 97.6 % (95.0-100.0); THB 7.9 g/dL (11.5-17.4); pH(98.6) 7.37 (7.35-7.45)
[2019-03-06 05:02] LABS: MODALITY CANNULA; PCO2(98.6) 59 mmHg (35-45)
[2019-03-06] MEDS: PROTONIX PO SCH (06:19)
[2019-03-06 06:27] LABS: AGAP 8; BUN 13 mg/dL (8-22); CALCIUM 8.5 mg/dL (8.8-10.2); CHLORIDE 106 mmol/L (98-107); COSMO 289; CREATININE 0.8 mg/dL (0.5-0.9); ESTIMATED GFR > 60; GLUCOSE 96 mg/dL (70-104); MAGNESIUM 2.2 mg/dL (1.5-2.7); PHOSPHORUS 4.1 mg/dL (2.7-4.5); POTASSIUM 3.8 mmol/L (3.5-5.1); SODIUM 145 mmol/L (136-145); TCO2 31 mmol/L (25-35)
[2019-03-06 06:32] LABS: BASO# 0.06 X1000 (0.0-0.2); BASO% 0.8 % (0.0-0.8); EOS# 0.31 X1000 (0.0-0.7); EOS% 4.1 % (0.0-10.0); HEMATOCRIT 29.9 % (37.0-47.0); IMM GRAN# 0.02 X1000 (0.0-0.04); IMM GRAN% 0.3 % (0.0-0.5); LYMPH# 2.55 X1000 (1.2-3.4); LYMPH% 33.6 % (20.5-51.1); MCH 29.1 PG (27-31); MCHC 30.1 g/dL (33-37); MCV 96.8 FL (81-99); MONO# 0.99 X1000 (0.11-0.59); MPV 11.6 FL (7.4-10.4); NEUT# 3.67 X1000 (1.4-6.5); NEUT% 48.2 % (42.2-75.2); PLT 198 X1000 (130-400); RBC 3.09 XMIL (4.2-5.4); RDW 15.8 % (11.5-14.5)
--- NOTE | 2019-03-06 06:56 | Diag Imaging Result Doc PS360 ---
CHEST-PORTABLE - 03/06/2019 INDICATION: PNA,Increased rhonchi bilaterally COMPARISON: 03/05/2019 FINDINGS: The right PICC line has been removed. Stable cardiomegaly and pulmonary vascular congestion. Stable ill-defined central infiltrates bilaterally. There are probably trace pleural effusions. IMPRESSION: PICC line removed. Otherwise no change from prior. Electronically signed by Kennedy Santiago 03/06/2019 6:54 AM
[2019-03-06 07:29] LABS: EOS 4 % (1-10); LYMPHS 38 % (21-51); MONO 10 % (1-9); SEGS 44 % (42-75)
[2019-03-06] MEDS: ICAR-C PO SCH ×2 (08:31→20:43)
[2019-03-06] MEDS: THERA M PLUS PO SCH (08:31)
[2019-03-06] MEDS: LANOXIN PO SCH (08:31)
[2019-03-06] MEDS: NEURONTIN PO SCH ×3 (08:31→20:43)
[2019-03-06] MEDS: CELEXA PO SCH (08:31)
[2019-03-06] MEDS: ASPIRIN PO SCH (08:31)
[2019-03-06] MEDS: LASIX PO SCH (08:31)
[2019-03-06] MEDS: ELIQUIS PO SCH ×2 (08:32→20:43)
[2019-03-06] MEDS: SANTYL OINT TOP SCH (08:32)
[2019-03-06] MEDS: TOPROL XL PO SCH (08:32)
[2019-03-06] MEDS ORDERED: LASIX IV ONE (12:39)
--- NOTE | 2019-03-06 13:13 | PROGRESS NOTE ---
DATE: 03/06/2019 INTERVAL HISTORY: No acute events overnight. In the morning time, ABG did detect she had elevated pCO2, however, oxygenation was okay. She denies being diagnosed with sleep apnea and I have suggested her to follow up outpatient Pulmonology for that. Her heart rate was better controlled his yesterday after intravenous digoxin and the levels are within acceptable range. Currently, the patient denies any chest pain or shortness of breath. Her cough is also significantly improving. Vitals: Temperature of 97.6 degrees, pulse 79, respiratory rate 18, blood pressure 125/60, saturating 99% on 3 L nasal cannula. General: Not in any acute distress. HEENT: Oral cavity is moist. No conjunctival pallor, cyanosis, clubbing, or icterus. Lungs: Decreased air entry in left infrascapular region with inspiratory crackles. No wheeze or rhonchi. Adequate air entry on right hemithorax. Cardiac: S1, S2 normal. Irregularly irregular. No murmur, rub, or gallop. Abdomen: Soft, nontender. She does not have any urine catheter. Extremities: Bilateral lower extremity edema, which is improved since yesterday. She does have bilateral heel wounds which are healing well. Previously, they were growing ESBL. INPUT AND OUTPUT: Suggest it was -4.6 L, positive 7 mL so far today. ASSESSMENT AND PLAN: 1. Acute hypoxic respiratory failure because of bilateral lower lobe pneumonia, likely aspiration pneumonia at the residential, status post mechanical ventilation between March 02 and March 04. Continue oxygenation through nasal cannula. Cultures have been unremarkable. Continue intravenous Zosyn as per Infectious Disease recommendation and I anticipate changing it to p.o. antibiotics tomorrow. Her ankle wounds seem to be healing well though previously they were growing ESBL. 2. Mild acute exacerbation of heart failure with preserved ejection fraction with bilateral ankle edema and mild bilateral pulmonary edema. Give 1 more dose of intravenous Lasix and continue p.o. Lasix. Continue home beta sekou and rosuvastatin. 3. Paroxysmal atrial fibrillation with rapid ventricular rate, now well controlled on digoxin, metoprolol and apixaban. Normocytic anemia with history of iron deficiency. Continue home iron carbonyl, ascorbic acid, multivitamin, pantoprazole for chronic GERD with home aspirin. 4. Continue home citalopram, gabapentin for anxiety and chronic peripheral neuropathy. DISPOSITION: The patient remains in [facility]. I will have speech evaluation. I will appreciate Infectious Disease recommendation about changing her antibiotics to p.o. and I am anticipating discharge in next 24 to 48 hours. Plan of care discussed with the patient and her family at bedside. Thank you. cc: Chad Robb MD
--- NOTE | 2019-03-06 20:30 | PULMONOLOGY PROGRESS NOTE ---
DATE: 03/06/2019 SUBJECTIVE: The patient is awake, alert and conversant. She reports she has had a good day. OBJECTIVE: Vital Signs: Blood pressure 125/61, heart rate 82, respiratory rate 18, saturation on 3 L per nasal cannula. HEENT: Pupils are equal and reactive. Oropharynx is clear. Neck: Supple. Chest: Reveals positive rhonchi bilaterally. She cannot completely clear these rhonchi with cough. Cardiac: S1, S2. Abdomen: Soft. Extremities: Reveal 1+ edema. LABORATORIES: Sodium 145, potassium 3.8, chloride 106, bicarbonate 31, BUN 13, creatinine 0.8. White blood count 7.6, hemoglobin 9.0, platelet count 198,000. Chest x-ray reveals cardiomegaly, bibasilar infiltrates, small effusions and hiatal hernia. IMPRESSION: An 83-year-old with: 1. Aspiration pneumonia. 2. Hiatal hernia. 3. Diastolic heart failure. 4. Acute hypoxemic respiratory failure. RECOMMENDATIONS: 1. Continue to wean oxygen as tolerated. 2. Continue bronchial hygiene. 3. Agree with oral antibiotics as outlined per Dr. Kvng Funk. 4. Agree with speech therapy evaluation. 5. Long-term prognosis is guarded. cc: Jose Paz MD
[2019-03-06] MEDS: CRESTOR PO SCH (20:43)
[2019-03-07] MEDS: ZOSYN 3.375 GM in NS 50 ML IV SCH (03:35)
[2019-03-07] MEDS: DUONEB (A & A) INH SCH ×2 (03:36→10:11)
[2019-03-07 05:14] LABS: ALLEN TEST YES; BE 11.3 mmoll (-3.0-3.0); BLOOD TYPE ARTERIAL; HCO3-(ACT) 33.7 mmoll (20.0-26.0); METHB 1.1 % (0.0-1.5); O2(CT) 12.8 mL/dL (15.0-23.0); O2HB 94.3 % (95.0-99.0); PO2(98.6) 84 mmHg (60-100); SAMPLE BLOOD; SAO2 97.2 % (95.0-100.0); THB 9.6 g/dL (11.5-17.4)
[2019-03-07 05:20] LABS: MODALITY CANNULA; PCO2(98.6) 61 mmHg (35-45)
[2019-03-07] MEDS: PROTONIX PO SCH (06:02)
[2019-03-07] MEDS ORDERED: CIPRO PO SCH (06:30)
--- NOTE | 2019-03-07 07:18 | INFECTIOUS DISEASE PROGRESS NO ---
DATE: 03/07/2019 PRESENT ILLNESS: The patient is being treated for aspiration pneumonia. She also has pulmonary venous congestion. MEDICATIONS: This is the 5th day of treatment with the Zosyn as a single agent. PHYSICAL EXAMINATION: Vital Signs: Temperature is 98.5 degrees, pulse 89, respirations 18, blood pressure 111/47. The patient weighs 179 pounds. General: This is an alert, elderly female, who is obese. Head/Eyes/Ears/Nose/Throat: She can hear my spoken words and see near objects. She does not have any white coating on her tongue. Neck: There is no pain when she moves her neck. Lungs: The lungs still have some rhonchi bilaterally, but it is getting better. Cardiovascular: Heart rate is regular. Abdomen: Soft and nontender. Neurologic: The patient is alert. She can move her extremities. There is no tremor. Extremities: The patient's right heel has a small wound. There is some erythema and some darker color in the center, but it looks to me to be getting better. The left heel does not have any wound on it. Neurologic: The patient is alert. She can move her extremities. There is no tremor. LABORATORY AND X-RAY: Chest x-ray shows bilateral infiltrates and bilateral pulmonary venous congestion. The patient's CBC shows a white count of 7600, hemoglobin 9. And platelet count 198,000. The patient's blood gases show a pH of 7.4, PO2 of 84, and a pCO2 of 61. The creatinine is 0.8, GFR is greater than 60. ASSESSMENT AND PLAN: The patient has I think a bibasilar aspiration pneumonia. There also appears to be bilateral pulmonary venous congestion. I would suggest discontinuing the patient's Zosyn, which I have done. And put the patient on a combination of Augmentin 875 mg p.o. every 12 hours and ciprofloxacin 750 mg p.o. every 12 hours. I would suggest continuing both antibiotics for 7 days. I have gone ahead and placed the patient on Augmentin and Cipro and I have discontinued Zosyn. While the patient is on ciprofloxacin, the patient cannot take Celexa because there could be a bad interaction between the 2. I have discontinued Celexa, and when the patient is discharged, she should not take so Celexa until she gets off ciprofloxacin. I am signing off on the patient's case, now but I am available to see her on an as needed basis. COMORBIDITIES: The patient is elderly, and she aspirated some of her medications, and she has congestive heart failure. cc: Kvng Funk MD
[2019-03-07] MEDS: NEURONTIN PO SCH (08:08)
[2019-03-07] MEDS: LASIX PO SCH (08:08)
[2019-03-07] MEDS: ELIQUIS PO SCH (08:08)
[2019-03-07] MEDS: THERA M PLUS PO SCH (08:08)
[2019-03-07] MEDS: LANOXIN PO SCH (08:08)
[2019-03-07] MEDS: ICAR-C PO SCH (08:09)
[2019-03-07] MEDS: ASPIRIN PO SCH (08:09)
[2019-03-07] MEDS: TOPROL XL PO SCH (08:09)
[2019-03-07] MEDS: SANTYL OINT TOP SCH (08:09)
[2019-03-07] MEDS ORDERED: AUGMENTIN PO SCH (09:00)
[2019-03-07 11:44] VITALS: BP 125/56
--- NOTE | 2019-03-07 13:21 | DISCHARGE SUMMARY ---
ADMISSION DATE: 03/02/2019 DISCHARGE DATE: PRIMARY CARE PHYSICIAN: Dr. Sanam Murry. CONSULTATIONS: 1. Kvng Funk MD of Infectious Disease. 2. Jose Paz MD with pulmonology. PROCEDURES AND FINDINGS: 1. Chest x-ray 03/01/2019 impression: Atelectasis of the left lung base. This may be the result of airway obstruction, worsening pulmonary vascular congestion. 2. Chest CT 03/02/2019 impression: Worsened atelectasis versus pneumonia in the lower lobes, improved atelectasis plus/minus pneumonia in the right upper lobe and middle lobe, worse in the left pleural effusion. 3. Chest x-ray 03/06/2019 impression: PICC line removed. Otherwise, no change from prior. Stable cardiomegaly and pulmonary vascular congestion. There are probably trace pleural effusions. Stable ill-defined central infiltrates bilaterally. 4. EKG 03/01/2019 reveals normal sinus rhythm. DISCHARGE DIAGNOSES: 1. Acute hypoxemic respiratory failure secondary to bilateral lower lobe pneumonia, likely aspiration pneumonia that occurred at [facility]. This required mechanical ventilation from 03/02/2019 to 03/04/2019. Cultures unremarkable. This patient has been treated with Zosyn and will discharge with p.o. amoxicillin and Cipro. Extubation was successful and Ms. Carson's O2 saturation is in the high 90s with 2 to 3 L of nasal cannula. 2. Mild acute exacerbation of diastolic heart failure. This patient has received IV Lasix 6 and will continue with p.o. Lasix upon discharge. She will also continue with home beta sekou and rosuvastatin. 3. Paroxysmal atrial fibrillation with rapid ventricular response. She is well controlled on digoxin, metoprolol, and apixaban. She will continue these upon discharge. 4. Normocytic anemia with history of iron deficiency. She will continue with her home iron, ascorbic acid, multivitamin, and pantoprazole for chronic gastroesophageal reflux disease. 5. Anxiety and chronic peripheral neuropathy. She will continue with gabapentin, although her Celexa should be held until completion of antibiotics due to risk of interaction. 6. Heel ulceration. This is improved. She has received IV Zosyn during her hospital stay and followed by Infectious Disease. 7. Vitamin D deficiency. She will continue with her home medications. HOSPITAL COURSE: Ms. Carson is an 83-year-old female who resides at [facility]. Before her admission on 03/02/2019, she had an episode of taking too many medications at one time and show keen and developing shortness of breath after swallowing. Aspiration was suspected as patient had decreased oxygen levels and she was subsequently brought into the emergency room for evaluation. Her oxygen saturations dropped into the 60s while in the emergency room and she was intubated and mechanically ventilated until 03/04/2019. A chest x-ray revealed left-sided infiltrate suspicious of aspiration pneumonia. She was admitted to the ICU and she was placed on IV Zosyn for aspiration pneumonia. Dr. Kvng Funk was consulted to assist with antibiotic therapy as she had previously been treated with IV antibiotics for her heel wound. Cultures have remained unremarkable. The patient has clinically improved over the course of her hospital stay with IV Zosyn. She was successfully extubated and O2 saturations have remained in the high 90s with 2 to 3 L of nasal cannula. She did have a mild congestive heart failure exacerbation as well and received IV Lasix. She is now stable for discharge back to [facility]. Her Celexa will be held due to possible interaction with antibiotics. She will complete a course of p.o. Augmentin and Cipro, and she will follow up with her PCP as well as Dr. Paz with Pulmonology. Her last vital signs were temperature 98.7 degrees, heart rate 90, respiratory rate 19, blood pressure 125/56, O2 saturation 98% on 2 L of nasal cannula. Her last labs revealed WBC 7.6, hemoglobin 9.0, hematocrit 29.9, platelets 198,000. ABG revealed pH is 7.4, pCO2 61, pO2 84, bicarb 33.7, lactate 1.4. Sodium 145, potassium 3.8, BUN 13, creatinine 0.8, calcium 8.5. Digoxin level 1.4. DISCHARGE DIET: Regular diet. DISCHARGE ACTIVITY: No limitations. DISCHARGE INSTRUCTIONS: 1. Please complete the entire course of both antibiotics as prescribed. 2. Please hold your Celexa until antibiotics are completed. 3. Please get a repeat blood count, kidney function test in 5 days as well as speech evaluation. 4. Follow up with Dr. Paz of Pulmonology in 10 days to discuss if you need a possible sleep study. 5. Please return to the emergency room for any chest pain, shortness of breath, increased fatigue, or other concerning signs or symptoms. DISPOSITION: Discharge is to [facility]. DISCHARGE MEDICATIONS: Per Dr. Robb. Please see MAR. FOLLOW UP: 1. Dr. Sanam Murry. Please call and make this appointment for primary follow- up care. 2. Jackson Roe, Pulmonology. Please call and make this appointment. Dictated by LAYO Lau for Chad Robb MD cc: MD Sanam Camacho MD Leroy F. Harris, MD James E. Boyle, MD I agree with most components of discharge summary mentioned above. A separate addendum has been dictated. [facility]
--- NOTE | 2019-03-07 15:32 | PROGRESS NOTE ---
DATE: 03/07/2019 ADDENDUM TO DISCHARGE SUMMARY AND PROGRESS NOTE: I agree with most components of discharge summary. In brief, Ms. Carson did not have any acute overnight events. SUBJECTIVE: She is feeling significantly better. Her cough has diminished. She is not feeling short of breath. OBJECTIVE: Vital Signs: She has been afebrile. Pulse of 88, respiratory rate 16, blood pressure 124/58, saturating 98% on 3 L nasal cannula. Lungs: She does have mild crackles on left inframammary and infra-axillary region which is significantly better than on my previous examination. Extremities: No lower extremity edema. LABORATORY DATA: She does not have new CBC or BMP today. MEDICATIONS: Her antibiotics have been changed to p.o. Augmentin 875 mg b.i.d. and ciprofloxacin 750 mg p.o. b.i.d., and she will complete 7 days course. ASSESSMENT AND PLAN: 1. Acute hypoxic respiratory failure. 2. Bilateral lower lobe pneumonia. 3. Aspiration pneumonia. 4. Mild acute exacerbation of heart failure with preserved ejection fraction. 5. Paroxysmal atrial fibrillation, on home Eliquis with rapid ventricular rat. PLAN: The patient will be discharged on p.o. antibiotics. She should follow up with lung doctor in about 10 days. Discussed about need for sleep study. She should get repeat CBC and CMP done in about 5 days time. We have held her citalopram considering interaction with ciprofloxacin. Plan of care was discussed with the patient, her daughter who is a surrogate decision maker, and at bedside. All of their questions have been answered. cc: Chad Robb MD
--- NOTE | 2019-03-07 20:36 | DISCHARGE SUMMARY ---
ADMISSION DATE: 03/02/2019 DISCHARGE DATE: 03/07/2019 ADDENDUM - DISCHARGE SUMMARY: DISCHARGE MEDICATIONS: Rosuvastatin 20 mg daily, MiraLAX 17 g p.o. daily as needed for constipation, multivitamin 1 tablet daily, gabapentin 200 mg p.o. t.i.d., Augmentin 875 mg every 12 hours for 7 days, aspirin 81 mg daily, ciprofloxacin 750 mg q.12 hours p.o. for 7 days, albuterol ipratropium nebulization 3 mL inhaled q.6 hours, apixaban 5 mg b.i.d., Icar C tablet 1 tablet p.o. b.i.d., digoxin 125 mcg daily, Lasix 20 mg daily, pantoprazole 40 mg daily, Santyl ointment 1 application daily, metoprolol succinate 50 mg daily, acetaminophen 650 mg p.o. q.6 hours p.r.n. for pain, ergocalciferol 50,000 units p.o. every 7 days. cc: Chad Robb MD
== END 2019-03-07 15:40 | DRG 208 ==
LOC: SUPCPDRO → ED 22:11 → SUATTDRO 03-02 03:51 → ICU 03-02 03:51 → 3S 03-02 15:17 → ICU 03-02 15:17 → 3S 03-04 14:04
PROVIDERS: ATTEND Internal Medicine
CPT/HCPCS: 31500; 51702; 71010; 71020; 71045; 71046; 71250; 80048; 80053; 80162; 81001; 82805; 83605; 83735; 84100; 84145; 84443; 84484; 85025; 87040; 87070; 87205; 87449; 87899; 93005; 94003; 94150; 94640; 94761; 96365; 96366; 96368; 96375; 97162; 97530; 99285; 99291; A9270; C9113; J0330; J0696; J1160; J1650; J1940; J2543; J3370; J3475; J3480; J7030; S0164

== ENCOUNTER 2019-05-19 23:07 | Inpatient (IN) ==
[2019-05-20 00:25] LABS: AGAP 15; ALB/GLOB RATIO 1.2; ALBUMIN 3.2 g/dL (3.5-5.0); ALKALINE PHOSPHATASE 84 U/L (32-104); BUN 7 mg/dL (8-22); CALCIUM 8.8 mg/dL (8.8-10.2); CHLORIDE 100 mmol/L (98-107); CK PROFILE 29 U/L (24-173); COSMO 275; CREATININE 0.7 mg/dL (0.5-0.9); ESTIMATED GFR > 60; GLUCOSE 126 mg/dL (70-104); GOT 22 U/L (10-30); GPT 10 U/L (10-36); LIPASE 10 U/L (13-60); POTASSIUM 3.8 mmol/L (3.5-5.1); SODIUM 138 mmol/L (136-145); TCO2 23 mmol/L (25-35); TOTAL BILIRUBIN 1.01 mg/dL (0.20-1.00); TOTAL PROTEIN 5.9 g/dL (6.3-8.3)
--- NOTE | 2019-05-20 00:25 | PROVIDER DOCUMENTATION ---
This chart was entered by Betty Iniguez Scribe, acting as scribe for Jason Chun MD. HPI-Chest Pain - General Chief Complaint: Chest Pain Stated Complaint: CP Time Seen by Provider: 05/19/19 23:20 Source: patient Allergies/Adverse Reactions: Patient Allergies Allergy/AdvReac Type Severity Reaction Status Date / Time No Known Allergies Allergy Verified 05/13/19 12:08 Home Medications: Home Medication List Medication Instructions Recorded Confirmed Last Taken Type Gabapentin [Neurontin] 200 mg PO TID 08/18/12 03/02/19 02/15/19 History ROSUVAstatin [Crestor] 1 tab PO DAILY 12/08/18 03/02/19 02/15/19 History Pantoprazole [Protonix] 40 mg PO DAILY@0700 #30 tab 12/11/18 03/02/19 02/15/19 Rx Polyethylene Glycol 3350 [Miralax] 17 gm PO PRN PRN 02/10/19 03/02/19 02/15/19 History Apixaban [Eliquis] 5 mg PO BID #0 tab 02/15/19 03/02/19 02/15/19 Rx Ergocalciferol (Vitamin D2) 50,000 unit PO Q7D #12 cap 02/15/19 03/02/19 0 02/15/19 Rx [Vitamin D] Iron Carbonyl/Ascorbic Acid 1 ea PO BID #120 tab 02/15/19 03/02/19 02/15/19 Rx [Icar-C] Acetaminophen [Tylenol] 650 mg PO Q6H PRN PRN tab 02/18/19 03/02/19 Unknown Rx Aspirin 81 mg PO DAILY chewtab 02/18/19 03/02/19 Unknown Rx Collagenase Clostridium Oint 1 applic TOP DAILY #1 oint 02/18/19 03/02/19 Unknown Rx [Santyl Oint] Digoxin [Lanoxin] 125 microgm PO DAILY #90 tab 02/18/19 03/02/19 Unknown Rx Furosemide [Lasix] 20 mg PO DAILY tab 02/18/19 03/02/19 Unknown Rx Multivitamin [Multi-Day Vitamins] 1 tab PO DAILY 03/02/19 03/02/19 Unknown History Albuterol 2.5MG/Ipratrop 0.5MG 3 ml INH RTQ6H neb 03/07/19 Unknown Rx [Duoneb (A & A)] Amoxicillin/Pot Clavulanate 875 mg PO Q12HR #14 tab 03/07/19 Unknown Rx [Augmentin] Ciprofloxacin [Cipro] 750 mg PO Q12H #14 tab 03/07/19 Unknown Rx Metoprolol Succinate E.r. [Toprol 50 mg PO DAILY #0 tab 03/07/19 03/02/19 02/15/19 Rx Xl] Clonidine [Catapres] 0.1 mg PO TID #10 tab 05/16/19 Unknown Rx - History of Present Illness-CP Nature of Presenting Problem: Pt was recently taken off clonidine and put on Lisinopril, her BP wendy to 210/110, she had some CP and called PCP who put her back on clonidine. Her BP did not get any lower and was still 210/106. CP started about 45 min. [employer]ATIONAL [employer]. Pt was given 3 nitro and 1 asprin. Pt also had EKG at PCP as well at [facility] w/ EMS. No changes to EKG per EMS. Location: reports: substernal Chest Pain Radiation: reports: no radiation Quality of Pain: reports: aching Severity in ED: mild Onset/Duration: 1 hour ago Timing: still present Context/Activities at Onset: reports: none Modifying Factors: improves with: nothing Associated Symptoms: reports: denies symptoms Nitro Today/Relief: 0.4 mg x 3 Aspirin Treatment Today: 325 mg x 1 Similar Symptoms Previously?: Yes Recently Seen Here or By Another Healthcare Provider: No Review of Systems - Adult - REVIEW OF SYSTEMS - ADULT Constitutional: reports: no symptoms reported. denies: chills, fever Eyes: reports: no symptoms reported Ears, Nose, Mouth & Throat: reports: no symptoms reported Cardiovascular: reports: chest pain Respiratory: reports: no symptoms reported Gastrointestinal: reports: no symptoms reported. denies: abdominal pain, nausea, vomiting Genitourinary: reports: no symptoms reported Musculoskeletal: reports: no symptoms reported Integumentary: reports: no symptoms reported Neurological: reports: no symptoms reported. denies: dizziness/vertigo, headache/migraines Psychiatric: reports: no symptoms reported Endocrine: reports: no symptoms reported Hematologic/Lymphatic: reports: no symptoms reported Allergic/Immunologic: reports: no symptoms reported All Other Systems: Reviewed and Negative Past History - Adult - PAST MEDICAL HISTORY-ADULT Review of Records: reports: Old Records Reviewed, Nursing Assessment Review, Medications Reviewed, Social history reviewed & non-contributory. Major Childhood Illnesses: reports: denies history Cardiovascular: reports: HTN, hyperlipidemia Respiratory: reports: denies history Gastrointestinal: reports: GERD Obstetrical/Gynecological: reports: denies history Genitourinary: reports: denies history Musculoskeletal: reports: denies history Neurological: reports: denies history Psychiatric: reports: anxiety, depression Endocrine/Immune: reports: denies history Other Conditions: reports: cataract/glaucoma, other (HERNIA) - PRIOR SURGERIES/PROCEDURES Surgical/Procedure History: reports: orthopedic (extremity), other (CATARACT, stomach surgery) - IMMUNIZATION STATUS Childhood Immunizations: See Nurse Assessment Flu Vaccine: See Nurse Assessment - FAMILY HISTORY Family History: reviewed, not pertinent - SOCIAL HISTORY Smoking: denies, non-smoker Substance Use: none/never Alcohol Use Frequency: never Living Situation: family Physical Exam-General - PHYSICAL EXAM-ADULT Initial Vital Signs Reviewed: Yes - CONSTITUTIONAL General Appearance: appears well, alert, no apparent distress - EYES Eyes: PERRL/EOMI, pink conjunctivae - HEAD, EARS, NOSE, MOUTH & THROAT HENMT: normocephalic/atraumatic, moist mucous membranes, normal ENT inspection, TMs normal, pharynx normal - NECK Neck: non-tender, full range of motion, supple, normal inspection - RESPIRATORY Respiratory: chest non-tender, lungs clear, normal breath sounds - CARDIOVASCULAR Cardiovascular: regular rate, rhythm - GASTROINTESTINAL (ABDOMEN) Abdominal Exam: normal bowel sounds, non tender, soft - LYMPHATIC Lymphatic: no adenopathy - MUSCULOSKELETAL Back Exam: normal inspection, no CVA tenderness, no vertebral tenderness Extremity: normal range of motion, non-tender, normal gait, normal inspection, other (1+ pitting edema). negative: no pedal edema - SKIN Integumentary: normal color, warm/dry - NEUROLOGIC Neurologic: grossly normal - PSYCHIATRIC Psych/Mental Status: normal mood/affect, normal thought content, normal thought process, oriented x 3 - HEART Score HEART Score: History: Moderately Suspicious HEART Score: ECG: Non-Specific Repolarization Disturbance/LBBB/PM HEART Score: Age: > or = 65 Years HEART Score: Risk Factors for Atherosclerotic Disease: 1 or 2 Risk Factors HEART Score: Troponin: < or = Normal Limit Total HEART Score:: 5 Progress - PLAN OF CARE/RESULTS Progress/Plan/Lab Results: Vital Signs - 8 hr 05/19/19 23:14 05/19/19 23:15 05/19/19 23:20 Temperature Pulse Rate Respiratory Rate Blood Pressure 132/78 O2 Sat by Pulse Oximetry 93 L 92 L 93 L 05/19/19 23:30 05/19/19 23:40 05/19/19 23:50 Temperature Pulse Rate 61 62 66 Respiratory Rate 24 20 27 H Blood Pressure O2 Sat by Pulse Oximetry 97 97 96 05/20/19 00:00 05/20/19 00:10 05/20/19 00:20 Temperature 97.7 F Pulse Rate 61 59 L 57 L Respiratory Rate 21 23 19 Blood Pressure 132/78 O2 Sat by Pulse Oximetry 96 96 96 05/20/19 00:30 05/20/19 00:40 05/20/19 00:50 Temperature Pulse Rate 60 58 L 59 L Respiratory Rate 20 29 H 26 H Blood Pressure O2 Sat by Pulse Oximetry 95 96 96 05/20/19 01:00 05/20/19 01:10 05/20/19 01:20 Temperature Pulse Rate 58 L 76 78 Respiratory Rate 27 H 27 H Blood Pressure O2 Sat by Pulse Oximetry 95 96 96 05/20/19 01:30 05/20/19 01:44 05/20/19 01:50 Temperature Pulse Rate 81 73 83 Respiratory Rate 35 H 22 Blood Pressure O2 Sat by Pulse Oximetry 97 98 05/20/19 02:00 05/20/19 02:10 05/20/19 02:20 Temperature Pulse Rate 79 78 78 Respiratory Rate 27 H 26 H Blood Pressure O2 Sat by Pulse Oximetry 97 96 95 05/20/19 02:30 05/20/19 02:40 05/20/19 02:50 Temperature Pulse Rate 73 79 83 Respiratory Rate 26 H 27 H 26 H Blood Pressure O2 Sat by Pulse Oximetry 94 L 95 94 L 05/20/19 03:00 05/20/19 03:10 05/20/19 03:20 Temperature Pulse Rate 79 83 82 Respiratory Rate 25 H 23 24 Blood Pressure O2 Sat by Pulse Oximetry 94 L 94 L 94 L 05/20/19 03:30 Temperature Pulse Rate 81 Respiratory Rate 22 Blood Pressure O2 Sat by Pulse Oximetry 95 Laboratory Results - last 24 hr 05/19/19 05/19/19 05/19/19 01:45 23:55 23:55 WBC 14.44 H RBC 4.14 L Hgb 12.0 Hct 37.0 MCV 89.4 MCH 29.0 MCHC 32.4 L RDW Std Deviation 15.0 H Plt Count 213 MPV 11.7 H Immature Gran % (Auto) 0.1 Neut % (Auto) 84.4 H Lymph % (Auto) 8.3 L [place] % (Auto) 6.8 Eos % (Auto) 0.1 Baso % (Auto) 0.3 Immature Gran # (Auto) 0.02 Neut # (Auto) 12.19 H Lymph # (Auto) 1.20 [place] # (Auto) 0.98 H Eos # (Auto) 0.01 Baso # (Auto) 0.04 Sodium Potassium Chloride Carbon Dioxide Anion Gap BUN Creatinine Estimated GFR/1.73 m2 BUN/Creatinine Ratio Glucose Calculated Osmolality Calcium Total Bilirubin AST ALT Alkaline Phosphatase Creatine Kinase Troponin T Oge-G-Ogkoladidfo Pept Total Protein Albumin Globulin Albumin/Globulin Ratio Lipase Urine Source CLEAN CATCH Urine Color YELLOW Urine Turbidity CLEAR Urine pH 6.5 Ur Specific [place] 1.017 Urine Protein TRACE A Ur Glucose (Stick) NEGATIVE Ur Ketones (Stick) 40 A Urine Blood NEGATIVE Urine Nitrite POSITIVE A Urine Bilirubin NEGATIVE Urobilinogen Dipstick 4 A Urine Leukocytes SMALL A Urine WBC (Auto) 10-20 A Urine RBC (Auto) <10 U Epithel Cells (Auto) <10 Urine Bacteria (Auto) 4+ Plasma/Serum Ethyl Alc 05/19/19 05/19/19 05/19/19 23:55 23:55 23:55 WBC RBC Hgb Hct MCV MCH MCHC RDW Std Deviation Plt Count MPV Immature Gran % (Auto) Neut % (Auto) Lymph % (Auto) [place] % (Auto) Eos % (Auto) Baso % (Auto) Immature Gran # (Auto) Neut # (Auto) Lymph # (Auto) [place] # (Auto) Eos # (Auto) Baso # (Auto) Sodium 138 Potassium 3.8 Chloride 100 Carbon Dioxide 23 L Anion Gap 15 BUN 7 L Creatinine 0.7 Estimated GFR/1.73 m2 > 60 BUN/Creatinine Ratio 10 Glucose 126 H Calculated Osmolality 275 Calcium 8.8 Total Bilirubin 1.01 H AST 22 ALT 10 Alkaline Phosphatase 84 Creatine Kinase 29 Troponin T < 0.010 Tlt-[id number]-Ytqnbuqlvku Pept 4841 H Total Protein 5.9 L Albumin 3.2 L Globulin 2.7 Albumin/Globulin Ratio 1.2 Lipase 10 L Urine Source Urine Color Urine Turbidity Urine pH Ur Specific [place] Urine Protein Ur Glucose (Stick) Ur Ketones (Stick) Urine Blood Urine Nitrite Urine Bilirubin Urobilinogen Dipstick Urine Leukocytes Urine WBC (Auto) Urine RBC (Auto) U Epithel Cells (Auto) Urine Bacteria (Auto) Plasma/Serum Ethyl Alc 05/20/19 05/20/19 03:23 03:27 WBC RBC Hgb Hct MCV MCH MCHC RDW Std Deviation Plt Count MPV Immature Gran % (Auto) Neut % (Auto) Lymph % (Auto) [place] % (Auto) Eos % (Auto) Baso % (Auto) Immature Gran # (Auto) Neut # (Auto) Lymph # (Auto) [place] # (Auto) Eos # (Auto) Baso # (Auto) Sodium Potassium Chloride Carbon Dioxide Anion Gap BUN Creatinine Estimated GFR/1.73 m2 BUN/Creatinine Ratio Glucose Calculated Osmolality Calcium Total Bilirubin AST ALT Alkaline Phosphatase Creatine Kinase 18 L Troponin T < 0.010 Ocb-A-Uafaumnnfvm Pept Total Protein Albumin Globulin Albumin/Globulin Ratio Lipase Urine Source Urine Color Urine Turbidity Urine pH Ur Specific [place] Urine Protein Ur Glucose (Stick) Ur Ketones (Stick) Urine Blood Urine Nitrite Urine Bilirubin Urobilinogen Dipstick Urine Leukocytes Urine WBC (Auto) Urine RBC (Auto) U Epithel Cells (Auto) Urine Bacteria (Auto) Plasma/Serum Ethyl Alc Orders Category Date Time Status CHEST-1 VIEW [RAD] Stat Exams 05/19/19 23:10 Taken ALCOHOL BLOOD Stat Lab 05/19/19 23:55 Completed BNP [PRO B-NATRIURETIC PEPTIDE] Stat Lab 05/20/19 01:57 Completed CBC WITH ELECTRONIC DIFF [HEME] Stat Lab 05/19/19 23:55 Completed CK PROFILE [SP CHEM] Stat Lab 05/19/19 23:55 Completed COMPREHENSIVE METABOLIC PANEL [CHEM] Stat Lab 05/19/19 23:55 Completed Cardiac Profile [CK PROFILE] [SP CHEM] Stat Lab 05/20/19 03:23 Completed LIPASE [CHEM] Stat Lab 05/19/19 23:55 Completed TROPONIN T Stat Lab 05/19/19 23:55 Completed TROPONIN T Stat Lab 05/20/19 03:27 Completed UA NIMS W/REFLEX CULT [URINALYSIS] Stat Lab 05/19/19 01:45 Completed URINE CULTURE [RM] Routine Lab 05/20/19 02:13 Received Ciprofloxacin 400 mg/D5w [Cipro 400 mg/D5w] Med 05/20/19 02:20 Discontinued 400 mg in 200 ml IV NOW EKG [EKG] Stat Ther 05/19/19 23:09 Ordered Result Diagrams: 05/19/19 23:55 05/19/19 23:55 - EKG 1 Time of EKG reading by physician:: 23:27 EKG Read and Signed by:: Jason Chun EKG Interpretation (*Must complete 3 of following elements*): Abnormal (Normal sinus rhythm, Nonspecifc St and T wave abnormality in lateral ead. v-5,v-6 I, avl) Rate: 62 Rhythm: normal sinus [place]: normal QRS: normal - CONSULTS/PCP/HOSPITALIST Notification #1 *Consult/PCP/Hospitalist*: DR YOU Time Discussed: 04:10 Consult Disposition: Admit Departure - Departure Date of Disposition Decision: 05/20/19 Time of Disposition Decision: 04:12 DIAGNOSIS: Chest pain, CHF (congestive heart failure), UTI (urinary tract infection) Disposition: ADMITTED INPATIENT 09 Certified Medical Emergency: Emergent Condition: Stable Referrals and Follow-Ups: Sanam Murry MD [Primary Care Provider] - - Critical Care Note This patient required my direct & personal management of CC.: No Attestation - Physician/ THANIA Attestation Patient care was provided by Advanced Practice Provider:: No The physician spent face to face time with patient:: Yes Advanced Practice Provider documentation review:: Supervising physician onsite and consulted in the evaluation and care of this patient. The physician did have a face to face encounter with the patient. This chart was documented by the indicated scribe, (Betty Iniguez, Orenibrobert) and accurately reflects the services I performed and decisions made by me, Jason Chun MD, as attested by the provider's signature.
[2019-05-20 00:28] LABS: BASO# 0.04 X1000 (0.0-0.2); BASO% 0.3 % (0.0-0.8); EOS# 0.01 X1000 (0.0-0.7); EOS% 0.1 % (0.0-10.0); IMM GRAN# 0.02 X1000 (0.0-0.04); IMM GRAN% 0.1 % (0.0-0.5); LYMPH% 8.3 % (20.5-51.1); MCHC 32.4 g/dL (33-37); MCV 89.4 FL (81-99); MONO# 0.98 X1000 (0.11-0.59); MONO% 6.8 % (1.7-9.3); MPV 11.7 FL (7.4-10.4); NEUT# 12.19 X1000 (1.4-6.5); NEUT% 84.4 % (42.2-75.2); PLT 213 X1000 (130-400); RBC 4.14 XMIL (4.2-5.4); WBC 14.44 X1000 (4.8-10.8)
[2019-05-20 02:03] LABS: URINE SOURCE CLEAN CATCH
[2019-05-20 02:07] LABS: BILIRUBIN URINE NEGATIVE (NEGATIVE); BLOOD URINE NEGATIVE (NEGATIVE); COLOR YELLOW; GLUCOSE URINE NEGATIVE (NEGATIVE); KETONE URINE 40 mg/dL (NEGATIVE); LEUKOCYTES URINE SMALL (NEGATIVE); NITRITE URINE POSITIVE (NEGATIVE); PH URINE 6.5; PROTEIN URINE TRACE mg/dL (NEGATIVE); SP GRAVITY URINE 1.017; TURBIDITY URINE CLEAR (CLEAR); UROBILINOGEN URINE 4 mg/dL (NORMAL)
[2019-05-20 02:08] LABS: UR EPITHELIAL CELLS <10 /HPF (<10); URINE BACTERIA 4+ /HPF; URINE RBC <10 /HPF (<10)
[2019-05-20] MEDS ORDERED: CIPRO 400 MG/D5W 400 MG/200 ML IVPB IV ONE (02:20)
[2019-05-20] MEDS ORDERED: LASIX IV ONE (04:12)
[2019-05-20] MEDS ORDERED: ZOFRAN IV PRN (05:36)
[2019-05-20] MEDS ORDERED: NITROGLYCERIN SL PRN (05:36)
[2019-05-20] MEDS ORDERED: MIRALAX PO PRN (05:40)
--- NOTE | 2019-05-20 07:17 | Diag Imaging Result Doc PS360 ---
EXAM: CHEST-1 VIEW 05/19/2019 HISTORY: cp TECHNIQUE: AP portable at 2332 COMMENT: There has been definite increase in pulmonary vascularity and interstitial opacity and basilar alveolar opacities since the previous study of 05/13/2019. There is increasing left pleural fluid. IMPRESSION: Worsening pulmonary edema and pulmonary vascular engorgement. Left pleural effusion. Electronically signed by Zeke Negron 05/20/2019 7:14 AM
--- NOTE | 2019-05-20 07:36 | EKG Report ---
Test Performed on : 05/19/2019 11:27:38 PM Test Reason : CP Blood Pressure : / mmHG Vent. Rate : 062 BPM Atrial Rate : 062 BPM P-R Int : 152 ms QRS Dur : 088 ms QT Int : 452 ms P-R-T Axes : 076 010 -18 degrees QTc Int : 458 ms Normal sinus rhythm. Nonspecific ST and T wave abnormality Abnormal ECG When compared with ECG of 16-MAY-2019 12:15, (Unconfirmed) QT has lengthened Unconfirmed Result
[2019-05-20] MEDS: PROTONIX PO SCH (07:45)
[2019-05-20] MEDS ORDERED: LASIX PO SCH (09:00)
[2019-05-20] MEDS ORDERED: CATAPRES PO PRN (09:00)
[2019-05-20] MEDS: DUONEB (A & A) INH SCH ×3 (09:34→23:01)
[2019-05-20] MEDS: ROCEPHIN 1 GM in NS 50 ML IV SCH (09:42)
[2019-05-20] MEDS: ASPIRIN PO SCH (09:44)
[2019-05-20] MEDS: ICAR-C PO SCH ×2 (09:44→20:10)
[2019-05-20] MEDS: NEURONTIN PO SCH ×3 (09:44→16:54)
[2019-05-20] MEDS: ELIQUIS PO SCH ×2 (09:45→20:10)
[2019-05-20] MEDS: THERA M PLUS PO SCH (09:45)
[2019-05-20] MEDS: CRESTOR PO SCH (09:45)
[2019-05-20] MEDS: LANOXIN PO SCH (09:45)
[2019-05-20] MEDS: TYLENOL PO PRN ×2 (09:46→23:52)
[2019-05-20] MEDS: TOPROL XL PO SCH (09:46)
--- NOTE | 2019-05-20 11:13 | EKG Report ---
Test Performed on : 05/20/2019 11:06:22 AM Test Reason : chest pain Blood Pressure : / mmHG Vent. Rate : 082 BPM Atrial Rate : 082 BPM P-R Int : 162 ms QRS Dur : 086 ms QT Int : 370 ms P-R-T Axes : 094 006 234 degrees QTc Int : 432 ms Normal sinus rhythm. ST & T wave abnormality, consider anterolateral ischemia Abnormal ECG When compared with ECG of 19-MAY-2019 23:27, (Unconfirmed) T wave inversion now evident in Lateral leads Confirmed by Deion Dodd MD ([id number]) on 05/24/2019 9:44:26 PM
--- NOTE | 2019-05-20 11:56 | CARDIOLOGY CONSULTATION ---
DATE: 05/20/2019 REASON FOR CONSULTATION: Cardiology was consulted for chest pain, heart failure. HISTORY OF PRESENT ILLNESS: An 83-year-old lady, came to the emergency room due to weakness, fatigue, shortness of breath and chest discomfort. She is a frail lady who says that she has been having intermittent episodes of chest pain, retrosternal, off and on for the last 1 week and described as pressure-like sensation. There is no radiation to the back or down the arms. Admission electrocardiogram revealed normal sinus rhythm. First set of cardiac enzymes was negative. Electrocardiogram was done again this morning which revealed nonspecific ST-T changes. However, there were flipped T-waves noted anteriorly, compared to previous electrocardiogram. As far as her shortness of breath is concerned, she feels better since admission to the hospital. She was given Lasix. She also has been treated for urinary tract infection. There are no recent palpitations. There is no recent syncope. She has had extensive previous history as listed below. REVIEW OF SYSTEM: A 14-point review of systems was done.Gastrointestinal: There is no history of nausea, vomiting, or diarrhea. There is no history of hematemesis or melena. Central nervous system: No focal weakness to suggest a CVA or TIA. Genitourinary: There is no obvious dysuria but she is being treated for urinary tract infection. PAST MEDICAL HISTORY: 1. History of pulmonary embolism. 2. Anticoagulation therapy. 3. History of lung mass. 4. Hypertension. 5. 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 6. Fibromyalgia. 7. Bilateral leg edema. 8. Has coronary calcification, extensive on CT of the chest 11/25/2017. 9. History of syncope. Has an implantable loop device. Last interrogated in February which was unremarkable. 10. She was admitted at [facility] on 11/25/2017. 11. Chronic renal insufficiency. HOME MEDICATIONS: Include: 1. Gabapentin. 2. Crestor 20. 3. Protonix. 4. Eliquis 5 mg p.o. b.i.d. 5. Iron carbonyl. 6. Vitamin D. 7. Aspirin 81. 8. Digoxin 0.125 mg. 9. Lasix 20. 10. Multivitamin. 11. Metoprolol 50 mg daily. 12. Catapres TTS 0.1. PHYSICAL EXAMINATION: Vital Signs: Blood pressure was 166/82. Cardiovascular System: Normal jugular venous pressure. First and second heart sounds were heard. There was faint systolic murmur. Respiratory System: Bibasilar inspiratory crepitations. Abdomen: Soft, nontender. There was no guarding or rigidity. Bowel sounds were heard. Central nervous system: Alert and oriented. Was moving all 4 extremities. Extremities: Revealed mild pedal edema. LABORATORY DATA: Sodium 138, potassium 3.8, BUN 7, creatinine 0.7, blood sugar was 126. WBC. 14.4, hemoglobin 12, hematocrit 37, platelet count of 213,000. First set of cardiac enzymes were negative. Urine examination was positive for nitrites and WBC. IMAGING: Chest x-ray, worsening pulmonary edema, pleural effusion. ASSESSMENT AND PLAN: Ms. Naima Carson is an 83-year-old lady with history of coronary calcification, pulmonary embolism in the past, hypertension, hyperlipidemia, fibromyalgia, chronic pain. Has had gastroplasty in 2012. Comes with complaints of recurrent episodes of chest discomfort associated with shortness of breath and orthopnea. The patient was noted to be in congestive heart failure. RECOMMENDATIONS: 1. We will get an echocardiogram to assess cardiac and valvular function. She has known coronary calcification with nonspecific T-wave changes which are recent and subtle. We will get 3 more sets of cardiac enzymes to make sure there is no ischemia. 2. We will add Lasix 40 mg IV twice daily to her medical regimen. 3. Hypertension. Continue with her home medications. 4. She has had pulmonary embolism in the past, is on Eliquis. We will hold the Eliquis and change it to Lovenox 1 mg/kg subcutaneous b.i.d. in the event that we need invasive coronary angiography. As far as further treatment plan is concerned, we will see what her cardiac enzymes are and her echocardiogram, we will either plan for a stress test or coronary angiogram if required. Thank you for the consult. We will follow hospital course. cc: MD GLORIA Leija
[2019-05-20] MEDS: LASIX IV SCH ×2 (12:11→20:10)
--- NOTE | 2019-05-20 15:22 | ECHO REPORT ---
ORDER DATE: 05/20/2019 INTERPRETING PHYSICIAN: Dr. Andrew Rolon ECHOCARDIOGRAPHIC MEASUREMENTS: 1. Interventricular septum: 1.5 cm. 2. Posterior wall: 1.2 cm. 3. Diastolic diameter: 3.8 cm. 4. Left atrium: 3.8 cm. 5. Aortic root: 3.2 cm. SUMMARY OF THE 2-DIMENSIONAL IMAGIN. Technically suboptimal study. 2. Left atrium was enlarged. 3. Aortic valve leaflets were trileaflet. 4. Pulmonic valve not well visualized. 5. Mitral valve was normal. There is mitral annular calcification. 6. Mild tricuspid regurgitation. Peak velocity across the tricuspid valve less than 2 m/sec. 7. There is mild mitral regurgitation. 8. Peak velocity across the aortic valve less than 2 m/sec by Doppler studies. There is no aortic stenosis or regurgitation. 9. Normal left ventricular cavity size. Asymmetric septal left ventricular hypertrophy. Estimated ejection fraction of 65% 10. There is no pericardial effusion or obvious intracardiac mass or thrombus seen. cc: MD Laureen Leija PA
--- NOTE | 2019-05-20 16:47 | PROGRESS NOTE ---
DATE: 05/20/2019 SUBJECTIVE: This is a patient of Naima mcdaniel. She is a patient of Dr. Sanam Murry. 83-year- old came to the emergency room with chest pain which she has had for a couple weeks, weakness, fatigue, shortness of breath, chest discomfort. This was a frail lady who is having intermittent episodes of chest pain, retrosternal, off and on for least a week. She said 2 weeks. Describes pressure-like sensation. No radiation to the back or down her arms. Electrocardiogram revealed normal sinus rhythm. First set of cardiac enzymes were negative. EKG done again in the morning revealed nonspecific ST-T wave segments. There was flipped T-waves noted anterior compared to old EKG. PAST MEDICAL HISTORY: 1. History of pulmonary embolism. 2. Anticoagulation therapy. 3. History of lung mass. 4. Hypertension. 5. Diaphragmatic hernia status post Shanique gastroplasty on 04/13/2013. 6. Fibromyalgia. 7. Bilateral leg edema. 8. Coronary calcification, extensive on CT of the chest from 11/16/2017. 9. History of syncope. She has an implantable loop device. Last time it was interrogated was in February and this was unremarkable. 10. Admitted to [facility] 11/25/2017. 11. Chronic renal insufficiency. PHYSICAL EXAMINATION: Today she says she feels a little better. Still some chest pressure.Vital Signs: Temperature 99 degrees, pulse 78, respirations 19, blood pressure 48764/62. Pupils are equal round. Lungs: Clear in all lung beth. Cardiovascular: Regular rhythm and rate without murmur or S3. LABORATORY DATA: Reviewed lab from yesterday, white count 14,440, hematocrit 37, platelet count 213,000. Sodium 138, potassium 3.8, chloride 100, BUN 7, creatinine 0.7. Troponin less than 0.01, proBNP was 4841. Two sets of enzymes where troponin both less than 0.01. ASSESSMENT AND PLAN: 1. This is an 83-year-old with history of coronary calcification, pulmonary embolism in the past, hypertension, hyperlipidemia, fibromyalgia, chronic pain syndrome. She had gastroplasty in 2012. She also had a diaphragmatic hernia repair, [place] procedure so plan is to get an echocardiogram to look at valvular function. Get 3 more sets of cardiac enzymes. She may need a left heart catheterization or lead studying. We will see what how she progresses. 2. She getting Lasix 40 mg twice a day for her medical regimen. 3. Hypertension watch blood pressures carefully. 4. She has a history of pulmonary embolism in the past, was on Eliquis. At the present time we will hold the Eliquis since she is on Lovenox 1 mg/kg subcutaneously b.i.d. in the event that we may need to do a left heart catheterization. 5. Review of her orders I do not see any change. 6. She is on nitroglycerin sublingual 0.4 mg p.r.n., Tylenol 650 mg p.o. q.6 hours p.r.n., albuterol ipratropium or duo nebs 3 mL q.6 hours p.r.n., Eliquis 5 mg b.i.d., aspirin 81 mg a day, Catapres 0.5 0.1 mg q.8 hours p.r.n., digoxin 125 mcg p.o. daily, vitamin D 50,000 units p.o. daily q.week, Lasix 40 mg IV b.i.d., Neurontin 200 mg p.o. t.i.d., iron carbonyl ascorbic acid 1 b.i.d., metoprolol succinate 50 mg daily, multivitamin 1 a day, Protonix 40 mg a day, MiraLAX 17 daily, ceftriaxone 1 g q.24 hours, Crestor 20 mg a day. cc: Agustin Russell MD
--- NOTE | 2019-05-20 20:39 | HISTORY AND PHYSICAL ---
PRIMARY CARE PROVIDER: Sanam Murry MD. CHIEF COMPLAINT: Chest pain. HISTORY OF PRESENT ILLNESS: This is an 83-year-old, female who was brought into the Emergency Room after having some chest pain. I believe she was taken off of her clonidine and put on lisinopril. Her blood pressure wendy into the 200s. She had some chest pain and called her PCP and he put her back on clonidine. The chest pain started around 45 minutes prior to her arrival. She was given 3 nitroglycerin and 1 aspirin en route. Her chest pain had subsided on evaluation. Cardiac enzymes are negative thus far. Chest x-ray showed increased pulmonary vascular congestion. She will be admitted for further evaluation and treatment. PAST MEDICAL HISTORY: 1. Aspiration pneumonia. 2. Hypertension. 3. Hyperlipidemia. 4. Prior DVT with PE. 5. Diastolic heart failure. 6. Atrial fibrillation. 7. Right heel cellulitis. 8. Left foot decubitus ulcer. 9. Bacteremia with ESBL-positive E. coli. PREVIOUS SURGICAL HISTORY: 1. Bilateral cataract surgeries. 2. Latia fundoplication. SOCIAL HISTORY: No alcohol, tobacco or illicit drug use. She is a resident of [facility]. FAMILY HISTORY: Positive for myocardial infarction in both parents but they were in their 80s. ALLERGIES: No known drug allergies. HOME MEDICATIONS: 1. Neurontin 200 mg p.o. t.i.d. 2. Crestor 20 mg p.o. daily. 3. Protonix 40 mg p.o. daily. 4. MiraLAX 17 grams p.o. p.r.n. 5. Eliquis 5 mg p.o. b.i.d. 6. Icar-C, one p.o. b.i.d. 7. Vitamin D2, 50,000 units every 7 days. 8. Aspirin 81 mg p.o. daily. 9. Digoxin 125 mcg p.o. daily. 10.Lasix 20 mg p.o. daily. 11.Tylenol 650 mg p.o. q.6h p.r.n. 12.Multivitamin, 1 p.o. daily. 13.Metoprolol 50 mg p.o. daily. 14.Clonidine 0.1 mg p.o. t.i.d. REVIEW OF SYSTEMS: A 14-point review of systems was conducted with the patient. Pertinent positives are listed above in the HPI. All other systems are reviewed and negative. PHYSICAL EXAMINATION: VITAL SIGNS: Temperature 97.7 degrees, pulse 72, respirations 18, blood pressure 132/78, oxygen saturation 96% on room air. GENERAL: A pleasant, 83-year-old female lying on the ER stretcher. Answers all questions appropriately. She is alert and oriented x 3. HEENT: Head is atraumatic, normocephalic. Pupils equal, round and reactive to light. Extraocular eye movements intact. Sclerae anicteric. Conjunctivae pink. Oral mucosa is moist. NECK: Supple. No JVD. No thyromegaly. Trachea is midline. No cervical lymphadenopathy. CARDIOVASCULAR: S1, S2 appreciated. No murmurs, rubs or gallops. LUNGS: Crepitations noted bilateral bases. No wheezes, rales or rhonchi. Symmetric rise and fall respirations. ABDOMEN: Soft, nontender, nondistended. Bowel sounds present in all 4 quadrants. Normoactive. No pulsatile mass, no organomegaly. EXTREMITIES: 1+ pitting edema bilateral lower extremities mid calf to foot. Pedal pulses 1+ bilaterally. GENITOURINARY: No bladder distention. Patient voids. Otherwise deferred. NEUROLOGICAL: Alert and oriented x 3. Cranial nerves II-XII appear to be grossly intact. DIAGNOSTIC DATA: Chest x-ray shows increased pulmonary vascular congestion. LABORATORY DATA: WBC 14.44, hemoglobin 12, hematocrit 37, platelet count 213. Sodium 138, potassium 3.8, chloride 100, carbon dioxide 23, BUN 7, creatinine 0.7, glucose 126. Troponins negative x 2 sets. ProBNP is 4841. Urinalysis with positive nitrites, 10-20 WBCs, leukocyte esterase positive, 4+ bacteria. ASSESSMENT AND PLAN: 1. Chest pain. Rule out acute myocardial infarction. Continue to trend cardiac enzymes. Consult Cardiology. Obtain echocardiogram tomorrow morning. Continue home medications. 2. Hypertension. It is possible that her hypertension was related to rebound hypertension. She does take a beta sekou and she was taken off clonidine; that has been restarted and her blood pressure is within normal limits. We will continue to monitor. 3. Hyperlipidemia. Continue statin. 4. Urinary tract infection. We will give Rocephin 1 gram IV q. 24 hours. 5. History of deep vein thrombosis with pulmonary embolism. Continue blood thinners. Further recommendations per patient clinical course. Dictated by LAYO Ch for Otoniel Garcia MD I have performed a face to face diagnostic evaluation.Labs/ xrays- reviewed; Exam- chest-clear, CV- regular. A/P- Chest Pain- Admit, cardiac work up Dr. Garcia cc: LAYO Ch MD Lindsay E. Smith, MD [facility]
[2019-05-21] MEDS: DUONEB (A & A) INH SCH ×4 (03:31→21:37)
[2019-05-21] MEDS: PROTONIX PO SCH (06:09)
[2019-05-21 08:00] LABS: BASO# 0.02 X1000 (0.0-0.2); BASO% 0.1 % (0.0-0.8); HEMATOCRIT 36.3 % (37.0-47.0); HEMOGLOBIN 11.8 g/dL (12.0-16.0); IMM GRAN# 0.11 X1000 (0.0-0.04); IMM GRAN% 0.4 % (0.0-0.5); LYMPH# 1.51 X1000 (1.2-3.4); LYMPH% 5.5 % (20.5-51.1); MCH 29.4 PG (27-31); MCHC 32.5 g/dL (33-37); MCV 90.3 FL (81-99); MONO% 8.4 % (1.7-9.3); NEUT% 85.6 % (42.2-75.2); PLT 175 X1000 (130-400); RBC 4.02 XMIL (4.2-5.4); RDW 15.9 % (11.5-14.5); WBC 27.44 X1000 (4.8-10.8)
[2019-05-21 08:27] LABS: BANDS 2 % (0-1); LYMPHS 2 % (21-51); MONO 8 % (1-9); SEGS 88 % (42-75)
[2019-05-21 08:30] LABS: CREATININE 1.8 mg/dL (0.5-0.9); POTASSIUM 3.3 mmol/L (3.5-5.1)
[2019-05-21] MEDS: ICAR-C PO SCH ×2 (09:09→20:36)
[2019-05-21] MEDS: CRESTOR PO SCH (09:09)
[2019-05-21] MEDS: ASPIRIN PO SCH (09:09)
[2019-05-21] MEDS: ELIQUIS PO SCH ×2 (09:09→20:36)
[2019-05-21] MEDS: LANOXIN PO SCH (09:09)
[2019-05-21] MEDS: TOPROL XL PO SCH ×2 (09:10→16:24)
[2019-05-21] MEDS: NEURONTIN PO SCH ×3 (09:10→20:37)
[2019-05-21] MEDS: LASIX IV SCH ×2 (09:10→20:36)
[2019-05-21] MEDS: THERA M PLUS PO SCH (09:10)
[2019-05-21] MEDS: ROCEPHIN 1 GM in NS 50 ML IV SCH (09:10)
--- NOTE | 2019-05-21 12:02 | PROGRESS NOTE ---
DATE: 05/21/2019 SUBJECTIVE: Ms. Carson feels much better. She says she feels great, wanting to go home. No further chest pain. She feels stronger. OBJECTIVE: Vital signs: Temperature 97.7 degrees, pulse 77, respirations 18, blood pressure 95/43. HEENT: Pupils are equal and round. Lungs: Clear in all lung beth. Cardiovascular: Regular rhythm and rate without murmur or S3. Abdomen: Soft. Skin is warm and dry. ASSESSMENT AND PLAN: This is a 83-year-old who was brought into the emergency room after she had chest pain, but she told me she had chest pain off and on for a couple weeks. Apparently, she has just recently been taken off her clonidine and put on lisinopril. Blood pressure wendy up to 200. She called her primary care physician and he put her back on clonidine. About 45 minutes prior to arrival, she took 3 nitroglycerin en route, complaining of chest pain. PAST MEDICAL HISTORY: 1. Aspiration pneumonia. 2. Hypertension. 3. Hyperlipidemia. 4. Prior DVT with PE. 5. Diastolic heart failure. 6. Atrial fibrillation. 7. Right heel cellulitis. 8. Left foot decubitus ulcer. 9. Bacteremia with ESBL positive E coli in the past. PAST SURGICAL HISTORY: 1. Bilateral cataract surgery. 2. Latia fundoplication. ASSESSMENT AND PLAN: 1. Admitted with chest pain. Enzymes are negative. She does have history of coronary artery disease. She did have an elevation in her white blood cell count and it went up this morning to 27,000 from 14,000. Urine did show 4+ bacteria and 10 to 20 white blood cells. Urine did grow out gram-negative madie, so we will treat this for urinary tract infection. 2. Chest pain. She does have a history of coronary artery disease. Definitely is at risk for unstable angina. Cardiology evaluating. 3. Hypertension. Blood pressure appears well controlled. 4. History of pulmonary embolism. We were holding her Eliquis. 5. Nutrition is good. REVIEW OF LAB: From this morning, creatinine is 1.8, when she presented it was 0.7, so I think we need to follow up on that and think about giving her some fluids. REVIEW OF ORDERS: She is on ceftriaxone 1 g IV q.24 hours. She is back on her Eliquis. Her chest x-ray, worsening pulmonary edema, pulmonary vascular engorgement, so the fluids were stopped. Had a little left pleural effusion. Watch her creatinine, is 1.8. cc: Agustin Russell MD
[2019-05-22] MEDS: TYLENOL PO PRN (01:39)
[2019-05-22] MEDS: DUONEB (A & A) INH SCH ×3 (04:01→15:54)
[2019-05-22] MEDS: PROTONIX PO SCH (06:24)
[2019-05-22 07:51] LABS: CREATININE 2.1 mg/dL (0.5-0.9); MAGNESIUM 1.7 mg/dL (1.5-2.7); POTASSIUM 3.5 mmol/L (3.5-5.1)
[2019-05-22] MEDS: LANOXIN PO SCH (11:30)
[2019-05-22] MEDS: NEURONTIN PO SCH ×2 (11:30→15:48)
[2019-05-22] MEDS: ROCEPHIN 1 GM in NS 50 ML IV SCH (11:30)
[2019-05-22] MEDS: THERA M PLUS PO SCH (11:31)
[2019-05-22] MEDS: ELIQUIS PO SCH (11:31)
[2019-05-22] MEDS: CRESTOR PO SCH (11:31)
[2019-05-22] MEDS: ICAR-C PO SCH (11:31)
[2019-05-22] MEDS: LASIX IV SCH (11:32)
[2019-05-22] MEDS: TOPROL XL PO SCH (11:32)
[2019-05-22] MEDS: ASPIRIN PO SCH (11:32)
[2019-05-22 16:27] VITALS: BP 126/60
--- NOTE | 2019-05-22 16:42 | DISCHARGE SUMMARY ---
ADMISSION DATE: 05/20/2019 DISCHARGE DATE: 05/22/2019 She is followed by Dr. Sanam Murry. An 83-year-old who presented with chest pain. Brought into the emergency department after having chest pain. Taken off for clonidine and put on some lisinopril recently. Blood pressure wendy up to 200s. Had some chest pain. Called primary care physician who put her back on clonidine. She reported about 45 minutes before she came to the emergency room on 05/20/2019 she was given 3 nitroglycerin and 1 aspirin en route, having some chest pain. The chest pain did seem to ease. Chest x-ray showed some increased pulmonary vascular congestion, and she was admitted for chest pain. Underlying known coronary artery disease. PAST MEDICAL HISTORY: 1. Aspiration pneumonia. 2. Hypertension. 3. Hyperlipidemia. 4. Prior DVT and pulmonary emboli. 5. Diastolic heart failure. 6. Atrial fibrillation. 7. Right heel cellulitis. 8. Left foot cellulitis, ulcer. 9. Bacteremia. She has a history of bacteremia with extended spectrum beta lactamase producing E coli. PREVIOUS SURGICAL HISTORY: 1. Bilateral cataract surgeries. 2. Latia fundoplication. Admitted. Cardiac enzymes were negative. Her chest pain seemed to resolve. Her white count on the was 27,440, hematocrit was 36, platelet count 175,000. She had an echocardiogram on 05/20. There was mitral, tricuspid regurgitation which was mild. Mitral valve was normal. Aortic valve was normal. Left ventricular function, normal left ventricular cavity size. Ejection fraction 65% so good ejection fraction. She had no further pain, was able to eat, and Cardiology was consulted on 05/20. She had nonspecific T-wave changes but no sign of positive enzymes, and serial EKG showed no definitive ST-segment changes or signs of ischemia. She had had a pulmonary emboli so she was on Eliquis. We had put her on Lovenox in case we decided she needed arteriogram, but was put back on the Eliquis. She felt good, wanted to go home, so discharged her on 05/22/2019, and we will put her back on her previous medications: 1. She is taking Tylenol 650 mg as needed. 2. She is on DuoNeb at home. 3. She was taking Augmentin, and I think she had finished that out. She is on Eliquis 5 mg b.i.d. 4. She did finish out a course of Cipro as well I think recently, 750 mg q.12 for 14 tablets. 5. She is on Catapres 0.1 mg p.o. t.i.d. 6. She takes collagenase Clostridium ointment daily, topical ointment. 7. Digoxin 125 mcg a day. 8. Vitamin D 50,000 units q.7 days. 9. Lasix 20 mg a day. 10. Neurontin 200 mg t.i.d. 11. Iron carbonyl-ascorbic acid which is Icar C 1 b.i.d. 12. Toprol-XL 50 mg daily. 13. Multivitamin 1 a day. 14. Protonix 40 mg a day. 15. MiraLAX 17 g p.r.n. 16. Crestor 1 g daily. I do not see any changes on the medications. Follow up with Dr. Sanam Murry. cc: Agustin Russell MD
[2019-05-23] MEDS ORDERED: VITAMIN D PO SCH (09:00)
--- NOTE | 2019-05-24 21:50 | EKG Report ---
Test Performed on : 05/21/2019 05:46:07 AM Test Reason : chest pain Blood Pressure : / mmHG Vent. Rate : 085 BPM Atrial Rate : 085 BPM P-R Int : 164 ms QRS Dur : 094 ms QT Int : 404 ms P-R-T Axes : 083 019 -07 degrees QTc Int : 480 ms Sinus rhythm. with premature atrial complexes. Nonspecific ST and T wave abnormality Prolonged QT Abnormal ECG When compared with ECG of 20-MAY-2019 11:06, (Unconfirmed) premature atrial complexes. are now present T wave inversion less evident in Anterolateral leads Confirmed by Deion Dodd MD ([id number]) on 05/24/2019 9:51:16 PM
--- NOTE | 2019-05-24 22:03 | EKG Report ---
Test Performed on : 05/22/2019 07:02:32 AM Test Reason : chest pain Blood Pressure : / mmHG Vent. Rate : 086 BPM Atrial Rate : 086 BPM P-R Int : 148 ms QRS Dur : 086 ms QT Int : 358 ms P-R-T Axes : 036 011 195 degrees QTc Int : 428 ms Sinus rhythm. with premature atrial complexes. with aberrant conduction. Nonspecific ST and T wave abnormality Abnormal ECG When compared with ECG of 21-MAY-2019 05:46, (Unconfirmed) No significant change was found Confirmed by Deion Dodd MD ([id number]) on 05/24/2019 10:04:00 PM
== END 2019-05-22 16:59 | disposition home or self-care (01) | DRG 291 ==
LOC: SUPCPDRO → ED 23:07 → 3N 23:07 → SUATTDRO 05-20 07:36 → 3N 05-22 12:05
PROVIDERS: ATTEND Emergency Medicine
CPT/HCPCS: 71010; 71045; 80048; 80053; 80061; 80307; 80320; 81001; 82055; 82550; 82728; 83690; 83721; 83735; 83880; 84484; 85025; 85379; 85651; 86140; 87077; 87088; 87186; 93005; 93010; 93306; 94640; 94761; 96374; 96375; 99285; A9270; C8929; G0480; G6040; J0696; J0744; J1940; J2405; Q9957